=== PATIENT | female | born 1965 | race Caucasian/White ===

== ENCOUNTER → 2017-06-20 | Day surgery (SDC) | payer BC ==
[~2017-06-20] MED LIST: ASPIR 8181 MG PO; BACTRIM DS TAB1 EACH PO; CIPROFLOXACIN500 M1 PO; CLINDAMYCIN HC150 MG PO; FENTANYL CITRATE/PF 100MCG/2 ML INJ ONE; INSULIN REGULAR, HUMAN 100 UNIT/1 ML 3ML VIAL ONE; JANUVIA100 MG PO; LANTUS100 UNITS/ SC; LIDOCAINE HCL 2% LOCAL INJ 5 ML SDV VIAL INJ ONE; METOPROLOL SUCC25 MG PO; METOPROLOL TART25 MG PO; MIDAZOLAM HCL 2 MG/2 ML VIAL ONE; NOVOLOG MI100 UNITS/ SC; PROPOFOL IV EMULSION 10 MG/ML 50 ML VIAL ONE; PROTONIX40 M2 PO; REGLAN10 MG PO; TUMERIC PO; VITAMIN B COMP1 EACH PO; Z.0.LEVEMIR100 UNIT/ SQ; Z.0.LEXAPRO10 MG PO; Z.0.LISINOPRIL20 MG PO; Z.0.SYNTHROID100 MCG PO
--- OUTSIDE RECORDS SUMMARY | 2017-06-20 06:06 | XMS REPORT ---
Author Author [facility] Address Unknown Phone Unavailable Care Team Providers Care Simonizer Name Role Phone CARLOS ENRIQUE ZAMAN Unavailable Unavailable Problems This patient has no known problems. Allergies, Adverse Reactions, Alerts This patient has no known allergies or adverse reactions. Medications This patient has no known medications. Results Test Description Test Time Test Comments Text Results Atomic Results Result Comments CHEST 2 VIEWS [place] [address] Patient Name: JENNIFER YEUNG MR #: [id number] : 1965 Age/Sex: 51/F Req #: [id number] Adm Physician: Ordered by: CARLOS ENRIQUE ZAMAN DPM Report #: [id number] Location: OR Room/Bed: Procedure: 1030- 0030 DX/CHEST 2 VIEWS Exam Date: 03/10/17 Exam Time : 1150 REPORT STATUS: Signed PROCEDURE: X-RAY CHEST, TWO VIEWS COMPARISON: [facility], DX, CHEST 2 VIEWS, 05/16/2010, 13:10. INDICATIONS: PRE OPERATIVE CHEST X-RAY FOR FOOT SURGERY FINDINGS: LUNGS: No consolidations or edema. PLEURA: No effusions or pneumothorax. HEART T MEDIASTINUM: The heart is within normal size- limits. BONES T SOFT TISSUES: No acute findings. Mild degenerative changes of the spine. CONCLUSION: No acute thoracic abnormality. Amisha Almanza D.O. Dictated by: Amisha Almanza D.O. on 03/10/2017 at 12:42 Electronically approved by: Amisha Almanza D.O. on 03/10/2017 at 12:42 Dictated By: AMISHA ALMANZA DO 124 Transcribed By: GEORGES on 03/10/17 1242 COPY TO: CARLOS ENRIQUE ZAMAN DPM
--- NOTE | 2017-06-20 09:03 | Operative Report ---
DATE OF PROCEDURE: June 20, 2017 REFERRING PHYSICIAN: Dr. Marv Gauthier. PROCEDURE PERFORMED: Esophagogastroduodenoscopy with esophageal dilatation and biopsies. INDICATIONS FOR PROCEDURE: Dysphagia to solids. Nausea and vomiting. MEDICATION: Patient was done under MAC. Please see anesthesiologist's note. PROCEDURE: With patient in left lateral decubitus position, flexible fiberoptic Olympus gastroscope was introduced into the esophagus under direct visualization without any difficulty. There was some patchy erythema noted in distal esophagus. A mild stricture was noted at the GE junction that was dilated to size 52-English Dewitt. The scope was then advanced with ease into the stomach. Mucosa overlying the antrum and the body revealed some diffuse erythema and mild to moderate edema, and biopsies were obtained and sent to stain for H. pylori. Several hyperplastic-appearing polyps were noted in the body of the stomach. Some were partially excised with cold biopsy forceps. The pylorus was of normal contour and shape. It was intubated with ease and the scope was advanced all the way to the 2nd portion of the duodenum. The scope was then withdrawn slowly. Mucosa overlying the proximal 2nd portion of the duodenal bulb appeared to be within normal limits. The scope was then withdrawn back into the stomach and retroflexed. Mucosa overlying the fundus and cardia appeared to be within normal limits. The scope was then straightened out. The stomach was decompressed. The scope was subsequently withdrawn. Patient tolerated the procedure well. IMPRESSION: 1. Distal esophagitis. 2. Esophageal stricture at gastroesophageal junction, dilated to a size 52-English Dewitt. 3. Gastritis biopsied. Biopsies sent to stain for Helicobacter pylori. 4. Gastric polyps body, some partially excised with the cold biopsy forceps. PLAN: Follow up histology. Initiate Protonix 40 mg 1 p.o. q.a.m. a.c. Job#: [id number] MT cc:MARV GAUTHIER MD
== END | disposition home or self-care (01) ==
LOC: OR 06:03
PROVIDERS: ATTEND Internal Medicine Gastroenterology
DX: K22.2 Esophageal obstruction (principal); K31.7 Polyp of stomach and duodenum; K29.70 Gastritis, unspecified, without bleeding; K20.9 Esophagitis, unspecified; E11.9 Type 2 diabetes mellitus without complications; I10 Essential (primary) hypertension; E03.9 Hypothyroidism, unspecified; Z01.810 Encounter for preprocedural cardiovascular examination; Z79.4 Long term (current) use of insulin; Z68.41 Body mass index [BMI] 40.0-44.9, adult; Z80.0 Family history of malignant neoplasm of digestive organs
CPT/HCPCS: 36415; 43239; 43450; 82948; 93005; J2001; J2250

== ENCOUNTER → 2017-07-09 | Outpatient (CLI) | payer BC ==
[~2017-07-09] MED LIST changes: +DICYCLOMINE HCL20 MG PO; -FENTANYL CITRATE/PF 100MCG/2 ML INJ ONE; -INSULIN REGULAR, HUMAN 100 UNIT/1 ML 3ML VIAL ONE; -LIDOCAINE HCL 2% LOCAL INJ 5 ML SDV VIAL INJ ONE; -MIDAZOLAM HCL 2 MG/2 ML VIAL ONE; -PROPOFOL IV EMULSION 10 MG/ML 50 ML VIAL ONE; +SUCRALFATE1 GM PO; +ZOFRAN ODT4 MG SL
--- NOTE | 2017-07-09 08:52 | Diagnostic Imaging Report ---
PROCEDURE:ABDOMINAL ULTRASOUND COMPARISON:CT abdomen and pelvis dated 08/28/2015 INDICATIONS:Epigastric Pain FINDINGS: Liver: Slightly enlarged measuring 17.6 cm with increased hepatic parenchymal echogenicity. No focal mass. Main portal vein: Measures 13 mm with normal hepatopedal flow. Gallbladder: Absent Common Bile Duct: Measures 0.5 cm with no echogenic filling defect. Sonographic Farmer's sign: Negative Right kidney: Measures 12.1 x 4.3 x 6.1 cm. No solid or cystic mass, echogenic calculi or hydronephrosis. Normal parenchymal echogenicity. Left kidney: Measures 11.7 x 6.4 x 5.8 cm. No solid or cystic mass, echogenic calculi or hydronephrosis. Normal parenchymal echogenicity. Spleen: Enlarged measuring 14.9 cm. Pancreas: The visualized portions of the pancreas are normal. The pancreatic tail is obscured. Inferior vena cava: Normal. Aorta: Poorly visualized. Ascites: None. CONCLUSION: 1. Slightly enlarged liver with increased hepatic echogenicity. 2. The spleen is enlarged. Prakash Almanza D.O. Dictated by: Prakash Almanza D.O. on 07/09/2017 at 8:52 Electronically approved by: Prakash Almanza D.O. on 07/09/2017 at 8:52
== END ==
LOC: US 07:58
PROVIDERS: ATTEND Internal Medicine Gastroenterology
DX: R10.13 Epigastric pain (principal)
CPT/HCPCS: 76700

== ENCOUNTER 2017-07-15 16:32 | Inpatient (IN) | payer BC ==
[~2017-07-15] VITALS: Ht 167.6 cm; Wt 114.3 kg
[~2017-07-15 16:32] MED LIST changes: -DICYCLOMINE HCL20 MG PO; -SUCRALFATE1 GM PO; -ZOFRAN ODT4 MG SL
[2017-07-15] MEDS ORDERED: MAGNESIUM/ALUMINUM/SIMETHICONE 30 ML UDC PO ONE ×2 (16:45→17:00)
[2017-07-15] MEDS ORDERED: LIDOCAINE VISC 2% SOLN 15 ML UDC PO ONE (16:45)
[2017-07-15 16:58] LABS: BASOPHILS # (AUTO) 0.1 (0.0-0.1); BASOPHILS % 0.7 % (0.0-1.0); EOSINOPHILS # (AUTO) 0.1 (0.0-0.4); EOSINOPHILS % 1.7 % (0.0-6.0); HEMATOCRIT 36.9 % (34.2-44.1); HEMOGLOBIN 11.3 g/dL (12.0-16.0); LYMPHOCYTES # (AUTO) 1.8 (1.0-3.2); MEAN CORPUSCULAR HGB CONC 30.6 g/dL (31-35); MONOCYTES # (AUTO) 0.3 (0.2-0.8); MONOCYTES % 4.4 % (4.4-11.3); NEUTROPHILS # (AUTO) 4.9 (2.1-6.9); NEUTROPHILS % 67.8 % (38.7-80.0); PLATELET COUNT 157 x10e3/uL (140-360); RED BLOOD COUNT 4.92 x10e6/uL (3.6-5.1); RED CELL DISTRIBUTION WIDTH 17.1 % (11.7-14.4)
[2017-07-15 17:05] LABS: INR 1.22; PROTHROMBIN TIME 14.5 seconds (11.9-14.5)
[2017-07-15 17:06] LABS: PARTIAL THROMBOPLASTIN TIME 28.9 seconds (23.8-35.5)
[2017-07-15 17:14] LABS: ALANINE AMINOTRANSFERASE 23 IU/L (0-55); ALBUMIN 3.7 g/dL (3.5-5.0); ALBUMIN/GLOBULIN RATIO 0.8 (0.8-2.0); ALKALINE PHOSPHATASE 135 IU/L (40-150); ANION GAP 15.1 mmol/L (8-16); BLOOD UREA NITROGEN 8 mg/dL (7-26); BUN/CREATININE RATIO 8 (6-25); CARBON DIOXIDE 25 mmol/L (22-29); CHLORIDE 98 mmol/L (98-107); CREATINE KINASE 31 IU/L (29-168); EST GLOMERULAR FILTRATION RATE 58 ML/MIN (60-); POTASSIUM 4.1 mmol/L (3.5-5.1); SODIUM 134 mmol/L (136-145)
[2017-07-15 17:15] LABS: GLUCOSE 571 mg/dL (74-118)
[2017-07-15] MEDS ORDERED: ONDANSETRON HCL INJ 2 MG/ML VIAL IV STA (17:21)
[2017-07-15] MEDS ORDERED: JANUVIA100 MG PO (17:26)
[2017-07-15] MEDS ORDERED: DICYCLOMINE HCL20 MG PO (17:26)
[2017-07-15] MEDS ORDERED: SUCRALFATE1 GM PO (17:26)
[2017-07-15] MEDS ORDERED: ZOFRAN ODT4 MG SL (17:26)
[2017-07-15] MEDS ORDERED: SODIUM CHLORIDE 0.9% 1000ML 1,000 ML IV SCH (17:30)
[2017-07-15] MEDS ORDERED: INSULIN REGULAR, HUMAN 100 UNIT/1 ML 3ML VIAL IV ONE (17:30)
--- NOTE | 2017-07-15 18:01 | Diagnostic Imaging Report ---
PROCEDURE: Frontal and lateral views of the chest. COMPARISON: Patients [facility], , CHEST 2 VIEWS, 03/10/2017, 10:45. INDICATIONS: CHEST PRESS, EPIGASTRIC PAIN FINDINGS: Lines/tubes: None. Lungs: The lungs are well inflated and grossly clear. There is no evidence of pneumonia or pulmonary edema. Pleura: There is no pleural effusion or pneumothorax. Heart and mediastinum: The heart and the mediastinum are normal. Bones: No acute bony abnormality. IMPRESSION: 1. No acute cardiopulmonary abnormalities. Serjio Ghotra M.D. Dictated by: Serjio Ghotra M.D. on 07/15/2017 at 18:00 Electronically approved by: Serjio Ghotra M.D. on 07/15/2017 at 18:00
[2017-07-15] MEDS ORDERED: PANTOPRAZOLE SOD 40 MG TABEC PO ONE (18:45)
--- NOTE | 2017-07-15 20:07 | Diagnostic Imaging Report ---
EXAM: CT of the abdomen and pelvis WITH contrast HISTORY: Upper abdominal pain COMPARISON: Images from a CT of the abdomen and pelvis performed on August 28, 2015. TECHNIQUE: The abdomen and pelvis were scanned utilizing a multidetector helical scanner. Coronal and sagittal reformats are provided. PROTOCOL: Routine IV CONTRAST: 100 cc of Isovue-370. ORAL CONTRAST: Water RADIATION DOSE: Total DLP: 854.36 mGy*cm Estimated effective dose: (DLP x 0.015 x size factor) COMPLICATIONS: None FINDINGS: LOWER THORAX: Unremarkable. HEPATOBILIARY: The liver is enlarged. Diffusely decreased attenuation of the liver relative to the spleen. No focal hepatic lesions. No biliary ductal dilatation. Metallic clips in the right upper quadrant of the abdomen are compatible with prior cholecystectomy. SPLEEN: Splenomegaly. Interval development of a low-density 2.3 cm lesion at the posterior aspect of the spleen (series 2 image 23). PANCREAS: No focal masses or ductal dilatation. ADRENALS: No discrete adrenal nodule. KIDNEYS/URETERS: No hydronephrosis, stones, or solid mass lesions. PELVIC ORGANS/BLADDER: Numerous pelvic phleboliths. The uterus is anteflexed. The urinary bladder is partially decompressed. PERITONEUM / RETROPERITONEUM: No free air or fluid. LYMPH NODES: No pathologically enlarged lymph node. Multiple retroperitoneal lymph nodes measuring up to 7 mm. VESSELS: A few scattered atherosclerotic vascular calcifications. GI TRACT: No distention or wall thickening identified. The stomach is partially decompressed, limiting evaluation. The appendix is normal. BONES: No aggressive osseous lesion or acute fracture. SOFT TISSUES: Unremarkable. IMPRESSION: 1. Hepatosplenomegaly. 2. Hepatic steatosis. 3. A low-density lesion within the posterior aspect of the spleen, and the absence of a known malignancy, this is statistically most likely a benign finding. Signed by: Dr. Armando Bhakta D.O., M.M.M. on 07/15/2017 8:03 PM
[2017-07-15] MEDS ORDERED: DEXTROSE 50% SYRINGE 50 ML IV PRN (20:30)
[2017-07-15] MEDS: INSULIN REGULAR, HUMAN 100 UNIT/1 ML 3ML VIAL SQ SCH (21:04)
[2017-07-15] MEDS: SODIUM CHLORIDE 0.9% 1000ML 1,000 ML IV SCH (21:21)
[2017-07-15] MEDS ORDERED: SODIUM CHLORIDE 0.9% 50ML 50 ML ONE (22:26)
[2017-07-15] MEDS ORDERED: IOPAMIDOL 370 MG/ML 200 ML INFUS..BTL INJ ONE (22:27)
[2017-07-15 22:37] VITALS: BP 50/80
[2017-07-16] VITALS (11 sets, daily range): BP systolic 89–159; BP diastolic 42–80
[2017-07-16] MEDS: SODIUM CHLORIDE 0.9% 1000ML 1,000 ML IV SCH ×3 (05:55→21:56)
[2017-07-16 07:07] LABS: BASOPHILS # (AUTO) 0.1 (0.0-0.1); BASOPHILS % 0.8 % (0.0-1.0); EOSINOPHILS # (AUTO) 0.2 (0.0-0.4); EOSINOPHILS % 2.2 % (0.0-6.0); HEMATOCRIT 32.9 % (34.2-44.1); HEMOGLOBIN 9.9 g/dL (12.0-16.0); LYMPHOCYTES # (AUTO) 2.8 (1.0-3.2); LYMPHOCYTES % 35.5 % (18.0-39.1); MEAN CORPUSCULAR HEMOGLOBIN 22.9 pg (28-32); MEAN CORPUSCULAR HGB CONC 30.1 g/dL (31-35); MEAN CORPUSCULAR VOLUME 76.2 fL (81-99); MONOCYTES # (AUTO) 0.5 (0.2-0.8); MONOCYTES % 6.6 % (4.4-11.3); NEUTROPHILS # (AUTO) 4.2 (2.1-6.9); NEUTROPHILS % 54.5 % (38.7-80.0); PLATELET COUNT 130 x10e3/uL (140-360); RED BLOOD COUNT 4.32 x10e6/uL (3.6-5.1); RED CELL DISTRIBUTION WIDTH 17.2 % (11.7-14.4)
--- NOTE | 2017-07-16 07:09 | History and Physical ---
CHIEF COMPLAINT: Abdominal pain. HISTORY OF PRESENT ILLNESS: This is Ms. Irene who was in her usual state of health until 2 weeks prior to admission when the patient started having epigastric pain. The patient was seen by Dr. Ed Ventura. Initially, EGD was done as outpatient. The patient started retching and had evaluation by Dr. Ventura's office. An ultrasound was done, which was normal. Also, the patient was started on Carafate. Symptoms still continued. With this amount of pain and epigastric pain, the patient was asked to come to the emergency room for admission and possibly for another scope. PAST MEDICAL HISTORY: History of hypertension, history of diabetes mellitus, history of hypothyroidism, history of insulin-dependence, history of reflux esophagitis. Other history includes right elbow joint replacement and mild depression. SURGERIES: Elbow replacement, bilateral cataract surgery, gallbladder removal, , hammertoes. FAMILY HISTORY: Positive for hypothyroidism, congestive heart failure, coronary artery disease, and arthritis, and myocardial infarction too. REVIEW OF SYSTEMS: Negative for chest pain or shortness of breath. Positive for nausea, vomiting and retching. No diarrhea. No constipation. No rectal bleeding, hematochezia. No hematemesis either. No diplopia. No blurry vision. PHYSICAL EXAMINATION GENERAL: The patient is alert and oriented times 3. VITAL SIGNS: Temperature is 97.9, blood pressure 50/80 when she came in, pulse ox of 98%. HEENT: Normocephalic and atraumatic. Pupils reactive to light and accommodation. There is no icterus present. CV: S1 and S2 normal. Regular rate and rhythm. ABDOMEN: Tender in the epigastric area. No rebound tenderness. No guarding. No rebound. LABS: Initial laboratory findings, white count was 7.2, hemoglobin 11.3, hematocrit 36. Chemistry: Sodium of 134, glucose 571, potassium 4.1. AST and ALT were normal. Alkaline phosphatase also was normal. Coags were all normal. IMAGING STUDIES: CT scan was done at the request of Dr. Venutra, and showed hepatosplenomegaly, hepatic steatosis, and low density lesion of the posterior aspect of the spleen, and absence of malignancy, which is basically benign. Also, the patient was found to have multiple retroperitoneal lymph nodes, subphrenic. ASSESSMENT 1. Abdominal pain. 2. Epigastric pain. 3. History of gastritis. 4. History of diabetes mellitus. 5. History of recent esophageal dilatation. PLAN: Go ahead and have an endoscopy. Will continue monitoring her blood pressure and give her IV hydralazine if needed. Insulin sliding scale has been reinstituted. The patient is n.p.o. Further recommendations were clinical course and also EGD findings. Job#: [id number] SULLY
[2017-07-16 07:28] LABS: ALANINE AMINOTRANSFERASE 27 IU/L (0-55); ALBUMIN/GLOBULIN RATIO 0.8 (0.8-2.0); ALKALINE PHOSPHATASE 128 IU/L (40-150); ANION GAP 13.7 mmol/L (8-16); BLOOD UREA NITROGEN 6 mg/dL (7-26); BUN/CREATININE RATIO 9 (6-25); CALCIUM 8.8 mg/dL (8.4-10.2); CARBON DIOXIDE 25 mmol/L (22-29); CHLORIDE 104 mmol/L (98-107); CREATININE, SERUM 0.69 mg/dL (0.57-1.11); EST GLOMERULAR FILTRATION RATE > 60 ML/MIN (60-); GLUCOSE 207 mg/dL (74-118); POTASSIUM 3.7 mmol/L (3.5-5.1); SODIUM 139 mmol/L (136-145)
[2017-07-16] MEDS: INSULIN REGULAR, HUMAN 100 UNIT/1 ML 3ML VIAL SQ SCH ×4 (07:30→20:41)
[2017-07-16] MEDS: MORPHINE SULFATE 2 MG/ML SYR IV PRN ×2 (08:38→20:37)
[2017-07-16] MEDS: ONDANSETRON HCL INJ 2 MG/ML VIAL IV PRN ×2 (08:38→20:37)
[2017-07-16] MEDS ORDERED: PANTOPRAZOLE 40 MG 10ML VIAL IV SCH (09:00)
[2017-07-16] MEDS ORDERED: INSULIN REGULAR, HUMAN 100 UNIT/1 ML 3ML VIAL ONE (15:53)
--- NOTE | 2017-07-16 16:38 | Operative Report ---
DATE OF PROCEDURE: July 16, 2017 REFERRING PHYSICIAN: Dr. Ramesh Schaeffer and Dr. Marv Gauthier PROCEDURE PERFORMED: Esophagogastroduodenoscopy with biopsies. INDICATIONS FOR PROCEDURE: Upper abdominal pain, nausea, heartburn and indigestion. MEDICATION: Patient was done under MAC. Please see anesthesiologist's note. PROCEDURE: With the patient in the left lateral decubitus position, the flexible fiberoptic Olympus gastroscope was introduced into the esophagus under direct visualization without any difficulty. There was some patchy erythema noted in the distal esophagus. The scope was then advanced with ease into the stomach. The mucosa overlying the antrum and the body revealed some patchy, intense erythema and mild to moderate edema, and biopsies were obtained and sent to stain for H. pylori. Several hyperplastic-appearing gastric polyps were noted in the body of the stomach, and some were partially excised with cold biopsy forceps. The pylorus was of normal contour and shape. It was intubated with ease, and the scope was advanced all the way to the 2nd portion of the duodenum. The scope was then withdrawn slowly. Mucosa overlying the proximal 2nd portion and the duodenal bulb grossly appeared to be within normal limits. The scope was then withdrawn back into the stomach and retroflexed. Mucosa overlying the fundus and cardia appeared to be within normal limits. The scope was then straightened out. The stomach was decompressed. The scope was subsequently withdrawn. Patient tolerated the procedure well. IMPRESSION 1. Distal esophagitis. 2. Gastritis, biopsied. Biopsies sent to stain for H. pylori. 3. Gastric polyps, some partially excised with cold biopsy forceps. PLAN: Follow up histology. Initiate Protonix 40 mg 1 p.o. a.c. b.i.d. Start full liquid diet. Job#: [id number] cc:MD MARV SALDIVAR MD
[2017-07-16] MEDS: PANTOPRAZOLE INJ 40 MG in SODIUM CHLORIDE 0.9% 50ML 50 ML IV SCH ×2 (17:52→18:43)
[2017-07-16] MEDS ORDERED: MIDAZOLAM HCL 2 MG/2 ML VIAL ONE (18:32)
[2017-07-16] MEDS ORDERED: PROPOFOL IV EMULSION 10 MG/ML 50 ML VIAL ONE (18:32)
[2017-07-16] MEDS ORDERED: LIDOCAINE HCL 2% LOCAL INJ 5 ML SDV VIAL INJ ONE (18:32)
[2017-07-16] MEDS ORDERED: FENTANYL CITRATE/PF 100MCG/2 ML INJ ONE (18:32)
[2017-07-17] VITALS (8 sets, daily range): BP systolic 132–166; BP diastolic 61–79
[2017-07-17] MEDS: MORPHINE SULFATE 2 MG/ML SYR IV PRN ×5 (00:47→21:20)
[2017-07-17] MEDS: ONDANSETRON HCL INJ 2 MG/ML VIAL IV PRN ×4 (00:47→21:20)
[2017-07-17] MEDS ORDERED: SUCRALFATE 1 GM/10 ML SUSP NG ONE (01:00)
[2017-07-17] MEDS: PANTOPRAZOLE INJ 40 MG in SODIUM CHLORIDE 0.9% 50ML 50 ML IV SCH ×5 (02:55→22:35)
[2017-07-17] MEDS: SODIUM CHLORIDE 0.9% 1000ML 1,000 ML IV SCH ×3 (03:56→20:50)
[2017-07-17] MEDS: SUCRALFATE 1 GM TAB PO SCH ×4 (08:18→20:38)
[2017-07-17] MEDS: INSULIN REGULAR, HUMAN 100 UNIT/1 ML 3ML VIAL SQ SCH ×4 (08:25→21:20)
[2017-07-17] MEDS ORDERED: METOCLOPRAMIDE HCL 10 MG/2ML VIAL IV ONE (15:15)
[2017-07-17] MEDS ORDERED: BISACODYL 5 MG TAB EC PO ONE ×2 (23:15→23:45)
[2017-07-18] VITALS (7 sets, daily range): BP systolic 134–165; BP diastolic 63–79
[2017-07-18] MEDS ORDERED: BISACODYL 5 MG TAB EC PO ONE ×3 (00:15→01:15)
[2017-07-18] MEDS: METOCLOPRAMIDE HCL 10 MG/2ML VIAL IV SCH ×5 (00:30→23:16)
[2017-07-18] MEDS: ONDANSETRON HCL INJ 2 MG/ML VIAL IV PRN ×3 (01:46→20:40)
[2017-07-18] MEDS: PANTOPRAZOLE INJ 40 MG in SODIUM CHLORIDE 0.9% 50ML 50 ML IV SCH ×3 (04:00→13:45)
[2017-07-18] MEDS: SODIUM CHLORIDE 0.9% 1000ML 1,000 ML IV SCH (05:23)
[2017-07-18] MEDS: LIDOCAINE VISC 2% SOLN 15 ML UDC PO SCH ×4 (05:49→17:19)
[2017-07-18] MEDS: BELLADONNA ALK/PHENOBARBITAL 5 ML UDC PO SCH ×4 (05:49→17:18)
[2017-07-18] MEDS: MAGNESIUM/ALUMINUM/SIMETHICONE 30 ML UDC PO SCH ×4 (05:49→17:19)
[2017-07-18 07:20] LABS: BASOPHILS % 0.6 % (0.0-1.0); EOSINOPHILS # (AUTO) 0.1 (0.0-0.4); EOSINOPHILS % 2.4 % (0.0-6.0); HEMATOCRIT 32.3 % (34.2-44.1); HEMOGLOBIN 9.5 g/dL (12.0-16.0); LYMPHOCYTES # (AUTO) 1.7 (1.0-3.2); LYMPHOCYTES % 34.1 % (18.0-39.1); MEAN CORPUSCULAR HEMOGLOBIN 22.8 pg (28-32); MEAN CORPUSCULAR HGB CONC 29.4 g/dL (31-35); MEAN CORPUSCULAR VOLUME 77.6 fL (81-99); MONOCYTES # (AUTO) 0.4 (0.2-0.8); NEUTROPHILS # (AUTO) 2.8 (2.1-6.9); NEUTROPHILS % 55.5 % (38.7-80.0); PLATELET COUNT 105 x10e3/uL (140-360); RED BLOOD COUNT 4.16 x10e6/uL (3.6-5.1); RED CELL DISTRIBUTION WIDTH 17.3 % (11.7-14.4); RETICULOCYTE % 1.6 % (0.8-2.2)
[2017-07-18 08:00] LABS: ANION GAP 12.1 mmol/L (8-16); BLOOD UREA NITROGEN < 5 mg/dL (7-26); CALCIUM 8.6 mg/dL (8.4-10.2); CARBON DIOXIDE 26 mmol/L (22-29); CHLORIDE 106 mmol/L (98-107); CREATININE, SERUM 0.68 mg/dL (0.57-1.11); EST GLOMERULAR FILTRATION RATE > 60 ML/MIN (60-); GLUCOSE 264 mg/dL (74-118); POTASSIUM 4.1 mmol/L (3.5-5.1); SODIUM 140 mmol/L (136-145)
[2017-07-18 08:04] LABS: BUN/CREATININE RATIO 7 (6-25)
[2017-07-18] MEDS: INSULIN REGULAR, HUMAN 100 UNIT/1 ML 3ML VIAL SQ SCH ×4 (08:19→20:40)
[2017-07-18] MEDS: D5.45%NS/KCL 20MEQ 1,000 ML IV SCH ×2 (08:19→23:16)
[2017-07-18] MEDS: SUCRALFATE 1 GM TAB PO SCH ×4 (08:19→20:40)
[2017-07-18 11:08] LABS: FOLATE 29.1 ng/mL (7.0-15.4)
[2017-07-18 13:26] LABS: % IRON SATURATION 11 % (15-50); IRON 32 ug/dL (50-170); TOTAL IRON BINDING CAPACITY 281 ug/dL (261-478); TRANSFERRIN 201 mg/dL (180-382)
[2017-07-18 13:46] LABS: FERRITIN 20.54 ng/mL (4.63-204.00)
[2017-07-18] MEDS: BISACODYL 5 MG TAB EC PO SCH ×5 (20:40→23:00)
[2017-07-18] MEDS: PANTOPRAZOL 40MG/SOD CHL 0.9% 50 ML IV SCH ×2 (22:00→23:45)
[2017-07-18] MEDS ORDERED: ONDANSETRON HCL INJ 2 MG/ML VIAL IV PRN (23:30)
[2017-07-19] VITALS (8 sets, daily range): BP systolic 133–172; BP diastolic 60–85
[2017-07-19] MEDS: PANTOPRAZOL 40MG/SOD CHL 0.9% 50 ML IV SCH ×4 (01:15→21:39)
[2017-07-19] MEDS: BELLADONNA ALK/PHENOBARBITAL 5 ML UDC PO SCH ×2 (06:00)
[2017-07-19] MEDS: MAGNESIUM/ALUMINUM/SIMETHICONE 30 ML UDC PO SCH ×2 (06:00)
[2017-07-19] MEDS: LIDOCAINE VISC 2% SOLN 15 ML UDC PO SCH ×2 (06:00)
[2017-07-19] MEDS: METOCLOPRAMIDE HCL 10 MG/2ML VIAL IV SCH ×3 (06:30→21:39)
[2017-07-19] MEDS: SUCRALFATE 1 GM TAB PO SCH ×5 (07:30→21:39)
[2017-07-19] MEDS: INSULIN REGULAR, HUMAN 100 UNIT/1 ML 3ML VIAL SQ SCH ×4 (08:33→21:41)
[2017-07-19] MEDS: D5.45%NS/KCL 20MEQ 1,000 ML IV SCH (11:51)
[2017-07-19] MEDS ORDERED: HYOSCYAMINE SULFATE 0.5 MG/ML AMP ONE (11:58)
[2017-07-19] MEDS ORDERED: PROPOFOL IV EMULSION 10 MG/ML 50 ML VIAL ONE (11:58)
[2017-07-19] MEDS ORDERED: LIDOCAINE HCL 2% LOCAL INJ 5 ML SDV VIAL INJ ONE (11:58)
[2017-07-19] MEDS ORDERED: FENTANYL CITRATE/PF 100MCG/2 ML INJ ONE (14:52)
[2017-07-19] MEDS ORDERED: CLONIDINE HCL 0.1 MG TAB PO PRN (20:45)
[2017-07-20 00:51] VITALS: BP 148/75
--- NOTE | 2017-07-20 01:25 | Operative Report ---
DATE OF PROCEDURE: July 19, 2017 REFERRING PHYSICIAN: Dr. Rosendo Dsouza. PROCEDURES PERFORMED: Colonoscopy and polypectomy with biopsies. INDICATIONS FOR COLONOSCOPY: Right lower quadrant pain, iron-deficiency anemia. MEDICATION: Patient was done under MAC. Please see anesthesiologist's note. PROCEDURE: With patient in left lateral decubitus position, flexible fiberoptic Olympus colonoscope was inserted into the rectum with ease and advanced all the way to the cecum. It was then withdrawn slowly. Mucosa overlying the cecum and ascending colon grossly appeared to be within normal limits. There were some minimal retained stools in the ascending colon, but no obvious obstructing or constricting lesions. Mucosa overlying the transverse and proximal descending revealed some patchy intense erythema and low-grade to moderate edema and biopsies were obtained. A minute polyp was noted in the sigmoid that was hot biopsied. The rectum grossly appeared to be within normal limits. The scope was then retroflexed into the distal rectum and small internal hemorrhoids were noted, none of which was actively bleeding. The scope was then straightened out. It was subsequently withdrawn. Patient tolerated the procedure well. IMPRESSIONS 1. Segmental colitis, transverse and proximal descending, biopsies obtained. 2. Sigmoid colon polyp, hot biopsied. 3. Internal hemorrhoids, none actively bleeding. PLAN 1. Follow up histology. 2. Initiate GI soft diet. 3. Patient will need a small bowel series on an outpatient basis, and if negative, then a capsule endoscopy would be in order. A followup colonoscopy in 3 to 5 years. Job#: [id number] CF cc:ROSENDO DSOUZA MD
[2017-07-20] MEDS: PANTOPRAZOL 40MG/SOD CHL 0.9% 50 ML IV SCH ×2 (01:46→06:35)
[2017-07-20] MEDS: METOCLOPRAMIDE HCL 10 MG/2ML VIAL IV SCH ×2 (01:46→06:35)
[2017-07-20 05:39] VITALS: BP 135/68
[2017-07-20] MEDS ORDERED: REGLAN10 MG PO (07:55)
[2017-07-20] MEDS ORDERED: ZOFRAN ODT4 MG PO (07:56)
[2017-07-20 08:11] VITALS: BP 135/80
[2017-07-20] MEDS: SUCRALFATE 1 GM TAB PO SCH (08:22)
[2017-07-20] MEDS: INSULIN REGULAR, HUMAN 100 UNIT/1 ML 3ML VIAL SQ SCH (08:23)
[2017-07-20 08:27] VITALS: BP 135/80
--- NOTE | 2017-09-08 22:25 | Discharge Summary ---
The patient came in with gastritis, intractable nausea and vomiting, abdominal pain and anemia. The patient was started on Dilaudid for pain medication. IV Protonix drip was started. Reglan was also started for nausea and vomiting. The patient had microcytic anemia and needed a colonoscopy. Also, will continue the patient on her antihypertensive medication and diabetes medication. Fluids were started. The patient was on 70 mL an hour of D5 1/2 normal saline. Colonoscopy was scheduled, and was done by Dr. Ed Ventura. The patient had EGD. Also, the patient was found to have gastritis, and was treated with Protonix. The patient's colonoscopy also was done, and revealed segmental colitis and biopsies were taken of the proximal transverse colon. The patient also had some internal hemorrhoids with no active bleeding. On the EGD, the patient also had a polyp that was biopsied. The patient is feeling better. Nausea and vomiting was doing better on Reglan. The patient was discharged on Reglan. FINAL DIAGNOSES 1. Intractable nausea and vomiting. 2. Gastritis. 3. Gastric polyp. 4. Internal hemorrhoids. For further information, look in the chart. The patient also was treated for her diabetes and hypertension. Will continue her home medication and discharged on Protonix. ROSENDO DSOUZA MD Job#: [id number]
== END 2017-07-20 08:34 | disposition home or self-care (01) | DRG 392 ==
LOC: ER 16:32 → ERHOLD 20:40 → IMCU 21:39 → OBSVTOIN 07-17 13:03 → MED/SURG 07-17 15:21
PROVIDERS: ADMIT Family Medicine; ATTEND Family Medicine
PROC: 0DB78ZX Excision of Stomach, Pylorus, Via Natural or Artificial Opening Endoscopic, Diagnostic (ICD-10-PCS; 2017-07-16)
PROC: 0DB68ZX Excision of Stomach, Via Natural or Artificial Opening Endoscopic, Diagnostic (ICD-10-PCS; 2017-07-16)
PROC: 0DBN8ZX Excision of Sigmoid Colon, Via Natural or Artificial Opening Endoscopic, Diagnostic (ICD-10-PCS; principal; 2017-07-19 17:10)
PROC: 0DBG8ZX Excision of Left Large Intestine, Via Natural or Artificial Opening Endoscopic, Diagnostic (ICD-10-PCS; 2017-07-19 17:10)
DX: K29.70 Gastritis, unspecified, without bleeding (principal); I10 Essential (primary) hypertension; K50.10 Crohn's disease of large intestine without complications; E11.9 Type 2 diabetes mellitus without complications; D50.9 Iron deficiency anemia, unspecified; K20.9 Esophagitis, unspecified; K63.5 Polyp of colon; K64.8 Other hemorrhoids; D64.9 Anemia, unspecified; Z79.4 Long term (current) use of insulin; G47.33 Obstructive sleep apnea (adult) (pediatric)
CPT/HCPCS: 36415; 43239; 45380; 45384; 71046; 74177; 80048; 80053; 82550; 82553; 82607; 82728; 82746; 82948; 83540; 84466; 84484; 84702; 85025; 85045; 85610; 85730; 88305; 88312; 93005; 96365; 96366; 99284; G0378; J1980; J2001; J2250; J2270; J2405; J2765; J7030; Q9967

== ENCOUNTER → 2017-10-07 | Outpatient (CLI) | payer BC ==
[~2017-10-07] MED LIST changes: +DICYCLOMINE HCL20 MG PO; +SUCRALFATE1 GM PO; +ZOFRAN ODT4 MG PO; +ZOFRAN ODT4 MG SL
--- NOTE | 2017-10-07 19:42 | Diagnostic Imaging Report ---
PROCEDURE:SMALL BOWEL SERIES COMPARISON:[facility], CT, CT ABDOMEN/PELVIS W, 07/15/2017, 19:32. INDICATIONS:ANEMIA, EPIGASTRIC PAIN TEQUNIQUE: A career agent radiograph was performed. The patient was given barium to drink and sequential images of the abdomen were obtained through 180 minutes until the contrast had reached the colon. Spot images of the small bowel and terminal ileum were obtained. Fluoro time: 1.7 minutes FINDINGS: Document Restorer: Nonobstructive bowel gas pattern with large amount of retained stool in the colon. No abnormal calcifications project over the renal shadows or expected course of the ureters. Pelvic phleboliths. Small bowel: Normal motility and caliber. Slight delay in contrast reaching the colon from the distal ileum likely due to prominent stool in the ascending colon. No small bowel tethering. No evidence of mass or mucosal abnormality Unremarkable terminal ileum CONCLUSION: Essentially unremarkable small bowel follow-through. Slight delay in contrast reaching the colon from the distal/terminal ileum likely due to large amount of stool in the ascending colon. No obstructing lesion is identified. Serjio Ghotra M.D. Dictated by: Serjio Ghotra M.D. on 10/07/2017 at 19:44 Electronically approved by: Serjio Ghotra M.D. on 10/07/2017 at 19:44
== END ==
LOC: DX 07:30
PROVIDERS: ATTEND Internal Medicine Gastroenterology
DX: D64.9 Anemia, unspecified (principal)
CPT/HCPCS: 74250

== ENCOUNTER 2018-01-06 20:13 | Emergency (ER) | payer BC ==
[~2018-01-06] VITALS: Ht 167.6 cm; Wt 114.3 kg
[2018-01-06] MEDS ORDERED: ACETAMINOPHEN/CODEINE ELIX 120-12 MG/5 ML UDC PO ONE (20:30)
[2018-01-06] MEDS ORDERED: SODIUM CHLORIDE 0.9% 1000ML 1,000 ML IV STA (20:30)
[2018-01-06] MEDS ORDERED: KETOROLAC TROMETHAMINE 30 MG/ML VIAL IV STA (20:30)
[2018-01-06 20:58] LABS: BASOPHILS # (AUTO) 0.2 (0.0-0.1); BASOPHILS % 1.4 % (0.0-1.0); EOSINOPHILS # (AUTO) 0.1 (0.0-0.4); EOSINOPHILS % 0.9 % (0.0-6.0); HEMATOCRIT 44.7 % (34.2-44.1); HEMOGLOBIN 14.6 g/dL (12.0-16.0); LYMPHOCYTES # (AUTO) 7.7 (1.0-3.2); LYMPHOCYTES % 65.9 % (18.0-39.1); MEAN CORPUSCULAR HEMOGLOBIN 28.7 pg (28-32); MEAN CORPUSCULAR HGB CONC 32.7 g/dL (31-35); MONOCYTES # (AUTO) 0.6 (0.2-0.8); MONOCYTES % 5.2 % (4.4-11.3); NEUTROPHILS % 26.1 % (38.7-80.0); PLATELET COUNT 111 x10e3/uL (140-360); RED BLOOD COUNT 5.08 x10e6/uL (3.6-5.1); RED CELL DISTRIBUTION WIDTH 14.6 % (11.7-14.4)
[2018-01-06 21:19] LABS: CLARITY,URINE SL CLOUDY (CLEAR); COLOR,URINE YELLOW (YELLOW); LEUKOCYTE ESTERASE ,URINE TRACE (NEGATIVE); NITRITE,URINE NEGATIVE (NEGATIVE); PROTEIN,URINE DIPSTICK NEGATIVE (NEGATIVE)
[2018-01-06 21:19] LABS: ALANINE AMINOTRANSFERASE 31 IU/L (0-55); ALBUMIN 3.4 g/dL (3.5-5.0); ALBUMIN/GLOBULIN RATIO 0.7 (0.8-2.0); ALKALINE PHOSPHATASE 138 IU/L (40-150); ANION GAP 17.3 mmol/L (8-16); BLOOD UREA NITROGEN 13 mg/dL (7-26); BUN/CREATININE RATIO 14 (6-25); CALCIUM 9.5 mg/dL (8.4-10.2); CARBON DIOXIDE 25 mmol/L (22-29); CHLORIDE 95 mmol/L (98-107); CREATININE, SERUM 0.94 mg/dL (0.57-1.11); EST GLOMERULAR FILTRATION RATE > 60 ML/MIN (60-); GLUCOSE 349 mg/dL (74-118); POTASSIUM 4.3 mmol/L (3.5-5.1); SODIUM 133 mmol/L (136-145)
[2018-01-06 21:20] LABS: BACTERIA,URINE MANY /HPF; BILIRUBIN,URINE NEGATIVE (NEGATIVE); EPITHELIAL CELLS,URINE FEW /LPF; KETONES,URINE NEGATIVE (NEGATIVE); URINE UROBILINOGEN 0.2 mg/dL (0.2 - 1)
[2018-01-06] MEDS ORDERED: ONDANSETRON HCL INJ 2 MG/ML VIAL IV STA (21:33)
[2018-01-06 23:21] VITALS: BP 123/71
--- NOTE | 2018-01-07 01:46 | Diagnostic Imaging Report ---
EXAM: Chest x-ray, PA and lateral Date: January 06, 2018 at 2217 hours INDICATION: Fever, pain, sore throat COMPARISON: None available FINDINGS: LINES/TUBES: None LUNGS: No consolidations or edema. PLEURA: No effusions or pneumothorax. HEART AND MEDIASTINUM: Normal size and contour. BONES AND SOFT TISSUES: No acute findings. IMPRESSION: No evidence of pneumonia. Due to PACS disruption, a preliminary report was provided by Dr. Charles January 07, 2018 at 0138 hours. Signed by: Dr. Melanie Charles M.D. on 01/07/2018 1:42 AM
[2018-01-07 03:09] LABS: EOSINOPHILS % (MANUAL) 2 % (0-7); LYMPHOCYTES % (MANUAL) 57 % (19-48); MONOCYTES % (MANUAL) 6 % (3.4-9.0); NEUTROPHILS % (MANUAL) 32 % (40-74); PLATELET ESTIMATE ADEQUATE; PLATELET MORPHOLOGY COMMENT NORMAL; RBC MORPHOLOGY COMMENT NORMAL
== END 2018-01-06 23:26 | disposition home or self-care (01) ==
LOC: ER 20:13
DX: R50.9 Fever, unspecified (principal); J02.9 Acute pharyngitis, unspecified; J20.9 Acute bronchitis, unspecified; I10 Essential (primary) hypertension; E11.9 Type 2 diabetes mellitus without complications; E03.9 Hypothyroidism, unspecified; F41.9 Anxiety disorder, unspecified; K21.9 Gastro-esophageal reflux disease without esophagitis
CPT/HCPCS: 36415; 71046; 80053; 81001; 83518; 85025; 87070; 87086; 99284; J1885; J2405; J7030

== ENCOUNTER 2018-03-31 16:11 | Emergency (ER) | payer BC ==
[~2018-03-31] VITALS: Ht 167.6 cm; Wt 117.9 kg
--- OUTSIDE RECORDS SUMMARY | 2018-03-31 16:15 | XMS REPORT | Clinical Summary ---
Author Author Parmar Samaritan Organization Parmar Samaritan Address Unknown Phone Unavailable Care Team Providers Care Paediatric Physiotherapist Name Role Phone Hussein Gauthier MD PCP Allergies Comments Active Allergy Reactions Severity Noted Date Hydrocodone Itching, Rash High 08/26/2017 Shrimp Swelling High 08/26/2017 Medications End Date Status Medication Sig Dispensed Refills Start Date Active escitalopram (LEXAPRO) 10 Daily 0 MG tablet Active insulin asp prt-insulin Three Times A 0 ASPART (NovoLOG Mix 70-30 Day U-100 Insuln) 100 unit/mL (70-30) injection Active insulin GLARGINE (LANTUS Bedtime 0 U-100 INSULIN) 100 unit/mL injection (vial) Active levothyroxine (SYNTHROID) Daily 0 100 mcg tablet Active lisinopril Daily 0 (PRINIVIL,ZESTRIL) 20 mg tablet Active dicyclomine (BENTYL) 20 Four Times 0 mg tablet Daily Active pantoprazole (PROTONIX) Take 40 mg by 0 40 MG EC tablet mouth daily. Active ondansetron (ZOFRAN) 8 MG Take 8 mg by 0 tablet mouth every 8 (eight) hours as needed for nausea or vomiting. Active metoprolol tartrate Take 25 mg by 0 (LOPRESSOR) 25 mg tablet mouth daily. Active sucralfate (CARAFATE) 1 Twice A Day 0 gram tablet Active amoxicillin (AMOXIL) 500 TK 1 C PO TID 0 MG capsule FOR 8 DAYS 8 Active NOVOLOG FLEXPEN U-100 INJECT 20 3 INSULIN 100 unit/mL UNITS UNDER 8 insulin pen THE SKIN TID BEFORE A MEAL Active LANTUS SOLOSTAR U-100 INJ 40 UNI SC 3 INSULIN 100 unit/mL BID 8 injection (pen) Active lisinopril TK 1 T PO QD 0 (PRINIVIL,ZESTRIL) 2.5 mg 8 tablet Active Problems Problem Noted Date Iron deficiency anemia 08/18/2017 Splenomegaly 08/18/2017 Encounters Care Team Description Date Type Specialty James Story MD Iron deficiency anemia, unspecified iron deficiency anemia type (Primary Dx); Splenomegaly; Chronic fatigue; Pain of right hip joint; History of arteriovenous malformation (AVM) 11/20/2017 Office Visit Oncology Radha Rodriguez MD Pelvic pain (Primary Dx) 11/10/2017 Office Visit Obstetrics and Gynecology Radha Rodriguez MD Pelvic pain 11/10/2017 Ancillary Obstetrics and Gynecology Procedure Radha Rodriguez MD Screening breast examination (Primary Dx); Pap smear for cervical cancer screening; Pelvic pain 11/03/2017 Office Visit Obstetrics and Gynecology Del Macias MD Iron deficiency anemia, unspecified iron deficiency anemia type (Primary Dx) 09/23/2017 Infusion Oncology Ed Buchanan RN 09/22/2017 Orders Only Oncology Del Macias MD Jue, Mei, RN Iron deficiency anemia, unspecified iron deficiency anemia type (Primary Dx) 08/26/2017 Infusion Oncology Belle Huggins PA 08/19/2017 Orders Only Oncology Del Macias MD Other specified diseases of blood and blood-forming organs 08/18/2017 Lab Lab Del Macias MD Splenomegaly (Primary Dx); Iron deficiency anemia, unspecified iron deficiency anemia type 08/18/2017 Office Visit Hematology Holly Bedoya MA Other specified diseases of blood and blood-forming organs (Primary Dx) 08/15/2017 Orders Only Hematology after 03/30/2017 Family History Medical History Relation Name Comments Hypertension Father Colon cancer Maternal Aunt Heart attack Maternal Grandfather Hypertension Maternal Grandfather Diabetes Maternal Grandmother Heart attack Maternal Grandmother Hypertension Maternal Grandmother Diabetes Mother Heart disease Mother Hypertension Mother Breast cancer Paternal Aunt Heart disease Paternal Grandfather Hypertension Paternal Grandfather Relation Name Status Comments Father Maternal Aunt Maternal Grandfather Maternal Grandmother Mother Paternal Aunt Alive Paternal Grandfather Paternal Grandmother Social History Date Tobacco Use Types Packs/Day Years Used Never Smoker Smokeless Tobacco: Never Used Alcohol Use Drinks/Week oz/Week Comments Yes social Sex Assigned at Date Recorded Not on file Industry Job Start Date Occupation Not on file Not on file Not on file Travel End Travel History Travel Start No recent travel history available. Last Filed Vital Signs Time Taken Vital Sign Reading 11/20/2017 10:40 AM CDT Blood Pressure 185/86 11/20/2017 10:40 AM CDT Pulse 83 11/20/2017 9:58 AM CDT Temperature 37.1 C (98.7 F) 09/23/2017 8:39 AM CDT Respiratory Rate 16 09/23/2017 8:39 AM CDT Oxygen Saturation 98% - Inhaled Oxygen - Concentration 11/20/2017 9:58 AM CDT Weight 112 kg (248 lb) 11/20/2017 9:58 AM CDT Height 167.6 cm (5' 6") 11/20/2017 9:58 AM CDT Body Mass Index 40.03 Plan of Treatment Health Maintenance Due Date Last Done Comments DIABETIC RETINAL EYE EXAM 1964 MMR VACCINES (1 of 1 - 1965 Standard series) DIABETIC FOOT EXAM 1974 URINE MICROALBUMIN 1974 VARICELLA VACCINES (1 of 1977 2 - 2-dose adolescent series) HEPATITIS B VACCINES (1 1983 of 3 - Risk 3-dose series) CERVICAL CANCER SCREENING 1985 BREAST CANCER SCREENING 2014 COLON CANCER SCREENING 2014 SHINGRIX VACCINE (1 of 2) 2014 INFLUENZA VACCINE 12/10/2017 IPV VACCINES Aged Out No longer eligible based on patient's age to complete this topic MENINGOCOCCAL VACCINE Aged Out No longer eligible based on patient's age to complete this topic Procedures Comments Procedure Name Priority Date/Time Associated Diagnosis US PELVIS COMPLETE (AMB Routine 11/10/2017 Pelvic pain IN-CLINIC ONLY) 10:21 AM CDT THINPREP TIS PAP RFX HPV Routine 11/03/2017 Pap smear for cervical 2:47 PM CDT cancer screening FERRITIN LEVEL Routine 08/18/2017 3:10 PM CDT TOTAL IRON BINDING Routine 08/18/2017 CAPACITY 3:10 PM CDT ZZESTIMATED GFR Routine 08/18/2017 3:10 PM CDT RETICULOCYTE COUNT Routine 08/18/2017 3:10 PM CDT COMPREHENSIVE METABOLIC Routine 08/18/2017 PANEL 3:10 PM CDT HC COMPLETE BLD COUNT Routine 08/18/2017 Other specified diseases W/AUTO DIFF 3:10 PM CDT of blood and blood-forming organs after 03/30/2017 Results * US Pelvis Complete (AMB In-Clinic ONLY) (11/10/2017 10:21 AM CDT) Narrative Performed At [facility] Uterus: 6.5cm Endometrium: 0.7mm Right Ovary: 1.98cm Left Ovary: 1.55cm Bilateral adnexa normal. No abnormal findings visualized. Performing Organization Address City/[facility] Phone Number [facility] [address] [place] [address] * THINPREP TIS PAP RFX HPV (11/03/2017 2:47 PM CDT) Clinical information None given [employer] [place] Date of last menstrual NONE GIVEN [employer] period [place] Prev. pap: NONE GIVEN [facility] [place] Prev. bx: NONE GIVEN [employer] [place] Source None given [employer] [place] Statement of adequacy Comment: [facility] Satisfactory for evaluation. [place] Endocervical/transformation zone component present. Age and/or menstrual status not provided Interpretation/result: Comment: Negative for [employer] intraepithelial lesion or [place] malignancy. Comment Comment: [employer] This Pap test has been [place] evaluated with computer assisted technology. 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 It is not a diagnostic test and is subject to false negative and false positive results. It is most reliable when a satisfactory sample, regularly obtained, is submitted with relevant clinical findings and history, and when the Pap result is evaluated along with historic and current clinical information. Specimen Vaginal Resulting Agency Comment Performing Organization Information: Site ID: [id number] Name: [facility] Address: [address] [place] [id number] Director: Cheri Ghosh Performing Organization Address City/State/[facility] Phone [place] [address] * Total iron binding capacity (08/18/2017 3:10 PM CDT) Iron level 19 (L) 37 - 145 ug/dL [facility] DEPARTMENT OF PATHOLOGY AND GENOMIC MEDICINE Iron binding capacity 301 200 - 400 ug/dL [facility] DEPARTMENT OF PATHOLOGY AND GENOMIC MEDICINE % Saturation 6.3 (L) 15.0 - 38.0 % [facility] DEPARTMENT OF PATHOLOGY AND GENOMIC MEDICINE Specimen Plasma specimen Performing Organization Address City/[facility] [place] [address] PATHOLOGY AND GENOMIC [facility] * Estimated GFR (08/18/2017 3:10 PM CDT) GFR Non Af Amer 87 mL/min/1.73 m2 [facility] DEPARTMENT OF PATHOLOGY AND GENOMIC MEDICINE GFR Af Amer >90 mL/min/1.73 m2 [facility] DEPARTMENT OF Comment: PATHOLOGY AND Chronic kidney disease: <60 GENOMIC MEDICINE mL/min/1.73m2 Kidney failure: <15 mL/min/1.73m2 The estimated GFR is calculated from the IDMS-traceable Modification of Diet in Renal Disease Equation. The accuracy of the calculation is poor when the creatinine is normal. Calculated values >90 mL/min/1.73m2 are not reported. This equation has not been validated in children (<18 years), women, the elderly (>70 years), or ethnic groups other than Caucasians and Americans. Specimen Plasma specimen Performing Organization Address [facility] [place] [address] PATHOLOGY [facility] * Reticulocyte count (08/18/2017 3:10 PM CDT) Retic %, auto 1.3 0.5 - 2.1 % [facility] DEPARTMENT OF PATHOLOGY AND GENOMIC MEDICINE Retic absolute, auto 0.0606 0.0210 - 0.1155 m/uL [facility] DEPARTMENT OF PATHOLOGY AND GENOMIC MEDICINE Performing Organization Address City/[facility] [place] [address] PATHOLOGY [employer] [facility] * CBC with platelet and differential (08/18/2017 3:10 PM CDT) WBC 7.52 4.50 - 11.00 k/uL [facility] DEPARTMENT OF PATHOLOGY AND GENOMIC MEDICINE RBC 4.63 4.20 - 5.50 m/uL [facility] DEPARTMENT OF PATHOLOGY AND GENOMIC MEDICINE HGB 10.6 (L) 12.0 - 16.0 g/dL [facility] DEPARTMENT OF PATHOLOGY AND GENOMIC MEDICINE HCT 35.1 (L) 37.0 - 47.0 % [facility] DEPARTMENT OF PATHOLOGY AND GENOMIC MEDICINE MCV 75.8 (L) 82.0 - 100.0 fL [facility] DEPARTMENT OF PATHOLOGY AND GENOMIC MEDICINE MCH 22.9 (L) 27.0 - 34.0 pg [facility] DEPARTMENT OF PATHOLOGY AND GENOMIC MEDICINE MCHC 30.2 (L) 31.0 - 37.0 g/dL [facility] DEPARTMENT OF PATHOLOGY AND GENOMIC MEDICINE RDW - SD 45.7 37.0 - 55.0 fL [facility] DEPARTMENT OF PATHOLOGY AND GENOMIC MEDICINE MPV 10.0 8.8 - 13.2 fL [facility] DEPARTMENT OF PATHOLOGY AND GENOMIC MEDICINE Platelet count 176 150 - 400 k/uL [facility] DEPARTMENT OF PATHOLOGY AND GENOMIC MEDICINE Nucleated RBC 0.00 /100 WBC [facility] DEPARTMENT OF PATHOLOGY AND GENOMIC MEDICINE Neutrophils 65.6 39.0 - 69.0 % [facility] DEPARTMENT OF PATHOLOGY AND GENOMIC MEDICINE Lymphocytes 25.9 25.0 - 45.0 % [facility] DEPARTMENT OF PATHOLOGY AND GENOMIC MEDICINE Monocytes 5.7 0.0 - 10.0 % [facility] DEPARTMENT OF PATHOLOGY AND GENOMIC MEDICINE Eosinophils 2.0 0.0 - 5.0 % [facility] DEPARTMENT OF PATHOLOGY AND GENOMIC MEDICINE Basophils 0.8 0.0 - 1.0 % [facility] DEPARTMENT OF PATHOLOGY AND GENOMIC MEDICINE Specimen Blood Performing Organization Address City/[facility] [place] [address] PATHOLOGY AND GENOMIC MEDICINE * Ferritin level (08/18/2017 3:10 PM CDT) Ferritin level 17 13 - 150 ng/mL [facility] DEPARTMENT OF PATHOLOGY AND GENOMIC MEDICINE Specimen Plasma specimen Performing Organization Address City/[facility] [place] [address] PATHOLOGY AND GENOMIC MEDICINE * Comprehensive metabolic panel (08/18/2017 3:10 PM CDT) Sodium 136 135 - 148 mEq/L [facility] DEPARTMENT OF PATHOLOGY AND GENOMIC MEDICINE Potassium 4.4 3.5 - 5.0 mEq/L [facility] DEPARTMENT OF PATHOLOGY AND GENOMIC MEDICINE Chloride 95 (L) 98 - 112 mEq/L [facility] DEPARTMENT OF PATHOLOGY AND GENOMIC MEDICINE CO2 26 24 - 31 mEq/L [facility] DEPARTMENT OF PATHOLOGY AND GENOMIC MEDICINE Anion gap 15 7 - 15 mEq/L [facility] DEPARTMENT OF Comment: PATHOLOGY AND Starting from August GENOMIC MEDICINE , anion gap calculation no longer incorporates potassium. Please note the change. BUN 10 6 - 20 mg/dL [facility] DEPARTMENT OF PATHOLOGY AND GENOMIC MEDICINE Creatinine 0.7 0.5 - 0.9 mg/dL [facility] DEPARTMENT OF PATHOLOGY AND GENOMIC MEDICINE Glucose 421 (HH) 65 - 99 mg/dL [facility] DEPARTMENT OF PATHOLOGY AND GENOMIC MEDICINE Calcium 9.9 8.3 - 10.2 mg/dL [facility] DEPARTMENT OF PATHOLOGY AND GENOMIC MEDICINE Protein 8.1 6.3 - 8.3 g/dL [facility] DEPARTMENT OF Comment: PATHOLOGY AND [place] GENOMIC MEDICINE 4.6-7.0 g/dL 1 week 4.4-7.6 g/dL 7 months-1year 5.1-7.3 g/dL 1-2 years5.6-7 .5 g/dL >3 years6.0-8 .0 g/dL 18-150 6.3-8.3 g/dL Albumin 3.5 3.5 - 5.0 g/dL [facility] DEPARTMENT OF PATHOLOGY AND GENOMIC MEDICINE A/G ratio 0.8 0.7 - 3.8 [facility] DEPARTMENT OF PATHOLOGY AND GENOMIC MEDICINE Alkaline phosphatase 116 (H) 35 - 104 U/L [facility] DEPARTMENT OF PATHOLOGY AND GENOMIC MEDICINE AST 44 (H) 10 - 35 U/L [facility] DEPARTMENT OF PATHOLOGY AND GENOMIC MEDICINE ALT 22 5 - 50 U/L [facility] DEPARTMENT OF PATHOLOGY AND GENOMIC MEDICINE Total bilirubin 0.3 0.0 - 1.2 mg/dL [facility] DEPARTMENT OF PATHOLOGY AND GENOMIC MEDICINE Specimen Plasma specimen Performing Organization Address City/State/Zipcode Phone Number [facility] DEPARTMENT OF [address] [place] [address] PATHOLOGY AND GENOMIC MEDICINE after 03/30/2017 Insurance Payer Benefit Subscriber ID Type Phone Address Plan / Group BCBS BCBS xxxxxxxxxxxx PPO CHOICE PPO/ROMEO KAUR PPO Advance Directives Patient has advance care planning documents on file. For more information, chucho e contact: Ghulam Sanitago [address] [place] [address]
[2018-03-31] MEDS ORDERED: KETOROLAC TROMETHAMINE 30 MG/ML VIAL IV STA (16:34)
[2018-03-31] MEDS ORDERED: SODIUM CHLORIDE 0.9% 1000ML 1,000 ML IV STA (16:34)
[2018-03-31] MEDS ORDERED: LIDOCAINE VISC 2% SOLN 15 ML UDC PO ONE (16:45)
[2018-03-31] MEDS ORDERED: ASPIRIN 81 MG CHEW TAB PO ONE (16:45)
[2018-03-31] MEDS ORDERED: MAGNESIUM/ALUMINUM/SIMETHICONE 30 ML UDC PO ONE (16:45)
[2018-03-31] MEDS ORDERED: BELLADONNA ALK/PHENOBARBITAL 5 ML UDC PO SCH (16:45)
[2018-03-31 16:52] LABS: BASOPHILS % 0.4 % (0.0-1.0); HEMATOCRIT 40.7 % (34.2-44.1); HEMOGLOBIN 13.3 g/dL (12.0-16.0); LYMPHOCYTES # (AUTO) 2.7 (1.0-3.2); LYMPHOCYTES % 40.5 % (18.0-39.1); MEAN CORPUSCULAR HEMOGLOBIN 29.1 pg (28-32); MEAN CORPUSCULAR HGB CONC 32.7 g/dL (31-35); MEAN CORPUSCULAR VOLUME 89.1 fL (81-99); MONOCYTES # (AUTO) 0.5 (0.2-0.8); MONOCYTES % 7.5 % (4.4-11.3); NEUTROPHILS # (AUTO) 3.4 (2.1-6.9); NEUTROPHILS % 51.3 % (38.7-80.0); PLATELET COUNT 112 x10e3/uL (140-360); RED BLOOD COUNT 4.57 x10e6/uL (3.6-5.1); RED CELL DISTRIBUTION WIDTH 13.6 % (11.7-14.4)
[2018-03-31 16:54] LABS: BILIRUBIN,URINE NEGATIVE (NEGATIVE); CLARITY,URINE SL CLOUDY (CLEAR); COLOR,URINE YELLOW (YELLOW); KETONES,URINE NEGATIVE (NEGATIVE); LEUKOCYTE ESTERASE ,URINE 1+ (NEGATIVE); NITRITE,URINE NEGATIVE (NEGATIVE); PROTEIN,URINE DIPSTICK NEGATIVE (NEGATIVE); URINE UROBILINOGEN 0.2 mg/dL (0.2 - 1)
[2018-03-31 16:56] LABS: INR 0.97; PROTHROMBIN TIME 13.8 seconds (11.9-14.5)
[2018-03-31 16:57] LABS: PARTIAL THROMBOPLASTIN TIME 28.5 seconds (23.8-35.5)
[2018-03-31 17:07] LABS: BACTERIA,URINE MODERATE /HPF; EPITHELIAL CELLS,URINE FEW /LPF; RBC,URINE 0-5 /HPF (0-5)
[2018-03-31 17:09] LABS: ALANINE AMINOTRANSFERASE 17 IU/L (0-55); ALBUMIN 3.8 g/dL (3.5-5.0); ALBUMIN/GLOBULIN RATIO 0.9 (0.8-2.0); ALKALINE PHOSPHATASE 120 IU/L (40-150); ANION GAP 11.7 mmol/L (8-16); BLOOD UREA NITROGEN 19 mg/dL (7-26); BUN/CREATININE RATIO 20 (6-25); CALCIUM 10.1 mg/dL (8.4-10.2); CARBON DIOXIDE 31 mmol/L (22-29); CHLORIDE 96 mmol/L (98-107); CREATINE KINASE 38 IU/L (29-168); CREATININE, SERUM 0.96 mg/dL (0.57-1.11); EST GLOMERULAR FILTRATION RATE > 60 ML/MIN (60-); GLUCOSE 229 mg/dL (74-118); LIPASE 24 U/L (8-78); POTASSIUM 3.7 mmol/L (3.5-5.1); SODIUM 135 mmol/L (136-145)
--- NOTE | 2018-03-31 17:21 | Diagnostic Imaging Report ---
EXAM: RIBS UNILAT W/CXR DATE: 03/31/2018 4:34 PM INDICATION: ^right side anterior chest wall pain post fall pain COMPARISON: None FINDINGS: The heart is not enlarged. No pneumothorax, pleural effusion, or focal consolidation is identified. Minimal atelectasis present in the lung bases. Body habitus limits osseous evaluation. Some images nondiagnostic. Within limitations, no definite depressed rib fracture. IMPRESSION: No definite acute finding within limitations as above. Signed by: Dr. Don Martinez MD on 03/31/2018 5:18 PM
[2018-03-31 19:00] VITALS: BP 113/76
[2018-04-01] MEDS ORDERED: PANTOPRAZOLE SO40 MG PO (14:04)
[2018-04-01] MEDS ORDERED: ZYRTEC10 M3 PO (14:04)
== END 2018-03-31 19:02 | disposition home or self-care (01) ==
LOC: ER 16:11
DX: R10.13 Epigastric pain (principal); S20.211A Contusion of right front wall of thorax, initial encounter; W17.89XA Other fall from one level to another, initial encounter; V58.4XXA Person boarding or alighting a pick-up truck or van injured in noncollision transport accident, initial encounter; I10 Essential (primary) hypertension; E11.9 Type 2 diabetes mellitus without complications; E03.9 Hypothyroidism, unspecified; F41.9 Anxiety disorder, unspecified; K21.9 Gastro-esophageal reflux disease without esophagitis
CPT/HCPCS: 36415; 71101; 80053; 81001; 82550; 82553; 83690; 84484; 85025; 85610; 85730; 87086; 93005; 99284; J1885; J7030

== ENCOUNTER → 2018-04-01 | Day surgery (SDC) | payer BC ==
[~2018-04-01] MED LIST changes: +FENTANYL CITRATE/PF 100MCG/2 ML INJ ONE; +INSULIN REGULAR, HUMAN 100 UNIT/1 ML 3ML VIAL ONE; +KETAMINE HCL INJ 50 MG/ML 10 ML VIAL ONE; +LIDOCAINE HCL 2% LOCAL INJ 5 ML SDV VIAL INJ ONE; +MIDAZOLAM HCL 5MG/ML 2ML VIAL ONE; +PANTOPRAZOLE 40 MG 10ML VIAL ONE; +PANTOPRAZOLE SO40 MG PO; +PROPOFOL IV EMULSION 10 MG/ML 20 ML VIAL ONE; +ZYRTEC10 M3 PO
--- OUTSIDE RECORDS SUMMARY | 2018-04-01 13:28 | XMS REPORT | Clinical Summary ---
Author Author Parmar Islam Organization Parmar Islam Address Unknown Phone Unavailable Care Team Providers Care Private Branch Exchange Service Advisor Name Role Phone Hussein Gauthier MD PCP [...] Encounters Care Team Description Date Type Specialty aJmes Story MD Iron deficiency anemia, unspecified iron [...] (Primary Dx) 08/15/2017 Orders Only Hematology after 03/31/2017 Family History Medical History Relation Name Comments [...] CDT of blood and blood-forming organs after 03/31/2017 Results * US Pelvis Complete (AMB In-Clinic ONLY) (11/10/2017 10:21 AM CDT) Narrative Performed At [facility] Uterus: 6.5cm Endometrium: 0.7mm Right Ovary: 1.98cm Left Ovary: 1.55cm Bilateral adnexa normal. No abnormal findings visualized. Performing Organization Address City/[facility] Phone Number [address] [place] [address] * THINPREP TIS PAP RFX HPV (11/03/2017 2:47 PM CDT) Clinical information None given [employer] [place] Date of last menstrual NONE GIVEN [employer] period [place] Prev. pap: NONE GIVEN [facility] [place] Prev. bx: NONE GIVEN [employer] [place] Source None given [employer] [place] Statement of adequacy Comment: [facility] Satisfactory for evaluation. [place] Endocervical/transformation zone component present. Age and/or menstrual status not provided Interpretation/result: Comment: Negative for [employer] intraepithelial lesion or [place] malignancy. Comment Comment: [employer] This Pap test has been [place] evaluated with computer assisted technology. 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 DEPARTMENT OF PATHOLOGY AND GENOMIC MEDICINE Iron binding capacity 301 200 - 400 ug/dL [facility] DEPARTMENT OF PATHOLOGY AND GENOMIC MEDICINE % Saturation 6.3 (L) 15.0 - 38.0 % [facility] DEPARTMENT OF PATHOLOGY AND GENOMIC MEDICINE Specimen Plasma specimen Performing Organization Address City/[facility] Hospital[facility] [place] [address] PATHOLOGY AND GENOMIC [facility] * Estimated GFR (08/18/2017 3:10 PM CDT) GFR Non Af Amer 87 mL/min/1.[address] [facility] DEPARTMENT OF PATHOLOGY AND GENOMIC MEDICINE GFR Af Amer >90 mL/min/1.[address] [facility] DEPARTMENT OF Comment: PATHOLOGY AND Chronic [...] Americans. Specimen Plasma specimen Performing Organization Address [facility] [place] [address] PATHOLOGY [facility] * Reticulocyte count (08/18/2017 3:10 PM CDT) Retic %, auto 1.3 0.5 - 2.1 % [facility] DEPARTMENT OF PATHOLOGY AND GENOMIC MEDICINE Retic absolute, auto 0.0606 0.0210 - 0.1155 m/uL [facility] DEPARTMENT OF PATHOLOGY AND GENOMIC MEDICINE Performing Organization Address City/[facility] [place] [address] PATHOLOGY [facility] [employer] [facility] * CBC with platelet and differential (08/18/2017 3:10 PM CDT) WBC 7.52 4.50 - 11.00 k/uL [facility] DEPARTMENT OF PATHOLOGY AND GENOMIC MEDICINE RBC 4.63 4.20 - 5.50 m/uL [facility] DEPARTMENT OF PATHOLOGY AND GENOMIC MEDICINE HGB 10.6 (L) 12.0 - 16.0 g/dL [facility] DEPARTMENT OF PATHOLOGY AND GENOMIC MEDICINE HCT 35.1 (L) 37.0 - 47.0 % [facility] DEPARTMENT OF PATHOLOGY AND GENOMIC MEDICINE MCV 75.8 (L) 82.0 - 100.[address] [facility] DEPARTMENT OF PATHOLOGY AND GENOMIC MEDICINE MCH 22.9 (L) 27.0 - 34.[address] [facility] DEPARTMENT OF PATHOLOGY AND GENOMIC MEDICINE MCHC 30.2 (L) 31.0 - 37.0 g/dL [facility] DEPARTMENT OF PATHOLOGY AND GENOMIC MEDICINE RDW - SD 45.7 37.0 - 55.[address] [facility] DEPARTMENT OF PATHOLOGY AND GENOMIC MEDICINE MPV 10.0 8.8 - 13.[address] [facility] DEPARTMENT OF PATHOLOGY AND GENOMIC MEDICINE Platelet count 176 150 - 400 k/uL [facility] DEPARTMENT OF PATHOLOGY AND GENOMIC MEDICINE Nucleated RBC 0.00 /[address] [facility] DEPARTMENT OF PATHOLOGY AND GENOMIC MEDICINE Neutrophils 65.6 39.0 - 69.0 % [facility] DEPARTMENT OF PATHOLOGY AND GENOMIC MEDICINE Lymphocytes 25.9 25.0 - 45.0 % [facility] DEPARTMENT OF PATHOLOGY AND GENOMIC MEDICINE Monocytes 5.7 0.0 - 10.0 % [facility] DEPARTMENT OF PATHOLOGY AND GENOMIC MEDICINE Eosinophils 2.0 0.0 - 5.0 % [facility] DEPARTMENT OF PATHOLOGY AND GENOMIC MEDICINE Basophils 0.8 0.0 - 1.0 % [facility] DEPARTMENT OF PATHOLOGY AND GENOMIC MEDICINE Specimen Blood Performing Organization Address City/[facility] [place] [address] PATHOLOGY AND GENOMIC MEDICINE * Ferritin level (08/18/2017 3:10 PM CDT) Ferritin level 17 13 - 150 ng/mL [facility] DEPARTMENT OF PATHOLOGY AND GENOMIC MEDICINE Specimen Plasma specimen Performing Organization Address City/[facility] [place] [address] PATHOLOGY AND GENOMIC MEDICINE * Comprehensive metabolic panel (08/18/2017 3:10 PM CDT) Sodium 136 135 - 148 mEq/L [facility] DEPARTMENT OF PATHOLOGY AND GENOMIC MEDICINE Potassium 4.4 3.5 - 5.0 mEq/L [facility] DEPARTMENT OF PATHOLOGY AND GENOMIC MEDICINE Chloride 95 (L) 98 - 112 mEq/L [facility] DEPARTMENT OF PATHOLOGY AND GENOMIC MEDICINE CO2 26 24 - 31 mEq/L [facility] DEPARTMENT OF PATHOLOGY AND GENOMIC MEDICINE Anion gap 15 7 - 15 mEq/L [facility] DEPARTMENT OF Comment: PATHOLOGY AND Starting from August GENOMIC MEDICINE , anion gap calculation no longer incorporates potassium. Please note the change. BUN 10 6 - 20 mg/dL [facility] DEPARTMENT OF PATHOLOGY AND GENOMIC MEDICINE Creatinine 0.7 0.5 - 0.9 mg/dL [facility] DEPARTMENT OF PATHOLOGY AND GENOMIC MEDICINE Glucose 421 (HH) 65 - 99 mg/dL [facility] DEPARTMENT OF PATHOLOGY AND GENOMIC MEDICINE Calcium 9.9 8.3 - 10.2 mg/dL [facility] DEPARTMENT OF PATHOLOGY AND GENOMIC MEDICINE Protein 8.1 6.3 - 8.3 g/dL [facility] DEPARTMENT OF Comment: PATHOLOGY AND [place] GENOMIC MEDICINE 4.6-7.0 g/dL 1 week 4.4-7.6 g/dL 7 months-1year 5.1-7.3 g/dL 1-2 years5.6-7 .5 g/dL >3 years6.0-8 .0 g/dL 18-150 6.3-8.3 g/dL Albumin 3.5 3.5 - 5.0 g/dL [facility] DEPARTMENT OF PATHOLOGY AND GENOMIC MEDICINE A/G ratio 0.8 0.7 - 3.[address] [facility] DEPARTMENT OF PATHOLOGY AND GENOMIC MEDICINE Alkaline phosphatase 116 (H) 35 - 104 U/L [facility] DEPARTMENT OF PATHOLOGY AND GENOMIC MEDICINE AST 44 (H) 10 - 35 U/L [facility] DEPARTMENT OF PATHOLOGY AND GENOMIC MEDICINE ALT 22 5 - 50 U/L [facility] DEPARTMENT OF PATHOLOGY AND GENOMIC MEDICINE Total bilirubin 0.3 0.0 - 1.2 mg/dL [facility] DEPARTMENT OF PATHOLOGY AND GENOMIC MEDICINE Specimen Plasma specimen Performing Organization Address City/State/Zipcode Phone Number [facility] DEPARTMENT OF [address] [place] [address] PATHOLOGY AND GENOMIC MEDICINE after 03/31/2017 Insurance Payer Benefit Subscriber ID Type Phone Address Plan / Group BCBS BCBS xxxxxxxxxxxx PPO CHOICE PPO/[employer] PPO Advance Directives Patient has advance care planning documents on file. For more information, chucho e contact: Ghulam Santiago [address] [place] [address]
[2018-04-01 17:35] VITALS: BP 131/74
--- NOTE | 2018-04-02 00:05 | Operative Report ---
DATE OF PROCEDURE: April 01, 2018 REFERRING PHYSICIAN: Dr. Hussein Gauthier. PROCEDURE PERFORMED: Esophagogastroduodenoscopy with esophageal dilatation and biopsies. INDICATIONS FOR ESOPHAGOGASTRODUODENOSCOPY: Dysphagia. MEDICATION: Patient was done under MAC. Please see anesthesiologist's note. PROCEDURE: With the patient in left lateral decubitus position, a flexible fiberoptic Olympus gastroscope was introduced into the esophagus under direct visualization without any difficulty. There was some patchy erythema noted in distal esophagus. A minute tongue of velvety red mucosa was noted to extend proximally from the GE junction and that was biopsied to rule out Amin's. Esophagus was then dilated to size 52-[place] Dewitt. The scope was then advanced with ease into the stomach. Mucosa overlying the antrum and the body revealed some patchy intense erythema and low-grade to moderate edema and biopsies were obtained and sent to stain for H. pylori. There was some patchy nodularity noted in the mid-body lesser curvature that was biopsied. Pylorus was intubated with ease and the scope was advanced all the way to the 2nd portion of the duodenum. The scope was then withdrawn slowly. Mucosa overlying the proximal 2nd portion and the duodenal bulb appeared to be within normal limits. The scope was then withdrawn back into the stomach and retroflexed. The mucosa overlying the fundus and cardia appeared to be within normal limits. The scope was then straightened out and was subsequently withdrawn. Patient tolerated the procedure well. IMPRESSION 1. Distal esophagitis. 2. Rule out Amin's esophagus. 3. Esophagus dilated to a size 52-[place] Dewitt. 4. Gastritis, biopsied. Biopsies sent to stain for Helicobacter pylori. 5. Patchy nodularity mid-body lesser curvature, biopsied. PLAN 1. Follow up histology. 2. Increase Protonix to 40 mg 1 p.o. a.c. b.i.d.. Job#: [id number] NELA cc:Hussein Gauthier MD
== END | disposition home or self-care (01) ==
LOC: OR 13:25
PROVIDERS: ATTEND Internal Medicine Gastroenterology
DX: K21.0 Gastro-esophageal reflux disease with esophagitis (principal); K29.50 Unspecified chronic gastritis without bleeding; K22.9 Disease of esophagus, unspecified; G47.33 Obstructive sleep apnea (adult) (pediatric); I10 Essential (primary) hypertension; E11.9 Type 2 diabetes mellitus without complications; Z79.4 Long term (current) use of insulin; E03.9 Hypothyroidism, unspecified; F41.8 Other specified anxiety disorders; Z88.5 Allergy status to narcotic agent; Z91.013 Allergy to seafood
CPT/HCPCS: 36415; 43239; 43450; 82948; J2001; J2250; J2704

== ENCOUNTER 2018-08-05 11:33 | Inpatient (IN) | payer BC ==
[~2018-08-05] VITALS: Ht 167.6 cm; Wt 116.3 kg
[~2018-08-05 11:33] MED LIST changes: -FENTANYL CITRATE/PF 100MCG/2 ML INJ ONE; -INSULIN REGULAR, HUMAN 100 UNIT/1 ML 3ML VIAL ONE; -KETAMINE HCL INJ 50 MG/ML 10 ML VIAL ONE; -LIDOCAINE HCL 2% LOCAL INJ 5 ML SDV VIAL INJ ONE; -MIDAZOLAM HCL 5MG/ML 2ML VIAL ONE; -PANTOPRAZOLE 40 MG 10ML VIAL ONE; -PROPOFOL IV EMULSION 10 MG/ML 20 ML VIAL ONE
--- OUTSIDE RECORDS SUMMARY | 2018-08-05 11:36 | XMS REPORT | Clinical Summary ---
Author Author [facility] Organization [facility] Address Unknown Phone Unavailable Care Team Providers Care Account Group Supervisor Name Role Phone Hussein Gauthier MD PCP [...] (Primary Dx) 08/15/2017 Orders Only Hematology after 08/04/2017 Family History Medical History Relation Name Comments [...] Done Comments DIABETIC RETINAL EYE EXAM 1964 DIABETIC FOOT EXAM 1974 URINE MICROALBUMIN 1974 CERVICAL CANCER SCREENING 1985 BREAST CANCER SCREENING 2014 COLON CANCER SCREENING 2014 SHINGLES VACCINES (#1) 2014 INFLUENZA VACCINE 12/10/2017 Procedures Comments Procedure Name Priority Date/Time Associated [...] CDT of blood and blood-forming organs after 08/04/2017 Results * US Pelvis Complete (AMB In-Clinic ONLY) (11/10/2017 10:21 AM CDT) Narrative Performed At [facility] Uterus: 6.5cm Endometrium: 0.7mm Right Ovary: 1.98cm Left Ovary: 1.55cm Bilateral adnexa normal. No abnormal findings visualized. Performing Organization Address City/[facility]/Zipcode Phone Number [facility] [address] [place] [address] * THINPREP TIS PAP RFX HPV (11/03/2017 2:47 PM CDT) Clinical information None given [employer] [place] Date of last menstrual NONE GIVEN [facility] period [place] Prev. pap: NONE GIVEN [facility] [place] Prev. bx: NONE GIVEN [facility] [place] Source None given [facility] [place] Statement of adequacy Comment: [facility] Satisfactory for evaluation. [place] Endocervical/transformation zone component present. Age and/or menstrual status not provided Interpretation/result: Comment: Negative for [employer] intraepithelial lesion or [place] malignancy. Comment Comment: [employer] This Pap test has been [place] evaluated with computer assisted technology. 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 in vial Electrical/Instrument Technician Comment: [facility], [place](ASCP) [place] CT screening location: [address], [facility] [address] Comment Comment: [employer] EXPLANATORY NOTE: [place] The Pap is a screening test for [...] Performing Organization Information: Site ID: [id number] Name: [facility] Address: [address] [place] [phone] Director: Cheri Ghosh Performing Organization Address City/[facility]/Zipcode Phone Number [facility] [place] [phone] * Total iron binding capacity (08/18/2017 3:10 PM CDT) Iron level 19 (L) 37 - 145 ug/dL [facility] DEPARTMENT OF PATHOLOGY AND GENOMIC MEDICINE Iron binding capacity 301 200 - 400 ug/dL [facility] DEPARTMENT OF PATHOLOGY AND GENOMIC MEDICINE % Saturation 6.3 (L) 15.0 - 38.0 % [facility] DEPARTMENT OF PATHOLOGY AND GENOMIC MEDICINE Specimen Plasma specimen Performing Organization Address City/[facility] [place] [address] PATHOLOGY AND GENOMIC MEDICINE * Estimated GFR (08/18/2017 3:10 PM CDT) GFR Non Af Amer 87 mL/min/1.73 m2 [facility] DEPARTMENT OF PATHOLOGY AND GENOMIC MEDICINE GFR Af Amer >90 mL/min/1.73 m2 [facility] DEPARTMENT OF Comment: PATHOLOGY AND Chronic [...] Americans. Specimen Plasma specimen Performing Organization Address City/[facility] [place] [address] [facility] * Reticulocyte count (08/18/2017 3:10 PM CDT) Retic %, auto 1.3 0.5 - 2.1 % [facility] DEPARTMENT OF PATHOLOGY AND GENOMIC MEDICINE Retic absolute, auto 0.0606 0.0210 - 0.1155 m/uL [facility] DEPARTMENT OF PATHOLOGY AND GENOMIC MEDICINE Performing Organization Address City/[facility] [place] [address] PATHOLOGY AND GENOMIC MEDICINE * CBC with platelet and differential (08/18/2017 3:10 PM CDT) WBC 7.52 4.50 - 11.00 k/uL [facility] DEPARTMENT OF PATHOLOGY AND GENOMIC MEDICINE RBC 4.63 4.20 - 5.50 m/uL [facility] DEPARTMENT OF PATHOLOGY AND GENOMIC MEDICINE HGB 10.6 (L) 12.0 - 16.0 g/dL [facility] DEPARTMENT OF PATHOLOGY AND GENOMIC MEDICINE HCT 35.1 (L) 37.0 - 47.0 % [facility] DEPARTMENT OF PATHOLOGY AND GENOMIC MEDICINE MCV 75.8 (L) 82.0 - 100.0 fL [facility] DEPARTMENT OF PATHOLOGY AND GENOMIC MEDICINE MCH 22.9 (L) 27.0 - 34.0 pg [facility] DEPARTMENT OF PATHOLOGY AND GENOMIC MEDICINE MCHC 30.2 (L) 31.0 - 37.0 g/dL [facility] DEPARTMENT OF PATHOLOGY AND GENOMIC MEDICINE RDW - SD 45.7 37.0 - 55.0 fL [facility] DEPARTMENT OF PATHOLOGY AND GENOMIC MEDICINE MPV 10.0 8.8 - 13.2 fL [facility] DEPARTMENT OF PATHOLOGY AND GENOMIC MEDICINE Platelet count 176 150 - 400 k/uL [facility] DEPARTMENT OF PATHOLOGY AND GENOMIC MEDICINE Nucleated RBC 0.00 /100 WBC [facility] DEPARTMENT OF PATHOLOGY AND GENOMIC MEDICINE Neutrophils 65.6 39.0 - 69.0 % [facility] DEPARTMENT OF PATHOLOGY AND GENOMIC MEDICINE Lymphocytes 25.9 25.0 - 45.0 % [facility] DEPARTMENT OF PATHOLOGY AND GENOMIC MEDICINE Monocytes 5.7 0.0 - 10.0 % [facility] DEPARTMENT OF PATHOLOGY AND GENOMIC MEDICINE Eosinophils 2.0 0.0 - 5.0 % [facility] DEPARTMENT OF PATHOLOGY AND GENOMIC MEDICINE Basophils 0.8 0.0 - 1.0 % [facility] DEPARTMENT OF PATHOLOGY AND GENOMIC MEDICINE Specimen Blood Performing Organization Address City/[facility] [place] [address] PATHOLOGY AND GENOMIC MEDICINE * Ferritin level (08/18/2017 3:10 PM CDT) Ferritin level 17 13 - 150 ng/mL [facility] DEPARTMENT OF PATHOLOGY AND GENOMIC MEDICINE Specimen Plasma specimen Performing Organization Address City/[facility] [place] [address] PATHOLOGY AND [facility] * Comprehensive metabolic panel (08/18/2017 3:10 PM CDT) Sodium 136 135 - 148 mEq/L [facility] DEPARTMENT OF PATHOLOGY AND GENOMIC MEDICINE Potassium 4.4 3.5 - 5.0 mEq/L [facility] DEPARTMENT OF PATHOLOGY AND GENOMIC MEDICINE Chloride 95 (L) 98 - 112 mEq/L [facility] DEPARTMENT OF PATHOLOGY AND GENOMIC MEDICINE CO2 26 24 - 31 mEq/L [facility] DEPARTMENT OF PATHOLOGY AND GENOMIC MEDICINE Anion gap 15 7 - 15 mEq/L [facility] DEPARTMENT OF Comment: PATHOLOGY AND Starting from August [employer] [facility] , anion gap calculation no longer incorporates potassium. Please note the change. BUN 10 6 - 20 mg/dL [facility] DEPARTMENT OF PATHOLOGY AND GENOMIC MEDICINE Creatinine 0.7 0.5 - 0.9 mg/dL [facility] DEPARTMENT OF PATHOLOGY AND GENOMIC MEDICINE Glucose 421 (HH) 65 - 99 mg/dL [facility] DEPARTMENT OF PATHOLOGY AND GENOMIC MEDICINE Calcium 9.9 8.3 - 10.2 mg/dL [facility] DEPARTMENT OF PATHOLOGY AND GENOMIC MEDICINE Protein 8.1 6.3 - 8.3 g/dL [facility] DEPARTMENT OF Comment: PATHOLOGY AND [place] GENOMIC MEDICINE 4.6-7.0 g/dL 1 week 4.4-7.6 g/dL 7 months-1year 5.1-7.3 g/dL 1-2 years5.6-7 .5 g/dL >3 years6.0-8 .0 g/dL 18-150 6.3-8.3 g/dL Albumin 3.5 3.5 - 5.0 g/dL [facility] DEPARTMENT OF PATHOLOGY AND GENOMIC MEDICINE A/G ratio 0.8 0.7 - 3.8 [facility] DEPARTMENT OF PATHOLOGY AND GENOMIC MEDICINE Alkaline phosphatase 116 (H) 35 - 104 U/L [facility] DEPARTMENT OF PATHOLOGY AND GENOMIC MEDICINE AST 44 (H) 10 - 35 U/L [facility] DEPARTMENT OF PATHOLOGY AND GENOMIC MEDICINE ALT 22 5 - 50 U/L [facility] DEPARTMENT OF PATHOLOGY AND GENOMIC MEDICINE Total bilirubin 0.3 0.0 - 1.2 mg/dL [facility] DEPARTMENT OF PATHOLOGY AND GENOMIC MEDICINE Specimen Plasma specimen Performing Organization Address City/State/[facility] Phone Number [facility] DEPARTMENT OF [address] [place] [address] PATHOLOGY AND GENOMIC MEDICINE after 08/04/2017 Insurance Payer Benefit Subscriber ID Type Phone Address Plan / Group BCBS BCBS xxxxxxxxxxxx PPO CHOICE PPO/ROMEO KAUR PPO Advance Directives Patient has advance care planning documents on file. For more information, chucho pepe contact: Ghulam Santiago [address] [place] [address]
[2018-08-05] MEDS ORDERED: INSULIN REGULAR, HUMAN 100 UNIT/1 ML 3ML VIAL IV ONE (11:45)
[2018-08-05] MEDS ORDERED: SODIUM CHLORIDE 0.9% 1000ML 2,000 ML IV ONE (11:45)
[2018-08-05] MEDS ORDERED: FAMOTIDINE 20 MG/2 ML VIAL IV STA (11:45)
[2018-08-05] MEDS ORDERED: MORPHINE SULFATE 5 MG/ML VIAL IV ONE (11:45)
[2018-08-05] MEDS ORDERED: DICYCLOMINE HCL 20 MG/2 ML VIAL IM ONE (11:45)
[2018-08-05] MEDS ORDERED: MORPHINE SULFATE INJ 4 MG/ML INJ 1ML IV ONE (12:00)
[2018-08-05 12:20] LABS: BASOPHILS % 0.4 % (0.0-1.0); EOSINOPHILS % 0.4 % (0.0-6.0); HEMOGLOBIN 14.2 g/dL (12.0-16.0); LYMPHOCYTES # (AUTO) 1.3 (1.0-3.2); LYMPHOCYTES % 15.8 % (18.0-39.1); MEAN CORPUSCULAR HEMOGLOBIN 28.2 pg (28-32); MEAN CORPUSCULAR VOLUME 85.3 fL (81-99); MONOCYTES # (AUTO) 0.2 (0.2-0.8); MONOCYTES % 2.8 % (4.4-11.3); NEUTROPHILS # (AUTO) 6.3 (2.1-6.9); NEUTROPHILS % 80.2 % (38.7-80.0); PLATELET COUNT 117 x10e3/uL (140-360); RED BLOOD COUNT 5.04 x10e6/uL (3.6-5.1); RED CELL DISTRIBUTION WIDTH 14.2 % (11.7-14.4)
[2018-08-05 12:39] LABS: ALANINE AMINOTRANSFERASE 32 IU/L (0-55); ALBUMIN 3.8 g/dL (3.5-5.0); ALBUMIN/GLOBULIN RATIO 0.8 (0.8-2.0); ALKALINE PHOSPHATASE 129 IU/L (40-150); ANION GAP 18.6 mmol/L (8-16); BLOOD UREA NITROGEN 14 mg/dL (7-26); BUN/CREATININE RATIO 13 (6-25); CALCIUM 10.1 mg/dL (8.4-10.2); CARBON DIOXIDE 24 mmol/L (22-29); CHLORIDE 92 mmol/L (98-107); CHOL/HDL RATIO 3.1 (3.0-3.6); CHOLESTEROL 194 MD/DL (0-199); CREATININE, SERUM 1.04 mg/dL (0.57-1.11); EST GLOMERULAR FILTRATION RATE 55 ML/MIN (60-); HDL CHOLESTEROL 63 MG/DL (40-60); LDL CHOLESTEROL 107 MG/DL (60-130); LIPASE 60 U/L (8-78); POTASSIUM 4.6 mmol/L (3.5-5.1); SODIUM 130 mmol/L (136-145); TRIGLYCERIDES 120 MG/DL (0-149)
[2018-08-05 12:40] LABS: GLUCOSE 543 mg/dL (74-118)
--- NOTE | 2018-08-05 12:40 | NUR ---
LAB CALLED TO REPORT CRITICAL BLOOD GLUCOSE OF 543, PRIMARY NURSE MCKAY MADE AWARE.
[2018-08-05] MEDS ORDERED: INSULIN REGULAR, HUMAN 100 UNIT/1 ML 3ML VIAL SQ ONE ×2 (13:45)
[2018-08-05] MEDS ORDERED: ONDANSETRON HCL INJ 2MG/ML 2ML 2 MG/ML VIAL IV STA (13:48)
[2018-08-05] MEDS ORDERED: DEXTROSE 50% SYRINGE 50 ML IV PRN (14:30)
[2018-08-05] MEDS ORDERED: SODIUM CHLORIDE FLUSH 10 ML SYR INJ PRN (14:30)
--- OUTSIDE RECORDS SUMMARY | 2018-08-05 14:41 | XMS REPORT | Clinical Summary ---
Author Author [facility] Organization [facility] Address Unknown Phone Unavailable Care Team Providers Care Head Porter Name Role Phone Hussein Gauthier MD PCP [...] No abnormal findings visualized. Performing Organization Address City/[facility]/Zipcode Phone Number [facility] [address] [place] [address] * THINPREP TIS PAP RFX HPV (11/03/2017 2:47 PM CDT) Clinical information None given [employer] [place] Date of last menstrual NONE GIVEN [facility] period [place] Prev. pap: NONE GIVEN [facility] [place] Prev. bx: NONE GIVEN [facility] [place] Source None given [facility] [place] Statement of adequacy Comment: [facility] Satisfactory for evaluation. [place] Endocervical/transformation zone component present. Age and/or menstrual status not provided Interpretation/result: Comment: Negative for [employer] intraepithelial lesion or [place] malignancy. Comment Comment: [employer] This Pap test has been [place] evaluated with computer assisted technology. 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 in vial Merchandising Director Comment: [employer] [facility], CT(ASCP) [place] CT screening location: [address], [facility] [address] Comment Comment: [employer] EXPLANATORY NOTE: [place] The Pap is a screening test for [...] Performing Organization Information: Site ID: [id number] Name: [facility] Address: [address] [place] [phone] Director: Cheri Ghosh Performing Organization Address City/[facility]/Zipcode Phone Number [facility] [place] [phone] * Total iron binding capacity (08/18/2017 3:10 PM CDT) Iron level 19 (L) 37 - 145 ug/dL [facility] DEPARTMENT OF PATHOLOGY AND GENOMIC MEDICINE Iron binding capacity 301 200 - 400 ug/dL [facility] DEPARTMENT OF PATHOLOGY AND GENOMIC MEDICINE % Saturation 6.3 (L) 15.0 - 38.0 % [facility] DEPARTMENT OF PATHOLOGY AND GENOMIC MEDICINE Specimen Plasma specimen Performing Organization Address City/[facility] [place] [address] PATHOLOGY AND GENOMIC MEDICINE * Estimated GFR (08/18/2017 3:10 PM CDT) GFR Non Af Amer 87 mL/min/1.73 m2 [facility] DEPARTMENT OF PATHOLOGY AND GENOMIC MEDICINE GFR Af Amer >90 mL/min/1.73 m2 [facility] DEPARTMENT OF Comment: PATHOLOGY AND Chronic kidney [...] Americans. Specimen Plasma specimen Performing Organization Address City/[facility] [place] [address] PATHOLOGY AND [employer] [facility] * Reticulocyte count (08/18/2017 3:10 PM CDT) Retic %, auto 1.3 0.5 - 2.1 % [facility] DEPARTMENT OF PATHOLOGY AND GENOMIC MEDICINE Retic absolute, auto 0.0606 0.0210 - 0.1155 m/uL [facility] DEPARTMENT OF PATHOLOGY AND GENOMIC MEDICINE Performing Organization Address City/[facility] [place] [address] PATHOLOGY AND GENOMIC MEDICINE * CBC with platelet and differential (08/18/2017 3:10 PM CDT) WBC 7.52 4.50 - 11.00 k/uL [facility] DEPARTMENT OF PATHOLOGY AND GENOMIC MEDICINE RBC 4.63 4.20 - 5.50 m/uL [facility] DEPARTMENT OF PATHOLOGY AND GENOMIC MEDICINE HGB 10.6 (L) 12.0 - 16.0 g/dL [facility] DEPARTMENT OF PATHOLOGY AND GENOMIC MEDICINE HCT 35.1 (L) 37.0 - 47.0 % [facility] DEPARTMENT OF PATHOLOGY AND GENOMIC MEDICINE MCV 75.8 (L) 82.0 - 100.0 fL [facility] DEPARTMENT OF PATHOLOGY AND GENOMIC MEDICINE MCH 22.9 (L) 27.0 - 34.0 pg [facility] DEPARTMENT OF PATHOLOGY AND GENOMIC MEDICINE MCHC 30.2 (L) 31.0 - 37.0 g/dL [facility] DEPARTMENT OF PATHOLOGY AND GENOMIC MEDICINE RDW - SD 45.7 37.0 - 55.0 fL [facility] DEPARTMENT OF PATHOLOGY AND GENOMIC MEDICINE MPV 10.0 8.8 - 13.2 fL [facility] DEPARTMENT OF PATHOLOGY AND GENOMIC MEDICINE Platelet count 176 150 - 400 k/uL [facility] DEPARTMENT OF PATHOLOGY AND GENOMIC MEDICINE Nucleated RBC 0.00 /100 WBC [facility] DEPARTMENT OF PATHOLOGY AND GENOMIC MEDICINE Neutrophils 65.6 39.0 - 69.0 % [facility] DEPARTMENT OF PATHOLOGY AND GENOMIC MEDICINE Lymphocytes 25.9 25.0 - 45.0 % [facility] DEPARTMENT OF PATHOLOGY AND GENOMIC MEDICINE Monocytes 5.7 0.0 - 10.0 % [facility] DEPARTMENT OF PATHOLOGY AND GENOMIC MEDICINE Eosinophils 2.0 0.0 - 5.0 % [facility] DEPARTMENT OF PATHOLOGY AND GENOMIC MEDICINE Basophils 0.8 0.0 - 1.0 % [facility] DEPARTMENT OF PATHOLOGY AND GENOMIC MEDICINE Specimen Blood Performing Organization Address City/[facility] [place] [address] PATHOLOGY AND GENOMIC MEDICINE * Ferritin level (08/18/2017 3:10 PM CDT) Ferritin level 17 13 - 150 ng/mL [facility] DEPARTMENT OF PATHOLOGY AND GENOMIC MEDICINE Specimen Plasma specimen Performing Organization Address City/[facility] [place] [address] PATHOLOGY AND [employer] MEDICINE * Comprehensive metabolic panel (08/18/2017 3:10 PM CDT) Sodium 136 135 - 148 mEq/L [facility] DEPARTMENT OF PATHOLOGY AND GENOMIC MEDICINE Potassium 4.4 3.5 - 5.0 mEq/L [facility] DEPARTMENT OF PATHOLOGY AND GENOMIC MEDICINE Chloride 95 (L) 98 - 112 mEq/L [facility] DEPARTMENT OF PATHOLOGY AND GENOMIC MEDICINE CO2 26 24 - 31 mEq/L [facility] DEPARTMENT OF PATHOLOGY AND GENOMIC MEDICINE Anion gap 15 7 - 15 mEq/L [facility] DEPARTMENT OF Comment: PATHOLOGY AND Starting from August [employer] MEDICINE , anion gap calculation no longer incorporates potassium. Please note the change. BUN 10 6 - 20 mg/dL [facility] DEPARTMENT OF PATHOLOGY AND GENOMIC MEDICINE Creatinine 0.7 0.5 - 0.9 mg/dL [facility] DEPARTMENT OF PATHOLOGY AND GENOMIC MEDICINE Glucose 421 (HH) 65 - 99 mg/dL [facility] DEPARTMENT OF PATHOLOGY AND GENOMIC MEDICINE Calcium 9.9 8.3 - 10.2 mg/dL [facility] DEPARTMENT OF PATHOLOGY AND GENOMIC MEDICINE Protein 8.1 6.3 - 8.3 g/dL [facility] DEPARTMENT OF Comment: PATHOLOGY AND [place] GENOMIC MEDICINE 4.6-7.0 g/dL 1 week 4.4-7.6 g/dL 7 months-1year 5.1-7.3 g/dL 1-2 years5.6-7 .5 g/dL >3 years6.0-8 .0 g/dL 18-150 6.3-8.3 g/dL Albumin 3.5 3.5 - 5.0 g/dL [facility] DEPARTMENT OF PATHOLOGY AND GENOMIC MEDICINE A/G ratio 0.8 0.7 - 3.8 [facility] DEPARTMENT OF PATHOLOGY AND GENOMIC MEDICINE Alkaline phosphatase 116 (H) 35 - 104 U/L [facility] DEPARTMENT OF PATHOLOGY AND GENOMIC MEDICINE AST 44 (H) 10 - 35 U/L [facility] DEPARTMENT OF PATHOLOGY AND GENOMIC MEDICINE ALT 22 5 - 50 U/L [facility] DEPARTMENT OF PATHOLOGY AND GENOMIC MEDICINE Total bilirubin 0.3 0.0 - 1.2 mg/dL [facility] DEPARTMENT OF PATHOLOGY AND GENOMIC MEDICINE Specimen Plasma specimen Performing Organization Address City/State/[facility] Phone Number [facility] DEPARTMENT OF [address] [place] [address] PATHOLOGY AND GENOMIC MEDICINE after 08/04/2017 Insurance Payer Benefit Subscriber ID Type Phone Address Plan / Group BCBS BCBS xxxxxxxxxxxx PPO CHOICE PPO/[employer] KAUR PPO Advance Directives Patient has advance care planning documents on file. For more information, chucho pepe contact: Ghulam Santiago [address] [place] [address]
[2018-08-05 14:44] LABS: CLARITY,URINE SL CLOUDY (CLEAR); COLOR,URINE YELLOW (YELLOW); LEUKOCYTE ESTERASE ,URINE NEGATIVE (NEGATIVE); NITRITE,URINE NEGATIVE (NEGATIVE); PROTEIN,URINE DIPSTICK TRACE (NEGATIVE)
[2018-08-05 14:45] LABS: BILIRUBIN,URINE NEGATIVE (NEGATIVE); KETONES,URINE 1+ (NEGATIVE); URINE UROBILINOGEN 0.2 mg/dL (0.2 - 1)
[2018-08-05] MEDS: SODIUM CHLORIDE 0.9% 1000ML 1,000 ML IV SCH ×2 (14:49→23:33)
[2018-08-05] MEDS: MORPHINE SULFATE INJ 4 MG/ML INJ 1ML IV PRN ×2 (14:50→20:30)
[2018-08-05 14:59] LABS: AMORPHOUS SEDIMENT,URINE FEW (FEW); BACTERIA,URINE MODERATE /HPF; EPITHELIAL CELLS,URINE MODERATE /LPF; HYALINE CASTS 0-1 (0-1)
[2018-08-05] MEDS ORDERED: MULTIVITAMINS1 EAC7 PEG (14:59)
[2018-08-05] MEDS ORDERED: MORPHINE SULFATE 2 MG/ML SYR 1ML IV PRN (15:00)
--- NOTE | 2018-08-05 15:15 | NUR ---
placed patient on hosplital bed.
[2018-08-05] MEDS: INSULIN REGULAR, HUMAN 100 UNIT/1 ML 3ML VIAL SQ SCH (17:14)
--- NOTE | 2018-08-05 19:55 | NUR ---
AWAKE ALERT SKIN W/D RESP NONLAB, NAD NOTED.
[2018-08-05] MEDS: ONDANSETRON HCL INJ 2MG/ML 2ML 2 MG/ML VIAL IV PRN (20:30)
[2018-08-05] MEDS ORDERED: INSULIN REGULAR, HUMAN 100 UNIT/1 ML 3ML VIAL SQ SCH (21:00)
[2018-08-05] MEDS: INSULIN ASPART 70/30 100 UNITS/ML VIAL SC SCH (21:00)
--- NOTE | 2018-08-05 22:50 | NUR ---
RECEIVED PATIENT FROM ER VIA STRETCHER. AAOX4 AND AMB. NO S/S OF RESP DISTRESS. C/O PAIN TO UPPER EPIGASTRIC THAT STARTED 0230 TODAY WHILE SHE WAS ASLEEP. HAD MORPHINE AND ZOFRAN IN ER PRIOR TO ARRIVAL. HAD MULTIPLE EPISODES OF N/V AT HOME WITH YELLOW FLUIDS. PATIENT STATED SHE IS UNABLE TO HOLD FOOD AND ONLY ABLE TO TAKE SMALL SIPS OF WATER ONLY. NOTED RAC18# WITH N/S @ 125CC/HR. LAST BM TODAY AM NORMAL. DENIES DIARRHEA OR BLOOD. CALL LIGHT WITHIN REACH AND INSTRUCTED TO CALL FOR ASSISTANCE. PATIENT AGREES AND VERBALIZED UNDERSTANDING.
[2018-08-05 23:00] VITALS: BP 138/65
--- NOTE | 2018-08-05 23:30 | NUR ---
Dr. Odilon Ventura here for rounding. Ok to place patient on clear liquid diet.
[2018-08-05 23:47] VITALS: BP 138/65
[2018-08-06] VITALS (9 sets, daily range): BP systolic 110–138; BP diastolic 58–73
[2018-08-06] MEDS: MORPHINE SULFATE INJ 4 MG/ML INJ 1ML IV PRN ×4 (00:17→21:45)
[2018-08-06] MEDS: ONDANSETRON HCL INJ 2MG/ML 2ML 2 MG/ML VIAL IV PRN ×3 (00:17→21:45)
[2018-08-06] MEDS: PANTOPRAZOLE 40 MG 10ML VIAL IV SCH ×3 (01:02→23:31)
--- NOTE | 2018-08-06 02:33 | History and Physical ---
REASON FOR ADMISSION: The patient is a 53-year-old lady, comes in with epigastric pain, nausea, and history of hyperglycemia. HISTORY OF PRESENTING ILLNESS: Ms. Maida Irene was in her usual state of health until the day prior to admission. The patient went to sleep and woke up with this epigastric pain, which was 10/10 intensity radiating to the back. The patient's pain was unbearable, came into the emergency room, was admitted for gastritis and hyperglycemia. PAST MEDICAL HISTORY: History of allergies; history of diabetes mellitus, uncontrolled; history of hypothyroidism, history of hypertension, history of reflux esophagitis. MEDICINES: She takes at home are cetirizine 10 mg daily, dicyclomine 20 mg q.i.d. p.r.n. for IBS, Lexapro 20 mg daily for depression; Insulin NovoLog Mix 70/30, 25 units three times a day; insulin glargine 40 units b.i.d., levothyroxine 100 mcg daily, metoprolol 25 mg twice a day, multivitamins daily, pantoprazole 40 mg daily, Carafate 1 g b.i.d., and vitamin B complex. PAST SURGICAL HISTORY: History of right elbow surgery, bilateral cataract surgery, gallbladder removal, , hammertoe resection and stomach stents done earlier too. FAMILY HISTORY: Significant for myocardial infarction, congestive heart failure, diabetes mellitus and hypertension. The patient also has significant depression secondary to father who has been diagnosed with lung cancer and he has been going through hospice at this time. REVIEW OF SYSTEMS: Negative for chest pain. No shortness of breath. Positive for nausea and vomiting. Positive for abdominal pain. No constipation. No rectal bleeding. No hematochezia. No hematemesis. No diplopia. No blurry vision. PHYSICAL EXAMINATION: VITAL SIGNS: Temperature is 97.8, pulse of 95, respirations 17, blood pressure is 125/70, pulse oximetry of 98%. HEENT: Normocephalic, atraumatic. Pupils are reactive to light and accommodation. CVS: S1, S2 distant. ABDOMEN: Tender in the epigastrium. EXTREMITIES: No clubbing, no cyanosis, no edema. ABDOMEN: Shows no rebound and no guarding. LABORATORY DATA: The patient's initial laboratory values, white count is 7.89, hemoglobin of 14.2, hematocrit of 43.3. Chemistry show a sodium of 130, potassium of 4.6, BUN of 14, creatinine of 1.04, glucose is 543, calcium of 10.1, LDL 107. ALT and AST were normal. Lipase is 60. Urine was positive for glucose, moderate bacteria and moderate amount of epithelial cells, otherwise nitrite negative and also esterase negative. IMAGING: The patient's imaging studies, none done at this time. ASSESSMENT: Acute gastritis. The patient has been started on sodium chloride, Zofran 4 mg every 6 hours has been started. The patient is also on an insulin protocol, we will continue with that. The patient currently is also kept n.p.o. and we will continue monitoring her sugar levels at this time. Restart medicines as n.p.o. is lifted. Further recommendation per clinical course. We will also repeat another lipase and amylase in the morning. Dr. Ventura has been consulted. Further recommendation per clinical course. We will continue to monitor the patient. ADDITIONAL DIAGNOSES: Include diabetes, hyponatremia, hypertension, hyperlipidemia, morbid obesity, and history of reflux esophagitis. Ramesh Schaeffer MD AS[facility]/MODL /[id number]
[2018-08-06] MEDS: LEVOTHYROXINE SODIUM 100 MCG TAB PO SCH (05:30)
[2018-08-06] MEDS: SODIUM CHLORIDE 0.9% 1000ML 1,000 ML IV SCH ×3 (05:55→23:31)
[2018-08-06 06:08] LABS: BASOPHILS % 0.5 % (0.0-1.0); EOSINOPHILS # (AUTO) 0.2 (0.0-0.4); EOSINOPHILS % 2.9 % (0.0-6.0); HEMATOCRIT 37.6 % (34.2-44.1); HEMOGLOBIN 11.8 g/dL (12.0-16.0); LYMPHOCYTES # (AUTO) 2.5 (1.0-3.2); LYMPHOCYTES % 41.9 % (18.0-39.1); MEAN CORPUSCULAR HEMOGLOBIN 27.8 pg (28-32); MEAN CORPUSCULAR HGB CONC 31.4 g/dL (31-35); MEAN CORPUSCULAR VOLUME 88.5 fL (81-99); MONOCYTES # (AUTO) 0.3 (0.2-0.8); MONOCYTES % 5.8 % (4.4-11.3); NEUTROPHILS # (AUTO) 2.9 (2.1-6.9); NEUTROPHILS % 48.6 % (38.7-80.0); PLATELET COUNT 96 x10e3/uL (140-360); RED BLOOD COUNT 4.25 x10e6/uL (3.6-5.1); RED CELL DISTRIBUTION WIDTH 14.6 % (11.7-14.4)
[2018-08-06 06:45] LABS: ALANINE AMINOTRANSFERASE 29 IU/L (0-55); ALBUMIN 2.8 g/dL (3.5-5.0); ALBUMIN/GLOBULIN RATIO 0.8 (0.8-2.0); ALKALINE PHOSPHATASE 105 IU/L (40-150); ANION GAP 11.3 mmol/L (8-16); BLOOD UREA NITROGEN 16 mg/dL (7-26); BUN/CREATININE RATIO 20 (6-25); CALCIUM 8.4 mg/dL (8.4-10.2); CARBON DIOXIDE 28 mmol/L (22-29); CHLORIDE 104 mmol/L (98-107); CHOL/HDL RATIO 3.2 (3.0-3.6); CHOLESTEROL 155 MD/DL (0-199); CREATININE, SERUM 0.79 mg/dL (0.57-1.11); EST GLOMERULAR FILTRATION RATE > 60 ML/MIN (60-); GLUCOSE 217 mg/dL (74-118); HDL CHOLESTEROL 49 MG/DL (40-60); LDL CHOLESTEROL 84 MG/DL (60-130); PHOSPHORUS 3.2 MG/DL (2.3-4.7); POTASSIUM 4.3 mmol/L (3.5-5.1); SODIUM 139 mmol/L (136-145); TRIGLYCERIDES 108 MG/DL (0-149)
--- NOTE | 2018-08-06 07:10 | NUR ---
RCD PT AT BED PT IS ALERT AND ORIENTED PT RESTING ON BED IV PATENT AND RUNNING 125 ML PT NPO FOR PROCEDURE BED LOW AND LOCKED CALL LIGHT IN REACH
[2018-08-06 07:17] LABS: FREE THYROXINE INDEX 2.3208 (1.4-3.8); THYROID STIMULATING HORMONE 0.165 uIU/mL (0.350-4.940)
[2018-08-06] MEDS: INSULIN REGULAR, HUMAN 100 UNIT/1 ML 3ML VIAL SQ SCH ×4 (07:30→21:30)
[2018-08-06] MEDS: METOPROLOL TARTRATE 25 MG TAB PO SCH ×2 (08:59→16:13)
[2018-08-06] MEDS ORDERED: SUCRALFATE 1 GM TAB PO SCH (09:00)
[2018-08-06] MEDS: INSULIN ASPART 70/30 100 UNITS/ML VIAL SC SCH ×3 (09:00→21:44)
[2018-08-06] MEDS: INSULIN GLARGINE 100 UNITS/ML VIAL SC SCH ×2 (09:00→17:00)
--- NOTE | 2018-08-06 09:44 | Progress Note ---
DATE: SUBJECTIVE: This patient is admitted for intractable abdominal pain. Currently, the patient is asymptomatic. The patient also was admitted for hyperglycemia. The patient is on pantoprazole 40 mg q.12 hours. She is on sodium chloride for hyperglycemia with hyperosmolarity. The patient is on levothyroxine, sucralfate, metoprolol, and insulin glargine. The patient's abdominal pain is much better. OBJECTIVE: VITAL SIGNS: Temperature is 97.2, pulse is 71, respirations of 19, blood pressure is 117/58, and pulse oximetry 98% on room air. HEENT: Normocephalic, atraumatic. Pupils are reactive to light and accommodation. CVS: S1 and S2 normal. Regular rate and rhythm. ABDOMEN: Tender in the epigastrium. EXTREMITIES: No clubbing, no cyanosis, and no edema. LABORATORY VALUES: From today, white count 5.89, hemoglobin of 11.82, hematocrit 37.6, RDW elevated at 14.6. No left shift noted. Chemistry; sodium 139, BUN and creatinine 16 and 0.79. A1c was 14.8. The patient's T3 and T4 are pending. Triglycerides 108 and the last lipase was 13. ASSESSMENT: 1. Hyperglycemic episode with hyperosmolarity. Continue with fluids. 2. Epigastric pain, possibly gastritis. IV Protonix twice a day has been started. 3. Uncontrolled diabetes mellitus. A1c of 14.8. Continue with previous home medications. Up titrate the insulin today. 4. Nutrition. Nutrition advice has been given. Low-carb diet and low-sodium diet will be given. Further recommendation per clinical course. The patient is feeling better. DISPOSITION: Can be discharged in 1-2 days depending on her progress with abdominal pain. MD ANGIE NajeraJ/MODL /[id number]
--- NOTE | 2018-08-06 13:23 | NUR ---
PT WENT TO PROCEDURE IN SAFE CONDITION
[2018-08-06] MEDS ORDERED: DEXTROSE 5% 250ML 250 ML IV ONE (14:18)
--- NOTE | 2018-08-06 15:10 | NUR ---
PT BACK AFTER PROCEDURE PT IS ALERT AND ORIENTED VITALS CHECKED PT RESTING ON BED BED LOW AND LOCKED CALL LIGHT IN REACH
--- NOTE | 2018-08-06 15:16 | Operative Report ---
DATE OF PROCEDURE: 08/06/2018 SURGEON: Ed Ventura MD PROCEDURE: Esophagogastroduodenoscopy with biopsies. ADDITIONAL REFERRING PHYSICIAN: Dr. Hussein Gauthier. INDICATIONS FOR EGD: Upper abdominal pain, nausea, and vomiting. MEDICATIONS: The patient was done under MAC, please see anesthesiologist's note. PROCEDURE IN DETAIL: With the patient in left lateral decubitus position, a flexible fiberoptic Olympus gastroscope was introduced into the esophagus under direct visualization without any difficulty. There was some patchy erythema noted in distal esophagus. The scope was then advanced with ease into the stomach. Mucosa overlying the antrum and the body revealed some patchy intense erythema and moderate edema. Biopsies were obtained, sent to stain for H pylori. Several hyperplastic-appearing polyps were noted in the body of the stomach and somewhat partially excised with cold biopsy forceps. The pylorus was of normal contour and shape, it was intubated with ease and the scope was advanced all the way to the second portion of the duodenum. The scope was then withdrawn slowly. Mucosa overlying the proximal second portion and duodenal bulb appeared to be within normal limits. The scope was then withdrawn back into the stomach and retroflexed and mucosa overlying the fundus and cardia appeared to be within normal limits. The scope was then straightened out, it was subsequently withdrawn. The patient tolerated the procedure well. IMPRESSION: 1. Distal esophagitis, mild. 2. Gastritis, biopsied. Biopsies sent to stain for Helicobacter pylori. 3. Gastric polyps, body, some partially excised with the cold biopsy forceps. PLAN: Follow up histology. Continue PPI therapy. Continue Carafate. Initiate full liquid diet. Ed Ventura MD [facility]/ULYSSES /[id number] cc: MD Ramesh Burton MD
[2018-08-06] MEDS: SUCRALFATE 1 GM TAB PO SCH ×2 (16:13→21:46)
[2018-08-06] MEDS ORDERED: PROPOFOL IV EMULSION 10 MG/ML 50 ML VIAL ONE (17:34)
--- NOTE | 2018-08-06 18:04 | NUR ---
Pt was gone for procedure. Will re-visit in the AM.
[2018-08-06] MEDS ORDERED: FENTANYL CITRATE/PF 100MCG/2 ML INJ ONE (18:12)
[2018-08-06] MEDS ORDERED: MIDAZOLAM HCL 2 MG/2 ML VIAL ONE (18:12)
--- NOTE | 2018-08-06 18:40 | NUR ---
PT RESTING ON BED BED SIDE REPORT GIVEN TO ONCOMING NURSE
[2018-08-07] VITALS (9 sets, daily range): BP systolic 132–204; BP diastolic 60–97
[2018-08-07] MEDS: ONDANSETRON HCL INJ 2MG/ML 2ML 2 MG/ML VIAL IV PRN ×4 (04:12→17:04)
--- NOTE | 2018-08-07 04:30 | NUR ---
Patient c/o of ELLSWORTH to back of head rating 7. Denies changes in vision. Has nausea when standing up. V/S taken 145/87 bp and o2 sat 88% room air. Given zofran at this time, repositioned patient sitting up, and applied o2 n/c. Spot check @ 92% with 2L via n/c. ELLSWORTH subsiding at this time and will cont to monitor.
[2018-08-07] MEDS: LEVOTHYROXINE SODIUM 100 MCG TAB PO SCH (06:02)
--- NOTE | 2018-08-07 06:30 | NUR ---
Dr. Schaeffer here for rounding. Orders received.
[2018-08-07] MEDS: SODIUM CHLORIDE 0.9% 1000ML 1,000 ML IV SCH ×2 (06:39→14:30)
[2018-08-07] MEDS: DONNATAL/LIDOCAINE/MAALOX 30 ML SUSP PO SCH ×4 (07:00→21:00)
[2018-08-07] MEDS ORDERED: ACETAMINOPHEN 325 MG TAB PO PRN (07:30)
[2018-08-07] MEDS: INSULIN REGULAR, HUMAN 100 UNIT/1 ML 3ML VIAL SQ SCH ×4 (07:30→21:30)
[2018-08-07] MEDS: MORPHINE SULFATE INJ 4 MG/ML INJ 1ML IV PRN ×4 (08:26→23:07)
[2018-08-07] MEDS: INSULIN GLARGINE 100 UNITS/ML VIAL SC SCH ×2 (09:00→17:00)
[2018-08-07] MEDS: INSULIN ASPART 70/30 100 UNITS/ML VIAL SC SCH ×3 (09:00→21:30)
[2018-08-07] MEDS: METOPROLOL TARTRATE 25 MG TAB PO SCH ×3 (09:47→21:48)
[2018-08-07] MEDS: SUCRALFATE 1 GM TAB PO SCH ×4 (09:47→21:47)
--- NOTE | 2018-08-07 10:59 | Progress Note ---
DATE: SUBJECTIVE: This patient comes in with acute intractable abdominal pain, status post EGD, showed gastritis yesterday. The patient continues to have pain and headache, which is intractable. OBJECTIVE: VITAL SIGNS: Temperature is 98.8, blood pressure is 142/65, and pulse ox of 92%. HEENT: Normocephalic, atraumatic. O2 by nasal cannula. CVS: S1 and S2 normal. Regular rate and rhythm. ABDOMEN: Tender extremely in the epigastric area. Otherwise, bowel sounds are positive. EXTREMITIES: Trace edema. MEDICATIONS: The patient is on pantoprazole 40 mg, Carafate 1 g, morphine sulfate for the pain, insulin glargine 40 units, metoprolol 25 mg twice a day. We will start the patient on some anticoagulation for DVT prophylaxis. We will continue with IV Protonix and also start some GI cocktails or we will start the fluids back up again and insulin for diabetes. ASSESSMENT: 1. Gastritis. 2. Hyperglycemia. 3. Hypertension. 4. Uncontrolled diabetes mellitus with possible neuropathy. Further recommendation per clinical course. Once the patient's pain is controlled, the patient can be discharged, which is possibly today or tomorrow. MD DOMINIC Najera/MODL /[id number]
[2018-08-07] MEDS: PANTOPRAZOLE 40 MG 10ML VIAL IV SCH (11:46)
[2018-08-07] MEDS ORDERED: CLONIDINE HCL 0.1 MG TAB PO PRN (12:00)
--- NOTE | 2018-08-07 14:36 | NUR ---
Spoke to Dr. Odilon Ventura at this time to let him know that pt is still having a lot of pain to right upper abdomen. Let him know that Dr. Schaeffer ordered GI cocktail and pt is refusing to take because she says it makes her nausea. Dr. Ventura states I should let pt know that he says that pt should take GI cocktail per his orders. Explained all this to pt and pt still refused to take GI cocktail.
[2018-08-07] MEDS: ENOXAPARIN SOD INJ 40 MG/0.4 ML SYR SC SCH (17:04)
--- NOTE | 2018-08-07 17:20 | NUR ---
Nutrition Screen Note RD Recommendation for Physician: -Rec advancing to ADA diet as medically appropriate Plan of Care: RD following, monitoring for tolerance and adequacy Nutrition reason for involvement: Nutrition Risk Trigger MST Primary Diagnose(s): Gastritis PMH: DM, hypothyroidism, HTN, reflux esophagitis Ht: 66in Wt: 256lb BMI: 41.4kg/m2 IBW: 130lb RD Assessment: (08/07) Chart reviewed. Labs and meds reviewed. 53yo F, who was admitted for intractable abdominal pain, status post EGD, showed gastritis yesterday. Visited pt in the room. Pt was not tolerating full liquid diet. Pt continued to have abdominal pain, nausea and vomiting. Meds were given. 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 Reported UBW at 250 260lbs; no weight loss noted. Will re-evaluate when GI symptoms subside. Current Diet: full liquid diet Malnutrition Evaluation (08/07) The patient does not meet criteria for a specified degree of malnutrition at this time. Will re-evaluate at follow-up as appropriate. Diet Education Needs Assessment: Diet education indicated, pt was not feeling well. Will return for education. Nutrition Care Level: low Signed: Debbie Jackson, MS, RD, LD
--- NOTE | 2018-08-07 19:52 | Diagnostic Imaging Report ---
MRI SPINE LUMBAR WO HISTORY: Bilateral lower extremity pain COMPARISON: CT of the abdomen and pelvis 07/15/2017 TECHNIQUE: Sagittal T1, sagittal T2, sagittal STIR, axial T2, coronal T2, and axial proton density weighted images of the lumbar spine were obtained without contrast. DISCUSSION: Number of non-rib bearing lumbar vertebral bodies: 5. Alignment: Normal lordosis. No scoliosis. Vertebrae: Small nodular T1 hyperintense lesions in the T11 and S2 vertebral bodies are likely benign hemangiomas. Otherwise, no definite evidence for fractures, infection or neoplasm. Conus medullaris: Normal, ends at approximately L1-L2. Cauda equina: No masses or arachnoiditis. Posterior paraspinal muscles: Well preserved. No signal abnormalities. Soft tissues: Partially visualized 3.6 cm T2 hyperintense lesion in the spleen may be a cyst. Mild multilevel disc degeneration is present. T12-L1: Patent canal and foramina. L1-L2: Patent canal and foramina. L2-L3: Patent canal and foramina. L3-L4: Patent canal and foramina. L4-L5: Mild bilateral foraminal stenoses due to disc bulge and facet arthrosis. No significant canal stenosis. L5-S1: Mild bilateral foraminal stenoses due to disc bulge and facet arthrosis. No significant canal stenosis. IMPRESSION: 1. Mild multilevel disc degeneration without significant canal stenosis. 2. Mild bilateral degenerative foraminal stenoses at L4-L5 and L5-S1. 3. Partially visualized 3.6 cm T2 hyperintense lesion in the spleen may be a cyst. Signed by: Dr. Mark Morris M.D. on 08/07/2018 7:49 PM
--- NOTE | 2018-08-07 22:28 | NUR ---
Received orders from Dr. Odilon Ventura
[2018-08-07] MEDS: METOCLOPRAMIDE HCL 10 MG/2ML VIAL IV SCH (23:07)
[2018-08-07] MEDS ORDERED: PANTOPRAZOLE 40 MG 10ML VIAL IV STA (23:50)
[2018-08-08] VITALS (7 sets, daily range): BP systolic 117–156; BP diastolic 56–79
[2018-08-08] MEDS: PANTOPRAZOLE INJ 40 MG in SODIUM CHLORIDE 0.9% 50ML 50 ML IV SCH ×3 (01:27→09:53)
[2018-08-08] MEDS: SODIUM CHLORIDE 0.9% 1000ML 1,000 ML IV SCH ×4 (01:27→22:30)
[2018-08-08] MEDS ORDERED: SODIUM CHLORIDE 0.9% 50ML 50 ML ONE (05:22)
[2018-08-08] MEDS: METOCLOPRAMIDE HCL 10 MG/2ML VIAL IV SCH ×3 (05:35→16:54)
[2018-08-08 05:42] LABS: BASOPHILS % 0.8 % (0.0-1.0); EOSINOPHILS # (AUTO) 0.1 (0.0-0.4); EOSINOPHILS % 1.8 % (0.0-6.0); HEMATOCRIT 37.5 % (34.2-44.1); HEMOGLOBIN 11.7 g/dL (12.0-16.0); LYMPHOCYTES # (AUTO) 2.5 (1.0-3.2); LYMPHOCYTES % 49.6 % (18.0-39.1); MEAN CORPUSCULAR HGB CONC 31.2 g/dL (31-35); MEAN CORPUSCULAR VOLUME 89.7 fL (81-99); MONOCYTES # (AUTO) 0.3 (0.2-0.8); NEUTROPHILS # (AUTO) 2.1 (2.1-6.9); NEUTROPHILS % 41.6 % (38.7-80.0); PLATELET COUNT 92 x10e3/uL (140-360); RED BLOOD COUNT 4.18 x10e6/uL (3.6-5.1); RED CELL DISTRIBUTION WIDTH 14.6 % (11.7-14.4)
[2018-08-08 05:56] LABS: ANION GAP 9.8 mmol/L (8-16); BLOOD UREA NITROGEN 5 mg/dL (7-26); BUN/CREATININE RATIO 7 (6-25); CALCIUM 8.4 mg/dL (8.4-10.2); CARBON DIOXIDE 28 mmol/L (22-29); CHLORIDE 110 mmol/L (98-107); CREATININE, SERUM 0.71 mg/dL (0.57-1.11); EST GLOMERULAR FILTRATION RATE > 60 ML/MIN (60-); GLUCOSE 97 mg/dL (74-118); POTASSIUM 3.8 mmol/L (3.5-5.1); SODIUM 144 mmol/L (136-145)
[2018-08-08] MEDS: INSULIN REGULAR, HUMAN 100 UNIT/1 ML 3ML VIAL SQ SCH ×4 (07:30→21:00)
--- NOTE | 2018-08-08 08:05 | Progress Note ---
DATE: SUBJECTIVE: The patient is here for intractable nausea, vomiting, intractable abdominal pain, and uncontrolled diabetes mellitus. Currently, the patient is getting better with abdominal pain. She refused her GI cocktail because of extreme nausea. Abdominal pain continues, was started on an IV Protonix drip last night, is feeling better with the same. OBJECTIVE: VITAL SIGNS: Temperature is 97.7, pulse of 60, respiration of 19, blood pressure is 131/67. HEENT: Normocephalic, atraumatic. Pupils are reactive to light and accommodation. CVS: S1, S2 normal. Regular rate and rhythm. ABDOMEN: Tender in the epigastrium. EXTREMITIES: No clubbing, no cyanosis, no edema. MEDICATIONS: Include pantoprazole IV drip, morphine sulfate as needed, metoprolol 25 mg 3 times a day, Carafate 1 g before meals and at bedtime, the patient is on 25 units of NovoLog 70/30, and insulin glargine 40 mg twice a day. The patient is on levothyroxine and also on clonidine as needed. LABORATORY VALUES: White count is 4.96, hemoglobin and hematocrit are stable at 11.7 and 37.5. Chemistries, chloride of 110 and sodium of 144, potassium is 3.8. Glucoses have been running very well. A1c was done earlier and it shows 14.8. ASSESSMENT: 1. Gastritis. 2. Hyperglycemia. 3. Hypertension. 4. Uncontrolled diabetes mellitus with neuropathy. PLAN: 1. Plan is to continue with IV Protonix drip. 2. Continue with diabetic diet and also with insulin glargine and 70/30. The patient's insulin and glucoses are better. Once the patient's GI symptoms are better, the patient can be discharged home. Further recommendation per clinical course. MD ANGIE NajeraJ/MODL /[id number]
[2018-08-08] MEDS: LEVOTHYROXINE SODIUM 100 MCG TAB PO SCH (08:44)
[2018-08-08] MEDS: SUCRALFATE 1 GM TAB PO SCH ×4 (08:44→22:08)
[2018-08-08] MEDS: DONNATAL/LIDOCAINE/MAALOX 30 ML SUSP PO SCH ×3 (08:44→21:00)
[2018-08-08] MEDS: LOSARTAN POTASSIUM 100 MG TAB PO SCH (08:44)
[2018-08-08] MEDS: METOPROLOL TARTRATE 25 MG TAB PO SCH ×3 (08:44→22:08)
[2018-08-08] MEDS: INSULIN ASPART 70/30 100 UNITS/ML VIAL SC SCH ×3 (09:00→22:09)
[2018-08-08] MEDS: INSULIN GLARGINE 100 UNITS/ML VIAL SC SCH ×2 (09:00→16:57)
[2018-08-08] MEDS ORDERED: PANTOPRAZOLE 40 MG 10ML VIAL ONE (09:41)
[2018-08-08] MEDS: ONDANSETRON HCL INJ 2MG/ML 2ML 2 MG/ML VIAL IV PRN ×2 (09:56→22:19)
[2018-08-08] MEDS: MORPHINE SULFATE INJ 4 MG/ML INJ 1ML IV PRN ×2 (09:56→22:19)
[2018-08-08] MEDS: PANTOPRAZOL 40MG/SOD CHL 0.9% 50 ML IV SCH ×3 (14:37→22:59)
[2018-08-08] MEDS: ENOXAPARIN SOD INJ 40 MG/0.4 ML SYR SC SCH (16:54)
--- NOTE | 2018-08-08 19:15 | NUR ---
Received patient awake, not in distress, with ongoing IVF and Protonix drip, call light within reach, advised to call for assistance when needed, will continue to monitor
[2018-08-09] VITALS (7 sets, daily range): BP systolic 136–177; BP diastolic 65–99
[2018-08-09] MEDS: SODIUM CHLORIDE 0.9% 1000ML 1,000 ML IV SCH ×3 (04:04→22:20)
[2018-08-09] MEDS: PANTOPRAZOL 40MG/SOD CHL 0.9% 50 ML IV SCH ×4 (04:04→20:33)
[2018-08-09] MEDS: LEVOTHYROXINE SODIUM 100 MCG TAB PO SCH (05:58)
[2018-08-09] MEDS: METOCLOPRAMIDE HCL 10 MG/2ML VIAL IV SCH ×4 (05:58→16:36)
[2018-08-09] MEDS: INSULIN REGULAR, HUMAN 100 UNIT/1 ML 3ML VIAL SQ SCH ×4 (07:30→20:58)
[2018-08-09] MEDS: SUCRALFATE 1 GM TAB PO SCH ×4 (08:30→20:33)
[2018-08-09] MEDS: LOSARTAN POTASSIUM 100 MG TAB PO SCH (08:30)
[2018-08-09] MEDS: METOPROLOL TARTRATE 25 MG TAB PO SCH ×3 (08:30→20:33)
[2018-08-09] MEDS: INSULIN GLARGINE 100 UNITS/ML VIAL SC SCH ×2 (09:00→16:43)
[2018-08-09] MEDS: INSULIN ASPART 70/30 100 UNITS/ML VIAL SC SCH ×3 (09:00→20:50)
[2018-08-09] MEDS: DONNATAL/LIDOCAINE/MAALOX 30 ML SUSP PO SCH ×3 (09:00→20:20)
--- NOTE | 2018-08-09 10:41 | Progress Note ---
DATE: SUBJECTIVE: The patient is here for acute intractable nausea and vomiting and also abdominal pain. The patient is better, but still complains of tenderness and pain on the epigastric area. The patient is currently on a Protonix drip. Other than that, the patient is on insulin and blood sugars seeming to be better. OBJECTIVE: VITAL SIGNS: Temperature is 97.6, blood pressure is 136/65, pulse oximetry of 97%. HEENT: Normocephalic, atraumatic. Pupils are reactive to light and accommodation. CVS: S1, S2 normal. Regular rate and rhythm. ABDOMEN: Tender in the epigastrium. EXTREMITIES: No clubbing, no cyanosis, no edema. LABORATORY DATA: Pending today. Chemistries from yesterday were normal. Glucoses have normalized. MEDICATIONS: The patient is on Reglan 10 mg q.6 hours, levothyroxine 200 mcg daily, pantoprazole, Protonix drips, morphine sulfate as needed, metoprolol 25 three times a day, Carafate 1 g a.c. h.s., enoxaparin 40 mg, losartan 50 mg and insulin glargine 40 units twice a day with insulin protocol. ASSESSMENT: 1. Gastritis. 2. Acute hyperglycemia. 3. Hypertension. 4. Uncontrolled diabetes. PLAN: Continue with IV Protonix drip. Continue with Reglan. Continue with glargine in /30. The patient can be discharged home tomorrow if symptoms are abated and are better. Further recommendation and clinical course. We will continue to monitor the patient. MD DOMINIC Najera/MODL /[id number]
[2018-08-09] MEDS: MORPHINE SULFATE INJ 4 MG/ML INJ 1ML IV PRN ×3 (11:38→22:20)
[2018-08-09] MEDS: ENOXAPARIN SOD INJ 40 MG/0.4 ML SYR SC SCH (16:32)
[2018-08-09] MEDS: ONDANSETRON HCL INJ 2MG/ML 2ML 2 MG/ML VIAL IV PRN (22:20)
[2018-08-10] VITALS: BP 159/88
[2018-08-10] MEDS: PANTOPRAZOL 40MG/SOD CHL 0.9% 50 ML IV SCH ×2 (00:13→04:49)
[2018-08-10] MEDS: METOCLOPRAMIDE HCL 10 MG/2ML VIAL IV SCH ×2 (00:13→06:00)
[2018-08-10 04:00] VITALS: BP 138/70
[2018-08-10] MEDS: LEVOTHYROXINE SODIUM 100 MCG TAB PO SCH (06:00)
[2018-08-10] MEDS: SODIUM CHLORIDE 0.9% 1000ML 1,000 ML IV SCH (06:00)
--- NOTE | 2018-08-10 07:00 | NUR ---
RCD PT AT BED PT IS ALERT AND ORIENTED PT RESTING ON BED IV PATENT BED LOW AND LOCKED CALL LIGHT IN REACH
[2018-08-10] MEDS: SUCRALFATE 1 GM TAB PO SCH (07:30)
[2018-08-10] MEDS: INSULIN REGULAR, HUMAN 100 UNIT/1 ML 3ML VIAL SQ SCH (07:30)
[2018-08-10] MEDS ORDERED: NOVOLOG MI100 UNIT/1 SC (07:39)
[2018-08-10] MEDS ORDERED: REGLAN10 MG PO (07:40)
[2018-08-10] MEDS ORDERED: CARAFATE1 GM/10 ML PO (07:41)
[2018-08-10 07:45] VITALS: BP 138/70
[2018-08-10] MEDS: INSULIN GLARGINE 100 UNITS/ML VIAL SC SCH (08:12)
[2018-08-10] MEDS: INSULIN ASPART 70/30 100 UNITS/ML VIAL SC SCH (08:12)
[2018-08-10] MEDS: LOSARTAN POTASSIUM 100 MG TAB PO SCH (08:14)
[2018-08-10] MEDS: DONNATAL/LIDOCAINE/MAALOX 30 ML SUSP PO SCH (08:14)
[2018-08-10] MEDS: METOPROLOL TARTRATE 25 MG TAB PO SCH (08:14)
[2018-08-10 08:16] VITALS: BP 136/63
--- NOTE | 2018-08-10 09:00 | NUR ---
PT WENT HOME IN SAFE CONDITION WITH HER
--- NOTE | 2018-08-10 09:10 | Progress Note ---
DATE: This is also a discharge summary. SUBJECTIVE: The patient is here for acute intractable abdominal pain and nausea and vomiting. Currently, the patient's symptoms are better being on Protonix drip. She is tolerating a full liquid diet and advance her diet. She will have breakfast today. The patient's diabetes was also uncontrolled. The patient's current numbers are better in the 150s to 100s. MEDICATIONS: She is taking GI cocktail as needed, Lovenox for DVT prophylaxis, insulin 70/30, insulin regular, levothyroxine, metoclopramide, metoprolol, morphine sulfate, and Carafate. OBJECTIVE: VITAL SIGNS: Temperature is 97.7, pulse of 65, respirations of 18, blood pressure is 138/70, pulse oximetry of 97 %. HEENT: Normocephalic, atraumatic. Pupils reactive to light and accommodation. CVS: S1, S2 normal. Regular rate and rhythm. ABDOMEN: Slightly tender in the epigastric area. EXTREMITIES: No clubbing, no cyanosis, and no edema. LABORATORY VALUES: None from today. ASSESSMENT: 1. Intractable nausea and vomiting, better. 2. Reflux esophagitis. 3. Uncontrolled diabetes mellitus. 4. Hypertension. 5. Hyperlipidemia. PLAN: Plan is to discharge the patient home today. The patient will be discharged on Protonix 40 mg twice a day. The patient to advance diet as tolerated. The patient also will be discharged on Reglan 10 mg 3 times a day for 10 days. For diabetes, we will discharge the patient on 70/30 insulin. 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 The patient's other medications include metoprolol for hypertension and a medicine for hyperlipidemia. Further recommendation per clinical course. The patient will be followed with her primary care physician in about a week's time. MD DOMINIC Najera/MODL /[id number]
== END 2018-08-10 09:00 | disposition home or self-care (01) | DRG 391 ==
LOC: ER 11:33 → ERHOLD 14:37 → MED/SURG2 22:36
PROVIDERS: ADMIT Family Medicine; ATTEND Family Medicine
PROC: 0DB78ZX Excision of Stomach, Pylorus, Via Natural or Artificial Opening Endoscopic, Diagnostic (ICD-10-PCS; 2018-08-06)
PROC: 0DB68ZX Excision of Stomach, Via Natural or Artificial Opening Endoscopic, Diagnostic (ICD-10-PCS; principal; 2018-08-06 14:20)
DX: K29.00 Acute gastritis without bleeding (principal); E11.00 Type 2 diabetes mellitus with hyperosmolarity without nonketotic hyperglycemic-hyperosmolar coma (NKHHC); Z68.41 Body mass index [BMI] 40.0-44.9, adult; K20.9 Esophagitis, unspecified; E11.65 Type 2 diabetes mellitus with hyperglycemia; E03.9 Hypothyroidism, unspecified; E11.40 Type 2 diabetes mellitus with diabetic neuropathy, unspecified; Z79.4 Long term (current) use of insulin; K31.7 Polyp of stomach and duodenum
CPT/HCPCS: 36415; 43239; 72148; 80048; 80053; 80061; 81001; 82948; 83036; 83690; 83735; 84100; 84436; 84443; 84479; 84484; 85025; 88305; 88312; 93005; 99284; J0500; J1650; J1815; J2250; J2270; J2405; J2765; J7030; J7070

== ENCOUNTER 2018-10-02 22:11 | Inpatient (IN) | payer BC ==
[~2018-10-02] VITALS: Ht 167.6 cm; Wt 119.7 kg
[~2018-10-02 22:11] MED LIST changes: +CARAFATE1 GM/10 ML PO; +MULTIVITAMINS1 EAC7 PEG; +NOVOLOG MI100 UNIT/1 SC
--- NOTE | 2018-10-02 22:16 | NUR ---
Patient arrived as a direct admit from [facility] (at [place], [place]) and admitted in room 289. Patient arrived with wound on right big toe. Pt c/o nausea at this time and will be medicated accordingly. Alert and oriented x3 and ambulatory in room prn. Call vazquez within reach. Will monitor pt closely.
[2018-10-02] MEDS ORDERED: PROMETHAZINE 25MG/ NS 50ML (IV) IV PRN (23:00)
[2018-10-02] MEDS ORDERED: ACETAMINOPHEN 1000 MG/100 ML IV PRN (23:00)
[2018-10-02] MEDS ORDERED: DEXTROSE 50% SYRINGE 50 ML IV PRN (23:00)
[2018-10-02] MEDS ORDERED: CEFEPIME 1GM/NS 0.9% 50 ML 50 ML IV SCH (23:00)
[2018-10-02] MEDS ORDERED: HYDRALAZINE HCL 20 MG/ML VIAL IV PRN (23:15)
[2018-10-02 23:37] VITALS: BP 129/62
[2018-10-02] MEDS ORDERED: SODIUM CHLORIDE 0.9% 500ML 500 ML ONE (23:55)
[2018-10-03] VITALS (9 sets, daily range): BP systolic 116–161; BP diastolic 62–81
[2018-10-03] MEDS: INSULIN LISPRO 100 UNIT/1 ML 3ML VIAL SQ SCH ×5 (00:08→21:57)
[2018-10-03] MEDS ORDERED: METOPROLOL SUCC25 MG PO (00:56)
[2018-10-03] MEDS ORDERED: BENICAR20 MG PO (01:00)
[2018-10-03] MEDS ORDERED: LANTUS 3ML100 UNITS/ SC (01:00)
--- NOTE | 2018-10-03 06:00 | NUR ---
Patient asleep and appear comfortable at this time. Call vazquez within reach.
[2018-10-03 06:22] LABS: BASOPHILS % 0.5 % (0.0-1.0); EOSINOPHILS # (AUTO) 0.2 (0.0-0.4); EOSINOPHILS % 2.5 % (0.0-6.0); HEMATOCRIT 38.8 % (34.2-44.1); LYMPHOCYTES # (AUTO) 2.7 (1.0-3.2); MEAN CORPUSCULAR HEMOGLOBIN 28.1 pg (28-32); MEAN CORPUSCULAR HGB CONC 33.5 g/dL (31-35); MEAN CORPUSCULAR VOLUME 83.8 fL (81-99); MONOCYTES # (AUTO) 0.6 (0.2-0.8); MONOCYTES % 7.5 % (4.4-11.3); NEUTROPHILS # (AUTO) 4.5 (2.1-6.9); NEUTROPHILS % 56.3 % (38.7-80.0); PLATELET COUNT 96 x10e3/uL (140-360); RED BLOOD COUNT 4.63 x10e6/uL (3.6-5.1); RED CELL DISTRIBUTION WIDTH 13.9 % (11.7-14.4)
[2018-10-03 06:44] LABS: ALANINE AMINOTRANSFERASE 26 IU/L (0-55); ALBUMIN 3.1 g/dL (3.5-5.0); ALBUMIN/GLOBULIN RATIO 0.9 (0.8-2.0); ALKALINE PHOSPHATASE 132 IU/L (40-150); ANION GAP 12.7 mmol/L (8-16); BLOOD UREA NITROGEN 7 mg/dL (7-26); BUN/CREATININE RATIO 9 (6-25); CALCIUM 9.1 mg/dL (8.4-10.2); CARBON DIOXIDE 26 mmol/L (22-29); CHLORIDE 101 mmol/L (98-107); CREATININE, SERUM 0.77 mg/dL (0.57-1.11); EST GLOMERULAR FILTRATION RATE > 60 ML/MIN (60-); GLUCOSE 266 mg/dL (74-118); POTASSIUM 3.7 mmol/L (3.5-5.1); SODIUM 136 mmol/L (136-145)
[2018-10-03] MEDS ORDERED: VANCOMYCIN 1GM/NS 250 ML 250 ML IV SCH (07:00)
[2018-10-03] MEDS: LEVOTHYROXINE SODIUM 100 MCG TAB PO SCH (07:30)
[2018-10-03] MEDS: CEFEPIME 1GM/NS 0.9% 50 ML 50 ML IV SCH ×3 (08:27→23:55)
[2018-10-03] MEDS: ESCITALOPRAM OXALATE 10 MG TAB PO SCH (08:39)
[2018-10-03] MEDS: SUCRALFATE 1 GM TAB PO SCH ×4 (08:39→21:56)
[2018-10-03] MEDS: PANTOPRAZOLE SOD 40 MG TABEC PO SCH (08:39)
[2018-10-03] MEDS: METOPROLOL SUCCINATE 25 MG TAB XL PO SCH ×2 (08:39→16:50)
[2018-10-03] MEDS ORDERED: OLMESARTAN MEDOXOMIL 5 MG TABLET PO SCH (09:00)
[2018-10-03] MEDS: OLMESARTAN 20 MG TAB PO SCH (09:20)
[2018-10-03] MEDS: VANCOMYCIN 1GM/NS 250 ML 250 ML IV SCH ×2 (09:21→21:56)
[2018-10-03] MEDS: ACETAMINOPHEN 325 MG TAB PO PRN (19:05)
--- NOTE | 2018-10-03 19:22 | NUR ---
Received bedside shift report from dayshift RN. Patient is laying on the bed with call light within reach, bed set low and side rails up x2. The patient is not in distress and reports headache.
[2018-10-04] VITALS (7 sets, daily range): BP systolic 101–147; BP diastolic 55–68
--- NOTE | 2018-10-04 07:29 | NUR ---
Received patient this morning and no resp distress, spoke with Dr. Ham and orders to resume home long acting insulin 40 units BID and Novolog 20 units TID AC. Orders in place.
[2018-10-04] MEDS: LEVOTHYROXINE SODIUM 100 MCG TAB PO SCH (07:30)
[2018-10-04] MEDS: INSULIN LISPRO 100 UNIT/1 ML 3ML VIAL SQ SCH ×4 (07:30→20:56)
[2018-10-04] MEDS: CEFEPIME 1GM/NS 0.9% 50 ML 50 ML IV SCH ×3 (08:00→23:44)
[2018-10-04] MEDS ORDERED: INSULIN GLARGINE 100 UNITS/ML VIAL SC SCH (09:00)
[2018-10-04] MEDS ORDERED: INSULIN ASPART 70/30 100 UNITS/ML VIAL SC SCH ×2 (09:00→11:30)
[2018-10-04] MEDS: PANTOPRAZOLE SOD 40 MG TABEC PO SCH (09:18)
[2018-10-04] MEDS: METOPROLOL SUCCINATE 25 MG TAB XL PO SCH ×3 (09:18→16:58)
[2018-10-04] MEDS: OLMESARTAN 20 MG TAB PO SCH (09:18)
[2018-10-04] MEDS: ESCITALOPRAM OXALATE 10 MG TAB PO SCH (09:18)
[2018-10-04] MEDS: SUCRALFATE 1 GM TAB PO SCH ×3 (09:18→20:53)
[2018-10-04] MEDS: VANCOMYCIN 1GM/NS 250 ML 250 ML IV SCH ×2 (09:46→20:53)
[2018-10-04] MEDS: INSULIN ASPART 70/30 100 UNITS/ML VIAL SC SCH ×2 (11:30→16:55)
--- NOTE | 2018-10-04 14:20 | NUR ---
Patient c/o pain to right toe and wound draining. Notified Dr. Ham and orders to consult Dr. Hewitt.
[2018-10-04] MEDS: ACETAMINOPHEN 325 MG TAB PO PRN ×2 (15:00→21:13)
--- NOTE | 2018-10-04 15:38 | NUR ---
Dressing change to right to, drainage note, toe red and inflamed, consult called to Dr. Hewitt, notified attending for options for pain management but refused due to patient allergies. Will monitor.
--- NOTE | 2018-10-04 16:14 | NUR ---
Call to Dr. Odilon Ventura and orders to advance diet to GI soft diet and will be coming to see patient today
--- NOTE | 2018-10-04 18:12 | NUR ---
Nutrition Screen Note RD Recommendation for Physician: Initiate PO diet when medically feasible Plan of Care: RD following, monitoring for tolerance and adequacy Nutrition reason for involvement: Nutrition Risk Trigger - MST Primary Diagnose(s): Hypoglycemia PMH: gastritis, reflux esophagitis, hypothyroid, T2DM, HTN Ht:66 in Wt:249.19lb BMI:40.2 kg/m2 IBW:130lb RD Assessment: (10/04/2018) Chart reviewed. Labs and meds reviewed. Initial encounter with patient. Pt with C/O nausea and dry mouth. 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 Denies and chewing difficulty. No significant wt changes Current Diet: NPO Malnutrition Evaluation (10/04/2018) The patient does not meet criteria for a specified degree of malnutrition at this time. Will re-evaluate at follow-up as appropriate. Diet Education Needs Assessment: Diet education not indicated. Nutrition Care Level: Low Signed: Nathaniel Wei RD, LD, [facility]
--- NOTE | 2018-10-04 18:56 | NUR ---
Received bedside shift report from dayshift RN. Patient is laying on the bed with call light within reach, bed set low and side rails up x2. The patient is not in distress and reported right foot pain.
--- NOTE | 2018-10-04 19:09 | NUR ---
Rounds completed, patient stable and report given to on coming nurse. Bed in low locked position, call light within reach
[2018-10-04] MEDS: INSULIN GLARGINE 100 UNITS/ML VIAL SC SCH (20:56)
--- NOTE | 2018-10-04 23:25 | NUR ---
Patient c/o of increased pain to the right foot. RN removed the old dressing to examine the wounds noting one wound on the bottom of the 1st toe and lateral aspect of the right toe. Mild drainage noted, no pus noted. Redness is noted on the superior aspect of the foot near the wounds and has been marked to monitor. Patient is aware Dr. Ocampo see see the patient tomorrow or day after due to [facility] . RN washed out the wounds with NS and covered with Xeroform, 4x4 gauze and Kerlix. The patient tolerated the procedure well. Continue to monitor.
[2018-10-04] MEDS ORDERED: KETOROLAC TROMETHAMINE 10 MG TAB PO PRN (23:30)
[2018-10-04] MEDS: KETOROLAC TROMETHAMINE 30 MG/ML VIAL IM PRN (23:44)
--- NOTE | 2018-10-04 23:50 | NUR ---
RN received order from Dr. Juleith Ham to give patient Toradol IV 30 mg/1mL every 8 hours as needed for right foot pain.
[2018-10-05] VITALS (8 sets, daily range): BP systolic 98–147; BP diastolic 51–72
--- NOTE | 2018-10-05 07:10 | NUR ---
PATIENT IS AWAKE AND IN STABLE CONDITION WITH NO S/S OF RESPIRATORY DISTRESS. NO PAIN VOICED. DRESSING TO RIGHT GREAT TOE IS DRY AND INTACT. CALL LIGHT IS WITHIN REACH, PATIENT INSTRUCTED TO CALL FOR ASSISTANCE NEEDED.
[2018-10-05] MEDS: INSULIN ASPART 70/30 100 UNITS/ML VIAL SC SCH ×3 (07:30→16:30)
[2018-10-05] MEDS: INSULIN LISPRO 100 UNIT/1 ML 3ML VIAL SQ SCH ×4 (07:30→20:01)
[2018-10-05] MEDS: OLMESARTAN 20 MG TAB PO SCH (09:11)
[2018-10-05] MEDS: ESCITALOPRAM OXALATE 10 MG TAB PO SCH (09:11)
[2018-10-05] MEDS: CEFEPIME 1GM/NS 0.9% 50 ML 50 ML IV SCH ×3 (09:11→23:43)
[2018-10-05] MEDS: LEVOTHYROXINE SODIUM 100 MCG TAB PO SCH (09:11)
[2018-10-05] MEDS: PANTOPRAZOLE SOD 40 MG TABEC PO SCH (09:11)
[2018-10-05] MEDS: SUCRALFATE 1 GM TAB PO SCH ×4 (09:11→20:01)
[2018-10-05] MEDS: METOPROLOL SUCCINATE 25 MG TAB XL PO SCH ×2 (09:12→16:32)
[2018-10-05] MEDS: INSULIN GLARGINE 100 UNITS/ML VIAL SC SCH ×2 (09:43→20:01)
[2018-10-05] MEDS: VANCOMYCIN 1GM/NS 250 ML 250 ML IV SCH ×2 (09:56→21:19)
[2018-10-05] MEDS: KETOROLAC TROMETHAMINE 30 MG/ML VIAL IM PRN ×2 (12:07→20:22)
--- NOTE | 2018-10-05 19:35 | NUR ---
PATIENT IS IN STABLE CONDITION WITH NO S/S OF RESPIRATORY DISTRESS. PATIENT C/O DISCOMFORT TO RIGHT GREAT TOE BUT DOES NOT WANT PAIN MEDICATION AT THIS TIME. DRESSING TO RIGHT GREAT TOE DRY AND INTACT. CALL LIGHT IS WITHIN REACH, PATIENT INSTRUCTED TO CALL FOR ASSISTANCE NEEDED. BEDSIDE SHIFT REPORT GIVEN TO ONCOMING NURSE.
--- NOTE | 2018-10-05 21:17 | NUR ---
Vancomycin trough reported at 10.[address] Ham acknowledged the lab result. stated to go ahead and administer the medication for 2100.
--- NOTE | 2018-10-05 21:47 | NUR ---
Received bedside shift report from dayshift RN. Patient is laying on the bed with call light within reach, bed set low and side rails up x2. The patient is not in distress and reported right foot pain at 5/10.
[2018-10-06] VITALS (8 sets, daily range): BP systolic 133–186; BP diastolic 64–88
--- NOTE | 2018-10-06 07:20 | NUR ---
PATIENT IS AWAKE, ALERT, AMBULATING, AND IN STABLE CONDITION WITH NO S/S OF RESPIRATORY DISTRESS. PATIENT C/O 6/10 RIGHT GREAT TOE PAIN. DRESSING TO RIGHT GREAT TOE/FOOT IS DRY AND INTACT. CALL LIGHT IS WITHIN REACH, PATIENT INSTRUCTED TO CALL FOR ASSISTANCE NEEDED.
[2018-10-06] MEDS: INSULIN LISPRO 100 UNIT/1 ML 3ML VIAL SQ SCH ×4 (07:30→21:50)
[2018-10-06] MEDS: INSULIN ASPART 70/30 100 UNITS/ML VIAL SC SCH ×3 (08:00→16:13)
[2018-10-06] MEDS: KETOROLAC TROMETHAMINE 30 MG/ML VIAL IM PRN ×2 (08:42→21:55)
[2018-10-06] MEDS: INSULIN GLARGINE 100 UNITS/ML VIAL SC SCH ×2 (08:42→21:55)
[2018-10-06] MEDS: PANTOPRAZOLE SOD 40 MG TABEC PO SCH (08:46)
[2018-10-06] MEDS: OLMESARTAN 20 MG TAB PO SCH (08:46)
[2018-10-06] MEDS: LEVOTHYROXINE SODIUM 100 MCG TAB PO SCH (08:46)
[2018-10-06] MEDS: METOPROLOL SUCCINATE 25 MG TAB XL PO SCH ×2 (08:46→16:14)
[2018-10-06] MEDS: ESCITALOPRAM OXALATE 10 MG TAB PO SCH (08:46)
[2018-10-06] MEDS: VANCOMYCIN 1GM/NS 250 ML 250 ML IV SCH ×2 (08:46→21:55)
[2018-10-06] MEDS: SUCRALFATE 1 GM TAB PO SCH ×4 (08:46→21:55)
[2018-10-06] MEDS: CEFEPIME 1GM/NS 0.9% 50 ML 50 ML IV SCH ×2 (10:29→16:08)
--- NOTE | 2018-10-06 14:45 | NUR ---
PATIENT C/O NOT FEELING GOOD, SHE FEELS LIKE HER BG IS GETTING LOW. ASSESSED BG AND IS 75, PATIENT STATED THAT WAS LOW FOR HER. GAVE PATIENT ORANGE JUICE AT THIS TIME.
--- NOTE | 2018-10-06 15:56 | NUR ---
WC CONSULTATION - Deferred DX- Hypoglycemia IV ABX- Vancomycin and Cefepime. WC Consulted for foot Ulcer Evaluation and Treatment recommendation. Patient seen by Dr. Hernández and Dr. Marcelina HUTCHINS and guiding care of foot ulcer. At Dr. Hewitt's request assessment deferred. S/P I&D on 10/05/18 performed at bedside by Dr. Edgar HUTCHINS. Patient to discharge. Podiatry to continue to follow until discharge. Bryson Score 21 Conservative PUP Active. Visco Mattress in Place. No pressure ulcers identified. Thank you for consulting with Wound Care. Addendum: 10/06/18 at 1601 by James Arias RN Amended: Links added.
--- NOTE | 2018-10-06 19:27 | NUR ---
PATIENT IS AWAKE AND IN STABLE CONDITION WITH NO S/S OF RESPIRATORY DISTRESS. PATIENT C/O RIGHT GREAT TOE PAIN BUT WANTS TO TAKE A SHOWER FIRST THIS EVENING AND THEN RECEIVE PAIN MEDICATION. DRESSING INTACT AND DRY TO RIGHT FOOT. CALL LIGHT IS WITHIN REACH, PATIENT INSTRUCTED TO CALL FOR ASSISTANCE NEEDED. BEDSIDE REPORT GIVEN TO ONCOMING NURSE.
--- NOTE | 2018-10-06 22:05 | NUR ---
PATIENT WAS MEDICATED WITH KETORALAC UPON COMPLETION FROM TAKING A SHOWER. XENIA WRAP DRESSING TO THE RIGHT CHANGED DUE TO IT BEEN SLIGHT WET. CALL LIGHT WITHIN EASY REACH, SHE'S INSTRUCTED TO CALL FOR ASSISTANCE NEEDED. DIABETIC SNACKS PROVIDED.
[2018-10-07 00:26] VITALS: BP 158/68
[2018-10-07] MEDS: CEFEPIME 1GM/NS 0.9% 50 ML 50 ML IV SCH ×2 (01:30→08:20)
--- NOTE | 2018-10-07 02:05 | NUR ---
SOUNDLY ASLEEP, EASY TO AROUSE. PATIENT REQUESTING PAIN MEDICATION BUT SHE DOES NOT WANT TYLENOL. SHE WAS TOLD THAT THE PATIENT MEDICATION IS NOT DUE YET.
[2018-10-07 04:00] VITALS: BP 145/70
[2018-10-07] MEDS: LEVOTHYROXINE SODIUM 100 MCG TAB PO SCH (06:33)
[2018-10-07] MEDS: KETOROLAC TROMETHAMINE 30 MG/ML VIAL IM PRN (06:34)
--- NOTE | 2018-10-07 06:34 | NUR ---
PATIENT C/O PAIN TO THE RIGHT FOOT WITH PAIN SCORE #6, MEDICATED WITH KETORALAC ORDERED. NO RESPIRATORY DISTRESS OBSERVED, CALL LIGHT WITHIN EASY REACH.
[2018-10-07] MEDS: INSULIN LISPRO 100 UNIT/1 ML 3ML VIAL SQ SCH ×2 (07:44→11:56)
[2018-10-07] MEDS: INSULIN ASPART 70/30 100 UNITS/ML VIAL SC SCH ×2 (07:46→11:55)
[2018-10-07 07:54] VITALS: BP 143/67
--- NOTE | 2018-10-07 07:57 | NUR ---
patient resting in bed, alert with no distress, Dr Hernández had rounds
[2018-10-07] MEDS: SUCRALFATE 1 GM TAB PO SCH ×2 (08:22→13:00)
[2018-10-07] MEDS: ESCITALOPRAM OXALATE 10 MG TAB PO SCH (08:22)
[2018-10-07] MEDS: METOPROLOL SUCCINATE 25 MG TAB XL PO SCH (08:22)
[2018-10-07] MEDS: OLMESARTAN 20 MG TAB PO SCH (08:22)
[2018-10-07] MEDS: PANTOPRAZOLE SOD 40 MG TABEC PO SCH (08:22)
[2018-10-07] MEDS: INSULIN GLARGINE 100 UNITS/ML VIAL SC SCH (08:26)
[2018-10-07] MEDS: VANCOMYCIN 1GM/NS 250 ML 250 ML IV SCH (10:45)
[2018-10-07] MEDS ORDERED: TRAMADOL HCL 50 MG TAB PO PRN (11:15)
[2018-10-07 11:30] VITALS: BP 174/81
[2018-10-07 11:44] VITALS: BP 174/81
[2018-10-07 15:49] VITALS: BP 164/76
--- NOTE | 2018-10-07 15:54 | NUR ---
patient's pharmacy information given to Dr Ham to send the prescription, cleared from Dr Hernández that patient can be discharged
--- NOTE | 2018-10-07 16:05 | NUR ---
patient discharged home, D/C order given thru telephone by Dr Ham, patient aware about f/up appointments, dressing on rt foot toe is intact, IV canula removed with tip intact, no ss of infiltration,
--- NOTE | 2018-10-08 11:14 | Discharge Summary ---
DISCHARGE DIAGNOSES: 1. Cellulitis of the right lower extremity. 2. Diabetes. HISTORY OF PRESENT ILLNESS AND HOSPITAL COURSE: The patient is a lady who presented with acute onset of fevers and chills admitted for cellulitis of right lower extremity. She was brought in, placed on IV antibiotics, which helped tremendously with her foot and her symptoms of nausea, vomiting, and elevated sugars and within 24 hours, she was able to eat well without any complaints. She was maintained on IV antibiotics and eventually seen by Podiatry, who then stated the patient could go home and discharged her home with her medications for treatment of her cellulitis. The patient was given a script for some tramadol for pain. She will follow up with primary care physician, Dr. 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 Please see hospital chart for full details. MD MARKO Matthews/ULYSSES /[id number]
== END 2018-10-07 16:30 | disposition home or self-care (01) | DRG 872 ==
LOC: MED/SURG3 22:11
PROVIDERS: ADMIT Internal Medicine; ATTEND Internal Medicine
DX: A41.89 Other specified sepsis (principal); N39.0 Urinary tract infection, site not specified; L03.115 Cellulitis of right lower limb; J10.1 Influenza due to other identified influenza virus with other respiratory manifestations; J44.9 Chronic obstructive pulmonary disease, unspecified; E11.9 Type 2 diabetes mellitus without complications
CPT/HCPCS: 36415; 80053; 80202; 82948; 85025; 96367; 96372; 96376; J0360; J0692; J1815; J1885; J2550; J3370; J7040

== ENCOUNTER 2018-12-03 12:31 | Inpatient (IN) | payer BC ==
[2018-12-03] VITALS (7 sets, daily range): BP systolic 109–145; BP diastolic 59–81
[~2018-12-03] VITALS: Ht 167.6 cm; Wt 119.7 kg
[~2018-12-03 12:31] MED LIST changes: +BENICAR20 MG PO; +LANTUS 3ML100 UNITS/ SC
--- OUTSIDE RECORDS SUMMARY | 2018-12-03 12:37 | XMS REPORT | Clinical Summary ---
Author Author [facility] Organization [facility] Address Unknown Phone Unavailable Care Team Providers Care Bellperson Name Role Phone Hussein Gauthier MD PCP [...] Date Iron deficiency anemia 08/18/2017 Splenomegaly 08/18/2017 Family History Medical History Relation Name Comments [...] travel history available. Last Filed Vital Signs Not on file Plan of Treatment Health Maintenance Due Date Last Done Comments BREAST CANCER SCREENING 2014 COLONOSCOPY SCREENING 2014 SHINGLES VACCINES (#1) 2014 INFLUENZA VACCINE 12/10/2018 Results Not on fileafter 12/02/2017 Insurance Type Payer Benefit Subscriber ID Effective Phone Address Plan / Dates Group PPO BCBS BCBS xxxxxxxxxxxx 2017-P CHOICE resent PPO/ROMEO KAUR PPO Advance Directives Patient has advance care planning documents on file. For more information, chucho pepe contact: Ghulam Santiago [address] [place] [address]
--- NOTE | 2018-12-03 13:00 | NUR ---
This 53 y/o female pt. arrived to the unit via w/c from michelle love's office with an infected right grerat toe that has been lancer Addendum: 12/03/18 at 1644 by Marielos Aleman RN cont'd lanced and dressed by the . the toe is red and swollen and very painful. The admission process is completed and attempts to start unsuccessful and the charge nurse started after 3 attempts. The pt. was given pain med and antibiotics initiated. The pt.is scheduled for I&D of the toe on 12/04/18 and is to be consented.
[2018-12-03] MEDS ORDERED: MORPHINE SULFATE 2 MG/ML SYR 1ML IV STA (13:49)
[2018-12-03] MEDS: VANCOMYCIN 1GM/NS 250 ML 250 ML IV SCH (15:00)
[2018-12-03] MEDS ORDERED: SODIUM CHLORIDE 0.9% 250ML 250 ML ONE (15:40)
[2018-12-03 15:49] LABS: BASOPHILS % 0.3 % (0.0-1.0); EOSINOPHILS # (AUTO) 0.3 (0.0-0.4); EOSINOPHILS % 2.5 % (0.0-6.0); HEMATOCRIT 39.1 % (34.2-44.1); HEMOGLOBIN 12.4 g/dL (12.0-16.0); LYMPHOCYTES # (AUTO) 2.8 (1.0-3.2); LYMPHOCYTES % 22.3 % (18.0-39.1); MEAN CORPUSCULAR HEMOGLOBIN 27.7 pg (28-32); MEAN CORPUSCULAR HGB CONC 31.7 g/dL (31-35); MEAN CORPUSCULAR VOLUME 87.5 fL (81-99); MONOCYTES # (AUTO) 0.9 (0.2-0.8); NEUTROPHILS # (AUTO) 8.4 (2.1-6.9); NEUTROPHILS % 67.4 % (38.7-80.0); PLATELET COUNT 176 x10e3/uL (140-360); RED BLOOD COUNT 4.47 x10e6/uL (3.6-5.1)
[2018-12-03 16:05] LABS: ANION GAP 13.1 mmol/L (8-16); CALCIUM 9.7 mg/dL (8.4-10.2); CREATININE, SERUM 0.99 mg/dL (0.57-1.11); POTASSIUM 4.1 mmol/L (3.5-5.1)
[2018-12-03] MEDS: PIPER-TAZ 3.375 GM 50 ML IV SCH (17:59)
--- NOTE | 2018-12-03 19:25 | NUR ---
Patient received lying in bed. AAO x 3. Patient had no complaints of pain. No signs of respiratory distress. Fall precautions maintained. Patient instructed about "NPO status" after midnight. Patient verbalized understanding, Call light within reach.
[2018-12-03] MEDS: MORPHINE SULFATE 2 MG/ML SYR 1ML IV PRN (20:58)
--- NOTE | 2018-12-03 21:44 | NUR ---
Patient's temperature elevated (100.7). Dr. Hewitt notified. New order received for Tylenol 650 mg PO Q6H.
[2018-12-04] VITALS (8 sets, daily range): BP systolic 104–136; BP diastolic 55–79
[2018-12-04] MEDS: ACETAMINOPHEN 325 MG TAB PO PRN (00:11)
[2018-12-04] MEDS: PIPER-TAZ 3.375 GM 50 ML IV SCH ×5 (00:11→23:53)
[2018-12-04] MEDS: VANCOMYCIN 1GM/NS 250 ML 250 ML IV SCH ×2 (03:14→15:25)
[2018-12-04] MEDS: MORPHINE SULFATE 2 MG/ML SYR 1ML IV PRN ×3 (03:14→17:53)
--- NOTE | 2018-12-04 06:25 | NUR ---
Patient off floor for I & D procedure.
--- NOTE | 2018-12-04 06:50 | NUR ---
Shift report given to oncoming nurse .
[2018-12-04] MEDS ORDERED: BACITRACIN 50,000 UNIT VIAL ONE (07:13)
--- NOTE | 2018-12-04 09:08 | Operative Report ---
DATE OF PROCEDURE: 12/04/2018 SURGEON: Ana Hewitt DPM PREOPERATIVE DIAGNOSIS: Right foot infection. POSTOPERATIVE DIAGNOSIS: Right foot infection. PLANNED PROCEDURE: Incision and drainage, right foot. ANESTHESIA: General with a postoperative block consisting of 20 mL 0.5% Marcaine plain. HEMOSTASIS: Pneumatic ankle tourniquet set at 250 mmHg for a total time of approximately 10 minutes. MATERIALS: Quarter-inch iodoform packing. PATHOLOGY: Anaerobic and aerobic cultures. PROCEDURE NOTE: The patient was seen in the preoperative waiting room. The correct procedure and site were identified. The patient was brought to the operating room, placed on the operating table in a supine position. General anesthesia was initiated. At this time, a well-padded pneumatic tourniquet was placed about the patient's right ankle. The right foot, ankle, and leg was then scrubbed, prepped, and draped in the usual aseptic manner. The right foot, ankle, and leg was exsanguinated with gravity and the pneumatic ankle tourniquet was inflated to 250 mmHg for a total time of approximately 10 minutes. Attention was directed to the medial plantar aspect of the patient's right hallux, where a previous incision site was made. Utilizing a hemostat, the previous incision site was opened and copiously irrigated with sterile saline. Next, attention was directed to the dorsal aspect of the right 1st interspace, where a 2 cm linear incision was made and was carried to the subcutaneous tissue from deeper underlying structures with a hemostat. There was noted to be a moderate amount of purulent drainage. This was cultured with anaerobic and aerobic cultures. The both wounds were then copiously irrigated with sterile saline. Packed open with quarter-inch iodoform gauze. The wound was then dressed with Adaptic, 4x4s, Kerlix, and Erik wrap. The patient tolerated the procedure and anesthesia well. The patient was transferred to the postoperative recovery room with vital signs stable and vascular status intact. The patient was monitored there for a short period of time before being readmitted for postop reminding pain control and IV antibiotics. The Podiatry Service will continue to monitor as an inpatient. Ana Hewitt DPM MAF/MODL /[id number]
[2018-12-04] MEDS ORDERED: DEXTROSE 50% SYRINGE 50 ML IV PRN (14:00)
[2018-12-04] MEDS ORDERED: OLMESARTAN (15:06)
[2018-12-04] MEDS ORDERED: BENICAR20 MG PO (15:56)
[2018-12-04] MEDS ORDERED: HYDROCHLOROTHIA25 MG PO (15:56)
[2018-12-04] MEDS: METOPROLOL SUCCINATE 25 MG TAB XL PO SCH (16:26)
[2018-12-04] MEDS: HYDROCHLOROTHIAZIDE 25 MG TAB PO SCH (16:26)
[2018-12-04] MEDS: SUCRALFATE 1 GM TAB PO SCH ×2 (16:27→20:51)
[2018-12-04] MEDS: OLMESARTAN 20 MG TAB PO SCH (16:27)
[2018-12-04] MEDS: INSULIN LISPRO 100 UNIT/1 ML 3ML VIAL SQ SCH ×2 (16:40→20:55)
--- NOTE | 2018-12-04 18:36 | Progress Note ---
DATE: SUBJECTIVE: Patient is here for status post incision and drainage and debridement of wound of the foot. The patient underwent surgery today by Dr. Hewitt. The patient had incision and drainage of the right foot under general anesthesia. The patient is currently afebrile. No chest pains or shortness of breath. Pain is controlled. MEDICATIONS: Include morphine sulfate 10 mg every 6 hours, losartan 20 mg daily, Carafate 1 g before meals and at bedtime, metoprolol 25 mg twice a day, vancomycin q.12 hours, and she is also on Zosyn 3.75 q.6 hours. The patient is also getting a levothyroxine and citalopram. PHYSICAL EXAMINATION: VITAL SIGNS: Temperature is 99.2 on 12/04 at 1600, blood pressure 136/62, and pulse oximetry of 98% on room air. HEENT: Normocephalic and atraumatic. Pupils are reactive to light and accommodation. CVS: S1 and S2 normal. Regular rate and rhythm. ABDOMEN: Nontender and nondistended. EXTREMITIES: Right foot bandaged. LABORATORY DATA: Initial white count yesterday was 12,000, hemoglobin of 12.4, hematocrit of 39.1, neutrophil count 67.4. Chemistries, glucoses have been running in the 200s to 300 range. MICROBIOLOGY: Wound cultures have been done and they are pending. IMAGING STUDIES: None done here. ASSESSMENT: 1. Right foot abscess, status post incision and drainage by Dr. Hewitt. Awaiting cultures. The patient is on Zosyn and vancomycin. We will continue the same. 2. History of diabetes mellitus. Continue with antidiabetic agents. 3. Hypothyroidism. Continue with levothyroxine. 4. Depression. Continue with citalopram 20 mg. Blood pressure, continue with metoprolol 25 mg twice a day and hydrochlorothiazide twice a day. Further recommendation per clinical course. We will continue to monitor the patient and possibly start on long-term insulin. MD DOMINIC Najera/MODL /[id number]
[2018-12-04] MEDS: ONDANSETRON HCL INJ 2MG/ML 2ML 2 MG/ML VIAL IV PRN (19:35)
[2018-12-04] MEDS ORDERED: DEXAMETHASONE SOD PHOS INJ 4 MG/ML VIAL ONE (19:49)
[2018-12-04] MEDS ORDERED: SEVOFLURANE INHAL SOLN 250 ML PEN BTL ONE (19:49)
[2018-12-04] MEDS ORDERED: MIDAZOLAM HCL 2 MG/2 ML VIAL ONE (19:49)
[2018-12-04] MEDS ORDERED: FENTANYL CITRATE/PF 100MCG/2 ML INJ ONE (19:49)
[2018-12-04] MEDS ORDERED: PROPOFOL IV EMULSION 10 MG/ML 20 ML VIAL ONE (19:49)
[2018-12-04] MEDS ORDERED: LIDOCAINE HCL 2% LOCAL INJ 5 ML SDV VIAL INJ ONE (19:49)
[2018-12-04] MEDS ORDERED: FAMOTIDINE 20 MG/2 ML VIAL IV ONE (19:49)
[2018-12-04] MEDS ORDERED: ONDANSETRON HCL INJ 2MG/ML 2ML 2 MG/ML VIAL ONE (19:49)
[2018-12-04] MEDS ORDERED: INSULIN ASPART 70/30 100 UNITS/ML VIAL SC SCH (21:00)
[2018-12-04] MEDS ORDERED: INSULIN GLARGINE 100 UNITS/ML VIAL SQ SCH (21:00)
[2018-12-05] VITALS (8 sets, daily range): BP systolic 102–139; BP diastolic 56–80
[2018-12-05 02:29] LABS: BASOPHILS % 0.5 % (0.0-1.0); EOSINOPHILS # (AUTO) 0.2 (0.0-0.4); EOSINOPHILS % 3.7 % (0.0-6.0); HEMATOCRIT 36.9 % (34.2-44.1); HEMOGLOBIN 12.1 g/dL (12.0-16.0); LYMPHOCYTES % 32.8 % (18.0-39.1); MEAN CORPUSCULAR HGB CONC 32.8 g/dL (31-35); MEAN CORPUSCULAR VOLUME 85.4 fL (81-99); MONOCYTES # (AUTO) 0.6 (0.2-0.8); MONOCYTES % 9.4 % (4.4-11.3); NEUTROPHILS # (AUTO) 3.2 (2.1-6.9); NEUTROPHILS % 53.1 % (38.7-80.0); PLATELET COUNT 130 x10e3/uL (140-360); RED BLOOD COUNT 4.32 x10e6/uL (3.6-5.1); RED CELL DISTRIBUTION WIDTH 13.6 % (11.7-14.4)
[2018-12-05 02:53] LABS: ANION GAP 14.1 mmol/L (8-16); BLOOD UREA NITROGEN 17 mg/dL (7-26); BUN/CREATININE RATIO 22 (6-25); CALCIUM 9.9 mg/dL (8.4-10.2); CARBON DIOXIDE 26 mmol/L (22-29); CHLORIDE 102 mmol/L (98-107); CREATININE, SERUM 0.77 mg/dL (0.57-1.11); EST GLOMERULAR FILTRATION RATE > 60 ML/MIN (60-); GLUCOSE 97 mg/dL (74-118); POTASSIUM 4.1 mmol/L (3.5-5.1); SODIUM 138 mmol/L (136-145)
[2018-12-05] MEDS: MORPHINE SULFATE 2 MG/ML SYR 1ML IV PRN ×3 (03:59→21:25)
[2018-12-05] MEDS: VANCOMYCIN 1GM/NS 250 ML 250 ML IV SCH ×2 (03:59→15:32)
[2018-12-05] MEDS: PIPER-TAZ 3.375 GM 50 ML IV SCH ×3 (05:50→17:27)
[2018-12-05] MEDS: LEVOTHYROXINE SODIUM 100 MCG TAB PO SCH (05:50)
[2018-12-05] MEDS: PANTOPRAZOLE SOD 40 MG TABEC PO SCH (07:25)
[2018-12-05] MEDS: SUCRALFATE 1 GM TAB PO SCH ×4 (07:25→21:16)
[2018-12-05] MEDS: ONDANSETRON HCL INJ 2MG/ML 2ML 2 MG/ML VIAL IV PRN ×2 (07:26→21:25)
[2018-12-05] MEDS: INSULIN LISPRO 100 UNIT/1 ML 3ML VIAL SQ SCH ×4 (07:30→21:26)
[2018-12-05] MEDS: METOPROLOL SUCCINATE 25 MG TAB XL PO SCH ×2 (08:25→16:42)
[2018-12-05] MEDS: HYDROCHLOROTHIAZIDE 25 MG TAB PO SCH (08:25)
[2018-12-05] MEDS: OLMESARTAN 20 MG TAB PO SCH (08:25)
[2018-12-05] MEDS: ESCITALOPRAM OXALATE 10 MG TAB PO SCH (08:25)
[2018-12-05] MEDS: INSULIN ASPART 70/30 100 UNITS/ML VIAL SC SCH ×3 (08:52→21:27)
[2018-12-05] MEDS ORDERED: OLMESARTAN 20 MG TAB PO SCH (09:00)
--- NOTE | 2018-12-05 09:24 | Progress Note ---
DATE: SUBJECTIVE: The patient is a 53-year-old female with cellulitis of the right upper and lower extremity. The patient had incision and drainage by Dr. Hewitt yesterday. The patient is currently on antibiotics. The patient is on Zosyn and vancomycin. Currently asymptomatic. Pain is controlled. No chest pain. No shortness of breath. No nausea, vomiting, or diarrhea. Blood sugars are better controlled with current insulin regimen. MEDICATIONS: Acetaminophen, escitalopram, Esidrix, NovoLog 70/30, insulin glargine, insulin lispro, levothyroxine, pantoprazole, Zosyn, vancomycin, and Carafate. MICROBIOLOGY: The patient's wound cultures are pending. PHYSICAL EXAMINATION: VITAL SIGNS: Temperature is 96.9, pulse of 77, respirations of 16, blood pressure is 128/61, pulse oximetry 95%. HEENT: Normocephalic, atraumatic. Pupils are reactive to light and accommodation. CVS: S1, S2. Normal rate and rhythm. ABDOMEN: Nontender, nondistended. EXTREMITIES: Right leg and bandage, good capillary refill. Left side good cap refill. No signs of infection. IMAGING STUDIES: None. LABORATORY VALUES: White count is 5.94 down from 12 yesterday, hemoglobin of 12.1, hematocrit of 36.9. Chemistries are normal. Sodium and potassium normal. BUN of 17, creatinine 0.77. Toxicology, vancomycin trough is 9.7. ASSESSMENT: 1. Right foot abscess, status post incision and drainage. Plan: Awaiting for cultures. Continue on Zosyn and vancomycin. 2. History of diabetes mellitus. Continue anti-diabetic agents. 3. Hypothyroidism. Continue with levothyroxine. 4. Depression. Continue with escitalopram 20 mg. she is on Lexapro. 5. Hypertension. Continue with the anti-hypertensive agents and CV medications. 6. Further recommendation per clinical course and also depending on the microbiological cultures. DISPOSITION: Can be discharged upon receiving microbiological data. MD DOMINIC Najera/MODL /[id number]
--- NOTE | 2018-12-05 14:26 | NUR ---
spoke to podiatry and states he will arrive in facility in early am to change dressing to right foot.
--- NOTE | 2018-12-05 19:04 | NUR ---
walking rounds done with oncoming nurse, pt in bed call light within reach.
[2018-12-06] VITALS (7 sets, daily range): BP systolic 100–128; BP diastolic 62–71
[2018-12-06] MEDS: PIPER-TAZ 3.375 GM 50 ML IV SCH ×5 (00:47→23:46)
[2018-12-06] MEDS: ACETAMINOPHEN 325 MG TAB PO PRN (00:47)
[2018-12-06] MEDS: MORPHINE SULFATE 2 MG/ML SYR 1ML IV PRN ×2 (03:40→21:15)
[2018-12-06] MEDS: VANCOMYCIN 1GM/NS 250 ML 250 ML IV SCH ×2 (03:40→15:35)
[2018-12-06] MEDS: ONDANSETRON HCL INJ 2MG/ML 2ML 2 MG/ML VIAL IV PRN ×2 (03:40→12:03)
[2018-12-06] MEDS: LEVOTHYROXINE SODIUM 100 MCG TAB PO SCH (06:10)
--- NOTE | 2018-12-06 07:00 | NUR ---
BEDSIDE SHIFT REPORT RECEIVED FROM THE SCALEHOUSE ATTENDANT RN. PT DENIES NEEDS AT THIS TIME.
[2018-12-06] MEDS: INSULIN LISPRO 100 UNIT/1 ML 3ML VIAL SQ SCH ×4 (07:30→21:00)
[2018-12-06] MEDS: PANTOPRAZOLE SOD 40 MG TABEC PO SCH (08:22)
[2018-12-06] MEDS: SUCRALFATE 1 GM TAB PO SCH ×4 (08:22→21:00)
[2018-12-06] MEDS: ESCITALOPRAM OXALATE 10 MG TAB PO SCH (08:24)
[2018-12-06] MEDS: HYDROCHLOROTHIAZIDE 25 MG TAB PO SCH (08:24)
[2018-12-06] MEDS: INSULIN ASPART 70/30 100 UNITS/ML VIAL SC SCH ×3 (09:00→21:00)
--- NOTE | 2018-12-06 09:28 | Progress Note ---
DATE: SUBJECTIVE: The patient is status post surgery. The patient is pain free. Foot elevated. No chest pain. No shortness of breath. The patient has been ambulating a little. OBJECTIVE: VITAL SIGNS: On examination, temperature is 98.4, T-max is 99.5 at 7:27, blood pressure is 113/62, pulse oximetry of 92%. HEENT: Normocephalic, atraumatic. Pupils are reactive to light and accommodation. CVS: S1, S2 normal. Regular rate and rhythm. ABDOMEN: Nontender, nondistended. EXTREMITIES: Right lower extremity in bandage. LABORATORY DATA: Yesterday's white count is 5.94. Chemistries within normal limits. Blood sugars have been running in the 170s to 200s. ASSESSMENT: 1. Right foot abscess, status post incision and drainage. Continue Zosyn and vancomycin. 2. History of diabetes mellitus. Continue with insulin sliding scale and also her insulin. 3. Hypothyroidism. Continue with levothyroxine. 4. Depression. Continue with citalopram. 5. Hypertension. Continue with CV medication. The patient's microbiology data, no growth yet. Further recommendation per clinical course. We will continue to monitor the patient along with Podiatry. MD DOMINIC Najera/ULYSSES /[id number]
--- NOTE | 2018-12-06 10:40 | NUR ---
DR. LEPE AT BEDSIDE TO SEE THE PT. RIGHT FOOT DRESSING CHANGE COMPLETED BY DR. LEPE.
[2018-12-06] MEDS: METOPROLOL SUCCINATE 25 MG TAB XL PO SCH ×2 (11:00→16:47)
[2018-12-06] MEDS: OLMESARTAN 20 MG TAB PO SCH (11:00)
[2018-12-06] MEDS ORDERED: SODIUM CHLORIDE 0.9% 250ML 250 ML ONE (17:47)
--- NOTE | 2018-12-06 19:00 | NUR ---
BEDSIDE SHIFT REPORT GIVEN TO THE BLAST FURNACE BLOWER RN. PT DENIED FURTHER NEEDS.
--- NOTE | 2018-12-06 20:00 | NUR ---
INITIAL ASSESSMENT COMPLETE, DRESSING TO RIGHT GREAT TOE INTACT, PEDAL PULSES INTACT, NO EDEMA NOTED, PT STATES PAIN IS 3/10 AT THIS TIME, THROBBING, BURNING PAIN, BM TODAY, PT UP TO BATHROOM WITH ASSIST, CALL LIGHT IN REACH, VS STABLE, TOLD TO CALL FOR NEEDS
--- NOTE | 2018-12-07 | NUR ---
pt awaken easily, vs stable, call light in reach, no distress noted, told to call for needs, will continue to monitor condition
[2018-12-07 00:29] VITALS: BP 117/61
[2018-12-07] MEDS: VANCOMYCIN 1GM/NS 250 ML 250 ML IV SCH ×2 (03:00→15:29)
[2018-12-07 03:47] VITALS: BP 136/76
--- NOTE | 2018-12-07 04:00 | NUR ---
pt in bed, easily awaken for vs and meds, call light in reach, no distress noted, vs stable
[2018-12-07 05:16] LABS: BASOPHILS # (AUTO) 0.1 (0.0-0.1); BASOPHILS % 0.7 % (0.0-1.0); EOSINOPHILS # (AUTO) 0.3 (0.0-0.4); EOSINOPHILS % 3.2 % (0.0-6.0); HEMATOCRIT 38.2 % (34.2-44.1); HEMOGLOBIN 12.3 g/dL (12.0-16.0); LYMPHOCYTES # (AUTO) 3.3 (1.0-3.2); LYMPHOCYTES % 40.3 % (18.0-39.1); MEAN CORPUSCULAR HGB CONC 32.2 g/dL (31-35); MEAN CORPUSCULAR VOLUME 86.8 fL (81-99); MONOCYTES # (AUTO) 0.6 (0.2-0.8); MONOCYTES % 6.7 % (4.4-11.3); NEUTROPHILS % 48.4 % (38.7-80.0); PLATELET COUNT 165 x10e3/uL (140-360); RED CELL DISTRIBUTION WIDTH 13.9 % (11.7-14.4)
[2018-12-07 05:35] LABS: ANION GAP 13.5 mmol/L (8-16); BLOOD UREA NITROGEN 10 mg/dL (7-26); BUN/CREATININE RATIO 13 (6-25); CALCIUM 9.4 mg/dL (8.4-10.2); CARBON DIOXIDE 26 mmol/L (22-29); CHLORIDE 101 mmol/L (98-107); CREATININE, SERUM 0.78 mg/dL (0.57-1.11); EST GLOMERULAR FILTRATION RATE > 60 ML/MIN (60-); GLUCOSE 187 mg/dL (74-118); POTASSIUM 3.5 mmol/L (3.5-5.1); SODIUM 137 mmol/L (136-145)
[2018-12-07] MEDS: PIPER-TAZ 3.375 GM 50 ML IV SCH ×2 (06:00→11:43)
[2018-12-07] MEDS: LEVOTHYROXINE SODIUM 100 MCG TAB PO SCH (06:00)
--- NOTE | 2018-12-07 06:09 | NUR ---
pt awake for meds, no distress noted, call light in reach
--- NOTE | 2018-12-07 07:00 | NUR ---
BEDSIDE SHIFT REPORT RECEIVED FROM THE EDUCATIONAL AIDE RN. PT DENIES NEEDS AT THIS TIME
[2018-12-07 07:22] VITALS: BP 104/72
[2018-12-07] MEDS: INSULIN LISPRO 100 UNIT/1 ML 3ML VIAL SQ SCH ×3 (07:30→16:30)
[2018-12-07] MEDS: SUCRALFATE 1 GM TAB PO SCH ×3 (07:57→16:56)
[2018-12-07] MEDS: PANTOPRAZOLE SOD 40 MG TABEC PO SCH (07:57)
[2018-12-07] MEDS: ESCITALOPRAM OXALATE 10 MG TAB PO SCH (07:58)
[2018-12-07] MEDS: HYDROCHLOROTHIAZIDE 25 MG TAB PO SCH (07:59)
[2018-12-07] MEDS: OLMESARTAN 20 MG TAB PO SCH (07:59)
[2018-12-07] MEDS: METOPROLOL SUCCINATE 25 MG TAB XL PO SCH ×2 (08:00→16:56)
[2018-12-07 09:00] VITALS: BP 104/72
[2018-12-07] MEDS: INSULIN ASPART 70/30 100 UNITS/ML VIAL SC SCH ×2 (09:30→15:00)
[2018-12-07 11:27] VITALS: BP 108/74
--- NOTE | 2018-12-07 14:25 | NUR ---
PAGED DR. ZAMAN REGARDING PT DISCHARGE. PER THE DR HE WILL CALL BACK WITH UPDATE.
--- NOTE | 2018-12-07 14:55 | NUR ---
DISCUSSED IN BARRIER ROUNDS, PATIENT CONTINUE IV ABX TREATMENTS AT THIS TIME. PER DR. LEPE NOTE, PATIENT TO TRANSITION TO ORAL ABX AT DISCHARGE. CULTURE WITH NO GROWTH. PENDING SCRIPTS FOR PO ABX FOR DISCHARGE. PATIENT WITH NO FURTHER NEEDS AT THIS TIME. ONCE PATIENT CLEARED BY CONSULTS. PATIENT CAN DISCHARGE.
[2018-12-07 15:21] VITALS: BP 141/88
--- NOTE | 2018-12-07 16:00 | NUR ---
MAIA TO DISCHARGE PT PER DR. ZAMAN AND DR. JACOB.
--- NOTE | 2018-12-07 16:30 | NUR ---
PER DR. JACOB HE WILL ARRANGE PRESCRIPTION FOR ABX FROM [place] [id number] PER PT REQUEST.
--- NOTE | 2018-12-07 17:45 | NUR ---
PT DISCHARGED HOME SAFELY WITH FAMILY. IV REMOVED. TIP INTACT. NO BLEEDING NOTED. DRESSING APPLIED. RIGHT FOOT DRESSING CHANGE INSTRUCTION GIVEN. PT VERBALIZED UNDERSTANDING. PT DENIED FURTHER NEEDS.
--- NOTE | 2018-12-13 18:39 | History and Physical ---
REASON FOR ADMISSION: Right foot abscess. HISTORY OF PRESENT ILLNESS: The patient is a lady with history of hypertension and diabetes, who presented with a right foot abscess and wanted to be admitted from her alignment specialist, so she has been admitted for IV antibiotics and I and D. PAST MEDICAL HISTORY: Significant for diabetes and hypertension. MEDICATIONS: See JUL. ALLERGIES: SEE JUL. SOCIAL HISTORY: Nonsmoker, nondrinker. FAMILY HISTORY: Noncontributory. PHYSICAL EXAMINATION: VITAL SIGNS: Temperature 98.6, blood pressure 136/74, pulse 74, sats 98% on room air. GENERAL: No apparent distress. NECK: Supple. CARDIOVASCULAR: Regular rate and rhythm. LUNGS: Clear to auscultation bilaterally. ABDOMEN: Good bowel sounds. Soft, nontender. EXTREMITIES: No clubbing or cyanosis. Right foot show some evidence of an abscess. NEUROLOGIC: Nonfocal. ASSESSMENT AND PLAN: 1. Right foot abscess. We will consult Podiatry, placed on IV antibiotics and she is to have an I and D soon. 2. Hypertension. Continue with current care monitoring. 3. Diabetes. Continue with current care monitoring. Please see hospital chart for full details. MD MARKO Matthews/ULYSSES /[id number]
--- NOTE | 2018-12-14 10:14 | Discharge Summary ---
DISCHARGE DIAGNOSIS: Right foot abscess. HISTORY OF PRESENT ILLNESS AND HOSPITAL COURSE: See hospital chart for full details. The patient is a diabetic who has been dealing with right foot cellulitis that unfortunately formed due to an abscess, so she was brought in by the vice president regulatory for an I and D that was performed. She was on IV antibiotics. She improved significantly while in the hospital, that she was able to be discharged once she was cleared by the surgeon, and she was discharged home with p.o. Levaquin and follow up in 10 days with a surgeon. Please see hospital chart for full details. MD MARKO Matthews/ULYSSES /[id number]
== END 2018-12-07 18:07 | disposition home or self-care (01) | DRG 603 ==
LOC: MED/SURG2 12:31
PROVIDERS: ADMIT Internal Medicine; ATTEND Internal Medicine
PROC: 0Y9M0ZZ Drainage of Right Foot, Open Approach (ICD-10-PCS; principal; 2018-12-04 07:14)
DX: L02.611 Cutaneous abscess of right foot (principal); E11.8 Type 2 diabetes mellitus with unspecified complications; E03.9 Hypothyroidism, unspecified; F32.9 Major depressive disorder, single episode, unspecified
CPT/HCPCS: 36415; 80048; 80202; 82948; 85025; 87071; 87075; 87205; J1100; J1815; J2001; J2250; J2270; J2405; J2543; J3010; J3370; J7050

== ENCOUNTER → 2019-02-09 | Outpatient (CLI) | payer BC ==
[~2019-02-09] MED LIST changes: +HYDROCHLOROTHIA25 MG PO; +OLMESARTAN
--- NOTE | 2019-02-09 14:17 | Diagnostic Imaging Report ---
MRI of the right forefoot without contrast. History: Foot pain. Infection. Infection of the big toe. Pain worse with walking.. Technique: Multiplanar multisequence MRI of the foot without contrast Comparison: None Findings: Skin thickening with skin ulceration at the plantar aspect of the first toe with abnormal adjacent soft tissue edema. This is best seen on series 2 image 20 through 22, series 5 image 14 through 16 and sagittal image 5 through 9. No well-formed drainable fluid collection/abscess is seen. No underlying bone marrow edema or cortical destruction is seen to suggest osteomyelitis. No ligamentous or tendon tear. There is what appears to be a defect in the medial capsule at the plantar aspect of the first toe interphalangeal joint best seen on series 2 image 20 and 21. This may be postsurgical. Tendinosis of the flexor tendons to the great toe. Diffuse muscle atrophy. The visualized neurovascular bundles are intact. Impression: Findings consistent with skin ulceration and cellulitis at the plantar aspect of the first toe. No well-formed drainable fluid collection/abscess is seen. No underlying bone marrow edema or cortical destruction is seen to suggest osteomyelitis. Signed by: Dr. Adam Verdin M.D. on 02/09/2019 2:14 PM
== END ==
LOC: MRI 11:24
PROVIDERS: ATTEND Podiatrist Foot & Ankle Surgery
DX: M86.071 Acute hematogenous osteomyelitis, right ankle and foot (principal)

== ENCOUNTER 2019-05-07 08:49 | Emergency (ER) | payer BC ==
[~2019-05-07] VITALS: Ht 167.6 cm; Wt 119.7 kg
[~2019-05-07 08:49] MED LIST changes: +BENTYL10 MG/1 ML PO; +CYMBALTA30 MG PO; +METFORMIN HCL500 MG PO; +OLMESARTAN-HCT1 EACH PO
[2019-05-07] MEDS ORDERED: SODIUM CHLORIDE 0.9% 1000ML 1,000 ML IV ONE (09:00)
[2019-05-07] MEDS ORDERED: ONDANSETRON HCL INJ 2MG/ML 2ML 2 MG/ML VIAL IV NR (09:00)
[2019-05-07] MEDS ORDERED: FAMOTIDINE 20 MG/2 ML VIAL IV NR (09:00)
[2019-05-07] MEDS ORDERED: KETOROLAC TROMETHAMINE 30 MG/ML VIAL IV NR (09:00)
[2019-05-07 09:24] LABS: BASOPHILS # (AUTO) 0.1 (0.0-0.1); BASOPHILS % 0.9 % (0.0-1.0); EOSINOPHILS # (AUTO) 0.2 (0.0-0.4); EOSINOPHILS % 1.6 % (0.0-6.0); HEMATOCRIT 45.2 % (34.2-44.1); HEMOGLOBIN 14.8 g/dL (12.0-16.0); LYMPHOCYTES # (AUTO) 3.5 (1.0-3.2); LYMPHOCYTES % 33.1 % (18.0-39.1); MEAN CORPUSCULAR HEMOGLOBIN 27.2 pg (28-32); MEAN CORPUSCULAR HGB CONC 32.7 g/dL (31-35); MEAN CORPUSCULAR VOLUME 83.1 fL (81-99); MONOCYTES # (AUTO) 0.5 (0.2-0.8); MONOCYTES % 4.9 % (4.4-11.3); NEUTROPHILS # (AUTO) 6.2 (2.1-6.9); NEUTROPHILS % 58.8 % (38.7-80.0); PLATELET COUNT 222 x10e3/uL (140-360); RED BLOOD COUNT 5.44 x10e6/uL (3.6-5.1); RED CELL DISTRIBUTION WIDTH 15.3 % (11.7-14.4)
--- NOTE | 2019-05-07 09:46 | Diagnostic Imaging Report ---
Abdominal series, 4 views Clinical indication: Epigastric pain Comparison: CT of the abdomen and pelvis performed 07/15/2017 Findings: Frontal view of the chest and 3 views of the abdomen were obtained. The heart is within normal limits of size. The lungs are clear. There is no focal consolidation, pleural effusion, or pneumothorax. The bowel gas pattern is nonobstructive. No free intraperitoneal air is identified. No air-fluid levels are identified. Cholecystectomy clips are seen in the right upper quadrant. There are no acute osseous abnormalities. Calcified densities within the pelvis are likely phleboliths. Impression: Nonobstructive bowel gas pattern without evidence of free intraperitoneal air or air-fluid levels. Signed by: Byron Cook MD on 05/07/2019 9:43 AM
[2019-05-07 09:54] LABS: ALANINE AMINOTRANSFERASE 20 IU/L (0-55); ALBUMIN/GLOBULIN RATIO 0.9 (0.8-2.0); ALKALINE PHOSPHATASE 133 IU/L (40-150); ANION GAP 20.6 mmol/L (8-16); BLOOD UREA NITROGEN 20 mg/dL (7-26); BUN/CREATININE RATIO 10 (6-25); CALCIUM 10.8 mg/dL (8.4-10.2); CARBON DIOXIDE 25 mmol/L (22-29); CHLORIDE 97 mmol/L (98-107); CREATINE KINASE 29 IU/L (29-168); CREATININE, SERUM 1.92 mg/dL (0.57-1.11); EST GLOMERULAR FILTRATION RATE 27 ML/MIN (60-); GLUCOSE 314 mg/dL (74-118); POTASSIUM 4.6 mmol/L (3.5-5.1); SODIUM 138 mmol/L (136-145)
[2019-05-07 10:02] LABS: BILIRUBIN,URINE MODERATE (NEGATIVE); CLARITY,URINE SL CLOUDY (CLEAR); COLOR,URINE YELLOW (YELLOW); KETONES,URINE 1+ (NEGATIVE); LEUKOCYTE ESTERASE ,URINE TRACE (NEGATIVE); NITRITE,URINE NEGATIVE (NEGATIVE); PROTEIN,URINE DIPSTICK 1+ (NEGATIVE); URINE UROBILINOGEN 0.2 mg/dL (0.2 - 1)
[2019-05-07 10:15] LABS: AMORPHOUS SEDIMENT,URINE FEW (FEW); BACTERIA,URINE MANY /HPF; EPITHELIAL CELLS,URINE MANY /LPF
[2019-05-07 10:25] LABS: LIPASE 72 U/L (8-78)
[2019-05-07] MEDS ORDERED: IOPAMIDOL 370 MG/ML 200 ML INFUS..BTL INJ ONE (11:31)
[2019-05-07] MEDS ORDERED: SODIUM CHLORIDE 0.9% 50ML 50 ML ONE (11:31)
--- NOTE | 2019-05-07 12:22 | Diagnostic Imaging Report ---
CT of the abdomen and pelvis History: Abdominal pain Comparison: CT of the abdomen and pelvis dated 07/15/2017, abdominal series radiographs dated today. Technique: Multidetector CT scanning of the abdomen and pelvis was performed from the level of the lung bases to the inferior pubic ramus, with with IV contrast. DOSE REDUCTION: The examination was performed according to departmental dose-optimization program which includes automated exposure control, adjustment of the mA and/or kV according to patient size and/or use of iterative reconstruction technique. Discussion: The lung bases are clear. The liver is enlarged measuring 23 cm in craniocaudal dimension. The liver is diffusely hypoattenuating compatible with hepatic steatosis. No focal hepatic lesions are identified. The gallbladder is surgically absent. There is no intrahepatic or extrahepatic biliary dilatation. Spleen is enlarged measuring 14.4 cm in length.. There is a 3.6 x 3.6 cm low attenuating lesion in the posterior aspect of the spleen which is most likely a cyst. The bilateral adrenal glands are within normal limits. The pancreas is homogeneous in attenuation. There is no pancreatic ductal dilatation. No peripancreatic inflammatory stranding is identified. The kidneys are normal in size. 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 No renal stones identified. The stomach, small, and large bowel are nondistended. There is no evidence of obstruction. The appendix is normal in caliber. There are scattered colonic diverticula without evidence of acute diverticulitis. There is no free intraperitoneal air or ascites. The abdominal aorta is of normal course and caliber. Celiac, SMA, and PRITI are patent. The uterus and bilateral adnexa are within normal limits. The urinary bladder is unremarkable. No enlarged abdominal or retroperitoneal lymph nodes no acute osseous abnormalities. Mild multilevel degenerative changes of the thoracolumbar spine. IMPRESSION: 1. No CT evidence of acute abdominal or pelvic pathology. 2. Hepatosplenomegaly with hepatic steatosis. 3. 3.6 cm low-attenuation lesion in posterior aspect of the spleen. This most likely represents a cyst. 4. Diverticulosis without evidence of acute diverticulitis. 5. Status post cholecystectomy. Signed by: Byron Cook MD on 05/07/2019 12:19 PM
[2019-05-07 13:07] VITALS: BP 142/88
[2019-05-07] MEDS ORDERED: CEFTRIAXONE SOD 1 GM/NS 50 ML 50 ML IV ONE (13:15)
[2019-05-07] MEDS ORDERED: INSULIN REGULAR, HUMAN 100 UNIT/1 ML 3ML VIAL SQ NR (13:15)
[2019-05-07] MEDS ORDERED: PYRIDIUM100 MG PO (14:00)
[2019-05-07] MEDS ORDERED: BACTRIM DS TAB1 EACH PO (14:00)
== END 2019-05-07 14:10 | disposition home or self-care (01) ==
LOC: ER 08:49
DX: N30.91 Cystitis, unspecified with hematuria (principal); I10 Essential (primary) hypertension; E11.9 Type 2 diabetes mellitus without complications; E03.9 Hypothyroidism, unspecified; K21.9 Gastro-esophageal reflux disease without esophagitis; F41.9 Anxiety disorder, unspecified; F32.9 Major depressive disorder, single episode, unspecified; Z79.84 Long term (current) use of oral hypoglycemic drugs; Z79.4 Long term (current) use of insulin
CPT/HCPCS: 36415; 74022; 74177; 80053; 81001; 82550; 82553; 82948; 83690; 84484; 84702; 85025; 99284; J0696; J1817; J1885; J2405; J7030; Q9967

== ENCOUNTER 2019-08-12 12:22 | Inpatient (IN) | payer BC, OTHER ==
[~2019-08-12] VITALS: Ht 167.6 cm; Wt 126.2 kg
[~2019-08-12 12:22] MED LIST changes: +PYRIDIUM100 MG PO
[2019-08-12] MEDS ORDERED: PANTOPRAZOLE 40 MG 10ML VIAL IV STA (12:28)
[2019-08-12] MEDS ORDERED: ONDANSETRON HCL INJ 2MG/ML 2ML 2 MG/ML VIAL IV STA ×2 (12:28→15:41)
[2019-08-12] MEDS ORDERED: DICYCLOMINE HCL 20 MG/2 ML VIAL IM ONE (12:30)
[2019-08-12] MEDS ORDERED: ASPIRIN 81 MG CHEW TAB PO ONE (12:30)
[2019-08-12] MEDS ORDERED: SODIUM CHLORIDE 0.9% 1000ML 1,000 ML IV ONE (12:30)
[2019-08-12] MEDS ORDERED: MORPHINE SULFATE INJ 4 MG/ML INJ 1ML IV STA (12:50)
[2019-08-12 13:09] LABS: BASOPHILS # (AUTO) 0.1 (0.0-0.1); BASOPHILS % 0.9 % (0.0-1.0); EOSINOPHILS # (AUTO) 0.1 (0.0-0.4); EOSINOPHILS % 1.5 % (0.0-6.0); HEMOGLOBIN 13.6 g/dL (12.0-16.0); LYMPHOCYTES # (AUTO) 2.9 (1.0-3.2); LYMPHOCYTES % 37.2 % (18.0-39.1); MEAN CORPUSCULAR HGB CONC 32.4 g/dL (31-35); MEAN CORPUSCULAR VOLUME 83.5 fL (81-99); MONOCYTES # (AUTO) 0.4 (0.2-0.8); MONOCYTES % 4.9 % (4.4-11.3); NEUTROPHILS # (AUTO) 4.3 (2.1-6.9); NEUTROPHILS % 55.1 % (38.7-80.0); PLATELET COUNT 195 x10e3/uL (140-360); RED BLOOD COUNT 5.03 x10e6/uL (3.6-5.1); RED CELL DISTRIBUTION WIDTH 14.8 % (11.7-14.4)
--- NOTE | 2019-08-12 13:21 | NUR ---
pt straight cath'd per orders via aseptic technique; approx urine output 50 cc; ua collected and sent to lab
[2019-08-12 13:33] LABS: ALBUMIN 4.1 g/dL (3.5-5.0); ALBUMIN/GLOBULIN RATIO 1.1 (0.8-2.0); ANION GAP 18.8 mmol/L (8-16); CALCIUM 9.8 mg/dL (8.4-10.2); CREATININE, SERUM 2.61 mg/dL (0.57-1.11); POTASSIUM 3.8 mmol/L (3.5-5.1)
[2019-08-12 13:39] LABS: CREATINE KINASE MB 1.4 ng/mL (0-5.0)
[2019-08-12 13:56] LABS: CLARITY,URINE CLEAR (CLEAR); COLOR,URINE YELLOW (YELLOW); LEUKOCYTE ESTERASE ,URINE NEGATIVE (NEGATIVE); NITRITE,URINE NEGATIVE (NEGATIVE)
[2019-08-12 13:57] LABS: BILIRUBIN,URINE SMALL (NEGATIVE); KETONES,URINE TRACE (NEGATIVE); PROTEIN,URINE DIPSTICK 1+ (NEGATIVE); URINE UROBILINOGEN 0.2 mg/dL (0.2 - 1)
[2019-08-12 14:06] LABS: AMORPHOUS SEDIMENT,URINE MODERATE (FEW); BACTERIA,URINE FEW /HPF; EPITHELIAL CELLS,URINE FEW /LPF; RBC,URINE 0-5 /HPF (0-5); WBC,URINE (MAN) 0-5 /HPF (0-5)
--- NOTE | 2019-08-12 14:56 | Diagnostic Imaging Report ---
CT of the abdomen and pelvis, without contrast. History: CT abdomen/pelvis from 05/07/2019. Comparison: None available. Technique: Multidetector CT scanning of the abdomen and pelvis was performed from the level of the lung bases to the inferior pubic rami without the use of contrast material. Coronal and sagittal multiplanar reformations were obtained. RADIATION DOSE: Total DLP: 893.62 mGy*cm Dose modulation, iterative reconstruction, and/or weight based adjustment of the mA/kV was utilized to reduce the radiation dose to as low as reasonably achievable. FINDINGS: The visualized lungs are grossly unremarkable. The imaged portion of the heart demonstrates no significant abnormalities. The liver is enlarged measuring 23.1 cm in length and appears diffusely decreased in attenuation suggestive of fatty infiltration. No focal hepatic abdomen is identified on this noncontrast enhanced examination. The gallbladder is surgically absent. There is no biliary ductal dilatation. The spleen is enlarged measuring 15 cm in length. There is a stable 3.6 cm hypodensity identified within the posterior aspect of the spleen which may represent a cyst. The stomach, pancreas, and bilateral adrenal glands demonstrate an unremarkable noncontrast appearance. The kidneys are normal in size and location. There is no evidence for nephrolithiasis or hydronephrosis. No ureteral dilatation or stone is appreciated. Multiple phleboliths are identified within the pelvis. The urinary bladder is only partially distended but appears grossly unremarkable. The uterus and adnexa are grossly unremarkable. The abdominal aorta is normal course and caliber with mild atherosclerotic calcifications. The IVC is normal in caliber. Please note evaluation the bowel is limited without the use of enteric contrast material. The visualized loops of small and large bowel demonstrate no evidence of obstruction or inflammation. There is no ascites or intraperitoneal free air. No abnormally enlarged lymph nodes are identified within the abdomen or pelvis. The osseous structures demonstrate stable degenerative changes without evidence for acute fracture or destructive process. The extraperitoneal soft tissues are unremarkable. IMPRESSION: No acute abdominopelvic process identified. Hepatosplenomegaly and CT findings suggestive of hepatic steatosis. Stable hypodensity identified within the spleen likely reflecting a cyst. Status post cholecystectomy. Signed by: Dr. Domenico Lua MD on 08/12/2019 2:52 PM
[2019-08-12] MEDS: SODIUM CHLORIDE 0.9% 1000ML 1,000 ML IV SCH ×2 (15:41→23:42)
[2019-08-12] MEDS ORDERED: PROMETHAZINE HCL (IM) 25 MG/ML VIAL IV PRN (15:45)
[2019-08-12] MEDS ORDERED: DEXTROSE 50% SYRINGE 50 ML IV PRN (15:45)
[2019-08-12] MEDS ORDERED: MORPHINE SULFATE 2 MG/ML SYR 1ML IV PRN (15:45)
[2019-08-12] MEDS ORDERED: PROMETHAZINE 12.5MG/ NACL 0.9% 50 ML IV PRN (16:00)
[2019-08-12] MEDS ORDERED: INSULIN LISPRO 100 UNIT/1 ML 3ML VIAL SQ SCH (16:30)
[2019-08-12] MEDS ORDERED: NON-FORMULARY MEDICATION (Dicyclomine Hcl (Bentyl) 10 MG) PO SCH (16:45)
--- NOTE | 2019-08-12 16:50 | NUR ---
PT ARRIVED VIA WHEELCHAIR, AMBULATORY TO BED, ADMISSION ASSESSMENT PERFORMED, MEDS FROM HOME UPDATED, TELE MONITOR IN PLACE
[2019-08-12] MEDS ORDERED: INSULIN GLARGINE 100 UNITS/ML VIAL SQ SCH (17:00)
[2019-08-12] MEDS ORDERED: NON-FORMULARY MEDICATION (Insulin Glargine (Lantus 3ML Pen) 40 UNITS) SC SCH (17:00)
[2019-08-12 17:11] VITALS: BP 120/79
[2019-08-12] MEDS ORDERED: METOPROLOL TART50 MG PO (17:23)
[2019-08-12] MEDS ORDERED: LYRICA75 MG PO (17:26)
[2019-08-12] MEDS ORDERED: OZEMPIC1 MG/0.75 SQ (17:26)
[2019-08-12] MEDS ORDERED: ZOFRAN8 MG PO (17:27)
[2019-08-12 17:36] VITALS: BP 120/79
--- NOTE | 2019-08-12 17:58 | History and Physical ---
This is a 54-year-old female, who came in with dehydration. HISTORY OF PRESENT ILLNESS: This is Ms. Maida Irene with history of uncontrolled diabetes mellitus, was in usual state of health until about 1 week prior to admission. The patient intractable diarrhea. The patient continued to have some diarrhea, some nausea and some abdominal pain. The patient was seen by primary care physician. The patient was also taking metformin at that time. The patient continued with nausea and vomiting, could not keep anything down except some she presented to the emergency room with dehydration and acute on chronic renal failure. PAST MEDICAL HISTORY: History of hyperlipidemia, history of hypertension, history of uncontrolled diabetes, history of hypothyroidism, history of hypertension and history of reflux esophagitis. PAST SURGICAL HISTORY: History of bilateral cataract, history of gallbladder resection, history of , history of hammertoe stomach, not sure what that is, but apparent The patient also had a history of DVTs in the past. The patient also has had multiple dilatation of the esophagus by Dr. Ed Ventura. FAMILY HISTORY: Positive for myocardial infarction in mother and arthritis, hypertension, and diabetes in mother and father. ALLERGIES: ALLERGIC TO HYDROCODONE AND SHRIMP. SOCIAL HISTORY: No EtOH, IV IV drug abuse. No history of smoking either. REVIEW OF SYSTEMS: Negative for chest pain, positive for some shortness of breath, positive for nausea, positive for vomiting, positive for diarrhea. No constipation. No rectal bleeding. No hematochezia. No hematemesis. No coffee-ground emesis either, and positive headache. PHYSICAL EXAMINATION: VITAL SIGNS: Temperature is 97.9, pulse of 92, respirations of 20, blood pressure is 142/77. HEENT: Normocephalic, atraumatic. The patient is morbidly obese. CVS: S1 and S2 normal. Regular rate and rhythm. ABDOMEN: Tender in the epigastrium. EXTREMITIES: No clubbing, no cyanosis, no edema. LABORATORY VALUES: White count 7.75, hemoglobin of 13.6, hematocrit 42.0. Chemistry show sodium 136, potassium 3.8, BUN of 30, creatinine of 2.61, which has drastically increased, glucose of 292, CO2 was 21, ALT and AST 18 and 21 respectively. Troponin was 0.009. MICROBIOLOGY: None done. IMAGING STUDY: Abdominal CT done without contrast shows abdominal pelvic processes, hepatosplenomegaly on CT suggestive of hepatic steatosis, stable hypodensities within the spleen, status post cholecystectomy. ASSESSMENT: Ms. Maria Victoria Bey is a 54-year-old with: 1. Gastroenteritis. 2. Reflux esophagitis. 3. Hypertension. 4. Hyperlipidemia. 5. Uncontrolled diabetes mellitus. 6. History of esophageal strictures. 7. Dehydration. 8. Acute on chronic renal failure, prerenal . PLAN: Hydration. A consult with Dr. Ventura will be done. The patient also should have endoscopy in lieu of for history of strictures. Continue hydrating the patient. We will follow for metformin, insulin sliding scale will be started and also insulin reinstituted into her diet. Restart her cholesterol medications. Further recommendation per clinical course and also consult Dr. Ventura for possible EGD. Stool studies will be done. MD DOMINIC Najera/MODL /[id number]
--- NOTE | 2019-08-12 18:24 | History and Physical ---
CHIEF COMPLAINT: A 54-year-old lady, who comes in with intractable nausea, vomiting, and dehydration. HISTORY OF PRESENTING ILLNESS: Ms. Maida Irene comes into the emergency room with 1-week history of episodic nausea, vomiting, and diarrhea intractable in nature sometimes, and the patient came in and was found to have dehydration, admitted to the hospital. PAST MEDICAL HISTORY: History of hypertension, history of hyperlipidemia, history of uncontrolled diabetes, history of gouty arthritis, history of DVTs in the past, history of esophageal strictures, history of reflux esophagitis, and history of chronic UTIs. MEDICATIONS: The patient's medicines: 1. Dicyclomine as needed. 2. Duloxetine 30 mg twice a day. 3. Insulin 70/30, 20 units three times a day. 4. Insulin glargine 40 units twice a day. 5. Levothyroxine 100 mcg. 6. Metformin 500 mcg. 7. Losartan/hydrochlorothiazide 20/12.5. 8. Sucralfate 1 g. 9. Bactrim one tablet twice a day. FAMILY HISTORY: CHF, CAD, diabetes mellitus and hypertension. ALLERGIES: HYDROCODONE AND SHRIMP. REVIEW OF SYSTEMS: Negative for chest pain. No shortness of breath. Positive for nausea, vomiting, and diarrhea. Negative for constipation. No hematochezia. No black tarry stools and also no coffee-grounds emesis. PHYSICAL EXAMINATION: VITAL SIGNS: 97.9 temperature, pulse of 92, respirations of 20, blood pressure is 142/77, and pulse oximetry of 99%. HEENT: Normocephalic, atraumatic. CVS: S1 and S2 normal. Regular rate and rhythm. ABDOMEN: Tender in the epigastrium. EXTREMITIES: No clubbing, no cyanosis, no edema. LABORATORY VALUES: The patient's CBC was essentially normal. Sodium of 136, potassium 3.8, BUN of 30, creatinine of 2.6, which is trended up. Urine was essentially normal. Bicarb was 21. A CT scan, no acute pelvic processes or abdominal processes. Hepatosplenomegaly, suggestive of hepatic steatosis. ASSESSMENT: Ms. Maida Irene with: 1. Dehydration. 2. Gbtcy-xc-eqqisax renal failure. 3. Acute tubular necrosis. 4. Uncontrolled diabetes mellitus. 5. Hypertension. 6. Hyperlipidemia. PLAN: 1. Hydrate the patient. Consult with Dr. Ed montez for possible EGD. 2. Continue medications except for metformin. Insulin sliding scale. 3. SCDs for deep venous thrombosis prophylaxis. 4. Continue to monitor the patient. Further recommendation per clinical course. MD DOMINIC Najera/MODL /[id number]
--- NOTE | 2019-08-12 19:06 | NUR ---
WALKING ROUNDS PERFORMED, RECEIVED PT LAYING SEMI FOWLERS IN BED, AAOX3 RR EVEN AND NON-LABORED, ON ROOM AIR. NO S/SX OF DISTRESS NOTED. LEFT PT LAYING SEMI FOWLERS IN BED, BED IN LOW LOCKED POSITION, SIDE RAILS UPX2, CALL LIGHT AND PHONE WITHIN REACH.
[2019-08-12 19:35] LABS: CREATINE KINASE 33 IU/L (29-168)
[2019-08-12 20:11] VITALS: BP 143/79
[2019-08-12] MEDS: PANTOPRAZOL 40MG/SOD CHL 0.9% 50 ML IV SCH (20:32)
[2019-08-12] MEDS: SUCRALFATE 1 GM TAB PO SCH (20:32)
[2019-08-12] MEDS: INSULIN LISPRO 100 UNIT/1 ML 3ML VIAL SQ SCH (20:33)
[2019-08-12] MEDS: PREGABALIN 75 MG CAP PO SCH (20:33)
[2019-08-12] MEDS: MORPHINE SULFATE INJ 4 MG/ML INJ 1ML IV PRN (20:33)
[2019-08-12] MEDS: METOPROLOL TARTRATE 50 MG TAB PO SCH (20:33)
[2019-08-12] MEDS: INSULIN GLARGINE 100 UNITS/ML VIAL SQ SCH (20:34)
[2019-08-12] MEDS: ONDANSETRON HCL INJ 2MG/ML 2ML 2 MG/ML VIAL IV PRN (20:34)
[2019-08-13] VITALS (7 sets, daily range): BP systolic 118–133; BP diastolic 68–82
--- NOTE | 2019-08-13 00:10 | NUR ---
PT REPORTS UNABLE TO SLEEP BECAUSE OF IV TO (L) AC. STATES THE IV STARTED BEEPING SOON SHE FALLS ASLEEP. NEW IV STARTED TO (R) FA 20G. FLUSHES WITHOUT DIFFICULTY, BLOOD RETURN NOTED.
[2019-08-13 00:41] LABS: CREATINE KINASE MB 1.5 ng/mL (0-5.0)
[2019-08-13] MEDS: LEVOTHYROXINE SODIUM 100 MCG TAB PO SCH (01:07)
[2019-08-13] MEDS: PANTOPRAZOL 40MG/SOD CHL 0.9% 50 ML IV SCH ×4 (01:07→17:00)
[2019-08-13] MEDS: ONDANSETRON HCL INJ 2MG/ML 2ML 2 MG/ML VIAL IV PRN ×2 (04:55→17:13)
[2019-08-13 05:46] LABS: BASOPHILS # (AUTO) 0.1 (0.0-0.1); BASOPHILS % 1.1 % (0.0-1.0); EOSINOPHILS # (AUTO) 0.3 (0.0-0.4); EOSINOPHILS % 2.6 % (0.0-6.0); HEMATOCRIT 39.4 % (34.2-44.1); HEMOGLOBIN 12.6 g/dL (12.0-16.0); LYMPHOCYTES # (AUTO) 3.6 (1.0-3.2); LYMPHOCYTES % 37.5 % (18.0-39.1); MEAN CORPUSCULAR HEMOGLOBIN 26.9 pg (28-32); MONOCYTES # (AUTO) 0.6 (0.2-0.8); MONOCYTES % 5.9 % (4.4-11.3); NEUTROPHILS % 52.6 % (38.7-80.0); PLATELET COUNT 164 x10e3/uL (140-360); RED BLOOD COUNT 4.69 x10e6/uL (3.6-5.1); RED CELL DISTRIBUTION WIDTH 14.8 % (11.7-14.4)
[2019-08-13 06:10] LABS: ALBUMIN 3.7 g/dL (3.5-5.0); ALBUMIN/GLOBULIN RATIO 1.2 (0.8-2.0); ANION GAP 14.3 mmol/L (8-16); CALCIUM 8.8 mg/dL (8.4-10.2); CREATININE, SERUM 2.22 mg/dL (0.57-1.11); POTASSIUM 3.3 mmol/L (3.5-5.1)
--- NOTE | 2019-08-13 06:19 | NUR ---
CONSULTATION CALLED TO [facility], WAITING FOR CALLBACK.
[2019-08-13 06:36] LABS: CREATINE KINASE MB 1.6 ng/mL (0-5.0)
[2019-08-13 06:51] LABS: MAGNESIUM 1.3 MG/DL (1.3-2.1); PHOSPHORUS 3.3 MG/DL (2.3-4.7)
--- NOTE | 2019-08-13 07:05 | NUR ---
RCD PT AT BED PT IS ALERT AND ORIENTED RESTING ON BED NO SIGNS OF ANY DISTRESS NOTED IV PATENT BY SALINE FLUSH BED PT NPO FOR PROCEDURE LOW AND LOCKED CALL LIGHT IN REACH
[2019-08-13] MEDS: SUCRALFATE 1 GM TAB PO SCH ×5 (07:30→22:08)
[2019-08-13] MEDS: INSULIN LISPRO 100 UNIT/1 ML 3ML VIAL SQ SCH ×4 (07:30→21:00)
--- NOTE | 2019-08-13 07:36 | Progress Note ---
DATE: 08/13/2019 SUBJECTIVE: The patient is a 54-year-old lady comes in with acute renal failure, dehydration, uncontrolled diabetes mellitus, epigastric pain, and intractable nausea and vomiting. Continues to be having nausea, but better than yesterday. Fluid resuscitation is ongoing. The patient is back on her medications except the hydrochlorothiazide has been discontinued. No chest pain. No shortness of breath. Feeling more comfortable than yesterday. OBJECTIVE: VITAL SIGNS: Temperature is 96.8, respirations of 19, blood pressure is 143/79. The patient is on room air. HEENT: Normocephalic and atraumatic. The patient is obese. CVS: S1 and S2 distant. LUNGS: Clear. ABDOMEN: Tender in the epigastrium. EXTREMITIES: No clubbing, no cyanosis, trace edema present. LABORATORY VALUES: White count is normal at 9.52, hemoglobin of 12.6, hematocrit of 39.4. Chemistry shows; sodium 137, potassium is 3.3, BUN of 29, and creatinine of 2.22, which has improved. The patient's glucose is 161. Magnesium and phosphorus are pending. Microbiology: Parasites are pending. ASSESSMENT: Ms. Maida Irene with: 1. Dehydration. 2. Acute on chronic renal failure. 3. Acute tubular necrosis. 4. Uncontrolled diabetes mellitus. 5. Hypertension. 6. Hyperlipidemia. 7. History of esophageal strictures. PLAN: Continue same medication. We will stop the hydrochlorothiazide, insulin sliding scale has been instituted. Metformin has been stopped. SCDs. The patient is undergoing an EGD today. Further recommendation on clinical course. We will continue monitoring the patient. Additional diagnosis includes hepatic steatosis. MD ANGIE NajeraJ/MODL /[id number]
[2019-08-13 08:29] LABS: WBC,FECAL (FECAL LACTOFERRIN) POSITIVE (NEGATIVE)
[2019-08-13] MEDS ORDERED: HYDROCHLOROTHIAZIDE 25 MG TAB PO SCH (09:00)
[2019-08-13] MEDS: INSULIN GLARGINE 100 UNITS/ML VIAL SQ SCH ×2 (09:00→21:00)
[2019-08-13] MEDS ORDERED: OLMESARTAN 20 MG TAB PO SCH (09:00)
--- NOTE | 2019-08-13 11:00 | NUR ---
PAGED DR DSOUZA AND NOTIFIED THE POTASSIUM LEVEL GOT NEW ORDERS
[2019-08-13] MEDS ORDERED: POTASSIUM CHLORIDE 20MEQ/100ML 100 ML IV ONE (11:15)
--- NOTE | 2019-08-13 14:00 | NUR ---
PT BACK AFTER PROCEDURE PT IS ALERT AND ORIENTED VITALS CHECKED BED LOW AND LOCKED CALL LIGHT IN REACH
[2019-08-13] MEDS: PREGABALIN 75 MG CAP PO SCH ×2 (14:15→22:09)
[2019-08-13] MEDS: DULOXETINE HCL 30 MG DELAYED RELEASE PO SCH (14:15)
[2019-08-13] MEDS: METOPROLOL TARTRATE 50 MG TAB PO SCH ×2 (14:15→22:09)
[2019-08-13] MEDS ORDERED: MAGNESIUM SULFATE 2GM/50ML 50 ML IV ONE (14:45)
--- NOTE | 2019-08-13 15:12 | Diagnostic Imaging Report ---
EXAM: Renal Ultrasound INDICATION: ^génesis ^[id number] ^[id number] COMPARISON: None TECHNIQUE: Transverse and longitudinal images of the kidneys and bladder were obtained. FINDINGS: Right Kidney: Length: 12.2 cm Appearance: Normal echogenicity. Collecting system: No hydronephrosis Stones: None Cyst/Mass: None Left Kidney: Length: 11.0 cm Appearance: Normal echogenicity. Collecting system: No hydronephrosis Stones: None Cyst/Mass: None Bladder: No mass or calculi. Bilateral ureteral jets visualized. Prevoid volume estimate of 114cc. IMPRESSION: No hydronephrosis or renal calculi. Signed by: Hollie Marcos MD on 08/13/2019 3:09 PM
[2019-08-13 15:21] LABS: C DIFFICILE TOXIN A&B AMP PROB **POSITIVE** (NEGATIVE)
--- NOTE | 2019-08-13 15:29 | NUR ---
PAGED AND NOTIFIED DR DSOUZA THE PT IS C DIFF POSITIVE GOT NEW ORDERS
[2019-08-13] MEDS ORDERED: MIDAZOLAM HCL 2 MG/2 ML VIAL ONE (15:55)
[2019-08-13] MEDS ORDERED: KETAMINE HCL INJ 50 MG/ML 10 ML VIAL ONE (15:55)
[2019-08-13] MEDS ORDERED: FENTANYL CITRATE/PF 100MCG/2 ML INJ ONE (15:55)
--- NOTE | 2019-08-13 16:52 | NUR ---
Nutrition Intervention Note RD Recommendation(s) for Physician: -Advance to diabetic diet when medically appropriate -Glucerna BID for added nutrition The patient meets criteria for unspecified SEVERE acute protein-calorie malnutrition at this time Plan of Care: RD following, monitoring for tolerance and adequacy Nutrition reason for involvement: Nutrition Risk Trigger MST 3 RD Assessment (08/13/19) Pt is a 54 year old female admitted with acute renal insufficiency, dehydration, vomiting, and diarrhea. Pt was NPO at time of visit due to procedure (EGD with esophageal dilation) but is now on a full liquid diet. Pt stated she had a poor appetite for 2 weeks and was eating <50% of meals. Pt also declared she had lost weight within the past 2 weeks and used to weigh 272 lbs. Pt currently has a weight of 254 lbs in chart. This would be 7% weight loss within 2 weeks which is considered to be significant weight loss. Pt also experienced nausea and diarrhea for the past 2 weeks as well. Recommend Glucerna BID for added nutrition. Will continue to monitor. Principal Problems/Diagnoses: acute renal insufficiency, dehydration, vomiting, and diarrhea. PMH: hypertension, hyperlipidemia, uncontrolled diabetes, gouty arthritis, DVTs in the past, esophageal strictures, reflux esophagitis, chronic UTIs. GI: soft, nontender, round abdomen Skin: intact Labs: (08/12) K 3/3, BUN 22, Creat 2.22, Glu 161, Hgb A1c 10.7% Meds: pantoprazole, zofran, metoprolol, insulin IV: KCl @ 50 mL/hr, NaCl @ 125 mL/hr Ht: 66 inches Wt: 254 lbs BMI: 41.0 kg/m2 IBW: 130 lbs Malnutrition Evaluation (08/13/19) The patient meets criteria for unspecified SEVERE protein-calorie malnutrition. Energy intake: <50% of estimated energy requirements for >5 days per pt report Weight loss: 7% in 2 weeks (Acute) per pt report Fat loss: no loss identified per observation Muscle loss: no loss identified per observation Supporting Evidence: Fluid accumulation: trace edema per MD note Functional Status: unable to evaluate Nutrition Prescription (Diet Order): Full Liquids Estimated Nutritional Needs: 9844-6998 calories/day (22-25 kcal/kg IBW) 89-118 g protein/day (1.5-2 g pro/kg IBW) Diet Adequacy: Not meeting calorie needs, Not meeting protein needs Tolerance: Tolerance pending Diet Education Needs Assessment: RD is available for diet education as needed Nutrition Care Level: high Nutrition Diagnosis: Severe protein kcal malnutrition related to acute illness as evidenced by pt meeting <50% of estimated energy needs for > 5 days and 7% weight loss in 2 weeks per pt report. Goal: Patient will meet 75-100% of estimated needs by follow up Progress: N/A Interventions: -carbohydrate-modified diet, Commercial beverage Monitoring/Evaluation: -Total energy intake, Total protein intake, Modified diet, Liquid supplement, Weight change Signed: Lizeth Mensah RD, LD
[2019-08-13] MEDS: VANCOMYCIN 250MG/5ML ORAL SOLN PO SCH (17:12)
[2019-08-13] MEDS: MORPHINE SULFATE INJ 4 MG/ML INJ 1ML IV PRN (17:12)
[2019-08-13] MEDS ORDERED: METOCLOPRAMIDE HCL 10 MG/2ML VIAL ONE (17:24)
[2019-08-13] MEDS ORDERED: LIDOCAINE HCL 2% LOCAL INJ 5 ML SDV VIAL INJ ONE (17:24)
[2019-08-13] MEDS ORDERED: PROPOFOL IV EMULSION 10 MG/ML 50 ML VIAL ONE (17:24)
--- NOTE | 2019-08-13 17:31 | NUR ---
REPORT GIVEN TO NIKUNJ KING
--- NOTE | 2019-08-13 17:55 | NUR ---
Received patient via wheelchair from [facility]. AAOx4 to time, person, place, situation. Respirations even and unlabored. Oriented to room. Instructed to use call light for assistance. Voiced understanding. Will continue to monitor.
--- NOTE | 2019-08-13 18:02 | NUR ---
PT TRANSFERED TO [facility] ROOM 212 IN SAFE CONDITION
[2019-08-13 18:19] LABS: BILIRUBIN,URINE NEGATIVE (NEGATIVE); CLARITY,URINE SL CLOUDY (CLEAR); COLOR,URINE YELLOW (YELLOW); KETONES,URINE NEGATIVE (NEGATIVE); LEUKOCYTE ESTERASE ,URINE SMALL (NEGATIVE); NITRITE,URINE NEGATIVE (NEGATIVE); PROTEIN,URINE DIPSTICK NEGATIVE (NEGATIVE); URINE UROBILINOGEN 0.2 mg/dL (0.2 - 1)
[2019-08-13 18:33] LABS: BACTERIA,URINE MODERATE /HPF; RBC,URINE 0-5 /HPF (0-5)
[2019-08-13 18:34] LABS: EPITHELIAL CELLS,URINE MANY /LPF; RENAL EPITHELIAL CELLS,URINE FEW; TRANSITIONAL EPI CELLS,URINE MODERATE
[2019-08-13 18:46] LABS: CREATININE,URINE RANDOM 51.02 mg/dL (47-110)
--- NOTE | 2019-08-13 18:53 | Operative Report ---
DATE OF PROCEDURE: 08/13/2019 SURGEON: Ed Ventura MD PROCEDURE: An EGD with biopsies and esophageal dilatation. INDICATIONS FOR EGD: Upper abdominal pain, dysphagia, nausea, and vomiting. MEDICATIONS: The patient was done under MAC. Please see anesthesiologist's note. PROCEDURE IN DETAIL: With the patient in left lateral decubitus position, the flexible fiberoptic Olympus gastroscope was introduced into the esophagus under direct visualization without any difficulty. There was some patchy erythema noted in distal esophagus. A mild stricture was noted at the GE junction was dilated to size 52-Anguillan Dewitt. The scope was then advanced with ease into the stomach. Mucosa overlying the antrum and the body revealed some patchy erythema and [id number] edema. Biopsies were obtained, sent to stain for H. pylori. Pylorus was of normal contour and shape was intubated with ease and the scope was advanced all the way to the second portion of the duodenum. There were some somewhat scalloped folds were noted in the proximal second portion. Biopsies were obtained to rule out sprue. The scope was then withdrawn back into the stomach and retroflexed. A minute nodule was noted just below the cardia and that was biopsied. The scope was then straightened out, it was subsequently withdrawn. The patient tolerated the procedure well. IMPRESSION: 1. Distal esophagitis, mild. 2. Esophageal stricture GE junction, dilated to size 52-Anguillan Dewitt. 3. Gastritis, biopsied. Biopsies sent to stain for H. pylori. 4. Rule out sprue. PLAN: Follow up histology. Continue Protonix drip. Continue Carafate 1 g p.o. before meal t.i.d. and at bedtime. Initiate full liquid diet. Ed Ventura MD [facility] [place] /[id number] cc: UNKNOWN DOCTOR Ramesh Schaeffer MD
--- NOTE | 2019-08-13 19:05 | NUR ---
Report given to oncoming nurse of patient's status. No s/s of acute distress noted.
--- NOTE | 2019-08-13 19:53 | Consultation ---
DATE OF CONSULTATION: 08/13/2019 HISTORY OF PRESENT ILLNESS: This is a 54-year-old female, who denies any prior history of any renal insufficiency, has been coming in with dysphagia and diarrhea for two weeks. She has had prior esophageal stricture dilatations done. She successfully underwent stricture dilatation and back in the room. Currently, awake, alert, oriented, no apparent distress. Denies any prior history of any renal insufficiency. She did have a history of kidney stones about 10 years ago on the right side, which was removed by surgically. She denies any recurrence. She has a history of hypertension, type 2 diabetes for the last 15 years, has been on Humalog and metformin at home. She has had hypothyroidism. She has recently diagnosed to have osteoarthritis and takes about 6 Advils on the average a day for the last several years. Urinalysis earlier shows specific gravity of 1.030 with 0 to 5 RBC, 0 to 5 WBC. Sodium is 137, potassium 3.3, bicarbonate 21, creatinine 2.2. Phosphorus 3.3, magnesium 1.3 with a calcium level of 8.8. CK of 27. ALLERGIES: TO SHRIMP AND HYDROCODONE. CURRENT MEDICATIONS: The patient is on: 1. Carafate. 2. Lyrica 150 mg p.o. q.12. 3. Benicar 20 mg daily. 4. Ondansetron p.r.n. 5. Insulin. 6. Levothyroxine. 7. Metoprolol 50 q.12. 8. She is on hydrochlorothiazide, which has been stopped. 9. She did receive potassium replacement early this morning. 10. She is on Bentyl p.r.n. 11. Cymbalta 60 mg daily. 12. Normal saline 125 mL an hour. SOCIAL HISTORY: Does not smoke or drink. FAMILY HISTORY: Significant for hypertension and diabetes. LABORATORY TEST: Shows sodium 137, potassium 3.3, bicarbonate 21, anion gap 14, creatinine 2.2. PHYSICAL EXAMINATION: GENERAL: Awake, alert, oriented x3, lying supine, in no apparent distress. VITAL SIGNS: Blood pressure 123/59, pulse rate 90, and afebrile. HEAD AND NECK: Cornea clear. Oral mucosa moist. Neck veins flat. LUNGS: Relatively clear. HEART: S1, S2 audible. ABDOMEN: Otherwise soft, nontender. No apparent visceromegaly. EXTREMITIES: Lower extremity examination shows no edema. IMPRESSION AND PLAN: 1. Acute kidney injury in a lady, who has longstanding history of diabetes, has been on chronic NSAID use, 6 tablets of Advil a day for multiple years as well as history of hypertension, hypothyroidism, history of osteoarthritis, etiology of urethral stricture unclear. I will discuss with Dr. Ed Ventura. 2. Underlying hypertension. Urine shows fairly concentrated urine suggestive of dehydration. She has been having diarrhea for 2 weeks. We could be dealing with just dehydration. 3. Acute kidney injury, prerenal state, must rule out underlying diabetic nephropathy and must rule out chronic tubular interstitial nephritis. I will send some workup. Also, send an intact PTH, urine studies, kidney ultrasound. Continue with normal saline. Replace magnesium. Replace potassium. Further recommendations to follow. MD THEA Cochran/ULYSSES /[id number]
[2019-08-14] VITALS (8 sets, daily range): BP systolic 106–143; BP diastolic 61–86
[2019-08-14] MEDS: DICYCLOMINE HCL 10 MG CAP PO PRN
[2019-08-14 06:09] LABS: BASOPHILS # (AUTO) 0.1 (0.0-0.1); BASOPHILS % 0.8 % (0.0-1.0); EOSINOPHILS # (AUTO) 0.2 (0.0-0.4); EOSINOPHILS % 2.8 % (0.0-6.0); HEMATOCRIT 36.2 % (34.2-44.1); HEMOGLOBIN 11.7 g/dL (12.0-16.0); LYMPHOCYTES # (AUTO) 2.8 (1.0-3.2); MEAN CORPUSCULAR HEMOGLOBIN 27.2 pg (28-32); MEAN CORPUSCULAR HGB CONC 32.3 g/dL (31-35); MEAN CORPUSCULAR VOLUME 84.2 fL (81-99); MONOCYTES # (AUTO) 0.4 (0.2-0.8); MONOCYTES % 6.7 % (4.4-11.3); NEUTROPHILS # (AUTO) 2.9 (2.1-6.9); NEUTROPHILS % 45.4 % (38.7-80.0); PLATELET COUNT 140 x10e3/uL (140-360); RED CELL DISTRIBUTION WIDTH 14.9 % (11.7-14.4)
[2019-08-14] MEDS: PANTOPRAZOL 40MG/SOD CHL 0.9% 50 ML IV SCH ×6 (06:13→23:04)
[2019-08-14] MEDS: VANCOMYCIN 250MG/5ML ORAL SOLN PO SCH ×5 (06:20→23:15)
[2019-08-14] MEDS: LEVOTHYROXINE SODIUM 100 MCG TAB PO SCH (06:20)
[2019-08-14 06:37] LABS: ALBUMIN 3.4 g/dL (3.5-5.0); ALBUMIN/GLOBULIN RATIO 1.2 (0.8-2.0); ANION GAP 11.8 mmol/L (8-16); CALCIUM 8.6 mg/dL (8.4-10.2); CREATININE, SERUM 1.47 mg/dL (0.57-1.11); MAGNESIUM 1.7 MG/DL (1.3-2.1); POTASSIUM 3.8 mmol/L (3.5-5.1)
--- NOTE | 2019-08-14 07:00 | NUR ---
BEDSIDE SHIFT REPORT RECEIVED FROM THE TRANSFORMER COIL WINDER RN. CALL LIGHT WITH IN EASY REACH. BED IS LOW AND LOCKED. SIDE RAILS X2. INSTRUCTED PT TO USE CALL LIGHT FOR ALL THE NEEDS. EDUCATED PT ABOUT FALL PRECAUTIONS. PT VERBALIZED UNDERSTANDING. PT DENIES NEEDS AT THIS TIME.
[2019-08-14] MEDS: INSULIN LISPRO 100 UNIT/1 ML 3ML VIAL SQ SCH ×4 (07:30→22:01)
[2019-08-14] MEDS: SUCRALFATE 1 GM TAB PO SCH ×4 (08:30→20:35)
[2019-08-14] MEDS: INSULIN GLARGINE 100 UNITS/ML VIAL SQ SCH ×2 (09:00→22:02)
[2019-08-14] MEDS: DULOXETINE HCL 30 MG DELAYED RELEASE PO SCH (09:08)
[2019-08-14] MEDS: METOPROLOL TARTRATE 50 MG TAB PO SCH ×2 (09:09→22:05)
[2019-08-14] MEDS: PREGABALIN 75 MG CAP PO SCH ×2 (09:09→22:05)
[2019-08-14] MEDS: MORPHINE SULFATE INJ 4 MG/ML INJ 1ML IV PRN (09:26)
[2019-08-14] MEDS: SODIUM BICARBONATE 8.4% SYRING 100 ML in DEXTROSE 5% 1,000 ML IV SCH (14:00)
--- NOTE | 2019-08-14 19:04 | NUR ---
BEDSIDE SHIFT REPORT RECEIVED FROM DAY RN. PT IS ALERT AND ORIENTED X3.RESPIRATIONS ARE EVEN AND UNLABORED. TELE ON. ISOLATION FOR CDIF CONTINUES. PROTONIX DRIP INFUSING VIA RT FOREARM 20G AT 10ML/HR. LEFT PIV D5 NA BICARB INFUSING AT 70 ML/HR. PT DENIES DIARRHEA. PT VOIDING WITHOUT DIFFICULTY. CALL LIGHT WITHIN REACH. BED LOCKED AND IN LOW POSITION. PT DENIES PAIN.
--- NOTE | 2019-08-14 19:19 | NUR ---
BEDSIDE SHIFT REPORT GIVEN TO THE MARKETING OUTREACH COORDINATOR RN. PT DENIED FURTHER NEEDS.
[2019-08-15] VITALS (8 sets, daily range): BP systolic 127–177; BP diastolic 64–87
[2019-08-15] MEDS: PANTOPRAZOL 40MG/SOD CHL 0.9% 50 ML IV SCH ×4 (04:04→19:40)
[2019-08-15] MEDS: SODIUM BICARBONATE 8.4% SYRING 100 ML in DEXTROSE 5% 1,000 ML IV SCH ×2 (05:13→20:26)
[2019-08-15] MEDS: LEVOTHYROXINE SODIUM 100 MCG TAB PO SCH (05:14)
[2019-08-15] MEDS: VANCOMYCIN 250MG/5ML ORAL SOLN PO SCH ×3 (06:00→17:10)
--- NOTE | 2019-08-15 07:43 | Progress Note ---
DATE: 08/15/2019 SUBJECTIVE: The patient did well overnight. She states she did not have any diarrhea yesterday. OBJECTIVE: VITAL SIGNS: Temperature is 98.1, pulse 74, blood pressure 110/74, and O2 saturation 97% on room air. GENERAL: No apparent distress. LUNGS: Clear to auscultation. CARDIOVASCULAR: Regular rate and rhythm. ABDOMEN: Good bowel sounds. Soft and nontender. No peritoneal signs. EXTREMITIES: No clubbing or cyanosis. NEUROLOGIC: Nonfocal. ASSESSMENT AND PLAN: 1. Clostridium difficile colitis. Continue with current care since she is doing much better. 2. Acute renal failure. Continues to improve with IV fluids. 3. Hypokalemia, resolved. 4. Dehydration is improving with IV fluids. 5. Diabetes. Continue with current care monitoring. 6. Hypothyroidism. Continue with her medication. 7. Hypertension. Continue with her medications. Please see hospital chart for full details. MD MARKO Matthews/MODL /[id number]
[2019-08-15] MEDS: SUCRALFATE 1 GM TAB PO SCH ×4 (08:55→21:00)
[2019-08-15] MEDS: METOPROLOL TARTRATE 50 MG TAB PO SCH ×2 (08:56→21:00)
[2019-08-15] MEDS: PREGABALIN 75 MG CAP PO SCH ×2 (08:56→21:00)
[2019-08-15] MEDS: DULOXETINE HCL 30 MG DELAYED RELEASE PO SCH (08:56)
[2019-08-15] MEDS: MORPHINE SULFATE INJ 4 MG/ML INJ 1ML IV PRN ×3 (09:12→22:30)
[2019-08-15] MEDS: INSULIN GLARGINE 100 UNITS/ML VIAL SQ SCH ×2 (09:20→21:00)
[2019-08-15] MEDS: INSULIN LISPRO 100 UNIT/1 ML 3ML VIAL SQ SCH ×4 (09:20→21:00)
--- NOTE | 2019-08-15 18:40 | NUR ---
REDNESS NOTED TO 20 GAUGE TO RIGHT FA, IV REMOVED, BANDAGE APPLIED, 20G TO RIGHT AC STARTED, PT TOLERATED WELL, NO SIGN OF ACUTE DISTRESS NOTED
--- NOTE | 2019-08-15 20:04 | NUR ---
RECEIVED PT IN BED AOX3 .DENIES PAIN AT THIS PROTONIX AND SODIUM BICARB RUNNING .CALL LIGHT WITH IN REACH .CONTINUE TO [facility]
[2019-08-16] VITALS (8 sets, daily range): BP systolic 112–146; BP diastolic 69–87
[2019-08-16] MEDS: PANTOPRAZOL 40MG/SOD CHL 0.9% 50 ML IV SCH ×5 (00:24→20:48)
[2019-08-16] MEDS ORDERED: DONNATAL/LIDOCAINE/MAALOX 30 ML SUSP PO STA ×2 (00:55→01:40)
[2019-08-16] MEDS ORDERED: PANTOPRAZOLE 40 MG 10ML VIAL IV STA (00:57)
[2019-08-16] MEDS ORDERED: BELLADONNA ALK/PHENOBARBITAL 5 ML UDC PO ONE ×2 (01:42→02:10)
[2019-08-16] MEDS ORDERED: LIDOCAINE VISC 2% SOLN 100ML BLT PO ONE (01:43)
[2019-08-16] MEDS ORDERED: MAGNESIUM/ALUMINUM/SIMETHICONE 30 ML UDC PO ONE (01:43)
[2019-08-16 01:58] LABS: ALBUMIN 3.3 g/dL (3.5-5.0); BILIRUBIN,DIRECT 0.2 mg/dL (0.0-0.5)
[2019-08-16] MEDS ORDERED: LIDOCAINE VISC 2% SOLN 15 ML UDC ONE (02:52)
[2019-08-16] MEDS: LEVOTHYROXINE SODIUM 100 MCG TAB PO SCH (05:31)
[2019-08-16] MEDS: VANCOMYCIN 250MG/5ML ORAL SOLN PO SCH ×4 (05:45→17:06)
[2019-08-16] MEDS: MORPHINE SULFATE INJ 4 MG/ML INJ 1ML IV PRN ×2 (05:46→16:20)
--- NOTE | 2019-08-16 06:31 | NUR ---
PT C/O PAIN AND GIVEN MORPHINE X2 .D DR BURROUGHS HAS SEEN THE PT AND GIVEN NEW LAB ORDERES .PT RESTING .CONTINUE TO MONITOR
--- NOTE | 2019-08-16 07:00 | NUR ---
BEDSIDE SHIFT REPORT RECEIVED FROM THE BIOMEDICAL EQUIPMENT TECH RN. CALL LIGHT WITH IN EASY REACH. INSTRUCTED PT TO USE CALL LIGHT FOR ALL THE NEEDS. EDUCATED PT ABOUT FALL PRECAUTIONS. PT VERBALIZED UNDERSTANDING. BED IS LOW AND LOCKED. SIDE RAILS X2. PT DENIES NEEDS AT THIS TIME.
--- NOTE | 2019-08-16 07:21 | NUR ---
BEDSIDE REPORT GIVEN TO THE ONCOMING NURSE
--- NOTE | 2019-08-16 07:25 | Progress Note ---
DATE: 08/16/2019 SUBJECTIVE: A 54-year-old lady comes in with acute colitis, determined to be C diff. The patient also had epigastric esophageal pain, status post dilatation by Dr. Ed Ventura. She still continues with pain, just described as 10/10, radiating to the back. The patient continues to have a little bit of diarrhea, but much improved, weak, and continues to be afebrile. OBJECTIVE: VITAL SIGNS: Temperature is 97.6, pulse of 89, respirations of 18, blood pressure is 118/69, pulse oximetry of 96% on room air. HEENT: Normocephalic and atraumatic. Pupils are reactive. CVS: S1 and S2 are normal. Regular rate and Rhythm. ABDOMEN: Tender in the epigastric area. No rebound present. Left lower quadrant tenderness is still present. LABORATORY VALUES: White count is 6.43 from 08/13. Chemistries, glucoses have been doing better. MICROBIOLOGY: O and P pending. C diff is positive as mentioned above. ASSESSMENT: Maida Irene with. 1. Clostridium difficile colitis. Continue on vancomycin. 2. Acute renal failure, much better with IV fluids. 3. Hypokalemia, resolved. 4. Dehydration, resolved. 5. Diabetes, much better control. 6. Hypothyroidism. Continue with thyroid medication. 7. Hypertension. Continue same plan. DISPOSITION: The patient is feeling some better. Pain is still not controlled completely. We will continue to monitor the patient's pain. Possible discharge in 1 to 2 days. MD DOMINIC Najera/ERNIEL /[id number]
[2019-08-16] MEDS: INSULIN LISPRO 100 UNIT/1 ML 3ML VIAL SQ SCH ×4 (08:00→21:01)
[2019-08-16] MEDS: SUCRALFATE 1 GM TAB PO SCH ×4 (08:30→21:01)
[2019-08-16] MEDS: DULOXETINE HCL 30 MG DELAYED RELEASE PO SCH (08:59)
[2019-08-16] MEDS: METOPROLOL TARTRATE 50 MG TAB PO SCH ×2 (09:00→21:01)
[2019-08-16] MEDS: INSULIN GLARGINE 100 UNITS/ML VIAL SQ SCH ×2 (09:00→21:01)
[2019-08-16] MEDS: PREGABALIN 75 MG CAP PO SCH ×2 (09:00→21:01)
[2019-08-16] MEDS: SODIUM BICARBONATE 8.4% SYRING 100 ML in DEXTROSE 5% 1,000 ML IV SCH (15:44)
--- NOTE | 2019-08-16 19:01 | NUR ---
BEDSIDE SHIFT REPORT GIVEN TO THE TRIMMING CUTTER RN. PT DENIED FURTHER NEEDS.
--- NOTE | 2019-08-16 19:32 | NUR ---
Received bedside report from day nurse. Patient awake and resting in bed, no s/s of distress at this time. Bed locked and in low position, call light placed within reach. All safety measures in place. Will continue to monitor.
[2019-08-17] VITALS (9 sets, daily range): BP systolic 132–174; BP diastolic 65–92
[2019-08-17] MEDS: VANCOMYCIN 250MG/5ML ORAL SOLN PO SCH ×5 (01:05→23:10)
[2019-08-17] MEDS: PANTOPRAZOL 40MG/SOD CHL 0.9% 50 ML IV SCH ×4 (01:42→16:18)
[2019-08-17] MEDS: MORPHINE SULFATE INJ 4 MG/ML INJ 1ML IV PRN ×2 (05:55→16:18)
[2019-08-17] MEDS: SODIUM BICARBONATE 8.4% SYRING 100 ML in DEXTROSE 5% 1,000 ML IV SCH (05:55)
[2019-08-17] MEDS: LEVOTHYROXINE SODIUM 100 MCG TAB PO SCH (05:55)
[2019-08-17] MEDS: ONDANSETRON HCL INJ 2MG/ML 2ML 2 MG/ML VIAL IV PRN ×2 (05:55→17:52)
[2019-08-17 06:46] LABS: BASOPHILS % 0.6 % (0.0-1.0); EOSINOPHILS # (AUTO) 0.2 (0.0-0.4); EOSINOPHILS % 3.2 % (0.0-6.0); HEMATOCRIT 36.7 % (34.2-44.1); HEMOGLOBIN 11.8 g/dL (12.0-16.0); LYMPHOCYTES # (AUTO) 1.8 (1.0-3.2); LYMPHOCYTES % 36.9 % (18.0-39.1); MEAN CORPUSCULAR HEMOGLOBIN 27.5 pg (28-32); MEAN CORPUSCULAR HGB CONC 32.2 g/dL (31-35); MEAN CORPUSCULAR VOLUME 85.5 fL (81-99); MONOCYTES # (AUTO) 0.3 (0.2-0.8); MONOCYTES % 6.7 % (4.4-11.3); NEUTROPHILS # (AUTO) 2.6 (2.1-6.9); NEUTROPHILS % 52.2 % (38.7-80.0); PLATELET COUNT 101 x10e3/uL (140-360); RED BLOOD COUNT 4.29 x10e6/uL (3.6-5.1); RED CELL DISTRIBUTION WIDTH 14.9 % (11.7-14.4)
--- NOTE | 2019-08-17 07:00 | NUR ---
BEDSIDE SHIFT REPORT RECEIVED FROM THE HEAD PAPER TESTER RN. CALL LIGHT WITH IN EASY REACH. INSTRUCTED PT TO USE CALL LIGHT FOR ALL THE NEEDS. EDUCATED PT ABOUT FALL PRECAUTIONS. PT VERBALIZED UNDERSTANDING. BED IS LOW AND LOCKED. SIDE RAILS X2. PT DENIES NEEDS AT THIS TIME.
--- NOTE | 2019-08-17 07:03 | NUR ---
Bedside report given to day nurse. Patient awake and sitting up in bed, no s/s of distress at this time. All safety measures in place.
[2019-08-17 07:15] LABS: ALBUMIN 3.2 g/dL (3.5-5.0); ANION GAP 13.7 mmol/L (8-16); CALCIUM 8.7 mg/dL (8.4-10.2); CREATININE, SERUM 1.05 mg/dL (0.57-1.11); POTASSIUM 3.7 mmol/L (3.5-5.1)
[2019-08-17] MEDS: INSULIN LISPRO 100 UNIT/1 ML 3ML VIAL SQ SCH ×4 (07:30→21:38)
--- NOTE | 2019-08-17 07:41 | Progress Note ---
DATE: 08/17/2019 SUBJECTIVE: The patient is a 54-year-old lady with a history of C. diff colitis. The patient still continues to have abdominal pain, which is intractable 12/19, epigastric in nature, travel to the back. The patient did get morphine today and did feel better with morphine injection. Blood sugars are controlled. The patient still has diarrhea, had about eight bowel movements yesterday with a runny watery diarrhea. DISPOSITION: Sent her home today, but with diarrhea and ensuing acute renal failure, did not want the patient to rebound with this again. OBJECTIVE: VITAL SIGNS: Temperature is 98.5, pulse of 92, respirations of 18, blood pressure is 153/71, and pulse oximetry of 95%. HEENT: Normocephalic and atraumatic. Pupils are reactive. CVS: S1 and S2 normal. Regular rate and rhythm. ABDOMEN: Tender in the epigastrium. EXTREMITIES: No clubbing, no cyanosis, trace amount of edema. LABORATORY VALUES: Normal white count yesterday. Chemistries are still pending today. Serology positive for C. diff. ASSESSMENT: Ms. Maida Irene with, 1. Acute dehydration, acute renal failure, getting better. 2. Clostridium difficile colitis, continues to have diarrhea, which is intractable. 3. Abdominal pain, status post esophageal dilatation. Still continues to have abdominal pain. Amylase was normal, when we did this, it was 107. ALT and AST were normal. ASSESSMENT: We will continue monitor the patient with this ongoing diarrhea. Again, did not want the patient to rebound with acute renal failure in lieu of her creatinine being at the lows at 13. Further recommendation per clinical course. We will discuss with Dr. Ventura on ongoing treatment plan and possibly put Carafate into the picture. She is getting Bentyl at this time and GI cocktail as needed. Further recommendation per clinical course. MD DOMINIC Najera/ULYSSES /[id number]
[2019-08-17] MEDS: SUCRALFATE 1 GM TAB PO SCH ×4 (08:30→21:37)
[2019-08-17] MEDS: METOPROLOL TARTRATE 50 MG TAB PO SCH ×2 (08:43→21:37)
[2019-08-17] MEDS: DULOXETINE HCL 30 MG DELAYED RELEASE PO SCH (08:43)
[2019-08-17] MEDS: PREGABALIN 75 MG CAP PO SCH ×2 (08:44→21:37)
[2019-08-17] MEDS: INSULIN GLARGINE 100 UNITS/ML VIAL SQ SCH ×2 (09:00→21:39)
--- NOTE | 2019-08-17 14:00 | NUR ---
RFA 20 G IV REMOVED. TIP INTACT. DRESSING APPLIED. PT DENIED FURTHER NEEDS.
--- NOTE | 2019-08-17 15:05 | NUR ---
Nutrition Intervention Note RD Recommendation(s) for Physician: -Continue 1800 ADA diet The patient meets criteria for unspecified SEVERE acute protein-calorie malnutrition at this time Plan of Care: RD following, monitoring for tolerance and adequacy Nutrition reason for involvement: follow up RD Assessment 08/16: Follow up. Pt reports good appetite and intake, noted 75-100% of meals per chart. Pt reports abdominal pain and severity of diarrhea are improving, reports 3 BMs thus far today and 5 BMs yesterday. Pt denies any N/V. Pt with no nutrition questions or concerns at this time. Chart reviewed. Will continue to monitor. (08/13/19) Pt is a 54 year old female admitted with acute renal insufficiency, dehydration, vomiting, and diarrhea. Pt was NPO at time of visit due to procedure (EGD with esophageal dilation) but is now on a full liquid diet. Pt stated she had a poor appetite for 2 weeks and was eating <50% of meals. Pt also declared she had lost weight within the past 2 weeks and used to weigh 272 lbs. Pt currently has a weight of 254 lbs in chart. This would be 7% weight loss within 2 weeks which is considered to be significant weight loss. Pt also experienced nausea and diarrhea for the past 2 weeks as well. Recommend Glucerna BID for added nutrition. Will continue to monitor. Principal Problems/Diagnoses: acute renal insufficiency, dehydration, vomiting, and diarrhea. PMH: hypertension, hyperlipidemia, uncontrolled diabetes, gouty arthritis, DVTs in the past, esophageal strictures, reflux esophagitis, chronic UTIs. GI: LBM 08/16 x 3, BM x 5 yesterday Skin: intact Labs: 08/16: Na 141, K 3.7, BUN 10, Cr 1.05, Gluc 262, POC Gluc 260-311 (08/12) K 3/3, BUN 22, Creat 2.22, Glu 161, Hgb A1c 10.7% Meds: pantoprazole, zofran, carafate, bentyl, insulin Ht: 66 inches Wt: 254 lbs BMI: 41.0 kg/m2 IBW: 130 lbs Malnutrition Evaluation (08/13/19) The patient meets criteria for unspecified SEVERE protein-calorie malnutrition. Energy intake: <50% of estimated energy requirements for >5 days per pt report Weight loss: 7% in 2 weeks (Acute) per pt report Fat loss: no loss identified per observation Muscle loss: no loss identified per observation Supporting Evidence: Fluid accumulation: trace edema per MD note Functional Status: unable to evaluate Nutrition Prescription (Diet Order): 1800 ADA Estimated Nutritional Needs: 0299-6338 calories/day (22-25 kcal/kg IBW) 89-118 g protein/day (1.5-2 g pro/kg IBW) Diet Adequacy: meeting calorie needs, meeting protein needs Tolerance: Tolerating po Diet Education Needs Assessment: RD is available for diet education as needed Nutrition Care Level: moderate Nutrition Diagnosis: Severe protein kcal malnutrition related to acute illness as evidenced by pt meeting <50% of estimated energy needs for > 5 days and 7% weight loss in 2 weeks per pt report. Goal: Patient will meet 75-100% of estimated needs by follow up Progress: Goal met Interventions: -carbohydrate-modified diet Monitoring/Evaluation: -Total energy intake, Total protein intake, Modified diet, Weight change Signed: Luna Tinsley RD, LD, CNSC
--- NOTE | 2019-08-17 19:00 | NUR ---
BEDSIDE SHIFT REPORT GIVEN TO THE USABILITY STRATEGIST RN. PT DENIED FURTHER NEEDS.
--- NOTE | 2019-08-17 19:30 | NUR ---
Received report from FERNANDO Schaeffer; Pt. A & 0 x 4; No complaint of pain or nausea at this time. Will continue to monitor.
[2019-08-17] MEDS: DICYCLOMINE HCL 10 MG CAP PO PRN (20:12)
[2019-08-18] VITALS (8 sets, daily range): BP systolic 142–172; BP diastolic 67–91
--- NOTE | 2019-08-18 | NUR ---
Dr. Ventura here to see patient. Received following orders: Renew Protonix drip. Give Bentyl 20 mg Q6H scheduled. Give two Lomotil now. Give one Lomotil PRN after every loose bowel movement, not to exceed five in one day. Order lipase and MRCP in the morning.
[2019-08-18] MEDS: DICYCLOMINE HCL 10 MG CAP PO PRN (00:02)
[2019-08-18] MEDS ORDERED: DIPHENOXYLATE/ATROPINE TAB PO PRN (00:15)
[2019-08-18] MEDS ORDERED: DIPHENOXYLATE/ATROPINE TAB PO ONE (00:15)
[2019-08-18] MEDS: PANTOPRAZOLE INJ 40 MG in SODIUM CHLORIDE 0.9% 50ML 50 ML IV SCH ×2 (00:36→05:40)
--- NOTE | 2019-08-18 00:36 | NUR ---
Per Dr. Ventura, if patient presents with severe abdominal pain similar to episode from two nights ago, order stat lipase, hepatic panel, MRCP, and call him for additional orders. Patient in stable condition, no s/s of distress at this time. Will continue to monitor.
[2019-08-18] MEDS: LEVOTHYROXINE SODIUM 100 MCG TAB PO SCH (05:40)
[2019-08-18] MEDS: DICYCLOMINE HCL 20 MG TAB PO SCH ×4 (05:40→23:25)
[2019-08-18] MEDS: VANCOMYCIN 250MG/5ML ORAL SOLN PO SCH ×4 (05:43→23:25)
--- NOTE | 2019-08-18 07:04 | NUR ---
Pt. in stable condition; Report given to FERNANDO Pruitt
[2019-08-18] MEDS: INSULIN LISPRO 100 UNIT/1 ML 3ML VIAL SQ SCH ×5 (07:30→20:50)
--- NOTE | 2019-08-18 07:43 | Progress Note ---
DATE: 08/18/2019 SUBJECTIVE: A 54-year-old female, who came in with C diff colitis, intractable nausea, vomiting, diarrhea and with abdominal pain status post esophageal stricture with dilatation, currently still having abdominal pain, which is described 10/10 intensity from the epigastric area to the back. The patient has been given morphine, Bentyl, Zofran and has been on a clear liquid diet, which she could not tolerate except for water. The patient has intractable nausea with this. With this in mind an MRCP has been ordered today by Dr. Ed Ventura. We will await the results. OBJECTIVE: VITAL SIGNS: Temperature is 97.8, pulse of 89, respirations of 18, blood pressure is 142/67, pulse oximetry of 93%. HEENT: Normocephalic and atraumatic. Pupils are reactive. CVS: S1 and S2 normal. Regular rate and rhythm. LUNGS: Clear to auscultation. ABDOMEN: Tender in the epigastrium. No rebound present. EXTREMITIES: Right lower upper extremity with redness in the IV site suggestive of infiltration and also in the forearm area suggestive of infiltration. Extremities otherwise no edema. LABORATORY VALUES: White count is normal 4.96, and hemoglobin of 11.8 and 36.7 yesterday. Chemistries showed recovery of creatinine function. BUN is 10, creatinine of 1.04 with a GFR back up to 54. ASSESSMENT AND PLAN: Ms. Irene Juliette with: 1. Acute colitis. 2. Dehydration with acute renal failure, better. 3. Cluster in C difficile colitis. We will continue on vancomycin. 4. Abdominal pain, status post esophageal dilatation with signs and symptoms suggestive of pancreatitis. PLAN: An MRCP will be done today. We will continue monitoring her pain levels. Continue assessing pain and pain medication to be given. Also DVT prophylaxis will be instituted with Lovenox 30 mg. MD DOMINIC Najera/ULYSSES /[id number]
[2019-08-18] MEDS: PREGABALIN 75 MG CAP PO SCH ×2 (09:02→20:49)
[2019-08-18] MEDS: METOPROLOL TARTRATE 50 MG TAB PO SCH ×2 (09:02→20:49)
[2019-08-18] MEDS: INSULIN GLARGINE 100 UNITS/ML VIAL SQ SCH ×2 (09:02→20:50)
[2019-08-18] MEDS: DULOXETINE HCL 30 MG DELAYED RELEASE PO SCH (09:02)
[2019-08-18] MEDS: SUCRALFATE 1 GM TAB PO SCH ×4 (09:02→20:49)
[2019-08-18] MEDS: PANTOPRAZOL 40MG/SOD CHL 0.9% 50 ML IV SCH ×3 (11:27→22:30)
[2019-08-18] MEDS: MORPHINE SULFATE INJ 4 MG/ML INJ 1ML IV PRN ×2 (15:20→23:25)
[2019-08-18] MEDS: ENOXAPARIN SOD INJ 40 MG/0.4 ML SYR SC SCH (16:40)
--- NOTE | 2019-08-18 16:56 | Diagnostic Imaging Report ---
TECHNIQUE: MRI of the abdomen and MRCP WITHOUT intravenous contrast. 3-D volume reconstructions were obtained to evaluate the biliary ductal system. INDICATION: ^MRCP without contrast for abdominal pain. COMPARISON: CTs from 08/12/2019 and 05/07/2019 FINDINGS: ABSENCE OF INTRAVENOUS CONTRAST DECREASES SENSITIVITY FOR DETECTION OF FOCAL LESIONS AND VASCULAR PATHOLOGY. LOWER THORAX: Unremarkable. LIVER: The liver is enlarged with diffuse loss of signal in the liver on out of phase imaging. No focal hepatic lesions. BILIARY: Prior cholecystectomy. No biliary ductal dilatation or filling defect. The common bile duct measures 0.5 cm in diameter. SPLEEN: 16.5 cm splenomegaly. A splenic cyst measures 3.97 m. PANCREAS: No focal masses or ductal dilatation. ADRENALS: No adrenal nodules. KIDNEYS/URETERS: No hydronephrosis or solid mass lesions. PERITONEUM/RETROPERITONEUM: No free fluid. LYMPH NODES: No lymphadenopathy. There is a nonspecific, prominent periportal lymph node which measures 1.2 cm in short axis dimension VESSELS: Unremarkable. GI TRACT: No distention or wall thickening. BONES AND SOFT TISSUES: Unremarkable. IMPRESSION: 1. No common bile duct distention or choledocholithiasis. 2. A nonspecific, prominent periportal lymph node measures 1.2 cm in short axis dimension. This is nonspecific but could be reactive and is similar to 04/17/2019. 3. Hepatomegaly with diffuse fatty infiltration of the liver and moderate splenomegaly. Signed by: Noble Drake JR, MD on 08/18/2019 4:52 PM
[2019-08-18] MEDS ORDERED: MORPHINE SULFATE INJ 4 MG/ML INJ 1ML IV ONE (18:15)
--- NOTE | 2019-08-18 18:35 | NUR ---
c/o abdominal pain. Dr.John guevara. One time order for Morphine 4mg IV received
[2019-08-18] MEDS: ONDANSETRON HCL INJ 2MG/ML 2ML 2 MG/ML VIAL IV PRN ×2 (18:39→23:25)
--- NOTE | 2019-08-18 19:15 | NUR ---
Report given to oncoming nurse of patient's status. No s/s of acute distress noted. Protonix 10ml/hr via left FA infusing. Side rails upx2, call light within reach.
--- NOTE | 2019-08-18 19:30 | NUR ---
patient received awake, alert, lying quietly in bed. vss. no c/o pain/nausea noted at this time. pm assessment complete. patient instructed to call for assistance when needed.
[2019-08-19] VITALS (8 sets, daily range): BP systolic 112–183; BP diastolic 64–98
[2019-08-19] MEDS: PANTOPRAZOL 40MG/SOD CHL 0.9% 50 ML IV SCH ×4 (03:14→23:54)
[2019-08-19 05:43] LABS: BASOPHILS % 0.7 % (0.0-1.0); EOSINOPHILS # (AUTO) 0.3 (0.0-0.4); EOSINOPHILS % 4.2 % (0.0-6.0); HEMATOCRIT 32.6 % (34.2-44.1); HEMOGLOBIN 10.2 g/dL (12.0-16.0); LYMPHOCYTES # (AUTO) 2.5 (1.0-3.2); LYMPHOCYTES % 41.1 % (18.0-39.1); MEAN CORPUSCULAR HEMOGLOBIN 27.3 pg (28-32); MEAN CORPUSCULAR HGB CONC 31.3 g/dL (31-35); MEAN CORPUSCULAR VOLUME 87.2 fL (81-99); MONOCYTES # (AUTO) 0.4 (0.2-0.8); MONOCYTES % 6.7 % (4.4-11.3); NEUTROPHILS # (AUTO) 2.8 (2.1-6.9); NEUTROPHILS % 47.1 % (38.7-80.0); PLATELET COUNT 89 x10e3/uL (140-360); RED BLOOD COUNT 3.74 x10e6/uL (3.6-5.1); RED CELL DISTRIBUTION WIDTH 15.2 % (11.7-14.4)
[2019-08-19] MEDS: LEVOTHYROXINE SODIUM 100 MCG TAB PO SCH (06:00)
[2019-08-19] MEDS: DICYCLOMINE HCL 20 MG TAB PO SCH ×4 (06:00→23:54)
[2019-08-19] MEDS: VANCOMYCIN 250MG/5ML ORAL SOLN PO SCH ×4 (06:00→23:54)
[2019-08-19 06:10] LABS: ANION GAP 11.3 mmol/L (8-16); CALCIUM 8.5 mg/dL (8.4-10.2); CREATININE, SERUM 0.98 mg/dL (0.57-1.11); POTASSIUM 3.3 mmol/L (3.5-5.1)
--- NOTE | 2019-08-19 07:00 | Progress Note ---
DATE: 08/19/2019 SUBJECTIVE: The patient comes in with pancreatitis with C diff colitis, dehydration, and acute renal failure. Current medications are vancomycin, Carafate, levothyroxine, glargine insulin, and Lovenox for DVT prophylaxis. The patient is also getting Bentyl and morphine for pain control. No chest pain, but the patient continues to have abdominal pain, which is of intensity of 10/10 and is more epigastric. MRCP was done yesterday and is grossly normal except for signs suggestive of portal hypertension. Lipids have been done. The patient is behaving more like a pancreatitis pattern, although lipase was only slightly elevated. Dr. Ventura has seen the patient, put her back on clear liquid diet and if she is not tolerable, back to n.p.o. diet. At this point of time, TPN is not recommended. PHYSICAL EXAMINATION: VITAL SIGNS: Temperature is 98.1, pulse of 93, respirations of 20, blood pressure is 129/65, pulse oximetry of 94%. HEENT: Normocephalic. No icterus present. CVS: S1 and S2 distant. LUNGS: Clear. ABDOMEN: Grossly tender in the epigastric area. No rebound present. EXTREMITIES: No clubbing. No cyanosis. Erythema in and around the peripheral lines are seen. LABORATORY VALUES: Today's white count is 5.96, hemoglobin of 10.2, hematocrit of 32.6. Chemistries; sodium of 141, potassium of 3.3, BUN of 9, creatinine 0.98 with glucose of 174. Lipase is 119 and it trended down from 445 earlier. Triglycerides are pending, has been ordered by Dr. Ventura. ASSESSMENT AND PLAN: Ms. Maida Irene is a 54-year-old with: 1. Acute colitis, namely Clostridium difficile. Plan, continue with vancomycin. 2. Dehydration and acute renal failure, better. Creatinine function has improvised drastically. 3. Abdominal pain, suggestive of pancreatitis. Continue on a clear liquid diet or n.p.o. as the patient tolerates. 4. Esophageal stricture, status post dilatation. 5. Portal hypertension seen on CT, suggestive of fatty liver with splenomegaly. PLAN: Continue as above. N.p.o. versus clear liquid diet. Further recommendation per clinical course. The patient also has DVT prophylaxis with Lovenox in lieu of her multiple areas on the forearm with ecchymosis and signs of infiltration. MD DOMINIC Najera/ULYSSES /[id number]
[2019-08-19] MEDS: INSULIN LISPRO 100 UNIT/1 ML 3ML VIAL SQ SCH ×4 (07:30→21:00)
[2019-08-19] MEDS: SUCRALFATE 1 GM TAB PO SCH ×4 (08:56→21:00)
[2019-08-19] MEDS: METOPROLOL TARTRATE 50 MG TAB PO SCH ×2 (08:57→21:00)
[2019-08-19] MEDS: PREGABALIN 75 MG CAP PO SCH (08:57)
[2019-08-19] MEDS: DULOXETINE HCL 30 MG DELAYED RELEASE PO SCH (08:57)
[2019-08-19] MEDS: INSULIN GLARGINE 100 UNITS/ML VIAL SQ SCH ×2 (09:06→21:00)
--- NOTE | 2019-08-19 11:11 | NUR ---
Patient's IV was infiltrated at 9:15. Patient stated that Dr. Schaeffer had did rounds this AM and talked about a PICC line. This auto service writer called Dr. Schaeffer and got an order for PICC line placement. Patient signed consent and was transported via transporter. Will continue to monitor and follow up.
[2019-08-19] MEDS ORDERED: POTASSIUM CHLORIDE 20 MEQ TAB CR PO SCH (13:00)
--- NOTE | 2019-08-19 13:44 | Diagnostic Imaging Report ---
EXAM: CHEST XRAY LINE PLACEMENT DATE: 08/19/2019 1:01 PM INDICATION: PICC placement COMPARISON: None FINDINGS: Right sided PICC line identified with distal tip terminating in appropriate over the SVC. The trachea is midline. Lung volumes are low versus poor inspiratory effort. There is no evidence for large focal consolidation, pneumothorax, or significant pleural effusion. The cardiomediastinal silhouette is magnified by technique but otherwise unremarkable. No acute osseous abnormality identified. IMPRESSION: Right-sided PICC line identified in appropriate position. Signed by: Dr. Domenico Lua MD on 08/19/2019 1:41 PM
[2019-08-19] MEDS: MORPHINE SULFATE INJ 4 MG/ML INJ 1ML IV PRN (15:09)
[2019-08-19] MEDS: AMLODIPINE BESYLATE 10 MG TAB PO SCH (15:10)
[2019-08-19] MEDS: ENOXAPARIN SOD INJ 40 MG/0.4 ML SYR SC SCH (16:01)
--- NOTE | 2019-08-19 19:00 | NUR ---
Patient received awake, alert, sitting up in bed. patient c/o severe headache. Dr. Schaeffer called re: pain medication and new orders noted. iv protonix infusing without difficulty. pm assessment complete. patient instructed to call for assistance when needed.
[2019-08-19] MEDS ORDERED: MORPHINE SULFATE 2 MG/ML SYR 1ML IV PRN (19:30)
[2019-08-19] MEDS: ACETAMINOPHEN 1000 MG/100 ML IV PRN (19:44)
[2019-08-20] VITALS (8 sets, daily range): BP systolic 104–156; BP diastolic 65–80
[2019-08-20] MEDS: VANCOMYCIN 250MG/5ML ORAL SOLN PO SCH ×4 (05:14→23:35)
[2019-08-20] MEDS: LEVOTHYROXINE SODIUM 100 MCG TAB PO SCH (05:14)
[2019-08-20] MEDS: DICYCLOMINE HCL 20 MG TAB PO SCH ×4 (05:14→23:35)
[2019-08-20] MEDS: PANTOPRAZOL 40MG/SOD CHL 0.9% 50 ML IV SCH ×4 (05:14→23:32)
[2019-08-20] MEDS: ACETAMINOPHEN 1000 MG/100 ML IV PRN (06:11)
[2019-08-20 06:23] LABS: ANION GAP 11.4 mmol/L (8-16); BLOOD UREA NITROGEN 6 mg/dL (7-26); BUN/CREATININE RATIO 7 (6-25); CALCIUM 8.8 mg/dL (8.4-10.2); CARBON DIOXIDE 30 mmol/L (22-29); CHLORIDE 105 mmol/L (98-107); CREATININE, SERUM 0.86 mg/dL (0.57-1.11); EST GLOMERULAR FILTRATION RATE > 60 ML/MIN (60-); GLUCOSE 97 mg/dL (74-118); POTASSIUM 3.4 mmol/L (3.5-5.1); SODIUM 143 mmol/L (136-145)
[2019-08-20] MEDS: INSULIN LISPRO 100 UNIT/1 ML 3ML VIAL SQ SCH ×4 (07:30→20:50)
--- NOTE | 2019-08-20 07:49 | Progress Note ---
DATE: 08/20/2019 SUBJECTIVE: This is a 54-year-old lady, who comes in with colitis with dehydration, acute renal failure, and C diff colitis. The patient's abdominal pain still continues. MRCP was essentially negative. Pancreatitis was the diagnosis. The patient is on clear liquid diet, able to tolerate some fluids at this time, could not go on to a full liquid diet because of abdominal pain. Pain is described as 10/10 intensity and is on pain medications at this time. The patient did get a headache yesterday and was given Tylenol IV. MEDICATIONS: Currently on acetaminophen, amlodipine, dicyclomine, Lovenox for DVT prophylaxis, insulin glargine, levothyroxine, pantoprazole, Carafate, and vancomycin p.o. for C diff. OBJECTIVE: VITAL SIGNS: Temperature is 97.3, pulse of 73, respirations of 18, blood pressure is 104/70, pulse oximetry of 93% on room air. GENERAL: On examination morbidly obese. HEENT: Normocephalic and atraumatic. Pupils are reactive to light and accommodation. CVS: S1 and S2 normal. Regular rate and rhythm. ABDOMEN: Tender in the epigastrium. No rebound present. Left lower quadrant tenderness also present. EXTREMITIES: No clubbing, no cyanosis, or no edema. The erythema on the upper extremities have come down. LABORATORY VALUES: From yesterday, white count is 5.96, hemoglobin of 10.2, hematocrit of 32.6. Chemistries are within normal limits. BUN and creatinine 11.4 and 16. Lipase is 112. Lipid panels are not done. We will repeat that. ASSESSMENT: Ms. Maida Irene with; 1. Clostridium difficile colitis. 2. Pancreatitis. 3. Abdominal pain. 4. Acute renal failure. 5. Dehydration. 6. History of uncontrolled diabetes mellitus. PLAN: At this point continue monitoring the patient's lipase, which has trended down. Slowly increase her p.o. intake to full liquid diet if possible today. Continue with pain management. Continue with fluid resuscitation. Check lipids. Further recommendation per clinical course. Additional detail including there is one, ova and parasite were negative and; salmonella and shigella cultures also negative. For further information, look into the chart. The patient will be followed up and possible discharge home. DISPOSITION: Discharge in about 1 to 2 days depending on the p.o. intake and also decrease diarrhea. MD DOMINIC Najera/ULYSSES /[id number]
[2019-08-20] MEDS: DULOXETINE HCL 30 MG DELAYED RELEASE PO SCH (08:17)
[2019-08-20] MEDS: SUCRALFATE 1 GM TAB PO SCH ×4 (08:17→20:52)
[2019-08-20] MEDS: METOPROLOL TARTRATE 50 MG TAB PO SCH ×2 (08:17→20:52)
[2019-08-20] MEDS: AMLODIPINE BESYLATE 10 MG TAB PO SCH (08:18)
[2019-08-20] MEDS: INSULIN GLARGINE 100 UNITS/ML VIAL SQ SCH ×2 (09:51→20:50)
[2019-08-20] MEDS: ONDANSETRON HCL INJ 2MG/ML 2ML 2 MG/ML VIAL IV PRN ×3 (09:52→19:35)
[2019-08-20] MEDS: MORPHINE SULFATE INJ 4 MG/ML INJ 1ML IV PRN ×2 (09:52→19:35)
[2019-08-20] MEDS ORDERED: POTASSIUM CHLORIDE 20MEQ/100ML 200 ML IV ONE (13:30)
[2019-08-20] MEDS: ENOXAPARIN SOD INJ 40 MG/0.4 ML SYR SC SCH (16:20)
--- NOTE | 2019-08-20 16:48 | NUR ---
Nutrition Intervention Note RD Recommendation(s) for Physician: -Recommend advancing to a low fat, diabetic diet when medically appropriate The patient meets criteria for unspecified SEVERE acute protein-calorie malnutrition Plan of Care: RD following, monitoring for tolerance and adequacy Nutrition reason for involvement: follow up RD Assessment 08/19: Follow up. Chart reviewed. Pt was advanced from clear liquids to full liquids today. Pt reports she is experiencing nausea. Per MD note, pt also has been having abdominal pain. Pt had developed pancreatitis per MD note and pts lipase is elevated. Pt did not have any nutrition concerns or questions at time of visit. Will continue to monitor. 08/16: Follow up. Pt reports good appetite and intake, noted 75-100% of meals per chart. Pt reports abdominal pain and severity of diarrhea are improving, reports 3 BMs thus far today and 5 BMs yesterday. Pt denies any N/V. Pt with no nutrition questions or concerns at this time. Chart reviewed. Will continue to monitor. (08/13/19) Pt is a 54 year old female admitted with acute renal insufficiency, dehydration, vomiting, and diarrhea. Pt was NPO at time of visit due to procedure (EGD with esophageal dilation) but is now on a full liquid diet. Pt stated she had a poor appetite for 2 weeks and was eating <50% of meals. Pt also declared she had lost weight within the past 2 weeks and used to weigh 272 lbs. Pt currently has a weight of 254 lbs in chart. This would be 7% weight loss within 2 weeks which is considered to be significant weight loss. Pt also experienced nausea and diarrhea for the past 2 weeks as well. Recommend Glucerna BID for added nutrition. Will continue to monitor. Principal Problems/Diagnoses: acute renal insufficiency, dehydration, vomiting, and diarrhea. PMH: hypertension, hyperlipidemia, uncontrolled diabetes, gouty arthritis, DVTs in the past, esophageal strictures, reflux esophagitis, chronic UTIs. GI: LBM 08/19 x 4 Skin: intact Labs: 08/19: Na 143, K 3.4, Cre 0.86, Glu 97 08/16: Na 141, K 3.7, BUN 10, Cr 1.05, Gluc 262, POC Gluc 260-311 (08/12) K 3/3, BUN 22, Creat 2.22, Glu 161, Hgb A1c 10.7% Meds: pantoprazole, zofran, carafate, bentyl, insulin, lovenox Ht: 66 inches Wt: 292 lbs (08/19) 254 lbs (08/11) Suspect possible weight error BMI: 47.2 kg/m2 IBW: 130 lbs Malnutrition Evaluation (08/13/19) The patient meets criteria for unspecified SEVERE protein-calorie malnutrition. Energy intake: <50% of estimated energy requirements for >5 days per pt report Weight loss: 7% in 2 weeks (Acute) per pt report Fat loss: no loss identified per observation Muscle loss: no loss identified per observation Supporting Evidence: Fluid accumulation: trace edema per MD note Functional Status: unable to evaluate Nutrition Prescription (Diet Order): full liquids Estimated Nutritional Needs: 5666-6251 calories/day (22-25 kcal/kg IBW) 89-118 g protein/day (1.5-2 g pro/kg IBW) Diet Adequacy: Pt reports consuming most of her liquids Tolerance: Tolerating po Diet Education Needs Assessment: RD is available for diet education as needed Nutrition Care Level: moderate Nutrition Diagnosis: Severe protein kcal malnutrition related to acute illness as evidenced by pt meeting <50% of estimated energy needs for > 5 days and 7% weight loss in 2 weeks per pt report. Goal: Patient will meet 75-100% of estimated needs by follow up Progress: progressing Interventions: -carbohydrate-modified diet Monitoring/Evaluation: -Total energy intake, Total protein intake, Modified diet, Weight change Signed: Lizeth Mensah RD, LD
--- NOTE | 2019-08-20 19:15 | NUR ---
patient received awake, alert, lying quietly in bed. vss. protonix drip infusing without difficulty. call vazquez placed within reach. patient instructed to call for assistance when needed.
--- NOTE | 2019-08-20 19:35 | NUR ---
patient medicated with morphine 4mg and zofran 4mg ivp for c/o abd pain 11/18 at this time.
[2019-08-21] VITALS (8 sets, daily range): BP systolic 121–160; BP diastolic 56–77
[2019-08-21] MEDS: ONDANSETRON HCL INJ 2MG/ML 2ML 2 MG/ML VIAL IV PRN ×4 (01:58→20:05)
--- NOTE | 2019-08-21 01:58 | NUR ---
patient medicated with zofran 4mg ivp for c/o nausea at this time.
--- NOTE | 2019-08-21 05:00 | NUR ---
am labs drawn from right picc line without difficulty.
[2019-08-21] MEDS: DICYCLOMINE HCL 20 MG TAB PO SCH ×3 (05:19→16:49)
[2019-08-21] MEDS: VANCOMYCIN 250MG/5ML ORAL SOLN PO SCH ×3 (05:19→18:37)
[2019-08-21] MEDS: PANTOPRAZOL 40MG/SOD CHL 0.9% 50 ML IV SCH ×4 (05:19→18:56)
[2019-08-21] MEDS: LEVOTHYROXINE SODIUM 100 MCG TAB PO SCH (05:19)
[2019-08-21 06:15] LABS: BASOPHILS % 0.5 % (0.0-1.0); EOSINOPHILS # (AUTO) 0.3 (0.0-0.4); EOSINOPHILS % 4.4 % (0.0-6.0); HEMATOCRIT 32.6 % (34.2-44.1); HEMOGLOBIN 10.3 g/dL (12.0-16.0); LYMPHOCYTES # (AUTO) 2.3 (1.0-3.2); LYMPHOCYTES % 37.5 % (18.0-39.1); MEAN CORPUSCULAR HEMOGLOBIN 27.2 pg (28-32); MEAN CORPUSCULAR HGB CONC 31.6 g/dL (31-35); MEAN CORPUSCULAR VOLUME 86.2 fL (81-99); MONOCYTES # (AUTO) 0.5 (0.2-0.8); MONOCYTES % 7.7 % (4.4-11.3); NEUTROPHILS # (AUTO) 3.1 (2.1-6.9); NEUTROPHILS % 49.7 % (38.7-80.0); PLATELET COUNT 103 x10e3/uL (140-360); RED BLOOD COUNT 3.78 x10e6/uL (3.6-5.1); RED CELL DISTRIBUTION WIDTH 14.9 % (11.7-14.4)
[2019-08-21 06:44] LABS: ANION GAP 10.6 mmol/L (8-16); BLOOD UREA NITROGEN 7 mg/dL (7-26); BUN/CREATININE RATIO 7 (6-25); CALCIUM 8.9 mg/dL (8.4-10.2); CARBON DIOXIDE 31 mmol/L (22-29); CHLORIDE 103 mmol/L (98-107); CHOL/HDL RATIO 4.7 (3.0-3.6); CHOLESTEROL 164 MD/DL (0-199); CREATININE, SERUM 0.95 mg/dL (0.57-1.11); EST GLOMERULAR FILTRATION RATE > 60 ML/MIN (60-); GLUCOSE 122 mg/dL (74-118); HDL CHOLESTEROL 35 MG/DL (40-60); LDL CHOLESTEROL 102 MG/DL (60-130); POTASSIUM 3.6 mmol/L (3.5-5.1); SODIUM 141 mmol/L (136-145); TRIGLYCERIDES 133 MG/DL (0-149)
--- NOTE | 2019-08-21 07:17 | Progress Note ---
DATE: 08/21/2019 SUBJECTIVE: A 54-year-old lady, who comes in with acute colitis, found to be Clostridium difficile colitis, status post esophageal stricture dilatation, status post MRCP. Continues to have abdominal pain, 8/10 in intensity. The patient has been getting pain medication and received 2, has not been tolerating diet very well. Nausea is ensuing. The patient did get three doses of Zofran yesterday. No chest pain. Negative for diarrhea. The patient continues to be on vancomycin. The diagnosis of pancreatitis is still being entertained. LABORATORY VALUES: The patient's white count is 6.14 today, hemoglobin of 10.3, hematocrit of 32.6. Sodium is pending. Potassium is pending. Microbiology, stool O and P negative. Positive for C. diff colitis. ASSESSMENT: Ms. Maida Irene with: 1. Clostridium difficile colitis. 2. Pancreatitis. 3. Abdominal pain. 4. Acute renal failure. 5. Dehydration. 6. Uncontrolled diabetes mellitus. PLAN: Continue with monitoring the patient's labs. Lipase being checked. Fluid resuscitation. Continue with clear liquid diet. Advance to full liquid. Lipid panel is still pending and lipase level has trended down. Further recommendation per clinical course. We will keep the patient with a full liquid diet in lieu of her nausea. MD ANGIE NajeraJ/MODL /[id number]
[2019-08-21] MEDS: INSULIN LISPRO 100 UNIT/1 ML 3ML VIAL SQ SCH ×4 (07:30→20:37)
[2019-08-21] MEDS: MORPHINE SULFATE INJ 4 MG/ML INJ 1ML IV PRN (09:40)
[2019-08-21] MEDS: METOPROLOL TARTRATE 50 MG TAB PO SCH ×2 (09:43→20:51)
[2019-08-21] MEDS: DULOXETINE HCL 30 MG DELAYED RELEASE PO SCH (09:43)
[2019-08-21] MEDS: SUCRALFATE 1 GM TAB PO SCH ×4 (09:43→20:50)
[2019-08-21] MEDS: AMLODIPINE BESYLATE 10 MG TAB PO SCH (09:43)
[2019-08-21] MEDS: INSULIN GLARGINE 100 UNITS/ML VIAL SQ SCH ×2 (09:44→20:38)
[2019-08-21] MEDS: ENOXAPARIN SOD INJ 40 MG/0.4 ML SYR SC SCH (16:49)
--- NOTE | 2019-08-21 19:00 | NUR ---
RECEIVED PATIENT IN BEDSIDE SHIFT REPORT. PATIENT IN SHOWER AT THIS TIME. NO NEEDS EXPRESSED. NO S&S OF DISTRESS NOTED. WILL REASSESS WHEN PATIENT OUT OF SHOWER.
--- NOTE | 2019-08-21 20:00 | NUR ---
PATIENT OUT OF SHOWER. TELE MONITOR REPLACED. PATIENT A&OX4. NO PAIN REPORTED. MEDICATED FOR NAUSEA AT THIS TIME. NO S&S OF DISTRESS NOTED. BED LOCKED IN LOWEST POSITION, SIDE RAILS UPX2, CALL LIGHT IN REACH.
[2019-08-21] MEDS: ACETAMINOPHEN 325 MG TAB PO PRN (22:00)
[2019-08-21 22:15] LABS: BASOPHILS # (AUTO) 0.1 (0.0-0.1); EOSINOPHILS # (AUTO) 0.3 (0.0-0.4); EOSINOPHILS % 4.5 % (0.0-6.0); HEMATOCRIT 34.2 % (34.2-44.1); HEMOGLOBIN 10.8 g/dL (12.0-16.0); LYMPHOCYTES # (AUTO) 2.2 (1.0-3.2); LYMPHOCYTES % 35.2 % (18.0-39.1); MEAN CORPUSCULAR HEMOGLOBIN 27.1 pg (28-32); MEAN CORPUSCULAR HGB CONC 31.6 g/dL (31-35); MEAN CORPUSCULAR VOLUME 85.9 fL (81-99); MONOCYTES # (AUTO) 0.4 (0.2-0.8); MONOCYTES % 7.1 % (4.4-11.3); NEUTROPHILS # (AUTO) 3.2 (2.1-6.9); NEUTROPHILS % 51.9 % (38.7-80.0); PLATELET COUNT 97 x10e3/uL (140-360); RED BLOOD COUNT 3.98 x10e6/uL (3.6-5.1); RED CELL DISTRIBUTION WIDTH 14.6 % (11.7-14.4)
[2019-08-22] VITALS (7 sets, daily range): BP systolic 124–146; BP diastolic 59–78
[2019-08-22] MEDS: DICYCLOMINE HCL 20 MG TAB PO SCH ×4 (00:40→17:57)
[2019-08-22] MEDS: VANCOMYCIN 250MG/5ML ORAL SOLN PO SCH ×4 (00:40→18:24)
[2019-08-22] MEDS: MORPHINE SULFATE INJ 4 MG/ML INJ 1ML IV PRN ×4 (00:55→22:45)
[2019-08-22] MEDS: PANTOPRAZOL 40MG/SOD CHL 0.9% 50 ML IV SCH ×5 (00:57→21:02)
[2019-08-22] MEDS: LEVOTHYROXINE SODIUM 100 MCG TAB PO SCH (06:04)
[2019-08-22] MEDS: ONDANSETRON HCL INJ 2MG/ML 2ML 2 MG/ML VIAL IV PRN ×3 (06:19→21:12)
[2019-08-22] MEDS: SODIUM CHLORIDE 0.9% 1000ML 1,000 ML IV SCH ×2 (06:41→20:20)
--- NOTE | 2019-08-22 07:27 | Progress Note ---
DATE: 08/22/2019 SUBJECTIVE: The patient came in with acute abdominal pain, acute colitis, acute renal failure also found to have pancreatitis. MRCP did not reveal any abnormalities. However, the patient's nausea is intractable still. Continues to be nauseous. Continues being pain. Continues to have abdominal pain. Did try the clear liquid diet yesterday, but was not able to keep it down, was started nauseated and was given Zofran. The patient seen by Dr. Ventura and kept n.p.o. again today and repeat amylase has been done. OBJECTIVE: VITAL SIGNS: Temperature is 97, T-max of 99.5 on 08/22/19; pulse of 84, respirations of 18, blood pressure is 140/77, pulse oximetry of 94%. HEENT: Normocephalic and atraumatic. No icterus present. CVS: S1 and S2 normal. Regular rate and rhythm. ABDOMEN: Tender in the epigastrium. EXTREMITIES: No clubbing, no cyanosis, no edema. LABORATORY VALUES: White count yesterday was 6.22, hemoglobin of 10.8 and hematocrit of 34.2. Chemistries; lipase is pending right now. Total cholesterol was 164, triglycerides of 133. Positive stool lactoferrin. Microbiology, ova and parasites negative. ASSESSMENT AND PLAN: Ms. Irene with: 1. Clostridium difficile colitis. 2. Pancreatitis. 3. Abdominal pain. 4. Acute renal failure, resolved. 5. Dehydration, resolved. 6. Uncontrolled diabetes mellitus, better. PLAN: Has been n.p.o. since last night secondary to ongoing nausea with clears and full liquid. We will check her lipase, which is pending. Lipid panel has been normal. Continue to monitor the patient for pain and also symptomatic treatment with pain control. If this continues, might have to repeat no CT scan. Further recommendation per clinical course. We will continue to monitor the patient along with Dr. Ventura, GI vocational rehabilitation consultant. DVT prophylaxis on board and GI prophylaxis on board. She is on Protonix IV and also on vancomycin for C. diff. MD DOMINIC Najera/MODL /[id number]
[2019-08-22] MEDS: INSULIN LISPRO 100 UNIT/1 ML 3ML VIAL SQ SCH ×4 (07:30→20:48)
[2019-08-22] MEDS: INSULIN GLARGINE 100 UNITS/ML VIAL SQ SCH ×2 (09:00→20:48)
[2019-08-22] MEDS: AMLODIPINE BESYLATE 10 MG TAB PO SCH (09:06)
[2019-08-22] MEDS: METOPROLOL TARTRATE 50 MG TAB PO SCH ×2 (09:06→21:02)
[2019-08-22] MEDS: SUCRALFATE 1 GM TAB PO SCH ×4 (09:06→21:02)
[2019-08-22] MEDS: DULOXETINE HCL 30 MG DELAYED RELEASE PO SCH (09:06)
[2019-08-22] MEDS: ACETAMINOPHEN 325 MG TAB PO PRN (14:41)
[2019-08-22] MEDS: ENOXAPARIN SOD INJ 40 MG/0.4 ML SYR SC SCH (17:57)
--- NOTE | 2019-08-22 19:00 | NUR ---
RECEIVED PATIENT IN BEDSIDE SHIFT REPORT. PATIENT RESTING IN BED AT THIS TIME. NO PAIN REPORTED. NO S&S OF DISTRESS NOTED. BED LOCKED IN LOWEST POSITION, SIDE RAILS UPX2, CALL LIGHT IN REACH.
--- NOTE | 2019-08-22 23:05 | NUR ---
MD Erika LIDAD IN TO SEE PATIENT AT THIS TIME. NEW ORDERS RECEIVED TO TREAT ABDOMINAL PAIN AND NAUSEA.
[2019-08-22] MEDS ORDERED: BELLADONNA ALK/PHENOBARBITAL 5 ML UDC PO ONE (23:15)
[2019-08-22] MEDS ORDERED: MAGNESIUM/ALUMINUM/SIMETHICONE 30 ML UDC PO ONE (23:30)
[2019-08-22] MEDS ORDERED: LIDOCAINE VISC 2% SOLN 15 ML UDC TP ONE (23:30)
[2019-08-22] MEDS ORDERED: LIDOCAINE VISC 2% SOLN 15 ML UDC PO ONE (23:30)
[2019-08-23] VITALS (8 sets, daily range): BP systolic 126–163; BP diastolic 64–75
[2019-08-23] MEDS: METOCLOPRAMIDE HCL 10 MG/2ML VIAL IV SCH ×4 (00:30→17:13)
[2019-08-23] MEDS: DICYCLOMINE HCL 20 MG TAB PO SCH ×4 (00:30→17:13)
[2019-08-23] MEDS: VANCOMYCIN 250MG/5ML ORAL SOLN PO SCH ×3 (00:30→12:05)
[2019-08-23] MEDS: PANTOPRAZOL 40MG/SOD CHL 0.9% 50 ML IV SCH ×4 (02:00→18:33)
[2019-08-23] MEDS ORDERED: BELLADONNA ALK/PHENOBARBITAL 5 ML UDC PO ONE (04:00)
[2019-08-23] MEDS ORDERED: MAGNESIUM/ALUMINUM/SIMETHICONE 30 ML UDC PO ONE (04:00)
[2019-08-23] MEDS ORDERED: DONNATAL/LIDOCAINE/MAALOX 30 ML SUSP PO SCH ×2 (04:00→06:00)
[2019-08-23] MEDS ORDERED: LIDOCAINE VISC 2% SOLN 15 ML UDC TP ONE (04:00)
[2019-08-23] MEDS: LEVOTHYROXINE SODIUM 100 MCG TAB PO SCH (06:30)
--- NOTE | 2019-08-23 07:00 | NUR ---
BEDSIDE SHIFT REPORT RECEIVED FROM THE CEREAL CHEMIST RN. CALL LIGHT WITH IN EASY REACH. INSTRUCTED PT TO USE CALL LIGHT FOR ALL THE NEEDS. EDUCATED PT ABOUT FALL PRECAUTIONS. PT VERBALIZED UNDERSTANDING. BED IS LOW AND LOCKED. SIDE RAILS X2. PT DENIES NEEDS AT THIS TIME.
[2019-08-23] MEDS: INSULIN LISPRO 100 UNIT/1 ML 3ML VIAL SQ SCH ×4 (07:30→20:52)
[2019-08-23] MEDS: DONNATAL/LIDOCAINE/MAALOX 30 ML SUSP PO SCH ×5 (08:00→20:00)
[2019-08-23] MEDS: SUCRALFATE 1 GM TAB PO SCH ×4 (08:30→21:03)
[2019-08-23] MEDS: INSULIN GLARGINE 100 UNITS/ML VIAL SQ SCH ×2 (09:00→20:53)
[2019-08-23] MEDS: DULOXETINE HCL 30 MG DELAYED RELEASE PO SCH (09:10)
[2019-08-23] MEDS: METOPROLOL TARTRATE 50 MG TAB PO SCH ×2 (09:11→21:04)
[2019-08-23] MEDS: AMLODIPINE BESYLATE 10 MG TAB PO SCH (09:11)
[2019-08-23] MEDS: MORPHINE SULFATE INJ 4 MG/ML INJ 1ML IV PRN (09:34)
[2019-08-23] MEDS: ONDANSETRON HCL INJ 2MG/ML 2ML 2 MG/ML VIAL IV PRN (09:34)
[2019-08-23] MEDS: SODIUM CHLORIDE 0.9% 1000ML 1,000 ML IV SCH (12:04)
[2019-08-23] MEDS: DEXTROSE 5%/0.45% SOD CHL 1,000 ML IV SCH (14:49)
[2019-08-23] MEDS: ENOXAPARIN SOD INJ 40 MG/0.4 ML SYR SC SCH (17:13)
--- NOTE | 2019-08-23 18:30 | NUR ---
NO VANCOMYCIN SCHEDULED IN THE SYSTEM. PAGED DR. DSOUZA AND LEFT MESSAGE. WAITING FOR THE RESPONSE FROM THE
--- NOTE | 2019-08-23 19:00 | NUR ---
BEDSIDE SHIFT REPORT GIVEN TO THE PAPER AND PULP MILL WORKER RN. PT DENIED FURTHER NEEDS.
--- NOTE | 2019-08-23 19:22 | Progress Note ---
DATE: 08/23/2019 SUBJECTIVE: This is a patient, who came in with pancreatitis, dehydration, acute renal failure, and clostridium difficile colitis, currently on antibiotics. The patient is doing better today. IV Reglan was given, started by Dr. Ed Ventura today, feeling much better. Has not had any nausea and no vomiting, but still n.p.o. PHYSICAL EXAMINATION: VITAL SIGNS: Temperature is 97.8, pulse of 82, respirations 16, blood pressure is 141/71, pulse oximetry of 98%. HEENT: Normocephalic and atraumatic. Pupils are reactive. CVS: S1 and S2 normal. ABDOMEN: float tender in the epigastrium. LUNGS: Clear to auscultation. EXTREMITIES: No clubbing, no cyanosis, no edema. LABORATORY VALUES: Chemistries, blood sugars are running in the 100 to 160s, so doing good. ASSESSMENT: 1. Clostridium difficile colitis. 2. Pancreatitis. 3. Abdominal pain. 4. Reflux esophagitis. 5. Dehydration and acute renal failure versus resolved. 6. Uncontrolled diabetes mellitus. Control is better right now. PLAN: The patient is on IV Reglan. Continue with the same. Lipids have been normal. CT scan does not need to be done. The patient is improving. Possibly advance diet tomorrow and continue with Reglan IV if possible discharge disposition in 1 to 2 days. MD ANGIE NajeraJ/MODL /[id number]
[2019-08-23] MEDS ORDERED: DONNATAL/LIDOCAINE/MAALOX 30 ML SUSP PO PRN (23:45)
[2019-08-24] VITALS (7 sets, daily range): BP systolic 103–144; BP diastolic 60–68
[2019-08-24] MEDS: VANCOMYCIN 250MG/5ML ORAL SOLN PO SCH ×4 (00:01→17:05)
[2019-08-24] MEDS: PANTOPRAZOL 40MG/SOD CHL 0.9% 50 ML IV SCH ×5 (01:12→21:02)
[2019-08-24] MEDS: METOCLOPRAMIDE HCL 10 MG/2ML VIAL IV SCH ×4 (06:15→17:05)
[2019-08-24] MEDS: LEVOTHYROXINE SODIUM 100 MCG TAB PO SCH (06:15)
[2019-08-24] MEDS: DICYCLOMINE HCL 20 MG TAB PO SCH ×4 (06:15→17:05)
[2019-08-24] MEDS: DEXTROSE 5%/0.45% SOD CHL 1,000 ML IV SCH (06:15)
--- NOTE | 2019-08-24 07:00 | NUR ---
BEDSIDE SHIFT REPORT RECEIVED FROM THE FOOD BROKER RN. CALL LIGHT WITH IN EASY REACH. INSTRUCTED PT TO USE CALL LIGHT FOR ALL THE NEEDS. EDUCATED PT ABOUT FALL PRECAUTIONS. PT VERBALIZED UNDERSTANDING. BED IS LOW AND LOCKED. SIDE RAILS X2. PT DENIES NEEDS AT THIS TIME.
--- NOTE | 2019-08-24 07:39 | Progress Note ---
DATE: 08/24/2019 SUBJECTIVE: The patient is a 54-year-old female that came in with C difficile colitis, pancreatitis, history of uncontrolled diabetes mellitus, acute renal failure and hypertension. The patient is currently doing better, was able to tolerate some clear liquids yesterday. We will advance to full liquid today. OBJECTIVE: VITAL SIGNS: Temperature is 99.1, pulse of 82, respirations of 18, blood pressure is 103/63, pulse oximetry of 94%. HEENT: Normocephalic and atraumatic. Pupils are reactive to light and accommodation. CVS: S1 and S2 are normal. Regular rhythm. ABDOMEN: Tender in the epigastrium. EXTREMITIES: No clubbing, no cyanosis and no edema. Microbiology negative. LABORATORY VALUES: None done. ASSESSMENT AND PLAN: Ms. Maida Irene with: 1. Clostridium difficile colitis. Continue on vancomycin. 2. Pancreatitis, better. Advance diet. 3. Abdominal pain, better. Continue monitoring the patient's pain medication and nausea medicine. 4. Reflux esophagitis. Continue on Protonix and for dehydration continue with fluid resuscitation. Further recommendation per clinical course. Disposition, discharge in 1 to 2 days on Reglan. MD DOMINIC Najera/ERNIEL /[id number]
[2019-08-24] MEDS: INSULIN LISPRO 100 UNIT/1 ML 3ML VIAL SQ SCH ×4 (08:30→20:52)
[2019-08-24] MEDS: SUCRALFATE 1 GM TAB PO SCH ×4 (08:30→21:02)
[2019-08-24] MEDS: DULOXETINE HCL 30 MG DELAYED RELEASE PO SCH (08:58)
[2019-08-24] MEDS: METOPROLOL TARTRATE 50 MG TAB PO SCH ×2 (08:59→20:53)
[2019-08-24] MEDS: AMLODIPINE BESYLATE 10 MG TAB PO SCH (08:59)
[2019-08-24] MEDS: INSULIN GLARGINE 100 UNITS/ML VIAL SQ SCH ×2 (09:00→21:03)
[2019-08-24] MEDS ORDERED: SODIUM CHLORIDE 0.9% 250ML 250 ML ONE (14:02)
[2019-08-24] MEDS: ENOXAPARIN SOD INJ 40 MG/0.4 ML SYR SC SCH (17:05)
--- NOTE | 2019-08-24 18:53 | NUR ---
BEDSIDE SHIFT REPORT GIVEN TO THE JAVA DEVELOPER CONSULTANT RN. PT DENIED FURTHER NEEDS.
[2019-08-25] VITALS: BP 150/81
[2019-08-25] MEDS: DICYCLOMINE HCL 20 MG TAB PO SCH ×2 (00:30→05:59)
[2019-08-25] MEDS: METOCLOPRAMIDE HCL 10 MG/2ML VIAL IV SCH ×2 (00:30→05:59)
[2019-08-25] MEDS: VANCOMYCIN 250MG/5ML ORAL SOLN PO SCH ×2 (00:30→05:59)
[2019-08-25] MEDS: PANTOPRAZOL 40MG/SOD CHL 0.9% 50 ML IV SCH ×3 (02:05→09:46)
[2019-08-25 04:00] VITALS: BP 156/88
[2019-08-25] MEDS: LEVOTHYROXINE SODIUM 100 MCG TAB PO SCH (05:59)
--- NOTE | 2019-08-25 07:00 | NUR ---
BEDSIDE SHIFT REPORT RECEIVED FROM THE VEHICLE TECHNICIAN RN. EDUCATED PT ABOUT FALL PRECAUTIONS. PT VERBALIZED UNDERSTANDING. CALL LIGHT WITH IN EASY REACH. INSTRUCTED PT TO USE CALL LIGHT FOR ALL THE NEEDS. BED IS LOW AND LOCKED. SIDE RAILS X2.PT DENIES NEEDS AT THIS TIME.
--- NOTE | 2019-08-25 07:13 | Progress Note ---
DATE: 08/25/2019 SUBJECTIVE: A 54-year-old lady, who comes in with colitis, gastroenteritis, C. diff colitis, and also pancreatitis. The patient is currently feeling better, was able to keep her diet down on Reglan. No chest pain. No shortness of breath. No nausea, no vomiting. No diarrhea noted today. Blood sugars have been running very well. OBJECTIVE: VITAL SIGNS: Temperature is 98.4, pulse 78, respirations of 18, and blood pressure is 156/88. HEENT: Normocephalic and atraumatic. Pupils reactive to light and accommodation. CVS: S1 and S2 normal. Regular rate and rhythm. ABDOMEN: dynamo tender at the epigastrium. EXTREMITIES: No clubbing. No cyanosis. Trace edema. LABORATORY STUDIES: Chemistries all within normal limits. Blood sugars running in 130s to 200s. ASSESSMENT: Ms. Irene Juliette with: 1. Clostridium difficile colitis, still on vancomycin. Continue same. 2. Pancreatitis, better. PLAN: Discharge home with a full liquid diet and a soft mechanical diet. Abdominal pain better. We will discharge her on Reglan for 10 days. Reflux esophagitis. Continue with PPI and also discharge with Reglan. Further recommendation per clinical course. We will continue to monitor the patient. We will see the patient in clinic in one week. MD DOMINIC Najera/ERNIEL /[id number]
[2019-08-25] MEDS: INSULIN LISPRO 100 UNIT/1 ML 3ML VIAL SQ SCH (07:30)
--- NOTE | 2019-08-25 07:45 | NUR ---
PT REFUSED BLOOD SUGAR CHECK AND INSULIN.
[2019-08-25 07:57] VITALS: BP 119/56
[2019-08-25 07:59] VITALS: BP 119/56
[2019-08-25] MEDS: INSULIN GLARGINE 100 UNITS/ML VIAL SQ SCH (08:19)
[2019-08-25] MEDS: SUCRALFATE 1 GM TAB PO SCH (08:19)
[2019-08-25] MEDS: DULOXETINE HCL 30 MG DELAYED RELEASE PO SCH (08:20)
[2019-08-25] MEDS: AMLODIPINE BESYLATE 10 MG TAB PO SCH (08:21)
[2019-08-25] MEDS: METOPROLOL TARTRATE 50 MG TAB PO SCH (08:21)
--- NOTE | 2019-08-25 10:15 | NUR ---
MAIA TO D/C PT PER DR. SARKAR, DR. Erika BURROUGHS AND DR. DSOUZA
--- NOTE | 2019-08-25 10:17 | NUR ---
PICC LINE REMOVED PER THE DR. PT TOLERATED WELL. TIP INTACT. PRESSURE DRESSING APPLIED. PT DENIED FURTHER NEEDS.
[2019-08-25] MEDS ORDERED: METOCLOPRAMIDE10 MG PO (10:23)
--- NOTE | 2019-08-25 10:30 | NUR ---
PT DISCHARGED HOME SAFELY WITH FAMILY MEMBER. TELE AND PICC LINE REMOVED. PRESSURE DRESSING APPLIED. DISCHARGE INSTRUCTIONS GIVEN AND PT VERBALIZED UNDERSTANDING. PT ESCORTED TO THE PRIVATE AUTO AT THE FRONT ENTRANCE BY THE TECH. PT DENIED FURTHER NEEDS.
[2019-09-16] MEDS ORDERED: METFORMIN HCL500 MG PO (12:25)
--- NOTE | 2019-09-18 13:06 | Discharge Summary ---
HOSPITAL COURSE: This patient came in with abdominal pain, had to have EGD and dilatation and diarrhea for 2 weeks. The patient was found to have C diff colitis. A renal consult also was done secondary to her acute kidney injury, creatinine improved to 2.22 initially and trended down. Potassium was replaced as needed. C diff colitis was found. The patient was treated with vancomycin. The patient felt better. Question of pancreatitis was aroused. The patient underwent EGD with dilatation and also ERCP. No diagnosis of pancreatitis was done by CAT scan, but clinically the patient was suggestive of pancreatitis. We treated her with n.p.o. and also parenteral nutrition as needed. Once the patient was feeling better and nausea resolved and diarrhea resolved with Reglan, the patient was discharged home on Reglan. Vancomycin had been completed for about 10 days, therefore we did not send the patient on antibiotics or vancomycin. For further information, took a look into the chart. FINAL DIAGNOSES: 1. Acute kidney injury. 2. Dehydration. 3. Clostridium difficile colitis. 4. Esophageal stricture, status post dilatation. 5. Pancreatitis. 6. Intractable nausea. For further information, took a look into the chart. For medicines on discharge, look into medical reconciliation sheet. Additional diagnoses included: 1. Diabetes mellitus. 2. Hypertension. 3. Hyperlipidemia. She was started with insulin sliding scale and also with the regimen of her own insulin. MD DOMINIC Najera/ERNIEL /[id number]
== END 2019-08-25 10:38 | disposition home or self-care (01) | DRG 371 ==
LOC: ER 12:22 → ERHOLD 15:41 → MED/SURG 17:23 → MED/SURG2 08-13 17:26
PROVIDERS: ADMIT Family Medicine; ATTEND Family Medicine
PROC: 0DB78ZX Excision of Stomach, Pylorus, Via Natural or Artificial Opening Endoscopic, Diagnostic (ICD-10-PCS; principal; 2019-08-13 10:30)
PROC: 0D748ZZ Dilation of Esophagogastric Junction, Via Natural or Artificial Opening Endoscopic (ICD-10-PCS; 2019-08-13 10:30)
PROC: 02HV33Z Insertion of Infusion Device into Superior Vena Cava, Percutaneous Approach (ICD-10-PCS; 2019-08-19)
DX: A04.72 Enterocolitis due to Clostridium difficile, not specified as recurrent (principal); K85.90 Acute pancreatitis without necrosis or infection, unspecified; N17.0 Acute kidney failure with tubular necrosis; K76.6 Portal hypertension; E44.0 Moderate protein-calorie malnutrition; E86.0 Dehydration; K20.9 Esophagitis, unspecified; E78.5 Hyperlipidemia, unspecified; E03.9 Hypothyroidism, unspecified; E87.6 Hypokalemia; K22.2 Esophageal obstruction; G47.33 Obstructive sleep apnea (adult) (pediatric); E11.65 Type 2 diabetes mellitus with hyperglycemia; Z79.4 Long term (current) use of insulin; R11.0 Nausea
CPT/HCPCS: 36415; 36569; 43239; 43450; 74176; 74181; 76770; 80048; 80053; 80061; 80076; 81001; 82150; 82550; 82553; 82570; 82948; 83036; 83630; 83690; 83735; 83880; 83970; 84100; 84156; 84443; 84478; 84484; 85025; 87045; 87086; 87177; 87493; 88305; 88312; 93005; 96361; 96372; 99284; J0500; J1650; J1815; J2001; J2250; J2270; J2405; J2550; J2765; J3010; J3475; J3480; J7030; J7050; J7070

== ENCOUNTER 2019-09-01 16:01 | Observation (INO) | payer BC, OTHER ==
[~2019-09-01] VITALS: Ht 167.6 cm; Wt 113.0 kg
[~2019-09-01 16:01] MED LIST changes: +LYRICA75 MG PO; +METOCLOPRAMIDE10 MG PO; +METOPROLOL TART50 MG PO; +OZEMPIC1 MG/0.75 SQ; +ZOFRAN8 MG PO
[2019-09-01] MEDS ORDERED: HYDROMORPHONE 1MG/1ML INJ IV STA (16:17)
[2019-09-01] MEDS ORDERED: ONDANSETRON HCL INJ 2MG/ML 2ML 2 MG/ML VIAL IV STA (16:17)
[2019-09-01] MEDS ORDERED: SODIUM CHLORIDE 0.9% 1000ML 1,000 ML IV STA (16:17)
[2019-09-01] MEDS ORDERED: PANTOPRAZOLE 40 MG 10ML VIAL IV STA (16:17)
[2019-09-01 16:29] LABS: BASOPHILS # (AUTO) 0.1 (0.0-0.1); BASOPHILS % 0.6 % (0.0-1.0); EOSINOPHILS # (AUTO) 0.2 (0.0-0.4); EOSINOPHILS % 2.4 % (0.0-6.0); HEMATOCRIT 41.8 % (34.2-44.1); HEMOGLOBIN 13.6 g/dL (12.0-16.0); LYMPHOCYTES % 24.6 % (18.0-39.1); MEAN CORPUSCULAR HEMOGLOBIN 26.9 pg (28-32); MEAN CORPUSCULAR HGB CONC 32.5 g/dL (31-35); MEAN CORPUSCULAR VOLUME 82.6 fL (81-99); MONOCYTES # (AUTO) 0.5 (0.2-0.8); MONOCYTES % 6.3 % (4.4-11.3); NEUTROPHILS # (AUTO) 5.2 (2.1-6.9); NEUTROPHILS % 65.8 % (38.7-80.0); PLATELET COUNT 213 x10e3/uL (140-360); RED BLOOD COUNT 5.06 x10e6/uL (3.6-5.1); RED CELL DISTRIBUTION WIDTH 14.6 % (11.7-14.4)
[2019-09-01 16:40] LABS: INR 0.99; PROTHROMBIN TIME 13.7 seconds (11.9-14.5)
[2019-09-01 16:41] LABS: PARTIAL THROMBOPLASTIN TIME 28.2 seconds (23.8-35.5)
--- NOTE | 2019-09-01 16:53 | Diagnostic Imaging Report ---
EXAMINATION: CHEST SINGLE (PORTABLE) INDICATION: Abdominal pain COMPARISON: Chest radiograph 08/19/2019 FINDINGS: LINES/TUBES:None LUNGS:The lungs are well-inflated. No focal consolidation or pulmonary edema. PLEURA:No pleural effusion or pneumothorax. MEDIASTINUM:The cardiomediastinal silhouette appears normal in size and shape. BONES/SOFT TISSUES:No acute osseous injury. ABDOMEN:No free air under the diaphragm. IMPRESSION: No focal pneumonia or pulmonary edema. Signed by: Hollie Marcos MD on 09/01/2019 4:50 PM
[2019-09-01 16:54] LABS: ALBUMIN 4.1 g/dL (3.5-5.0); ANION GAP 15.9 mmol/L (8-16); CALCIUM 10.6 mg/dL (8.4-10.2); CREATININE, SERUM 1.32 mg/dL (0.57-1.11); MAGNESIUM 1.6 MG/DL (1.3-2.1); POTASSIUM 3.9 mmol/L (3.5-5.1)
[2019-09-01 17:02] LABS: CREATINE KINASE MB 1.5 ng/mL (0-5.0)
[2019-09-01] MEDS ORDERED: SODIUM CHLORIDE 0.9% 1000ML 1,000 ML ONE (17:12)
[2019-09-01] MEDS ORDERED: INSULIN LISPRO 100 UNIT/1 ML 3ML VIAL SQ ONE (17:15)
[2019-09-01] MEDS ORDERED: IOPAMIDOL 370 MG/ML 200 ML INFUS..BTL INJ ONE (18:43)
[2019-09-01] MEDS ORDERED: SODIUM CHLORIDE 0.9% 50ML 50 ML ONE (18:43)
--- NOTE | 2019-09-01 19:50 | Diagnostic Imaging Report ---
EXAM: CT Abdomen and Pelvis WITH contrast INDICATION: ^SÁNCHEZ ABD PAIN, RECENT PANCREATITIS ^[id number] ^[id number] COMPARISON: CT dated 08/12/2019 TECHNIQUE: Abdomen and pelvis were scanned utilizing a multidetector helical scanner from the lung base to the pubic symphysis after administration of IV contrast. Coronal and sagittal reformations were obtained. Dose modulation, iterative reconstruction, and/or weight based adjustment of the mA/kV was utilized to reduce the radiation dose to as low as reasonably achievable. Routine protocol was performed. Scan was performed when during portal venous phase. IV CONTRAST: 100 mL of Isovue-370 ORAL CONTRAST: None. COMPLICATIONS: None RADIATION DOSE: Total DLP: 910.33 mGy*cm Estimated effective dose: (DLP x 0.015 x size factor) mSv CTDIvol has been reviewed. It is below the limits set by the Radiation Protocol Committee (RPC). FINDINGS: LINES and TUBES: None. LOWER THORAX: Unremarkable. Partially seen mild atherosclerotic calcification of coronary arteries. HEPATOBILIARY: Hepatomegaly. Questionable mildly nodular contour. No focal hepatic lesions. No biliary ductal dilation. GALLBLADDER: Surgically absent. SPLEEN: Splenomegaly. 3.9 cm cystic lesion, previously 3.6 cm. PANCREAS: No focal masses or ductal dilatation. ADRENALS: No adrenal nodules KIDNEYS/URETERS: Kidneys enhance symmetrically. No hydronephrosis. No cystic or solid mass lesions. No stones. GI TRACT: No abnormal distention, wall thickening, or evidence of bowel obstruction. Appendix is normal. PELVIC ORGANS/BLADDER: Unremarkable. LYMPH NODES: No lymphadenopathy. VESSELS: Dilated portal vein up to 1.7 cm. Otherwise, unremarkable. PERITONEUM / RETROPERITONEUM: No free air or fluid. BONES: Unremarkable. SOFT TISSUES: Unremarkable. IMPRESSION: 1. No acute inflammatory process in the abdomen/pelvis. Specifically, no signs of pancreatitis. 2. Hepatomegaly with questionable mild nodular contour, suggestive of mild cirrhotic changes. 3. Splenomegaly and dilated portal vein, suggestive of mild hypertension. Signed by: Dr. Lincoln Mccurdy MD on 09/01/2019 7:47 PM
[2019-09-01] MEDS: SUCRALFATE 1 GM TAB PO SCH (19:55)
[2019-09-01] MEDS: SODIUM CHLORIDE 0.9% 1000ML 1,000 ML IV SCH ×2 (19:55→23:45)
[2019-09-01 20:04] LABS: BILIRUBIN,URINE NEGATIVE (NEGATIVE); CLARITY,URINE SL CLOUDY (CLEAR); COLOR,URINE YELLOW (YELLOW); KETONES,URINE NEGATIVE (NEGATIVE); LEUKOCYTE ESTERASE ,URINE SMALL (NEGATIVE); NITRITE,URINE NEGATIVE (NEGATIVE); PROTEIN,URINE DIPSTICK NEGATIVE (NEGATIVE); URINE UROBILINOGEN 0.2 mg/dL (0.2 - 1)
[2019-09-01 20:07] LABS: AMORPHOUS SEDIMENT,URINE FEW (FEW); BACTERIA,URINE MODERATE /HPF; EPITHELIAL CELLS,URINE MODERATE /LPF; RBC,URINE 0-5 /HPF (0-5); RENAL EPITHELIAL CELLS,URINE RARE
[2019-09-01 20:08] LABS: YEAST,URINE FEW
--- NOTE | 2019-09-01 20:52 | History and Physical ---
CHIEF COMPLAINT: The patient is a 54-year-old woman, who comes in with intractable nausea, vomiting, and diarrhea. HISTORY OF PRESENT ILLNESS: Ms. Maida Irene is a 54-year-old woman, who was recently discharged from the hospital secondary to intractable nausea and vomiting and also diarrhea, which was found to be C diff. The patient was discharged after getting 10 days of p.o. vancomycin, diarrhea had stopped. Currently, the patient has diarrhea which is seedy and also intractable nausea. She comes in and was found to be dehydrated, admitted to the hospital again for dehydration and acute renal failure and diarrhea. PAST MEDICAL HISTORY: 1. Hyperlipidemia. 2. Hypertension. 3. Uncontrolled diabetes. 4. Hypothyroidism. 5. Reflux esophagitis. 6. Obesity. PAST SURGICAL HISTORY: 1. Bilateral cataract surgery. 2. Gallbladder resection. 3. . 4. Hammertoe correction. 5. History of DVTs in the past. FAMILY HISTORY: Positive for myocardial infarction in mother. Father with pulmonary hypertension and also history of cancer in the family. Diabetes in mother too. ALLERGIES: TO HYDROCODONE AND SHRIMP. SOCIAL HISTORY: No EtOH. No IV drug abuse. No history of smoking. REVIEW OF SYSTEMS: Negative for chest pain. Positive for some shortness of breath. Positive for nausea. Positive for vomiting. Positive diarrhea. No constipation. No rectal bleeding. No hematochezia. No hematemesis. Abdominal pain, which is more epigastric in nature. No diplopia. No blurry vision. Positive for headache. PHYSICAL EXAMINATION: VITAL SIGNS: Temperature is 97.2, pulse of 141, respirations 16, blood pressure is 146/88, pulse oximetry of 99%. HEENT: Normocephalic, atraumatic. The patient looks sick. CVS: S1 and S2 normal. Regular rate and rhythm. ABDOMEN: Tender in the epigastrium. EXTREMITIES: No clubbing, no cyanosis, no edema. LABORATORY VALUES: White count is 7.94, hemoglobin of 13.6, hematocrit of 41.8. Chemistries; BUN of 17, creatinine 1.32, glucose is 420, lipase is 67. IMAGING STUDIES: Chest x-ray, no focal pneumonia or pulmonary edema. ASSESSMENT: Ms. Maida Irene with. 1. Gastritis. 2. Possible Clostridium difficile colitis recurrence. 3. Acute renal failure. 4. Dehydration. 5. Uncontrolled diabetes mellitus. PLAN: Stay overnight, hydration, fluid resuscitation, and pain control. The patient also will be on Protonix and restart her home medications. Further recommendation per clinical course. We will continue to monitor the patient. A consult with Dr. Ventura has been done and also a stool for C diff will be done again. MD DOMINIC Najera/MODL /[id number]
[2019-09-01 21:01] VITALS: BP 142/80
[2019-09-01 21:30] VITALS: BP 142/80
[2019-09-01] MEDS: INSULIN GLARGINE 100 UNITS/ML VIAL SQ SCH (23:20)
[2019-09-01] MEDS: ONDANSETRON HCL INJ 2MG/ML 2ML 2 MG/ML VIAL IV PRN (23:45)
[2019-09-01] MEDS: HYDROMORPHONE 1MG/1ML INJ IV PRN (23:45)
[2019-09-01] MEDS: VANCOMYCIN 250MG/5ML ORAL SOLN PO SCH (23:51)
[2019-09-02] VITALS (7 sets, daily range): BP systolic 124–141; BP diastolic 66–82
[2019-09-02] MEDS: PANTOPRAZOLE 40 MG 10ML VIAL IV SCH ×3 (01:37→21:20)
[2019-09-02 05:06] LABS: BASOPHILS % 0.5 % (0.0-1.0); EOSINOPHILS # (AUTO) 0.3 (0.0-0.4); EOSINOPHILS % 3.5 % (0.0-6.0); HEMATOCRIT 38.5 % (34.2-44.1); HEMOGLOBIN 12.2 g/dL (12.0-16.0); LYMPHOCYTES # (AUTO) 3.1 (1.0-3.2); LYMPHOCYTES % 39.2 % (18.0-39.1); MEAN CORPUSCULAR HGB CONC 31.7 g/dL (31-35); MEAN CORPUSCULAR VOLUME 85.2 fL (81-99); MONOCYTES # (AUTO) 0.4 (0.2-0.8); MONOCYTES % 4.8 % (4.4-11.3); NEUTROPHILS # (AUTO) 4.1 (2.1-6.9); NEUTROPHILS % 51.7 % (38.7-80.0); PLATELET COUNT 190 x10e3/uL (140-360); RED BLOOD COUNT 4.52 x10e6/uL (3.6-5.1); RED CELL DISTRIBUTION WIDTH 14.6 % (11.7-14.4)
[2019-09-02 05:26] LABS: ALBUMIN 3.6 g/dL (3.5-5.0); ANION GAP 11.3 mmol/L (8-16); CALCIUM 9.4 mg/dL (8.4-10.2); CREATININE, SERUM 0.96 mg/dL (0.57-1.11); POTASSIUM 3.3 mmol/L (3.5-5.1)
[2019-09-02] MEDS: METOCLOPRAMIDE HCL 10 MG/2ML VIAL IV SCH ×3 (05:41→17:04)
[2019-09-02] MEDS: LEVOTHYROXINE SODIUM 100 MCG TAB PO SCH (05:41)
[2019-09-02] MEDS: SODIUM CHLORIDE 0.9% 1000ML 1,000 ML IV SCH ×2 (05:42→10:25)
[2019-09-02] MEDS: LEVOTHYROXINE SODIUM 75 MCG TAB PO SCH (05:42)
[2019-09-02] MEDS: VANCOMYCIN 250MG/5ML ORAL SOLN PO SCH ×3 (05:42→17:04)
[2019-09-02 06:04] LABS: CREATINE KINASE MB 1.6 ng/mL (0-5.0)
[2019-09-02] MEDS ORDERED: PANTOPRAZOLE SOD 40 MG TABEC PO SCH (07:30)
--- NOTE | 2019-09-02 08:13 | Progress Note ---
DATE: SUBJECTIVE: A 54-year-old female, who comes in again with intractable nausea and vomiting with acute renal failure. The patient was sent home recently status post pancreatitis, status post acute renal failure and status post C diff colitis. The patient is back on oral vancomycin. Currently on a clear liquid diet. The patient has been put back on medication. No chest pain. No shortness of breath. Positive nausea and positive for some vomiting. Did see Dr. Ventura. The patient has been kept on a clear liquid diet. OBJECTIVE: VITAL SIGNS: Temperature is 97.4, pulse of 96, respirations of 16, blood pressure is 124/76, pulse oximetry of 96%. HEENT: Normocephalic. No icterus present. CVS: S1, S2 normal. Regular rate and rhythm. ABDOMEN: Tender in the epigastrium and also in the periumbilical area. EXTREMITIES: No clubbing, no cyanosis, no edema. LABORATORY VALUES: White count of 7.94, hemoglobin of 12.2, hematocrit 38.5. Chemistries, much improved, BUN 14, creatinine 0.96 from 1.32. CK and CK-MB have been normal. Urine has been normal except for moderate bacteria. Coags are normal. ASSESSMENT: Ms. Maida Irene with: 1. Gastritis. 2. C diff colitis. 3. Acute renal failure. 4. Dehydration. 5. Uncontrolled diabetes mellitus. PLAN: Continue to monitor the patient. Continue vancomycin. Maybe she will need to be on a TPN regimen. Keep her n.p.o. for the next 3-4 days to receive resolution of symptoms. We will continue to monitor the patient. Further recommendation per clinical course. We will have a discussion with Dr. Ed Ventura. MD DOMINIC Najera/MODL /[id number]
[2019-09-02] MEDS: DULOXETINE HCL 30 MG DELAYED RELEASE PO SCH (08:18)
[2019-09-02] MEDS: METOCLOPRAMIDE HCL 10 MG TAB PO SCH ×2 (08:18→16:41)
[2019-09-02] MEDS: SUCRALFATE 1 GM TAB PO SCH ×5 (08:18→21:20)
[2019-09-02] MEDS: INSULIN ASPART 70/30 100 UNITS/ML VIAL SC SCH ×3 (08:19→16:06)
[2019-09-02] MEDS: METOPROLOL TARTRATE 50 MG TAB PO SCH ×2 (08:19→16:42)
[2019-09-02] MEDS: PREGABALIN 75 MG CAP PO SCH ×2 (08:19→16:42)
[2019-09-02] MEDS: INSULIN GLARGINE 100 UNITS/ML VIAL SQ SCH ×2 (08:21→21:00)
[2019-09-02] MEDS ORDERED: NON-FORMULARY MEDICATION (Insulin Glargine (Lantus 3ML Pen) 40 UNITS) SC SCH (09:00)
[2019-09-02] MEDS ORDERED: LEVOTHYROXINE SODIUM 100 MCG TAB PO SCH (09:00)
[2019-09-02] MEDS ORDERED: POTASSIUM CHLORIDE 20 MEQ TAB CR PO ONE (10:35)
[2019-09-02 14:27] LABS: CREATINE KINASE MB 1.3 ng/mL (0-5.0)
[2019-09-02] MEDS: HYDROMORPHONE 1MG/1ML INJ IV PRN (22:09)
[2019-09-02] MEDS: ONDANSETRON HCL INJ 2MG/ML 2ML 2 MG/ML VIAL IV PRN (22:09)
[2019-09-03] VITALS: BP 171/96
[2019-09-03] MEDS ORDERED: CLONIDINE HCL 0.1 MG TAB PO PRN (00:30)
[2019-09-03 04:00] VITALS: BP 156/82
[2019-09-03] MEDS: VANCOMYCIN 250MG/5ML ORAL SOLN PO SCH ×2 (06:47)
[2019-09-03] MEDS: LEVOTHYROXINE SODIUM 75 MCG TAB PO SCH (06:47)
[2019-09-03] MEDS: METOCLOPRAMIDE HCL 10 MG/2ML VIAL IV SCH ×2 (06:47)
[2019-09-03] MEDS: LEVOTHYROXINE SODIUM 100 MCG TAB PO SCH (06:47)
--- NOTE | 2019-09-03 07:52 | Progress Note ---
DATE: SUBJECTIVE: The patient's is a 54-year-old lady with a history of C. difficile colitis, intractable nausea and vomiting, came in with acute renal failure and nausea. The patient is feeling better. Her vancomycin was restarted yesterday at 250 mg q.6 hours. The patient is feeling better. Tolerating diet. No chest pain. No shortness of breath. OBJECTIVE: VITAL SIGNS: Temperature is 97.9, pulse of 89, respirations of 18, blood pressure is 156/82, pulse oximetry of 95%. HEENT: Normocephalic and atraumatic. Pupils are reactive. CVS: S1 and S2 normal. Regular rate and rhythm. ABDOMEN: Nontender, nondistended. EXTREMITIES: No clubbing, no cyanosis, no edema. LABORATORY VALUES: None done today. The patient is feeling better. PLAN/DISPOSITION: Can be discharged home on a soft mechanical diet and Reglan 10 mg twice a day. Can be seen back in the clinic in about a week's time. The patient needs to continue her C. diff treatment, which is vancomycin q.6 hours for the next 21 days. Further recommendation per clinical course. MD DOMINIC Najera/ERNIEL /[id number]
[2019-09-03] MEDS: SUCRALFATE 1 GM TAB PO SCH (08:30)
[2019-09-03] MEDS: METOCLOPRAMIDE HCL 10 MG TAB PO SCH (08:30)
[2019-09-03] MEDS: INSULIN ASPART 70/30 100 UNITS/ML VIAL SC SCH (08:30)
[2019-09-03 08:44] VITALS: BP 146/86
[2019-09-03 08:47] VITALS: BP 146/86
[2019-09-03] MEDS: INSULIN GLARGINE 100 UNITS/ML VIAL SQ SCH (09:00)
[2019-09-03] MEDS: PREGABALIN 75 MG CAP PO SCH (09:25)
[2019-09-03] MEDS: METOPROLOL TARTRATE 50 MG TAB PO SCH (09:25)
[2019-09-03] MEDS: PANTOPRAZOLE 40 MG 10ML VIAL IV SCH (09:25)
[2019-09-03] MEDS: DULOXETINE HCL 30 MG DELAYED RELEASE PO SCH (09:25)
[2019-09-03] MEDS ORDERED: VANCOMYCIN HCL500 MG PO (09:42)
[2019-09-03] MEDS ORDERED: VANCOCIN HCL250 MG PO (09:46)
== END 2019-09-03 10:47 | disposition home or self-care (01) ==
LOC: ER 16:01 → ERHOLD 17:58 → MED/SURG2 20:49
PROVIDERS: ADMIT Family Medicine; ATTEND Family Medicine
DX: A04.72 Enterocolitis due to Clostridium difficile, not specified as recurrent (principal); E86.0 Dehydration; R10.13 Epigastric pain; Z88.5 Allergy status to narcotic agent; Z91.013 Allergy to seafood; I10 Essential (primary) hypertension; E11.9 Type 2 diabetes mellitus without complications; E03.9 Hypothyroidism, unspecified; D64.9 Anemia, unspecified; C34.90 Malignant neoplasm of unspecified part of unspecified bronchus or lung; Z82.49 Family history of ischemic heart disease and other diseases of the circulatory system; E78.5 Hyperlipidemia, unspecified; E66.9 Obesity, unspecified; Z86.718 Personal history of other venous thrombosis and embolism; Z83.3 Family history of diabetes mellitus; Z80.9 Family history of malignant neoplasm, unspecified; K29.70 Gastritis, unspecified, without bleeding; N17.9 Acute kidney failure, unspecified; Z68.41 Body mass index [BMI] 40.0-44.9, adult
CPT/HCPCS: 36415; 71045; 74177; 80053; 81001; 82150; 82550; 82553; 82948; 83690; 83735; 84484; 85025; 85610; 85730; 87086; 93005; 94660; 99284; G0378; J1170; J1815; J2405; J2765; J7030; Q9967

== ENCOUNTER → 2019-09-22 | Day surgery (SDC) | payer OTHER ==
[~2019-09-22] MED LIST changes: +HYOSCYAMINE 0.125 MG TAB ONE; +INSULIN REGULAR, HUMAN 100 UNIT/1 ML 3ML VIAL ONE; +LABETALOL HCL 0 ML ONE; +LIDOCAINE HCL 2% LOCAL INJ 5 ML SDV VIAL INJ ONE; +METOCLOPRAMIDE HCL 10 MG/2ML VIAL ONE; +MIDAZOLAM HCL 5 MG/ML VIAL ONE; +ONDANSETRON HCL INJ 2MG/ML 2ML 2 MG/ML VIAL ONE; +PROPOFOL IV EMULSION 10 MG/ML 20 ML VIAL ONE; +VANCOCIN HCL250 MG PO; +VANCOMYCIN HCL500 MG PO
--- OUTSIDE RECORDS SUMMARY | 2019-09-22 12:21 | XMS REPORT | Clinical Summary ---
Author Author [facility] Organization [facility] Address Unknown Phone Unavailable Care Team Providers Care Remote Medical Coder Name Role Phone Hussein Gauthier MD PCP [...] 500 TK 1 C PO TID 0 10/24 /201 MG capsule FOR 8 DAYS 8 Active NOVOLOG FLEXPEN U-100 INJECT 20 3 10/24/19 1 INSULIN 100 unit/mL UNITS UNDER 8 insulin pen THE SKIN TID BEFORE A MEAL Active LANTUS SOLOSTAR U-100 INJ 40 UNI SC 3 10/24/19 1 INSULIN 100 unit/mL BID 8 injection (pen) [...] Used Never Smoker Smokeless Tobacco: Never Used Drinks/Week oz/Week Comments Alcohol Use social Yes Sex Assigned at Date Recorded Not on file Industry Job Start Date Occupation Not on file Not on file Not on file Travel End Travel History Travel Start No recent travel history available. 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
--- OUTSIDE RECORDS SUMMARY | 2019-09-22 12:21 | XMS REPORT ---
Author Author [facility] t Organization [facility] Address [address] [place] [address] Phone Unavailable Care Team Providers Care Wrinkle Chaser Name Role Phone MARV ORTEGA MD PCP Nani DSOUZA Attphys Unavailable HILARIOR, AMBICA Attphys Unavailable Abdon LEPE Attphys Unavailable Kanu PAULA Attphys Unavailable Mitzi BARRIOS Attphys Unavailable MAXIMGELY, DR KHANNA Attphys Unavailable BURROUGHSRYAN Attphys Unavailable JUNIE, Mitzi MONACO Attphys Unavailable Nani DSOUZA Admphys Unavailable MAXIMOS, DR KHANNA Admphys Unavailable Payers Payer Name Policy Type Policy Number Effective Date Expiration Date Nani sue [facility] Exchange [id number] 2018 00:00:00 [facility] [id number] 2012 00:00:00 [facility] [id number] 2018 00:00:00 [facility] [id number] [facility] [id number] 2017 00:00:00 [facility] [id number] 2017 00:00:00 [facility] [id number] 2017 00:00:00 [facility] [id number] 2017 00:00:00 [facility] Problems Condition Name Condition Details Condition Category Status Onset Date Resolution Date Last Treatment Date Treating Clinician Comments Source Iron deficiency anemia Iron deficiency anemia Disease Active 2017-08-18 00:00:[address] Splenomegaly Splenomegaly Disease Active 2017-08-18 00:00:00 Ghulam Santiago Abdominal pain Abdominal pain Problem Active 2015-08-28 00:00:00 [facility] Urinary tract infection UTI (urinary tract infection) Problem Active 2015-08-28 00:00:00 [facility] Gastroduodenitis Gastritis and duodenitis Problem Active [facility] Acute renal insufficiency Acute renal insufficiency Problem Active [facility] Dehydration Dehydration Problem Active [facility] Uncontrolled diabetes mellitus Uncontrolled diabetes mellitus Problem Active [facility] Vomiting and diarrhea Vomiting and diarrhea Problem Active [facility] Allergies, Adverse Reactions, Alerts Allergy Name Allergy Type Status Severity Reaction(s) Onset Date Inacti ve Date Treating Clinician Comments Source Hydrocodone Allergy to Substance Active Unknown HIVES 2019-08-12 00:00:0 0 [facility] shrimp Allergy to Substance Active Unknown "HIVES, CLOSED AIRWAY" 2019-08-12 00:00:00 [facility] Hydrocodone Propensity to adverse reactions to drug Active Itching, Rash 2017-08-26 00:00:00 Ghulam Meth odist Shrimp Propensity to adverse reactions to drug Active Swelling 2017-08-26 00:00:00 Ghulam silva Family History Family Member Diagnosis Comments Start Date Stop Date Source Natural father Hypertension Ghulam Santiago Maternal aunt Colon cancer Parmar M ethodist Maternal grandfather Heart attack Ho martell Santiago Maternal grandfather Hypertension Ho martell Santiago Maternal grandmother Diabetes [facility] elvira Santiago Maternal grandmother Heart attack Ho martell Santiago Maternal grandmother Hypertension Ho martell Santiago Natural mother Diabetes Parmar Me thodist Natural mother Heart disease Ghulam Santiago Natural mother Hypertension Ghulam Santiago Paternal aunt Breast cancer Ghulam Santiago Paternal grandfather Heart disease [place] Paternal grandfather Hypertension Ho martell Santiago Social History Social Habit Start Date Stop Date Quantity Comments Source Sex Assigned At Kolby Santiago Alcohol intake 2017-11-03 00:00:00 2017-11-03 00:00:00 Current drinker of alcohol (finding) Ghulam Santiago Alcohol Comment 2017-11-03 00:00:00 2017-11-03 00:00:00 social Ghulam Santiago Smoking Status Start Date Stop Date Source Never smoker Ghulam silva Medications Ordered Medication Name Filled Medication Name Start Date Stop Da te Current Medication? Ordering Clinician Indication Dosage Frequency Signature (SIG) Comments Components Source Phenazopyridine Hcl (Pyridium) 100 Mg Tablet, 100 Mg O ral Phenazopyridine Hcl (Pyridium) 100 Mg Tablet, 100 Mg Oral 2019-05-07 00:00:00 2019-08-12 00:00:00 No Jasson Nieves Do 100 Three Times A Day [facility] Sulfamethoxazole/Trimethoprim (Bactrim Ds Tablet) 1 Ea ch Tablet, 1 Tab Oral Sulfamethoxazole/Trimethoprim (Bactrim Ds Tablet) 1 Each Tablet, 1 Tab Oral 2019-05-07 00:00:00 2019-08-12 00:00:00 No Jasson Nieves Do 1 Twice A Day [facility] escitalopram (LEXAPRO) 10 MG tablet 2017-11-20 15:04:09 Yes Daily Ghulam Santiago insulin asp prt-insulin ASPART (NovoLOG Mix 70-30 U-100 Insuln) 100 unit/mL (70- 30) injection 2017-11-20 15:04:09 Yes Thre e Times A Day Ghulam Santiago insulin GLARGINE (LANTUS U-100 INSULIN) 100 unit/mL injectio n (vial) 2017-11-20 15:04:09 Yes Bedtime Ghulam Santiago levothyroxine (SYNTHROID) 100 mcg tablet 2017-11-20 15:04:09 Yes Daily Ghulam Santiago dicyclomine (BENTYL) 20 mg tablet 2017-11-20 15:04:09 Yes Four Times Daily Ghulam Santiago pantoprazole (PROTONIX) 40 MG EC tablet 2017-11-20 15:04:09 Yes 40mg QD Take 40 mg by mouth daily. Ghulam guillen ondansetron (ZOFRAN) 8 MG tablet 2017-11-20 15:04:09 Yes 8mg Q8H Take 8 mg by mouth every 8 (eight) hours as needed for nausea or vomiting. Ghulam Santiago metoprolol tartrate (LOPRESSOR) 25 mg tablet 2017-11-20 15:04:09 Yes 25mg QD Take 25 mg by mouth daily. Sanchez Santiago sucralfate (CARAFATE) 1 gram tablet 2017-11-20 15:04:09 Yes Twice A Day Ghulam Santigao lisinopril (PRINIVIL,ZESTRIL) 20 mg tablet 2017-11-03 18:53:25 Yes Daily Ghulam Santiago lisinopril (PRINIVIL,ZESTRIL) 2.5 mg tablet 2017-10-30 00:00:00 Yes TK 1 T PO QD Ghulam Santiago amoxicillin (AMOXIL) 500 MG capsule 2017-10-24 00:00:00 Yes TK 1 C PO TID FOR 8 DAYS Ghulam Santiago NOVOLOG FLEXPEN U-100 INSULIN 100 unit/mL insulin pen 2017-10-23 00:00:00 Yes INJECT 20 UNITS UNDER THE SKIN TID BEFOR E A MEAL Ghulam Santiago EMERSONAlisonUS GONZALEZSUKHJINDERAR U-100 INSULIN 100 unit/mL injection (pen) 2017-10-23 00:00:00 Yes INJ 40 UNI SC BID Ghulam Santiago Metoclopramide Hcl (Reglan) 10 Mg Tablet, 10 Mg Oral Erika etoclopramide Hcl (Reglan) 10 Mg Tablet, 10 Mg Oral 2015-09-01 00:00:00 2017-06-19 00:00:00 Kaycee Zamora Md 10 Three Times A Day as needed for Naus ea And Vomiting [facility] Ciprofloxacin/Ciprofloxa Hcl (Ciprofloxa juan luis Er 500 Mg Tablet) 500 Mg Tbmp.24hr, 500 Mg Oral Ciprofloxacin/Ciprofloxa Hcl (Ciprofloxa juan luis Er 500 Mg Tablet) 500 Mg Tbmp.24hr, 500 Mg Oral 2015-09-01 00:00:00 2017-01-24 00:00:00 Kaycee Zamora Md 500 Twice A Day [facility] Dicyclomine Hcl (Bentyl) 10 Mg/1 Ml Ampul Dicyclomine Hcl (Bentyl) 10 Mg/1 Ml Ampul Yes 10 As Needed [facility] Duloxetine Hcl (Cymbalta) 30 Mg Capsule. Duloxetine Hcl (Cymbalta) 30 Mg Capsule. Yes 60 Daily [facility] Insulin Aspart (Novolog Mix 70-30 Vial) 100 Units/Ml [facility] Insulin Aspart (Novolog Mix 70-30 Vial) 100 Units/Ml Ml Yes 20 Three Times A Day [facility] Insulin Glargine (Lantus 3ML Pen) 100 Units/1 Ml Inj I nsulin Glargine (Lantus 3ML Pen) 100 Units/1 Ml Inj Yes 40 Twice A Da y [facility] Levothyroxine Sodium (Synthroid) 100 Mcg Tablet Levoth yroxine Sodium (Synthroid) 100 Mcg Tablet Yes .175 Daily [facility] Metformin Hcl 500 Mg Tablet Metformin Hcl 500 Mg Tablet Yes 1000 Twice A Day [facility] Metoclopramide Hcl 10 Mg Tablet Metoclopramide Hcl 10 Mg Tablet Yes 10 Twice A Day [facility] Metoprolol Tartrate 50 Mg Tablet Metoprolol Tartrate 50 Mg Tablet Yes 50 Twice A Day [facility] Olmesartan/Hydrochlorothiazide (Olmesartan-Hctz 20-12. 5 Mg Tab) 1 Each Tablet Olmesartan/Hydrochlorothiazide (Olmesartan-Hctz 20-12.5 Mg Tab) 1 Each Tablet Yes Daily [facility] Ondansetron Hcl (Zofran) 8 Mg Tablet Ondansetron Hcl (Zofran) 8 Mg Tablet Yes 8 Three Times A Day as needed for Nausea [facility] Pantoprazole Sodium (Protonix) 40 Mg Tablet. Pantopr azole Sodium (Protonix) 40 Mg Tablet. Yes 40 Twice A Day [facility] Pregabalin (Lyrica) 75 Mg Cap Pregabalin (Lyrica) 75 Mg Cap Yes 150 Twice A Day [facility] Sucralfate 1 Gm Tablet Sucralfate 1 Gm Tablet Yes 1 Four Times Daily [facility] Semaglutide (Ozempic) 1 Mg/0.75 Ml Pen.injctr, 1 Unit Sub-Q Semaglutide (Ozempic) 1 Mg/0.75 Ml Pen.injctr, 1 Unit Sub-Q 2019-08-25 00:00:00 No 1 Tuesdays [facility] Escitalopram Oxalate (Lexapro) 10 Mg Tablet, 20 Mg Ora l Escitalopram Oxalate (Lexapro) 10 Mg Tablet, 20 Mg Oral 2019-03-01 00:00:00 No 2 0 Daily [facility] Hydrochlorothiazide 25 Mg Tablet, 12.5 Mg Oral Hydroch lorothiazide 25 Mg Tablet, 12.5 Mg Oral 2019-03-01 00:00:00 No 12.5 Daily [facility] Metoprolol Succinate 25 Mg Tab.er.24h, 25 Mg Oral Meto prolol Succinate 25 Mg Tab.er.24h, 25 Mg Oral 2019-03-01 00:00:00 No 25 T wice A Day [facility] Olmesartan , Olmesartan , 2019-03-01 00:00:00 No [facility] Olmesartan Medoxomil (Benicar) 20 Mg Tablet, 12.5 Mg O ral Olmesartan Medoxomil (Benicar) 20 Mg Tablet, 12.5 Mg Oral 2019-03-01 00:00:00 No 12.5 Daily [facility] Olmesartan Medoxomil (Benicar) 20 Mg Tablet, 20 Mg Ora l Olmesartan Medoxomil (Benicar) 20 Mg Tablet, 20 Mg Oral 2019-03-01 00:00:00 No 2 0 Daily [facility] Cetirizine Hcl (Zyrtec) 10 Mg Capsule, 10 Mg Oral Ceti rizine Hcl (Zyrtec) 10 Mg Capsule, 10 Mg Oral 2018-10-03 00:00:00 No 10 Dudley y [facility] Dicyclomine Hcl 20 Mg Tablet, 20 Mg Oral Dicyclomine H cl 20 Mg Tablet, 20 Mg Oral 2018-10-03 00:00:00 No 20 Four Times Daily [facility] Insuln Asp Prt/Insulin Aspart (Novolog M ix 70-30 Flexpen Syrn) 100 Unit/1 Ml Insuln.pen, 35Subcutaneously Insuln Asp Prt/Insulin Aspart (Novolog M ix 70-30 Flexpen Syrn) 100 Unit/1 Ml Insuln.pen, 35Subcutaneously 201 01-14-25 00:00:00 No 35 Daily [facility] Metoclopramide Hcl (Reglan) 10 Mg Tablet, Mg Oral Met oclopramide Hcl (Reglan) 10 Mg Tablet, Mg Oral 2018-10-03 00:00:00 No T hree Times A Day [facility] Metoprolol Tartrate 25 Mg Tablet, 25 Mg Oral Metoprolo l Tartrate 25 Mg Tablet, 25 Mg Oral 2018-10-03 00:00:00 No 25 Twice A Day [facility] Multivitamin (Multivitamins) 1 Each Capsule, 1 Tab Peg Tube Multivitamin (Multivitamins) 1 Each Capsule, 1 Tab Peg Tube 2018-10-03 00:00:00 No 1 Daily [facility] Sucralfate (Carafate) 1 Gm/10 Ml Oral.susp, 1 Gm Oral Sucralfate (Carafate) 1 Gm/10 Ml Oral.susp, 1 Gm Oral 2018-10-03 00:00:00 No 1 Three Times A Day [facility] Tumeric , 2 Tab Oral Tumeric , 2 Tab Oral 2018-10-03 00:00:00 No 2 Daily [facility] Vitamin B Complex 1 Each Capsule, 1 Tab Oral Vitamin B Complex 1 Each Capsule, 1 Tab Oral 2018-10-03 00:00:00 No 1 Daily [facility] Insulin Glargine (Lantus) 100 Units/Ml Ml, 40 Units [place] bcutaneously Insulin Glargine (Lantus) 100 Units/Ml Ml, 40 Units Subcutaneously 2018-08-10 00:00:00 No 40 Twice A Day [facility] Lisinopril 20 Mg Tablet, 2.5 Mg Oral Lisinopril 20 Mg Tablet, 2. 5 Mg Oral 2018-08-05 00:00:00 No 2.5 Daily [facility] Metoclopramide Hcl (Reglan) 10 Mg Tablet, 10 Mg Oral M etoclopramide Hcl (Reglan) 10 Mg Tablet, 10 Mg Oral 2018-04-01 00:00:00 No 10 Daily [facility] Ondansetron (Zofran Odt) 4 Mg Tab.rapdis, 8 Mg Subling ual Ondansetron (Zofran Odt) 4 Mg Tab.rapdis, 8 Mg Sublingual 2018-04-01 00:00:00 No 8 Daily [facility] Ondansetron (Zofran Odt) 4 Mg Tab.rapdis, 4 Mg Oral On dansetron (Zofran Odt) 4 Mg Tab.rapdis, 4 Mg Oral 2018-04-01 00:00:00 No 4 Every 6 Hours as needed for Nausea [facility] Sitagliptin Phosphate (Januvia) 100 Mg Tablet, 100 Mg Oral Sitagliptin Phosphate (Januvia) 100 Mg Tablet, 100 Mg Oral 2018-04-01 00:00:00 No 100 Daily [facility] Metoprolol Succinate 25 Mg Tab.er.24h, Mg Oral Metopr olol Succinate 25 Mg Tab.er.24h, Mg Oral 2017-06-19 00:00:00 No Twi ce A Day [facility] Pantoprazole Sodium (Protonix) 40 Mg Suspdr.pkt, 1 Tab Oral Pantoprazole Sodium (Protonix) 40 Mg Suspdr.pkt, 1 Tab Oral 2017-06-19 00:00:00 No 1 Daily [facility] Sitagliptin Phosphate (Januvia) 100 Mg Tablet, 100 Mg Oral Sitagliptin Phosphate (Januvia) 100 Mg Tablet, 100 Mg Oral 2017-06-19 00:00:00 No 100 Daily [facility] Sulfamethoxazole/Trimethoprim (Bactrim Ds Tablet) 1 Ea ch Tablet, 1 Tab Oral Sulfamethoxazole/Trimethoprim (Bactrim Ds Tablet) 1 Each Tablet, 1 Tab Oral 2017-06-19 00:00:00 No 1 Every 8 Hours [facility] Aspirin (Aspir 81) 81 Mg Tablet., Mg Oral Aspirin ( Aspir 81) 81 Mg Tablet., Mg Oral 2017-03-10 00:00:00 No Daily [facility] Clindamycin Hcl 150 Mg Capsule, 600 Mg Oral Clindamyci n Hcl 150 Mg Capsule, 600 Mg Oral 2017-03-10 00:00:00 No 600 Every 8 Hours [facility] Insulin Detemir (Levemir) 100 Unit/1 Ml Insuln.pen, 11 Unit Sub-Q Insulin Detemir (Levemir) 100 Unit/1 Ml Insuln.pen, 11 Unit Sub-Q 20 25-08-17 00:00:00 No 11 Before Meals [facility] Procedures Procedure Date / Time Performed Performing Clinician Sour e Magnetic resonance cholangiopancreatography (MRCP) wit hout contrast 2019-08-18 00:00:00 RYAN BURROUGHS [facility] EGD with biopsy 2019-08-13 00:00:00 RYAN BURROUGHS [facility] Ultrasound, renal 2019-08-13 00:00:00 LORA SARKAR [facility] CT of abdomen and pelvis without contrast 2019-08-12 00:00:00 LOLA MONSIVAISRUTHY Silva Corbin [facility] Computed tomography of abdomen and pelvis with contrast 2018 00:00:00 JASSON NIEVES [facility] EGD BIOPSY SINGLE/MULTIPLE 2019-03-03 00:00:00 RYAN BURROUGHS [facility] DILATE ESOPHAGUS 1/MULT PASS 2019-03-03 00:00:00 RYAN BURROUGHS [facility] MRI lower extremity w/o dye 2019-02-09 00:00:00 Abdon LEPE [facility] DRAINAGE OF RIGHT FOOT, OPEN APPROACH 2018-12-04 00:00:00 CARLOS ENRIQUE FELIX [facility] Plan of Care Planned Activity Planned Date Details Comments Source Future Scheduled Test [code = ] Future Scheduled Test [code = ] Future Scheduled Test [code = ] Future Scheduled Test [code = ] Future Scheduled Test [code = ] Encounters Start Date/Time End Date/Time Encounter Type Admission Type [facility] Care Department Encounter ID Source 2019-08-12 15:41:00 2019-08-25 10:38:00 Discharged Inpatient 1 ROSENDO DSOUZA [facility] [id number] [facility] 2019-05-07 08:49:00 2019-05-07 14:10:00 Departed Emergency Room 1 JASSON NIEVES [facility] [id number] [facility] 2019-03-03 08:18:00 2019-03-03 08:18:00 Registered Surgical Day Care [facility] [id number] [facility] 2019-02-09 11:24:00 2019-02-09 11:24:00 Registered Clinic 3 Lindsay LEPEChristiana [facility] [id number] [facility] 2018-12-03 12:31:00 2018-12-07 18:07:00 Discharged Inpatient [facility] [id number] [facility] 2018-10-02 22:11:00 2018-10-07 16:30:00 Discharged Inpatient [facility] [id number] [facility] 2018-08-05 14:37:00 2018-08-10 09:00:00 Discharged Inpatient 1 ROSENDO DSOUZA [facility] [id number] [facility] 2018-04-01 13:25:00 2018-04-01 13:25:00 Registered Surgical Day Care [facility] [id number] [facility] 2018-03-31 16:11:00 2018-03-31 19:02:00 Departed Emergency Room 1 CHAIALEXIA MATTHEWS [facility] [id number] [facility] 2018-01-06 20:13:00 2018-01-06 23:26:00 Departed Emergency Room 1 ELIGIO BARRIOS [facility] [id number] [facility] 2017-12-30 12:04:00 2017-12-30 16:15:00 Outpatient C CLEMENCIA SHAFFER [facility] [id number] [facility] 2017-10-07 07:30:00 2017-10-07 07:30:00 Registered Clinic 3 RYAN BURROUGHS [facility] [id number] [facility] 2017-07-17 13:03:00 2017-07-20 08:34:00 [id number] [facility] 2017-07-09 07:58:00 2017-07-09 07:58:00 Registered Clinic EL RYAN BURROUGHS [facility] [id number] [facility] 2017-06-20 06:03:00 2017-06-20 06:03:00 Registered Surgical Day Care [facility] [id number] [facility] 2017-03-12 05:09:00 2017-03-12 05:09:00 Registered Surgical Day Car CARLOS ENRIQUE Tate [facility] [id number] [facility] 2017-01-22 21:20:00 2017-01-24 15:15:00 Discharged Inpatient [facility] [id number] [facility] Results Test Description Test Time Test Comments Results Result Comments Source CT ABDOMEN/PELVIS W 2019-09-01 19:29:00 [place] [address] Patient Name: MAIDA IRENE MR #: [id number] : 1965 Age/Sex: 54/F Req #: [id number] Adm Physician: ROSENDO DSOUZA MD Ordered by: ELIGIO BARRIOS MD Report #: [id number] [facility]: [facility] Room/Bed: [place] [address] Procedure: [id number] CT/CT ABDOMEN/PELVIS W Exam Date: 09/01/19 Exam Time: 1840 REPORT STATUS: Signed EXAM: CT Abdomen and Pelvis WITH contrast INDICATION: SÁNCHEZ ABD PAIN, RECENT PANCREATITIS [id number] COMPARISON: CT dated 08/12/2019 TECHNIQUE: Abdomen and pelvis were scanned utilizing a multidetector helical scanner from the lung base to the pubic symphysis after administration of IV contrast. Coronal and sagittal reformations were obtained. Dose modulation, iterative reconstruction, and/or weight based adjustment of the mA/kV was utilized to reduce the radiation dose to as low as reasonably achievable. Routine protocol was performed. Scan was performed when during portal venous phase. IV CONTRAST: 100 mL of Isovue-370 ORAL CONTRAST: None. COMPLICATIONS: None RADIATION DOSE: Total DLP: 910.33 mGy*cm Estimated effective dose: (DLP x 0.015 x size factor) mSv CTDIvol has been reviewed. It is below the limits set by the Radiation Protocol Committee (RPC). FINDINGS: LINES and TUBES: None. LOWER THORAX: Unremarkable. Partially seen mild atherosclerotic calcification of coronary arteries. HEPATOBILIARY: Hepatomegaly. Questionable mildly nodular contour. No focal hepatic lesions. No biliary ductal dilation. GALLBLADDER: Surgically absent. SPLEEN: Splenomegaly. 3.9 cm cystic lesion, previously 3.6 cm. PANCREAS: No focal masses or ductal dilatation. ADRENALS: No adrenal nodules KIDNEYS/URETERS: Kidneys enhance symmetrically. No hydronephrosis. No cystic or solid mass lesions. No stones. GI TRACT: No abnormal distention, wall thickening, or evidence of bowel obstruction. Appendix is normal. PELVIC ORGANS/BLADDER: Unremarkable. LYMPH NODES: No lymphadenopathy. VESSELS: Dilated portal vein up to 1.7 cm. Otherwise, unremarkable. PERITONEUM / RETROPERITONEUM: No free air or fluid. BONES: Unremarkable. SOFT TISSUES: Unremarkable. IMPRESSION: 1. No acute inflammatory process in the abdomen/pelvis. Specifically, no signs of pancreatitis. 2. Hepatomegaly with questionable mild nodular contour, suggestive of mild cirrhotic changes. 3. Splenomegaly and dilated portal vein, suggestive of mild hypertension. Signed by: Dr. Steve Mccurdy MD on 09/01/2019 7:47 PM Dictated By: STEVE MCCURDY MD 46 Transcribed By: BACILIO on 09/01/191946 COPY TO: ELIGIO BARRIOS MD CHEST SINGLE (PORTABLE) 2019-09-01 16:49:00 [place] [address] Patient Name: MAIDA IRENE MR #: [id number] : 1965 Age/Sex: 54/F Req #: [id number] Adm Physician: Ordered by: ELIGIO BARRIOS MD Report #: [id number] Location: ER Room/Bed: Procedure: [id number] DX/CHEST SINGLE (PORTABLE) Exam Date: 09/01/19 Exam Time: 1638 REPORT STATUS: Signed EXAMINATION: CHEST SINGLE (PORTABLE) INDICATION: Abdominal pain COMPARISON: Chest radiograph 08/19/2019 FINDINGS: LINES/TUBES:None LUNGS:The lungs are well-inflated. No focal consolidation or pulmonary edema. PLEURA:No pleural effusion or pneumothorax. MEDIASTINUM:The cardiomediastinal silhouette appears normal in size and shape. BONES/SOFT TISSUES:No acute osseous injury. ABDOMEN:No free air under the diaphragm. IMPRESSION: No focal pneumonia or pulmonary edema. Signed by: Cheo Pryor MD on 09/01/2019 4:50 PM Dictated By: CHEO PRYOR MD 49 Transcribed By: BACILIO on 09/01/191649 COPY TO: ELIGIO BARRIOS MD Bedside Glucose 2019-08-24 16:17:00 Test Item Bedside Glucose (test code = 73758-7) 166 70-120 M[facility] ID: [id number] 06:59:00* Test Item Value Reference Range Interpretation Comments Lipase (test code = 3040-3) 13 8-78 [facility] [id number] 22:16:00* Test Item Value Reference Range Interpretation Comments White Blood Count (test code = 6690-2) 6.22 4.8-10.8 [facility] [id number] 22:16:00* Test Item Value Reference Range Interpretation Comments Red Blood Count (test code = 789-8) 3.98 3.6-5.1 [facility]2020-04-11 22:16:00* Test Item Value Reference Range Interpretation Comments Hemoglobin (test code = 08012-2) 10.8 12.0-16.0 [facility]ematocrit2020-04-11 22:16:00* Test Item Value Reference Range Interpretation Comments Hematocrit (test code = 4544-3) 34.2 34.2-44.1 [facility] Corpuscular [id number] 22:16:00* Test Item Value Reference Range Interpretation Comments Mean Corpuscular Volume (test code = 787-2) 85.9 81-99 [facility] Corpuscular [id number] 22:16:00* Test Item Value Reference Range Interpretation Comments Mean Corpuscular Hemoglobin (test code = 785-6) 27.1 28-32 [facility] Corpuscular Hemoglobin Concent 2019-08-21 22:16:00* Test Item Value Reference Range Interpretation Comments Mean Corpuscular Hemoglobin Concent (test code = 786-4) 31.6 31-35 [facility] Distribution [id number] 22:16:00* Test Item Value Reference Range Interpretation Comments Red Cell Distribution Width (test code = 42745-9) 14.6 11.7 -14.4 [facility] Temple[facility]atelet [id number] 22:16:00* Test Item Value Reference Range Interpretation Comments Platelet Count (test code = 777-3) 97 140-360 [facility] Temple[facility] (%) (Auto)2019-08-21 22:16:00 * Test Item Value Reference Range Interpretation Comments Neutrophils (%) (Auto) (test code = 43471-7) 51.9 38.7-80.0 [facility]ymphocytes (%) (Auto)2019-08-21 22:16:00 * Test Item Value Reference Range Interpretation Comments Lymphocytes (%) (Auto) (test code = 736-9) 35.2 18.0-39.1 [facility] TempleMonocytes (%) (Auto)2019-08-21 22:16:00* Test Item Value Reference Range Interpretation Comments Monocytes (%) (Auto) (test code = 5905-5) 7.1 4.4-11.3 [facility] TempleEosinophils (%) (Auto)2019-08-21 22:16:00 * Test Item Value Reference Range Interpretation Comments Eosinophils (%) (Auto) (test code = 713-8) 4.5 0.0-6.0 [facility] TempleBasophils (%) (Auto)2019-08-21 22:16:00* Test Item Value Reference Range Interpretation Comments Basophils (%) (Auto) (test code = 706-2) 1.0 0.0-1.0 [facility] TempleIM GRANULOCYTES %2019-08-21 22:16:00* Test Item Value Reference Range Interpretation Comments IM GRANULOCYTES % (test code = IM GRANULOCYTES %) 0.3 0.0- 1.0 [facility] TempleNeutrophils # (Auto)2019-08-21 22:16:00* Test Item Value Reference Range Interpretation Comments Neutrophils # (Auto) (test code = 751-8) 3.2 2.1-6.9 [facility] TempleLymphocytes # (Auto)2019-08-21 22:16:00* Test Item Value Reference Range Interpretation Comments Lymphocytes # (Auto) (test code = 45702-0) 2.2 1.0-3.2 [facility] TempleMonocytes # (Auto)2019-08-21 22:16:00* Test Item Value Reference Range Interpretation Comments Monocytes # (Auto) (test code = 742-7) 0.4 0.2-0.8 [facility] TempleEosinophils # (Auto)2019-08-21 22:16:00* Test Item Value Reference Range Interpretation Comments Eosinophils # (Auto) (test code = 711-2) 0.3 0.0-0.4 [facility] TempleBasophils # (Auto)2019-08-21 22:16:00* Test Item Value Reference Range Interpretation Comments Basophils # (Auto) (test code = 704-7) 0.1 0.0-0.1 [facility] TempleAbsolute Immature Granulocyte (auto 2019-08-21 22:16:00* Test Item Value Reference Range Interpretation Comments Absolute Immature Granulocyte (auto (dinesh t code = Absolute Immature Granulocyte (auto) 0.02 0-0.1 [facility] Planoodium Yfjgs5519-78-25 06:48:00* Test Item Value Reference Range Interpretation Comments Sodium Level (test code = 2951-2) 141 136-145 [facility] TemplePotassium Lcfxi6785-02-35 06:48:00* Test Item Value Reference Range Interpretation Comments Potassium Level (test code = 2823-3) 3.6 3.5-5.1 [facility] TempleChloride Jrqff6435-74-98 06:48:00* Test Item Value Reference Range Interpretation Comments Chloride Level (test code = 2075-0) 103 98-107 [facility] TempleCarbon Dioxide Xitnl5018-05-60 06:48:00* Test Item Value Reference Range Interpretation Comments Carbon Dioxide Level (test code = 2028-9) 31 22-29 [facility] TempleAnion Hci7873-09-37 06:48:00* Test Item Value Reference Range Interpretation Comments Anion Gap (test code = 93673-6) 10.6 8-16 [facility] TempleBlood Urea Cfnphpfg2145-71-30 06:48:00* Test Item Value Reference Range Interpretation Comments Blood Urea Nitrogen (test code = 3094-0) 7 7-26 [facility] TempleCreatinine2020-04-11 06:48:00* Test Item Value Reference Range Interpretation Comments Creatinine (test code = 2160-0) 0.95 0.57-1.11 [facility] TempleBUN/Creatinine Yldwg4231-41-55 06:48:00* Test Item Value Reference Range Interpretation Comments BUN/Creatinine Ratio (test code = 3097-3) 7 6-25 [facility] TempleEstimat Glomerular Filtration Rate 2019-08-21 06:48:00* Test Item Value Reference Range Interpretation Comments Estimat Glomerular Filtration Rate (test code = 501882201) > 60 >60 Ranges were taken from the National Kidney Disease Education Program and the [facility] literature.Reference ranges:60 or greater: Zbsuwu43-02 ( for 3 consecutive months): Chronic kidney disease 15 or less: Kidney failureBaylor Scott & White Medical Center – TempleGlucose Csflr7821-56-91 06:48:00* Test Item Value Reference Range Interpretation Comments Glucose Level (test code = NNN0994) 122 74-118 [facility] TempleCalcium Hpkfk3906-87-16 06:48:00* Test Item Value Reference Range Interpretation Comments Calcium Level (test code = 84033-3) 8.9 8.4-10.2 [facility] TempleTriglycerides Sdhsx4347-45-58 06:48:00* Test Item Value Reference Range Interpretation Comments Triglycerides Level (test code = 2571-8) 133 0-149 [facility] TempleCholesterol Gczgn8259-91-73 06:48:00* Test Item Value Reference Range Interpretation Comments Cholesterol Level (test code = 2093-3) 164 0-199 Less than 200 mg/dL Low Nuot060 - 239 mg/dL Borderline Xsdp332 m g/dl and greater High Risk [facility] TempleLDL Ljjarcrdwzk0825-66-93 06:48:00* Test Item Value Reference Range Interpretation Comments LDL Cholesterol (test code = 2089-1) 102 60-130 [facility] TempleHDL Qbxakytnxur2874-22-38 06:48:00* Test Item Value Reference Range Interpretation Comments HDL Cholesterol (test code = 2085-9) 35 40-60 [facility] TempleCholesterol/HDL Yjohp2095-89-67 06:48:00 * Test Item Value Reference Range Interpretation Comments Cholesterol/HDL Ratio (test code = 9830-1) 4.7 3.0-3.6 [facility] TempleCHEST XRAY LINE TPKIJUBRF7830-81-67 13:39:00 [facility] [address] [place] [address] Patient Name: MAIDA IRENE MR #: [id number] : 1965 Age/Sex: 54/F Req #: [id number] Adm Physician: ROSENDO DSOUZA MD Ordered by: ROSENDO DSOUZA MD Report #: [id number] Location: [facility] Room/Bed: [facility] Procedure: 040 9-0035 DX/CHEST XRAY LINE PLACEMENT Exam Date: 08/19/19 Exam Time: 1315 REPORT STATUS: Signed EXAM: CHEST XRAY LINE PLACEMENT DATE: 08/19/2019 1:01 PM IN DICATION: PICC placement COMPARISON: None FINDINGS: Right sided PI CC line identified with distal tip terminating in appropriate over the SVC. The trachea is midline. Lung volumes are low versus poor inspiratory effort. There is no evidence for large focal consolidation, pneumothorax, or signifi cant pleural effusion. The cardiomediastinal silhouette is magnified by techni que but otherwise unremarkable. No acute osseous abnormality identified. IMPRESSION: Right-sided PICC line identified in appropriate position. Signed by: Dr. Domenico Lua MD on 08/19/2019 1:41 PM Dictated By: DOMENICO POE MD 1341 Transcribe d By: BACILIO on 08/19/19 1341 COPY TO: ROSENDO DSOUZA MD [facility] [id number] 16:36:00 [place] [id number] Patient Name: MAIDA IRENE MR #: [id number] : 1965 Age/Sex: 54/F Req #: [id number] Adm Physician: ROSENDO DSOUZA MD Ordered by: RYAN BURROGUHS MD Report #: [id number] Location: MED/SURG2 Room/Bed: [facility] Procedure: 040 8-0002 MRI/MRI MRCP WO Exam Date: Exam Time: REPORT STATUS: Signed TECHNIQUE: MRI of the abdomen and MRCP WITHOUT intravenous contrast. 3-D volume reconstructio ns were obtained to evaluate the biliary ductal system. INDICATION: MRC P without contrast for abdominal pain. COMPARISON: CTs from 08/12/2019 and FINDINGS: ABSENCE OF INTRAVENOUS CONTRAST DECREASES SENSIT IVITY FOR DETECTION OF FOCAL LESIONS AND VASCULAR PATHOLOGY. LOWER THORAX : Unremarkable. LIVER: The liver is enlarged with diffuse loss of signal in the liver on out of phase imaging. No focal hepatic lesions. BILIARY: Prior cholecystectomy. No biliary ductal dilatation or filling defect. The common bile duct measures 0.5 cm in diameter. SPLEEN: 16.5 cm splenomegaly. A splenic cyst measures 3.97 m. PANCREAS: No focal masses or ductal dilatation. AD RENALS: No adrenal nodules. KIDNEYS/URETERS: No hydronephrosis or solid mass l esions. PERITONEUM/RETROPERITONEUM: No free fluid. LYMPH NODES: No lympha denopathy. There is a nonspecific, prominent periportal lymph node which measu res 1.2 cm in short axis dimension VESSELS: Unremarkable. GI TRACT: No di stention or wall thickening. BONES AND SOFT TISSUES: Unremarkable. IMPRESSION: 1. No common bile duct distention or choledocholithiasis. 2. A nonspecific, prominent periportal lymph node measures 1.2 cm in short a xis dimension. This is nonspecific but could be reactive and is similar to 04/17/2019. 3. Hepatomegaly with diffuse fatty infiltration of the liver and m oderate splenomegaly. Signed by: Ralph Andre JR, MD on 08/18/2019 4:52 PM Dictated By: RALPH ANDRE MD 51 COPY TO: Erika BURROUGHS MD Total Pbdrjftct4145-91-62 07:20:00* Test Item Value Reference Range Interpretation Comments Total Bilirubin (test code = 1975-2) 0.3 0.2-1.2 [facility] TempleAspartate Amino Transf (AST/SGOT) 2019-08-17 07:20:00* Test Item Value Reference Range Interpretation Comments Aspartate Amino Transf (AST/SGOT) (test code = Aspartate Amino Transf (AST/SGOT)) 32 5-34 [facility] TempleAlanine Aminotransferase (ALT/SGPT) 2019-08-17 07:20:00* Test Item Value Reference Range Interpretation Comments Alanine Aminotransferase (ALT/SGPT) (test code = 1742-6) 30 0-55 [facility] TempleTotal Ksamoiy9286-49-05 07:20:00* Test Item Value Reference Range Interpretation Comments Total Protein (test code = 2885-2) 6.3 6.5-8.1 [facility] TempleAlbumin2020-04-07 07:20:00* Test Item Value Reference Range Interpretation Comments Albumin (test code = 1751-7) 3.2 3.5-5.0 [facility] TempleGlobulin2020-04-07 07:20:00* Test Item Value Reference Range Interpretation Comments Globulin (test code = 79825-5) 3.1 2.3-3.5 [facility] TempleAlbumin/Globulin Onasb7406-96-18 07:20:00 * Test Item Value Reference Range Interpretation Comments Albumin/Globulin Ratio (test code = 1759-0) 1.0 0.8-2.0 [facility] TempleAlkaline Dfgrcssuwld2640-08-80 07:20:00* Test Item Value Reference Range Interpretation Comments Alkaline Phosphatase (test code = 6768-6) 123 40-150 [facility] TempleDirect Ykzctksll9219-04-02 01:59:00* Test Item Value Reference Range Interpretation Comments Direct Bilirubin (test code = 96432-0) 0.2 0.0-0.5 [facility] TempleAmylase Fzdry0199-20-92 01:59:00* Test Item Value Reference Range Interpretation Comments Amylase Level (test code = 1798-8) 78 25-125 [facility] TempleParathyroid Fiobrzq3683-57-30 07:10:00* Test Item Value Reference Range Interpretation Comments Parathyroid Hormone (test code = 2731-8) 41 15-65 [facility] TempleCalcium (Send out)2019-08-14 07:10:00* Test Item Value Reference Range Interpretation Comments Calcium (Send out) (test code = 11460-7) 8.6 8.7-10.2 [facility] TempleParathyroid Hormone Interpretation 2019-08-14 07:10:00* Test Item Value Reference Range Interpretation Comments Parathyroid Hormone Interpretation (test code = Parathyroid Hormone Interpretation) Comment . Interpretation Intact PTH Calcium (pg/mL) (mg/dL)Normal 15 - 65 8.6 - 10.2Pr imary Hyperparathyroidism >65 >10.2Secondary Hyperparathyroidism >65 <10.2Non-Parathyroid Hypercalcemia <65 >10.2Hypoparathyroidism <15 < 8.6Non- Parathyroid Hypocalcemia 15 - 65 < 8.6Performed at: - [facility] [id number] Director: Sanya Murillo MD, Phone: [phone] at: [facility] [id number] Director: Timothy Stein MD, Phone: [phone] Scott & White Medical Center – TempleB-Type Natriuretic Kgatmeo6186-53-08 06:40:00 * Test Item Value Reference Range Interpretation Comments B-Type Natriuretic Peptide (test code = 73512-2) 12.8 0-100 [facility] TempleMagnesium Matje3300-95-90 06:38:00* Test Item Value Reference Range Interpretation Comments Magnesium Level (test code = 12515-4) 1.7 1.3-2.1 [facility] TempleUrine Random Total Mxnmenx3658-22-59 18:48:00* Test Item Value Reference Range Interpretation Comments Urine Random Total Protein (test code = 2888-6) 7.0 1-14 [facility] TempleUrine Xomdwqycgq1063-97-13 18:48:00* Test Item Value Reference Range Interpretation Comments Urine Creatinine (test code = 2161-8) 51.02 47-110 [facility] TempleUrine Protein/Creatinine Fqzyy6166-03-82 18:48:00* Test Item Value Reference Range Interpretation Comments Urine Protein/Creatinine Ratio (test code = 24272-6) 0.00 [facility] TempleUrine DFJ6921-25-20 18:34:00* Test Item Value Reference Range Interpretation Comments Urine WBC (test code = 5821-4) 6-10 0-5 [facility] TempleUrine NFW0118-54-93 18:34:00* Test Item Value Reference Range Interpretation Comments Urine RBC (test code = 76636-2) 0-5 0-5 [facility] TempleUrine Uiywbfow0335-06-92 18:34:00* Test Item Value Reference Range Interpretation Comments Urine Bacteria (test code = 25549-1) MODERATE NONE [facility] TempleUrine Epithelial Awmjt8418-76-32 18:34:00 * Test Item Value Reference Range Interpretation Comments Urine Epithelial Cells (test code = 50894-7) MANY NONE [facility] TempleUrine Transitional Epithelial Cells 2019-08-13 18:34:00* Test Item Value Reference Range Interpretation Comments Urine Transitional Epithelial Cells (test code = 8249-5) MODERATE NONE [facility] TempleUrine Renal Epithelial Yopxs9536-79-53 18:34:00* Test Item Value Reference Range Interpretation Comments Urine Renal Epithelial Cells (test code = 43050-4) FEW NON E [facility] TempleUrine Tkfgf4906-41-93 18:19:00* Test Item Value Reference Range Interpretation Comments Urine Color (test code = 5778-6) YELLOW YELLOW [facility] TempleUrine Hasahyv5786-69-58 18:19:00* Test Item Value Reference Range Interpretation Comments Urine Clarity (test code = 90530-9) SL CLOUDY CLEAR [facility] TempleUrine Specific Fpxwbar4590-14-19 18:19:00 * Test Item Value Reference Range Interpretation Comments Urine Specific [place] (test code = 5811-5) 1.015 1.010-1.02 5 [facility] TempleUrine sV8349-53-40 18:19:00* Test Item Value Reference Range Interpretation Comments Urine pH (test code = 50502-0) 5.5 5-7 [facility] TempleUrine Leukocyte Mjiqlanr4624-23-04 18:19:00* Test Item Value Reference Range Interpretation Comments Urine Leukocyte Esterase (test code = 5799-2) SMALL NEGATIVE [facility] Aoaxjgg5414-81-95 18:19:00* Test Item Value Reference Range Interpretation Comments Urine Nitrite (test code = 90672-8) NEGATIVE NEGATIVE [facility] Ixqzctl0749-58-82 18:19:00* Test Item Value Reference Range Interpretation Comments Urine Protein (test code = 5804-0) NEGATIVE NEGATIVE [facility] Glucose (UA)2019-08-13 18:19:00* Test Item Value Reference Range Interpretation Comments Urine Glucose (UA) (test code = 2349-9) NEGATIVE NEGATIVE [facility] TempleUrine Tsmegwe1093-95-56 18:19:00* Test Item Value Reference Range Interpretation Comments Urine Ketones (test code = 53132-6) NEGATIVE NEGATIVE [facility] Bzqqhojnvnzl4972-15-10 18:19:00* Test Item Value Reference Range Interpretation Comments Urine Urobilinogen (test code = 83629-8) 0.2 0.2-1 [facility] TempleUrine Qgtcgwkgd4959-57-52 18:19:00* Test Item Value Reference Range Interpretation Comments Urine Bilirubin (test code = 1978-6) NEGATIVE NEGATIVE [facility] TempleUrine Npphy7247-97-88 18:19:00* Test Item Value Reference Range Interpretation Comments Urine Blood (test code = 31087-4) TRACE NEGATIVE [facility] TempleClostridium Difficile Toxin A & B 2019-08-13 15:21:00* Test Item Value Reference Range Interpretation Comments Clostridium Difficile Toxin A & B (test code = 883753657) POSI TIVE NEGATIVE Results called to HECTOR ROSENDO at 1519 on 08/13/19 by Alejandrina Soto. RB OK.Resu lts PRINTed to BETH MELVIN in infection control at 1519 on 08/13/19 by Alejandrina araujo.Testing on stool aspirate specimens is outside household manager claims since s pecimen type not validated on this assay.[facility] RENAL RETROPERITONEAL BCNU2247-76-32 15:08:00 [facility] [address] [place] [address] Patient Name: MAIDA IRENE MR #: [id number] : 1965 Age/Sex: 54/F Req #: [id number] Adm Physician: ROSENDO DSOUZA MD Ordered by: ANTONINA BAKER, LORA BAKER Report #: [id number] Location: MED/SURG Room/Bed: [facility] Procedure: 040 3-0008 US/US RENAL RETROPERITONEAL COMP Exam Date: 08/13/19 Exam Time: 1425 REPORT STAT US: Signed EXAM: Renal Ultrasound INDICATION: génesis [id number] COMPARISON: None TECHNIQUE: Transverse and longitudinal images of t he kidneys and bladder were obtained. FINDINGS: Right Kidney: Length: 12.2 cm Appearance: Normal echogenicity. Collecting system: No hydronephrosis Stones: None Cyst/Mass: None Left Kidney: Length: 11 .0 cm Appearance: Normal echogenicity. Collecting system: No hydronephrosi s Stones: None Cyst/Mass: None Bladder: No mass or calculi. Bilatera l ureteral jets visualized. Prevoid volume estimate of 114cc. IMPRESSION: No hydronephrosis or renal calculi. Signed by: Cheo Pryor MD on 08/13/2019 3:09 PM Dictated By: CHEO PRYOR MD 1509 Transcribed By: BACILIO on 08/13/19 1509 COPY TO: GREGORIO SARKARMANDO Stool Lactoferrin (LAB)2019-08-13 08:29:00* Test Item Value Reference Range Interpretation Comments Stool Lactoferrin (LAB) (test code = 12327-3) POSITIVE NEGATIVE Testing on stool aspirate specimens is outside household manager claims since specime n type not validated on this assay.[facility] Phosphorus Kxmcp7729-98-30 07:07:00* Test Item Value Reference Range Interpretation Comments Phosphorus Level (test code = BHV7199) 3.3 2.3-4.7 [facility] TempleCreatine Kinase YC9705-82-17 06:37:00* Test Item Value Reference Range Interpretation Comments Creatine Kinase MB (test code = 11347-9) 1.60 0-5.0 [facility] TempleTroponin S3576-75-15 06:37:00* Test Item Value Reference Range Interpretation Comments Troponin I (test code = 88386-7) 0.007 0-0.300 [facility] TempleCreatine Jvvqkd6109-52-22 06:30:00* Test Item Value Reference Range Interpretation Comments Creatine Kinase (test code = 2157-6) 27 29-168 [facility] TempleThyroid Stimulating Hormone (TSH) 2019-08-12 17:23:00* Test Item Value Reference Range Interpretation Comments Thyroid Stimulating Hormone (TSH) (test code = 27302-8) 0.908 0.350-4.940 [facility] TempleHemoglobin A1c Bjzzjfu6196-57-62 17:03:00 * Test Item Value Reference Range Interpretation Comments Hemoglobin A1c Percent (test code = Hemoglobin A1c Percent) 10.7 4.0-7.0 [facility] TempleCT ABDOMEN/PELVIS DS6698-21-93 14:41:00 [place] [address] Patient Name: MAIDA IRENE MR #: [id number] : 1 05/29/1964 Age/Sex: 54/F Req #: [id number] Adm Physician: Ordered by: RUTHY ADAN NP Report #: [id number] Location: ER Room/Bed: Procedure: 0402 -0009 CT/CT ABDOMEN/PELVIS WO Exam Date: 08/12/19 Ex am Time: 1408 REPORT STATUS: Signed CT of the abdomen and pelvis, without contrast. History: CT abdomen /pelvis from 05/07/2019. Comparison: None available. Technique: Multid etector CT scanning of the abdomen and pelvis was performed from the level of the lung bases to the inferior pubic rami without the use of contrast material . Coronal and sagittal multiplanar reformations were obtained. RADIATION DOSE: Total DLP: 893.62 mGy*cm Dose modulation, iterative reconst ruction, and/or weight based adjustment of the mA/kV was utilized to reduce th e radiation dose to as low as reasonably achievable. FINDINGS: The vis ualized lungs are grossly unremarkable. The imaged portion of the heart demons trates no significant abnormalities. The liver is enlarged measuring 23.1 c m in length and appears diffusely decreased in attenuation suggestive of fatty infiltration. No focal hepatic abdomen is identified on this noncontrast enha nced examination. The gallbladder is surgically absent. There is no biliary du ctal dilatation. The spleen is enlarged measuring 15 cm in length. There is a stable 3.6 cm hypodensity identified within the posterior aspect of the spleen which may represent a cyst. The stomach, pancreas, and bilateral adrenal glan ds demonstrate an unremarkable noncontrast appearance. The kidneys are no rmal in size and location. There is no evidence for nephrolithiasis or hydrone phrosis. No ureteral dilatation or stone is appreciated. Multiple phleboliths are identified within the pelvis. The urinary bladder is only partially disten ded but appears grossly unremarkable. The uterus and adnexa are grossly unrema rkable. The abdominal aorta is normal course and caliber with mild atherosc lerotic calcifications. The IVC is normal in caliber. Please note evaluat ion the bowel is limited without the use of enteric contrast material. The vis ualized loops of small and large bowel demonstrate no evidence of obstruction or inflammation. There is no ascites or intraperitoneal free air. No abnormall y enlarged lymph nodes are identified within the abdomen or pelvis. The o sseous structures demonstrate stable degenerative changes without evidence for acute fracture or destructive process. The extraperitoneal soft tissues are u nremarkable. IMPRESSION: No acute abdominopelvic process identified . Hepatosplenomegaly and CT findings suggestive of hepatic steatosis. Stable hypodensity identified within the spleen likely reflecting a cyst. S tatus post cholecystectomy. Signed by: Dr. Domenico Lua MD on 08/12/2019 2:5 2 PM Dictated By: DOMENICO LUA MD 51 Transcribed By: BACILIO on 08/12/191451 COPY TO: RUTHY ADAN NP Urine Amorphous Tjvxfygt5447-04-22 14:06:00* Test Item Value Reference Range Interpretation Comments Urine Amorphous Sediment (test code = 8246-1) MODERATE FEW [facility] Z4878-81-23 12:08:00 [place] [address] Patient Name: MAIDA IRENE MR #: [id number] : 1 05/29/1964 Age/Sex: 54/F Req #: [id number] Adm Physician: Ordered by: JASSON NIEVES DO Report #: [id number] Location: ER Room/Bed: Procedure: 122 7-0008 CT/CT ABDOMEN/PELVIS W Exam Date: 05/07/19 Ex am Time: 1117 REPORT STATUS: Signed CT of the abdomen and pelvis History: Abdominal pain Comparison: CT of the abdomen and pelvis dated 07/15/2017, abdominal series radiographs dated today. Technique: Multidetector CT scanning of the abdomen and pelvis was performed from the level of the lung bases to the inferior pubic ramus, with with IV contrast. DOSE REDUCTION: The examination was performed according to [facility] [employer] dose-optimization program which includes automated exposure control, ad justment of the mA and/or kV according to patient size and/or use of iterative reconstruction technique. Discussion: The lung bases are clear. The liver is enlarged measuring 23 cm in craniocaudal dimension. The liver is diffusely h ypoattenuating compatible with hepatic steatosis. No focal hepatic lesions are identified. The gallbladder is surgically absent. There is no intrahepatic or extrahepatic biliary dilatation. Spleen is enlarged measuring 14.4 cm in l ength.. There is a 3.6 x 3.6 cm low attenuating lesion in the posterior aspect of the spleen which is most likely a cyst. The bilateral adrenal glands are within normal limits. The pancreas is homogeneous in attenuation. There is no pancreatic ductal dilatation. No peripancreatic inflammatory stranding is identified. The kidneys are normal in size. 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 No renal stones identified. The stomach, small, and large bowel are nondistended. There is no evidence of obstruction. The a ppendix is normal in caliber. There are scattered colonic diverticula without evidence of acute diverticulitis. There is no free intraperitoneal air or a scites. The abdominal aorta is of normal course and caliber. Celiac, SMA, a nd PRITI are patent. The uterus and bilateral adnexa are within normal limi ts. The urinary bladder is unremarkable. No enlarged abdominal or retr operitoneal lymph nodes no acute osseous abnormalities. Mild multilevel degene rative changes of the thoracolumbar spine. IMPRESSION: 1. No CT evidence of acute abdominal or pelvic pathology. 2. Hepatosplenomegaly with hepatic kevin atosis. 3. 3.6 cm low-attenuation lesion in posterior aspect of the spleen. T his most likely represents a cyst. 4. Diverticulosis without evidence of acu te diverticulitis. 5. Status post cholecystectomy. Signed by: Byron martin MD on 05/07/2019 12:19 PM Dictated By: BYRON COOK MD Electr onically Signed By: BYRON COOK MD on 05/07/191218 Transcribed By: ALBERT Bejarano on 05/07/191218 COPY TO: JASSON NIEVES DO Human Chorionic Gonadotropin, [id number] 10:57:00* Test Item Value Reference Range Interpretation Comments Human Chorionic Gonadotropin, Quant (test code = 55954-4) 9.05 0-10 [facility] [place] [facility] Qual 2019-05-07 10:09:00* Test Item Value Reference Range Interpretation Comments Human Chorionic Gonadotropin, Qual (test code = 2118-8) POSITIVE NEGATIVE [facility] [place] [facility]PA [id number] 09:40:00 [place] [address] Patient Name: MAIDA IRENE MR #: [id number] : 1965 Age/Sex: 54/F Req #: [id number] Adm Physician: Ordered by: JASSON NIEVES DO Report #: [id number] Location: ER Room/Bed: Procedure: 122 7-0018 DX/ABDOMEN ACUTE SERIES W/PA CXR Exam Date: 05/07/19 Exam Time: 925 REPORT STAT US: Signed Abdominal series, 4 views Clinical indication: Epigastric andra n Comparison: CT of the abdomen and pelvis performed 07/15/2017 Findings : Frontal view of the chest and 3 views of the abdomen were obtained. The heart is within normal limits of size. The lungs are clear. There is no focal consolidation, pleural effusion, or pneumothorax. The bowel gas pattern is nonobstructive. No free intraperitoneal air is identified. No air-fluid levels are identified. Cholecystectomy clips are seen in the right upper quadrant. There are no acute osseous abnormalities. Calcified densities within the pelvi s are likely phleboliths. Impression: Nonobstructive bowel gas pattern w ithout evidence of free intraperitoneal air or air-fluid levels. Signed b y: Byron Cook MD on 05/07/2019 9:43 AM Dictated By: BYRON RODRIGUEZ MD Transcrib ed By: BACILIO on 05/07/19942 COPY TO: JASSON NIEVES DO MRI FOOT RIGHT [id number] 14:07:00 [place] [address] Patient Name: MAIDA IRENE MR #: [id number] : 1965 Age/Sex: 53/F Req #: [id number] Adm Physician: Ordered by: Abdon LEPE DPErika Report #: [id number] Location: MRI Room/Bed: Procedure: 1001 -0010 MRI/MRI FOOT RIGHT WO Exam Date: Exam Time: REPORT STATUS: Signed MRI of the right forefoot without contrast. History: Foot pain. Infection. Infecti on of the big toe. Pain worse with walking.. Technique: Multiplanar multi sequence MRI of the foot without contrast Comparison: None Findings: Skin thickening with skin ulceration at the plantar aspect of the first toe with abnormal adjacent soft tissue edema. This is best seen on series 2 image 20 through 22, series 5 image 14 through 16 and sagittal image 5 through 9. No well-formed drainable fluid collection/abscess is seen. No underlying bone marrow edema or cortical destruction is seen to suggest osteomyelitis. No l igamentous or tendon tear. There is what appears to be a defect in the medial capsule at the plantar aspect of the first toe interphalangeal joint best seen on series 2 image 20 and 21. This may be postsurgical. Tendinosis of the flex or tendons to the great toe. Diffuse muscle atrophy. The visualized ne urovascular bundles are intact. Impression: Findings consistent with skin ulceration and cellulitis at the plantar aspect of the first toe. No well-for med drainable fluid collection/abscess is seen. No underlying bone marrow marija a or cortical destruction is seen to suggest osteomyelitis. Signed by: Dr. Kristen Verdin M.D. on 02/09/2019 2:14 PM Dictated By: KRISTEN VERDIN MD, MD 1414 Transcribed By: BACILIO on 02/09/19 141 COPY TO: Abdon LEPE DPM Vancomycin Level [id number] 14:35:00* Test Item Value Reference Range Interpretation Comments Vancomycin Level Trough (test code = 4092-3) 12.8 5.0-10.0 Results repeated and called to LIANNA ORELLANA at 1434 on 12/07/18 by RORY RODRIGUEZ. Read back and verified.[facility] [place] [facility]UMBAR [id number] 19:43:00 [facility] [address] [place] [address] Patient Name: MAIDA IRENE MR #: [id number] : 1965 Age/Sex: 53/F Req #: [id number] Adm Physician: ROSENDO DSOUZA MD Ordered by: ROSENDO DSOUZA MD Report #: [id number] Location: MED/SURG2 Room/Bed: [facility] Procedure: 032 9-0010 MRI/MRI SPINE LUMBAR WO Exam Date: Exam Time : REPORT STATUS: Signed MRI SPI NE LUMBAR WO HISTORY: Bilateral lower extremity pain COMPARISON: CT o f the abdomen and pelvis 07/15/2017 TECHNIQUE: Sagittal T1, sagittal T2, sa gittal STIR, axial T2, coronal T2, and axial proton density weighted images of the lumbar spine were obtained without contrast. DISCUSSION: Number of non-rib bearing lumbar vertebral bodies: 5. Alignment: Normal lordosis. No scoliosis. Vertebrae: Small nodular T1 hyperintense lesions in the T11 and S2 vertebral bodies are likely benign hemangiomas. Otherwise, no definite evide nce for fractures, infection or neoplasm. Conus medullaris: Normal, ends at approximately L1-L2. Cauda equina: No masses or arachnoiditis. Posterior pa raspinal muscles: Well preserved. No signal abnormalities. Soft tissues: Part ially visualized 3.6 cm T2 hyperintense lesion in the spleen may be a cyst. Mild multilevel disc degeneration is present. T12-L1: Patent canal and f oramina. L1-L2: Patent canal and foramina. L2-L3: Patent canal and for dio. L3-L4: Patent canal and foramina. L4-L5: Mild bilateral foramin al stenoses due to disc bulge and facet arthrosis. No significant canal stenos is. L5-S1: Mild bilateral foraminal stenoses due to disc bulge and facet ar throsis. No significant canal stenosis. IMPRESSION: 1. Mild multilevel disc degeneration without significant canal stenosis. 2. Mild bilateral dege nerative foraminal stenoses at L4-L5 and L5-S1. 3. Partially visualized 3.6 c m T2 hyperintense lesion in the spleen may be a cyst. Signed by: Dr. Jaqui Morris M.D. on 08/07/2018 7:49 PM Dictated By: CHRISTOPHE MORRIS MD E lectronically Signed By: CHRISTOPHE MORRIS MD on 08/07/181948 Transcribed By: Norberto KINNEY on 08/07/181948 COPY TO: ROSENDO DSOUZA MD RIBS UNILAT W/[id number] 17:17:00 [facility] [address] [place] [address] Patient Name: MAIDA IRENE MR #: [id number] : 1965 Age/Sex: 53/F Req #: [id number] Adm Physician: Ordered by: RUTHY ADAN DOFFER Report #: [id number] Location: ER Room/Bed: Procedure: 1120 -0068 DX/RIBS UNILAT W/CXR Exam Date: Exam Time: REPORT STATUS: Signed EXAM: RIBS UNILAT W/CXR DATE: 03/31/2018 4:34 PM INDICATION: right side an terior chest wall pain post fall pain COMPARISON: None FINDINGS: The heart is not enlarged. No pneumothorax, pleural effusion, or focal consolidat ion is identified. Minimal atelectasis present in the lung bases. Body habitus limits osseous evaluation. Some images nondiagnostic. Within limitations, no definite depressed rib fracture. IMPRESSION: No definite acute finding w ithin limitations as above. Signed by: Dr. Ar Martinez MD on 03/31/2018 5 :18 PM Dictated By: AR MARTINEZ MD 17 Transcribed By: BACILIO on 03/31/181717 COPY TO: RUTHY ADAN DOFFER CHEST 2 [id number] 01:41:00 [address], [place] [address] Patient Name: MAIDA IRENE MR #: [id number] : 1965 Age/Sex: 52/F Req #: [id number] [facility] Physician: Ordered by: RUTHY ADAN DOFFER Report #: [id number] Location: ER Room/Bed: Procedure: 8142-3929 DX/CHEST 2 VIEWS Exam Date : 01/06/18 Exam Time: 2215 REPORT STATUS: [place] d EXAM: Chest x-ray, PA and lateral Date: January 06, 2018 at 2217 hours I NDICATION: Fever, pain, sore throat COMPARISON: None available FINDINGS: LINES/TUBES: None LUNGS: No consolidations or edema. PLEURA: No ef fusions or pneumothorax. HEART AND MEDIASTINUM: Normal size and contour. BONES AND SOFT TISSUES: No acute findings. IMPRESSION: No evidence of pneumonia. Due to PACS disruption, a preliminary report was provided by Dr. Charles January 07, 2018 at 0138 hours. Signed by: Dr. Devendra toussaint M.D. on 01/07/2018 1:42 AM Dictated By: DEVENDRA CHARLES MD [facility] Signed By: DEVENDRA CHARLES MD on 01/07/18141 Transcribed By: BACILIO on 01/07/18141 COPY TO: RUTHY ADAN DOFFER GLUCOMETER GLUCOSE- LAB USE [id number] 15:37:00* Test Item Value Reference Range Interpretation Comments GLUCOMETER (test code = GMG) 97 mg/dL 70-100 CLEANED METERMeter ID: [id number]: [id number] ERASMO PIEDRA GLUCOMETER GLUCOSE- LAB USE [id number] 14:28:00* Test Item Value Reference Range Interpretation Comments GLUCOMETER (test code = GMG) 167 mg/dL 70-100 H CLEANED METERMeter ID: [id number]: [id number] JENNA JALLOH GLUCOMETER GLUCOSE- LAB USE [id number] 14:16:00* Test Item Value Reference Range Interpretation Comments GLUCOMETER (test code = GMG) 55 mg/dL 70-100 LL Meter ID: [id number]: [id number] JENNA JALLOH GLUCOMETER GLUCOSE- LAB USE [id number] 12:52:00* Test Item Value Reference Range Interpretation Comments GLUCOMETER (test code = GMG) 104 mg/dL 70-100 H Meter ID: [id number]: [id number] JENNA JALLOH SMALL BOWEL SERIES [place] [address] Patient Name: MAIDA IRENE MR #: [id number] : 1965 Age/Sex: 52/F Req #: [id number] Adm Physician: Ordered by: RYAN BURROUGHS MD Report #: [id number] Location: DX Room/Bed: Procedure: [id number] DX/SMALL BOWEL SERIES Exam Date: 10/07/17 Exam Time: 719 REPORT STATUS: S igned PROCEDURE: SMALL BOWEL SERIES COMPARISON: [facility] , CT, CT ABDOMEN/PELVIS W, 07/15/2017, 19:32. INDICATIONS: ANEMIA, EPIGAST SHERON PAIN TEQUNIQUE: A casting tester radiograph was performed. The patient was give n barium to drink and sequential images of the abdomen were obtained throu gh 180 minutes until the contrast had reached the colon. Spot images of the s mall bowel and terminal ileum were obtained. Fluoro time: 1.7 minutes FI NDINGS: Quality Assurance Supervisor Trim: Nonobstructive bowel gas pattern with large amount of retained stool in the colon. No abnormal calcifications project over the renal shad ows or expected course of the ureters. Pelvic phleboliths. Small bowel: Normal motility and caliber. Slight delay in contrast reaching the colon from the distal ileum likely due to prominent stool in the ascending colon. No small bowel tethering. No evidence of mass or mucosal abnormality Unremarka ble terminal ileum CONCLUSION: Essentially unremarkable small bowel f ollow-through. Slight delay in contrast reaching the colon from the distal/te rminal ileum likely due to large amount of stool in the ascending colon. No o bstructing lesion is identified. Serjio Wilson M.D. Dicta lara by: Serjio Wilson M.D. on 10/07/2017 at 19:44 Electronically silvio roved by: Serjio Wilson M.D. on 10/07/2017 at 19:44 Dictmitzi bermudez By: SERJIO WILSON MD 43 COPY TO: RYAN BURROUGHS MD CT ABDOMEN/PELVIS W [place] [address] Patient Name: MAIDA IRENE MR #: [id number] : 1965 Age/Sex: 52/F Req #: [id number] Adm Physician: Ordered by: EVENS CARDONA DOFFER Report #: [id number] Location: ER Room/Bed: Procedure: [id number] CT/CT ABDOMEN/PELVIS W Ex am Date: 07/15/17 Exam Time: 1931 REPORT STATUS : Signed EXAM: CT of the abdomen and pelvis WITH contrast HISTORY: Upp er abdominal pain COMPARISON: Images from a CT of the abdomen and pelvis perf ormed on August 28, 2015. TECHNIQUE: The abdomen and pelvis were scanne d utilizing a multidetector helical scanner. Coronal and sagittal reformats a re provided. PROTOCOL: Routine IV CONTRAST: 100 cc of Isovue-370. ORAL CONTRAST: Water RADIATION DOSE: Total DLP: 854.36 mGy*cm Estimated effective dose: (DLP x 0.015 x size factor) COMPLICATIONS: None FINDINGS: L OWER THORAX: Unremarkable. HEPATOBILIARY: The liver is enlarged. Diffu sely decreased attenuation of the liver relative to the spleen. No focal hepa tic lesions. No biliary ductal dilatation. Metallic clips in the right uppe r quadrant of the abdomen are compatible with prior cholecystectomy. SPLEEN: Splenomegaly. Interval development of a low-density 2.3 cm lesion at the post erior aspect of the spleen (series 2 image 23). PANCREAS: No focal masses or d uctal dilatation. ADRENALS: No discrete adrenal nodule. KIDNEYS/URETERS: No hydronephrosis, stones, or solid mass lesions. PELVIC ORGANS/BLADDER: N umerous pelvic phleboliths. The uterus is anteflexed. The urinary bladder is p artially decompressed. PERITONEUM / RETROPERITONEUM: No free air or fluid. LYMPH NODES: No pathologically enlarged lymph node. Multiple retroperitoneal lymph nodes measuring up to 7 mm. VESSELS: A few scattered atherosclerotic v ascular calcifications. GI TRACT: No distention or wall thickening identified. The stomach is partially decompressed, limiting evaluation. The appendix is normal. BONES: No aggressive osseous lesion or acute fracture. SOFT TISSUE S: Unremarkable. IMPRESSION: 1. Hepatosplenomegaly. 2. Hepatic st eatosis. 3. A low-density lesion within the posterior aspect of the spleen, a nd the absence of a known malignancy, this is statistically most likely a sarmad gn finding. Signed by: Dr. Armando Wilkinson, D.O., M.M.M. on 07/15/2017 8:03 PM Dictated By: ARMANDO WILKINSON DO 02 Transcribed By: BACILIO on 07/15/172002 COPY TO: EVENS CARDONA DOFFER CHEST 2 VIEWS [place] [address] Patient Name: MAIDA IRENE MR #: [id number] : 1965 Age/Sex: 52/F Req #: [id number] Adm Physician: Ordered by: EVENS CARDONA NP Report #: [id number] Location: ER Room/Bed: Procedure: [id number] DX/CHEST 2 VIEWS Exam Álvaro e: 07/15/17 Exam Time: 1745 REPORT STATUS: Sign ed PROCEDURE: Frontal and lateral views of the chest. COMPARISON: [facility], DX, CHEST 2 VIEWS, 03/10/2017, 10:45. INDICATIONS : CHEST PRESS, EPIGASTRIC PAIN FINDINGS: Lines/tubes: None. Lungs: The lungs are well inflated and grossly clear. There is no evidence of pneumonia or pulmonary edema. Pleura: There is no pleural effusion or pneumothorax. Heart and mediastinum: The heart and the mediastinum are no rmal. Bones: No acute bony abnormality. IMPRESSION: 1. No a cute cardiopulmonary abnormalities. Serjio Wilson M.D. Dictat ed by: Serjio Wilson M.D. on 07/15/2017 at 18:00 Electronically appr antonella by: Serjio Wilson M.D. on 07/15/2017 at 18:00 Dictat ed By: SERJIO WILSON MD 1800 COPY TO: EVENS CARDONA DOFFER US ABDOMEN COMPLETE [facility] [address] [place] [address] Patient Name: MAIDA IRENE MR #: [id number] : 1965 Age/Sex: 52/F Req #: [id number] Adm Physician: Ordered by: RYAN BURROUGHS MD Report #: [id number] Location: Room/Bed: Procedure: [id number] US/US ABDOMEN COMPLETE Exam Date: Exam Time: REPORT STATUS: Signed WA OCEDURE: ABDOMINAL ULTRASOUND COMPARISON: CT abdomen and pelvis dated 08/27 INDICATIONS: Epigastric Pain FINDINGS: Liver: Slightly enlarged measuring 17.6 cm with increased hepatic parenchymal echogenicity. N o focal mass. Main portal vein: Measures 13 mm with normal hepatopedal flow. Gallbladder: Absent Common Bile Duct: Measures 0.5 cm with no echogenic filling defect. Sonographic Farmer's sign: Negative Right kidney: Omar ures 12.1 x 4.3 x 6.1 cm. No solid or cystic mass, echogenic calculi or hydro nephrosis. Normal parenchymal echogenicity. Left kidney: Measures 11.7 x 6.4 x 5.8 cm. No solid or cystic mass, echogenic calculi or hydronephrosis. Normal parenchymal echogenicity. Spleen: Enlarged measuring 14.9 cm. Pancreas: The visualized portions of the pancreas are normal. The pancreatic tail is obscured. Inferior vena cava: Normal. Aorta: Poorly visualized. Ascite s: None. CONCLUSION: 1. Slightly enlarged liver with increased he patic echogenicity. 2. The spleen is enlarged. Amisha hay D.O. Dictated by: Amisha Edmonds D.O. on 07/09/2017 at 8:52 Emani ctronically approved by: Amisha Edmonds D.O. on 07/09/2017 at 8:52 Dictated By: AMISHA EDMONDS DO 1 Transcribed By: GEORGES on 07/09/1752 COPY TO: RYAN BURROUGHS MD CHEST 2 VIEWS [place] [address] Patient Name: MAIDA IRENE MR #: [id number] : 1965 Age/Sex: 51/F Req #: [id number] Adm Physician: Ordered by: CARLOS ENRIQUE ZAMAN DPM Report #: [id number] Location: OR Room/Bed: Procedure: [id number] DX/CHEST 2 VIEWS Exam D ate: 03/10/17 Exam Time: 1150 REPORT STATUS: Si gned PROCEDURE: X-RAY CHEST, TWO VIEWS COMPARISON: [facility], DX, CHEST 2 VIEWS, 05/16/2010, 13:10. INDICATIONS: PRE OPERATIVE CHEST X-RAY FOR FOOT SURGERY FINDINGS: LUNGS: No consolidations or edema. PLEURA: No effusions or pneumothorax. HEART T MEDIASTINUM: The heart is within normal size-limits. BONES T SOFT TISSUES: No acute f indings. Mild degenerative changes of the spine. CONCLUSION: N o acute thoracic abnormality. Amisha Edmonds D.O. Dictated by : Amisha Edmonds D.O. on 03/10/2017 at 12:42 Electronically approved by: Amisha Edmonds D.O. on 03/10/2017 at 12:42 Dictated By: AMISHA EDMONDS DO 1242 Trans cribed By: GEORGES on 03/10/17 1242 COPY TO: CARLOS ENRIQUE ZAMAN DPM
[2019-09-22 13:10] VITALS: BP 137/86
--- NOTE | 2019-09-22 13:24 | Operative Report ---
DATE OF PROCEDURE: 09/22/2019 SURGEON: Ed Ventura MD PROCEDURE: Colonoscopy with polypectomy and biopsies. INDICATIONS FOR COLONOSCOPY: Abdominal pain, chronic diarrhea. MEDICATIONS: The patient was done under MAC. Please see anesthesiologist's note. PROCEDURE IN DETAIL: With the patient in left lateral decubitus position, a flexible fiberoptic Olympus colonoscope was inserted into the rectum with ease and advanced all the way to the cecum. Prep overall was suboptimal to poor with moderate amount of retained fecal material in the colon. The scope was then withdrawn slowly. Whatever was visualized, the mucosa overlying the ascending transverse, descending sigmoid and rectum revealed some diffuse pjoz-sp-qahgrqad inflammatory changes and multiple random biopsies were obtained. Three polyps were hot biopsied from the sigmoid colon. The scope was then retroflexed into the distal rectum and small internal hemorrhoids were noted, none of which was actively bleeding. The scope was then straightened out. It was subsequently withdrawn after securing an adequate stool specimen that was sent for the appropriate stool studies. The patient tolerated the procedure well. IMPRESSION: 1. Suboptimal to poor prep. 2. Colitis, random biopsies obtained. 3. Sigmoid colon polyps x3, hot biopsied. 4. Proctitis. 5. Internal hemorrhoids, none actively bleeding. PLAN: Follow up histology. Initiate Bentyl 20 mg one p.o. t.i.d. Needs a repeat colonoscopy after a better prep. Ed Ventura MD [facility] /[id number] cc: Hussein Gauthier MD
[2019-09-22 15:27] LABS: C DIFFICILE TOXIN A&B AMP PROB NEGATIVE (NEGATIVE); WBC,FECAL (FECAL LACTOFERRIN) NEGATIVE (NEGATIVE)
== END | disposition home or self-care (01) ==
LOC: OR 12:17
PROVIDERS: ATTEND Internal Medicine Gastroenterology
DX: K52.9 Noninfective gastroenteritis and colitis, unspecified (principal); K63.5 Polyp of colon; K62.89 Other specified diseases of anus and rectum; A04.72 Enterocolitis due to Clostridium difficile, not specified as recurrent; K64.8 Other hemorrhoids; K29.70 Gastritis, unspecified, without bleeding; K20.9 Esophagitis, unspecified; I10 Essential (primary) hypertension; E11.9 Type 2 diabetes mellitus without complications; E03.9 Hypothyroidism, unspecified; Z88.6 Allergy status to analgesic agent; Z01.812 Encounter for preprocedural laboratory examination; Z11.59 Encounter for screening for other viral diseases; Z79.4 Long term (current) use of insulin; Z79.84 Long term (current) use of oral hypoglycemic drugs; Z68.41 Body mass index [BMI] 40.0-44.9, adult; Z80.0 Family history of malignant neoplasm of digestive organs
CPT/HCPCS: 36415; 45380; 45384; 82948; 83630; 83993; 87045; 87177; 87328; 87493; 87635; J2001; J2250; J2405; J2704; J2765; J1817

== ENCOUNTER 2020-02-10 16:35 | Emergency (ER) | payer BC ==
[~2020-02-10] VITALS: Ht 167.6 cm; Wt 114.3 kg
[~2020-02-10 16:35] MED LIST changes: -HYOSCYAMINE 0.125 MG TAB ONE; -INSULIN REGULAR, HUMAN 100 UNIT/1 ML 3ML VIAL ONE; -LABETALOL HCL 0 ML ONE; -LIDOCAINE HCL 2% LOCAL INJ 5 ML SDV VIAL INJ ONE; -METOCLOPRAMIDE HCL 10 MG/2ML VIAL ONE; -MIDAZOLAM HCL 5 MG/ML VIAL ONE; -ONDANSETRON HCL INJ 2MG/ML 2ML 2 MG/ML VIAL ONE; -PROPOFOL IV EMULSION 10 MG/ML 20 ML VIAL ONE
[2020-02-10] MEDS ORDERED: MORPHINE SULFATE 2 MG/ML SYR 1ML IV STA ×2 (17:12→17:32)
[2020-02-10] MEDS ORDERED: ONDANSETRON HCL INJ 2MG/ML 2ML 2 MG/ML VIAL IV STA (17:12)
[2020-02-10] MEDS ORDERED: SODIUM CHLORIDE 0.9% 1000 ML BAG IV ONE (17:15)
--- NOTE | 2020-02-10 17:19 | Emergency Department Note ---
History of Present Illnes History of Present Illness Chief Complaint: Abdominal Complaints epigastric with vomiting and loose stools History of Present Illness This is a 54 year old female . Historian: Patient Arrival Mode: Car Additional Treatment TECHNICAL INSTRUCTOR COURSE DEVELOPER: none Tooling Specialist Required: No Onset (how long ago): day(s) (2) Location: epigastric Quality: pain burning cramping Radiation: Reports back, Reports abdomen Severity: moderate Onset quality: gradual Duration (how long): day(s) (2) Timing of current episode: constant Progression: worsening Chronicity: recurrent Relieving factors: none Exacerbating factors: none Treatments prior to arrival: none Past Medical/Family History Physician Review I have reviewed the patient's past medical and family history. Any updates have been documented here. Past Medical History Recent Fever: No Clinical Suspicion of Infectio: No New/Unexplained Change in Ment: No Past Medical History: Hypertension, Diabetes, Hypothyroidism, Anemia, Anxiety, Depression Other Medical History: c. diff colitis also recent antibiotics approx 1 month ago LUNG CANCER Past Surgical History: Cholecysctectomy, Tubal Ligation, , Cataract Removal Other Surgery: ELBOW REPLACEMENT [facility] LEFT FOOT Social History Smoking Cessation: Never Smoker Counseling Performed: No Alcohol Use: Occasional Any Illegal Drug Use: No TB Exposure/Symptoms: No Physically hurt or threatened: No Other Last Tetanus: UTD Any Pre-Existing Lines (PICC,: No Is patient up to date on immun: No Review of Systems Review of Systems Constitutional: Reports no symptoms EENTM: Reports no symptoms Cardiovascular: Reports no symptoms Respiratory: Reports no symptoms Gastrointestinal: Reports abdominal pain, Reports nausea, Reports vomiting Genitourinary: Reports no symptoms Musculoskeletal: Reports no symptoms Integumentary: Reports no symptoms Neurological: Reports no symptoms Psychological: Reports no symptoms Endocrine: Reports no symptoms Hematological/Lymphatic: Reports no symptoms Review of other systems: All other systems negative Physical Exam Related Data Allergies: Coded Allergies: hydrocodone (Verified Allergy, Unknown, HIVES, 08/12/19) shrimp (Verified Allergy, Unknown, "HIVES, CLOSED AIRWAY", 08/12/19) Physical Exam CONSTITUTIONAL Constitutional: Present well-developed, Present well-nourished HENT HENT: Present normocephalic, Present mucosae dry (dry oral mucosa) EYES Eyes: Reports PERRL, Reports conjunctivae normal, Reports EOM normal, Reports lids normal NECK Neck: Present ROM normal, Present supple PULMONARY Pulmonary: Present effort normal, Present breath sounds normal CARDIOVASCULAR Cardiovascular: Present regular rhythm, Present heart sounds normal, Present intact distal pulses, Present capillary refill normal GASTROINTESTINAL Abdominal: Present soft, Present tender (epigastric area) GENITOURINARY Genitourinary: Present exam deferred SKIN Skin: Present warm, Present dry MUSCULOSKELETAL Musculoskeletal: Present ROM normal NEUROLOGICAL Neurological: Present alert, Present oriented x 3, Present DTRs normal, Present no gross motor or sensory deficits PSYCHOLOGICAL Psychological: Present mood/affect normal, Present behavior normal, Present thought content normal, Present judgement normal Results Laboratory Laboratory cbc wbc 11.5 with normal diff ow wnl. chem gluc 125 bun 24 creat 2.2 both elevated amylase and lft wnl. UA glucose greater then 1000 mg/dl small bili trace keytones small leuk esterase Imaging Imaging results reviewed: Yes Impressions ct abd mild splenomegaly hepatic steatosis, Sp Choly. no evidence of pancreatitis Assessment & Plan Medical Decision Making MDM abdominal pain of unknown etiology . HX of C. diff colitis and pancreatitis. No beds at [facility] in [place] will transfer for observation. Pt may have gastroparesis secondary to Diabetes or c. diff colitis Reassessment Reassessment time: 18:43 (stable abdominal pain continues nausea resolved. Will sign out to Dr Alison Meadows pending transfer) Assessment & Plan Final Impression: (1) UTI (urinary tract infection) (2) Abdominal pain (3) Dehydration Depart Disposition: TRANS TO OTHER [facility] Home Meds Reported Medications Metformin Hcl (METFORMIN HCL) 500 Mg Tablet, 500 MG PO BID, #60 TAB 09/16/19 Vancomycin Hcl (VANCOCIN HCL) 250 Mg Capsule, PO Q6H for 21 Days 09/03/19 Duloxetine Hcl (CYMBALTA) 30 Mg Capsule.dr, 60 MG PO DAILY, #30 CAP 03/01/19 Olmesartan/Hydrochlorothiazide (Olmesartan-Hctz 20-12.5 mg Tab) 1 Each Tablet, PO DAILY 03/01/19 Insulin Glargine (LANTUS 3ML PEN) 100 Units/1 Ml Inj, 40 SC BID 10/03/18 Pantoprazole Sodium* (PROTONIX) 40 Mg Tablet.dr, 40 MG PO BID, TAB 04/01/18 Sucralfate (SUCRALFATE) 1 Gm Tablet, 1 GM PO QID, TAB 07/15/17 Insulin Aspart (NOVOLOG MIX 70-30 VIAL) 100 Units/Ml Ml, 20 UNITS SC TID take before meals 08/28/15 Levothyroxine Sodium (Synthroid) 100 Mcg Tablet, 200 MCG PO DAILY 02/20/12 Medications in the ED Morphine Sulfate 2 mg NOW STAT IV ; Start 02/10/20 at 17:12; Stop 02/10/20 at 17:13; Status UNV Ondansetron HCl 4 mg NOW STAT IV ; Start 02/10/20 at 17:12; Stop 02/10/20 at 17:13; Status UNV PANCHITO RAMIREZ MD Feb 10, 2020 17:19
[2020-02-10] MEDS ORDERED: MORPHINE SULFATE INJ 4 MG/ML INJ 1ML ONE ×2 (17:31→19:29)
[2020-02-10] MEDS ORDERED: SODIUM CHLORIDE 0.9% 1000ML 1,000 ML ONE (17:31)
[2020-02-10] MEDS ORDERED: ONDANSETRON HCL INJ 2MG/ML 2ML 2 MG/ML VIAL ONE ×2 (17:31→19:29)
--- OUTSIDE RECORDS SUMMARY | 2020-02-10 17:35 | XMS REPORT | Clinical Summary ---
Author Author [facility] Organization [facility] Address Unknown Phone Unavailable Care Team Providers Care Director Foundation Name Role Phone Hussein Gauthier MD PCP [...] Date Iron deficiency anemia 08/18/2017 Splenomegaly 08/18/2017 Surgical History Surgery Date Site/Laterality Comments SECTION 05/12/1992 - 05/11/1993 VAGINAL AFTER SECTION ELBOW SURGERY 05/12/2003 - 05/11/2004 CHOLECYSTECTOMY 05/12/2004 - 05/11/2005 CATARACT EXTRACTION, 05/12/2014 - BILATERAL 05/11/2015 ULNAR NERVE REPAIR 05/12/2014 - right arm 05/11/2015 CORRECTION HAMMER TOE 05/12/2016 - 05/11/2017 Medical History Medical History Date Comments Diabetes mellitus (HCC) Disease of thyroid gland Hypertension Acid reflux Family History Medical History Relation Name Comments [...] Assigned at Date Recorded Not on file Obstetrics History Term Pre Abrt (TAB) (SAB) (Ect) Mult Lvng Comments Grav Para 2 2 Date GA Total Labor Labor/2nd/3rd Weight Sex Delivery Anes PTL Deloris A1 A5 Name Clin Outcome Para Para Last Filed Vital Signs Not on file Plan of Treatment Health Maintenance Due Date Last Done Comments CERVICAL CANCER SCREENING 1985 BREAST CANCER SCREENING 2014 COLONOSCOPY SCREENING 2014 SHINGLES VACCINES (#1) 2014 INFLUENZA VACCINE 12/11/2019 Results Not on fileafter 02/09/2019 Insurance Type Payer Benefit Subscriber ID Effective Phone Address Plan / Dates Group PPO BCBS BCBS [id number] CHOICE resent PPO/ROMEO [employer]UR PPO Advance Directives For more information, please contact: [phone] Patient Slab Grinder Explanation Type Date Recorded Advance Directives, Living Will and Medical Power of Driller Brake Lining
--- OUTSIDE RECORDS SUMMARY | 2020-02-10 17:36 | XMS REPORT | Continuity of Care Document ---
Author Author [facility] t Organization [facility] Address [address] [place] [address] Phone Unavailable Care Team Providers Care Tappet Adjuster Name Role Phone SHANNON BAKER, MARV PCP Steve BAKER, Quan Crawford Attphys Markus BAKER, Ashu Attphys Doctor Unassigned, Name No Attphys Unavailable Ailyn DSOUZA Attphys Unavailable SANDHIRJASSON Attphys Unavailable SHERLEY S.Hoang Attphys Unavailable CHAI, Kanu HALE Attphys Unavailable Mitzi BARRIOS Attphys Unavailable EDMUND, DR KHANNA Attphys Unavailable RYAN BURROUGHS Attphys Unavailable JUNIE, Mitzi MOHAMMED Attphys Unavailable Markus BAKER, Ashu Admphys Ailyn DSOUZA Admphys Unavailable MAXIMGELY, DR KHANNA Admphyailyn Unavailable Payers Payer Name Policy Type Policy Number Effective Date Expiration Date S linette [facility] Exchange [id number] 2018 00:00:00 [facility] [id number] 2012 00:00:00 [facility] [id number] 2017 00:00:00 [facility] Problems Condition Name Condition Details Condition Category Status Onset Date Resolution Date Last Treatment Date Treating Clinician Comments Source Iron deficiency anemia Iron deficiency anemia Disease Active 2017-08-18 00:00:[address] Splenomegaly Splenomegaly Disease Active 2017-08-18 00:00:00 Ghulam Santiago Abdominal pain Abdominal pain Problem Active 2015-08-28 00:00:00 [facility] Urinary tract infection UTI (urinary tract infection) Problem Active 2015-08-28 00:00:00 [facility] Gastroduodenitis Gastritis and duodenitis Problem Active [facility] Acute renal insufficiency Acute renal insufficiency Problem Active [facility] Dehydration Dehydration Problem Active [facility] Uncontrolled diabetes mellitus Uncontrolled diabetes mellitus Problem Active [facility] Vomiting and diarrhea Vomiting and diarrhea Problem Active [facility] Allergies, Adverse Reactions, Alerts Allergy Name Allergy Type Status Severity Reaction(s) Onset Date Inacti ve Date Treating Clinician Comments Source Hydrocodone Allergy to Substance Active HIVES 2019-08-12 00:00:00 [facility] shrimp Allergy to Substance Active "HIVES, CLOSED AIRW AY" 2019-08-12 00:00:00 [facility] Hydrocodone Propensity to adverse reactions to drug Active Itching, Rash 2017-08-26 00:00:00 Parmar Meth odist Shrimp Propensity to adverse reactions to drug Active Swelling 2017-08-26 00:00:00 Ghulam Gates t Family History Family Member Diagnosis Comments Start Date Stop Date Source Natural father Hypertension Ghulam Santiago Maternal aunt Colon cancer Parmar M ethodist Maternal grandfather Heart attack [place] [facility] Maternal grandfather Hypertension [place] [facility] Maternal grandmother Diabetes [facility] elvira [place] Maternal grandmother Heart attack [place] Maternal grandmother Hypertension [place] Natural mother Diabetes Parmar Me thodist Natural mother Heart disease Ghulam Mormon Natural mother Hypertension Ghulam Santiago Paternal aunt Breast cancer Ghulam Santiago Paternal grandfather Heart disease [place] Paternal grandfather Hypertension [place] Social History Social Habit Start Date Stop Date Quantity Comments Source Sex Assigned At Kolby Santiago Tobacco use and exposure 2017-11-03 00:00:00 2017-11-03 00:00:00 Diego wheeler used Ghulam Santiago Alcohol intake 2017-11-03 00:00:00 2017-11-03 00:00:00 Current drinker of alcohol (finding) Ghulam Santiago Alcohol Comment 2017-11-03 00:00:00 2017-11-03 00:00:00 social Ghulam Santiago Smoking Status Start Date Stop Date Source Never smoker Ghulam Gates t Medications Ordered Medication Name Filled Medication Name Start Date Stop Da te Current Medication? Ordering Clinician Indication Dosage Frequency Signature (SIG) Comments Components Source Phenazopyridine Hcl (Pyridium) 100 Mg Tablet, 100 Mg O ral Phenazopyridine Hcl (Pyridium) 100 Mg Tablet, 100 Mg Oral 2019-05-07 00:00:00 2019-08-12 00:00:00 No Ambica Sandhir Do 100 Three Times A Day [facility] Sulfamethoxazole/Trimethoprim (Bactrim Ds Tablet) 1 Ea ch Tablet, 1 Tab Oral Sulfamethoxazole/Trimethoprim (Bactrim Ds Tablet) 1 Each Tablet, 1 Tab Oral 2019-05-07 00:00:00 2019-08-12 00:00:00 No Ambica Sandhir Do 1 Twice A Day [facility] escitalopram (LEXAPRO) 10 MG tablet 2017-11-20 10:04:09 Yes Daily Ghulam Santiago insulin asp prt-insulin ASPART (NovoLOG Mix 70-30 U-100 Insuln) 100 unit/mL (70- 30) injection 2017-11-20 10:04:09 Yes Thre e Times A Day Ghulam Santiago insulin GLARGINE (LANTUS U-100 INSULIN) 100 unit/mL injectio n (vial) 2017-11-20 10:04:09 Yes Bedtime Ghulam Santiago levothyroxine (SYNTHROID) 100 mcg tablet 2017-11-20 10:04:09 Yes Daily Ghulam Santiago dicyclomine (BENTYL) 20 mg tablet 2017-11-20 10:04:09 Yes Four Times Daily Ghulam Santiago pantoprazole (PROTONIX) 40 MG EC tablet 2017-11-20 10:04:09 Yes 40mg QD Take 40 mg by mouth daily. Ghulam guillen ondansetron (ZOFRAN) 8 MG tablet 2017-11-20 10:04:09 Yes 8mg Q8H Take 8 mg by mouth every 8 (eight) hours as needed for nausea or vomiting. Ghulam Santiago metoprolol tartrate (LOPRESSOR) 25 mg tablet 2017-11-20 10:04:09 Yes 25mg QD Take 25 mg by mouth daily. H shane Santiago sucralfate (CARAFATE) 1 gram tablet 2017-11-20 10:04:09 Yes Twice A Day Ghulam Santiago lisinopril (PRINIVIL,ZESTRIL) 20 mg tablet 2017-11-03 13:53:25 Yes Daily Ghulam Santiago lisinopril (PRINIVIL,ZESTRIL) 2.5 mg tablet 2017-10-30 00:00:00 Yes TK 1 T PO QD Ghulam Santiago amoxicillin (AMOXIL) 500 MG capsule 2017-10-24 00:00:00 Yes TK 1 C PO TID FOR 8 DAYS Ghulam Santiago NOVOLOG FLEXPEN U-100 INSULIN 100 unit/mL insulin pen 2017-10-23 00:00:00 Yes INJECT 20 UNITS UNDER THE SKIN TID BEFOR E A MEAL Ghulam Santiago LANTUS SOLOSTAR U-100 INSULIN 100 unit/mL injection (pen) 2017-10-23 00:00:00 Yes INJ 40 UNI SC BID Ghulam Santiago Metoclopramide Hcl (Reglan) 10 Mg Tablet, 10 Mg Oral Erika etoclopramide Hcl (Reglan) 10 Mg Tablet, 10 Mg Oral 2015-09-01 00:00:00 2017-06-19 00:00:00 Kaycee Zamora Md 10 Three Times A Day as needed for Naus ea And Vomiting [facility] Ciprofloxacin/Ciprofloxa Hcl (Ciprofloxa juan luis Er 500 Mg Tablet) 500 Mg Tbmp.24hr, 500 Mg Oral Ciprofloxacin/Ciprofloxa Hcl (Ciprofloxa juan luis Er 500 Mg Tablet) 500 Mg Tbmp.24hr, 500 Mg Oral 2015-09-01 00:00:00 2017-01-24 00:00:00 Kaycee Zamora Md 500 Twice A Day [facility] Dicyclomine Hcl (Bentyl) 10 Mg/1 Ml Ampul Dicyclomine Hcl (Bentyl) 10 Mg/1 Ml Ampul Yes 10 As Needed [facility] Duloxetine Hcl (Cymbalta) 30 Mg Capsule. Duloxetine Hcl (Cymbalta) 30 Mg Capsule. Yes 60 Daily [facility] Insulin Aspart (Novolog Mix 70-30 Vial) 100 Units/Ml M l Insulin Aspart (Novolog Mix 70-30 Vial) 100 Units/Ml Ml Yes 20 Three Times A Day [facility] Insulin Glargine (Lantus 3ML Pen) 100 Units/1 Ml Inj I nsulin Glargine (Lantus 3ML Pen) 100 Units/1 Ml Inj Yes 40 Twice A Da y [facility] Levothyroxine Sodium (Synthroid) 100 Mcg Tablet Levoth yroxine Sodium (Synthroid) 100 Mcg Tablet Yes .175 Daily [facility] Metformin Hcl 500 Mg Tablet Metformin Hcl 500 Mg Tablet Yes 1000 Twice A Day [facility] Metoclopramide Hcl 10 Mg Tablet Metoclopramide Hcl 10 Mg Tablet Yes 10 Twice A Day [facility] Metoprolol Tartrate 50 Mg Tablet Metoprolol Tartrate 50 Mg Tablet Yes 50 Twice A Day [facility] Olmesartan/Hydrochlorothiazide (Olmesartan-Hctz 20-12. 5 Mg Tab) 1 Each Tablet Olmesartan/Hydrochlorothiazide (Olmesartan-Hctz 20-12.5 Mg Tab) 1 Each Tablet Yes Daily [facility] Ondansetron Hcl (Zofran) 8 Mg Tablet Ondansetron Hcl (Zofran) 8 Mg Tablet Yes 8 Three Times A Day as needed for Nausea [facility] Pantoprazole Sodium (Protonix) 40 Mg Tablet. Pantopr azole Sodium (Protonix) 40 Mg Tablet. Yes 40 Twice A Day [facility] Pregabalin (Lyrica) 75 Mg Cap Pregabalin (Lyrica) 75 Mg Cap Yes 150 Twice A Day [facility] Sucralfate 1 Gm Tablet Sucralfate 1 Gm Tablet Yes 1 Four Times Daily [facility] Semaglutide (Ozempic) 1 Mg/0.75 Ml Pen.injctr, 1 Unit Sub-Q Semaglutide (Ozempic) 1 Mg/0.75 Ml Pen.injctr, 1 Unit Sub-Q 2019-08-25 00:00:00 No 1 Tuesdays [facility] Escitalopram Oxalate (Lexapro) 10 Mg Tablet, 20 Mg Ora l Escitalopram Oxalate (Lexapro) 10 Mg Tablet, 20 Mg Oral 2019-03-01 00:00:00 No 2 0 Daily [facility] Hydrochlorothiazide 25 Mg Tablet, 12.5 Mg Oral Hydroch lorothiazide 25 Mg Tablet, 12.5 Mg Oral 2019-03-01 00:00:00 No 12.5 Daily [facility] Metoprolol Succinate 25 Mg Tab.er.24h, 25 Mg Oral Meto prolol Succinate 25 Mg Tab.er.24h, 25 Mg Oral 2019-03-01 00:00:00 No 25 T wice A Day [facility] Olmesartan , Olmesartan , 2019-03-01 00:00:00 No [facility] Olmesartan Medoxomil (Benicar) 20 Mg Tablet, 12.5 Mg O ral Olmesartan Medoxomil (Benicar) 20 Mg Tablet, 12.5 Mg Oral 2019-03-01 00:00:00 No 12.5 Daily [facility] Olmesartan Medoxomil (Benicar) 20 Mg Tablet, 20 Mg Ora l Olmesartan Medoxomil (Benicar) 20 Mg Tablet, 20 Mg Oral 2019-03-01 00:00:00 No 2 0 Daily [facility] Cetirizine Hcl (Zyrtec) 10 Mg Capsule, 10 Mg Oral Ceti rizine Hcl (Zyrtec) 10 Mg Capsule, 10 Mg Oral 2018-10-03 00:00:00 No 10 Dudley y [facility] Dicyclomine Hcl 20 Mg Tablet, 20 Mg Oral Dicyclomine H cl 20 Mg Tablet, 20 Mg Oral 2018-10-03 00:00:00 No 20 Four Times Daily [facility] Insuln Asp Prt/Insulin Aspart (Novolog M ix 70-30 Flexpen Syrn) 100 Unit/1 Ml Insuln.pen, 35Subcutaneously Insuln Asp Prt/Insulin Aspart (Novolog M ix 70-30 Flexpen Syrn) 100 Unit/1 Ml Insuln.pen, 35Subcutaneously 201 01-14-25 00:00:00 No 35 Daily [facility] Metoclopramide Hcl (Reglan) 10 Mg Tablet, Mg Oral Met oclopramide Hcl (Reglan) 10 Mg Tablet, Mg Oral 2018-10-03 00:00:00 No T hree Times A Day [facility] Metoprolol Tartrate 25 Mg Tablet, 25 Mg Oral Metoprolo l Tartrate 25 Mg Tablet, 25 Mg Oral 2018-10-03 00:00:00 No 25 Twice A Day [facility] Multivitamin (Multivitamins) 1 Each Capsule, 1 Tab Peg Tube Multivitamin (Multivitamins) 1 Each Capsule, 1 Tab Peg Tube 2018-10-03 00:00:00 No 1 Daily [facility] Sucralfate (Carafate) 1 Gm/10 Ml Oral.susp, 1 Gm Oral Sucralfate (Carafate) 1 Gm/10 Ml Oral.susp, 1 Gm Oral 2018-10-03 00:00:00 No 1 Three Times A Day [facility] Tumeric , 2 Tab Oral Tumeric , 2 Tab Oral 2018-10-03 00:00:00 No 2 Daily [facility] Vitamin B Complex 1 Each Capsule, 1 Tab Oral Vitamin B Complex 1 Each Capsule, 1 Tab Oral 2018-10-03 00:00:00 No 1 Daily [facility] Insulin Glargine (Lantus) 100 Units/Ml Ml, 40 Units Knowles bcutaneously Insulin Glargine (Lantus) 100 Units/Ml Ml, 40 Units Subcutaneously 2018-08-10 00:00:00 No 40 Twice A Day [facility] Lisinopril 20 Mg Tablet, 2.5 Mg Oral Lisinopril 20 Mg Tablet, 2. 5 Mg Oral 2018-08-05 00:00:00 No 2.5 Daily [facility] Metoclopramide Hcl (Reglan) 10 Mg Tablet, 10 Mg Oral M etoclopramide Hcl (Reglan) 10 Mg Tablet, 10 Mg Oral 2018-04-01 00:00:00 No 10 Daily [facility] Ondansetron (Zofran Odt) 4 Mg Tab.rapdis, 8 Mg Subling [facility] Ondansetron (Zofran Odt) 4 Mg Tab.rapdis, 8 Mg Sublingual 2018-04-01 00:00:00 No 8 Daily [facility] Ondansetron (Zofran Odt) 4 Mg Tab.rapdis, 4 Mg Oral On dansetron (Zofran Odt) 4 Mg Tab.rapdis, 4 Mg Oral 2018-04-01 00:00:00 No 4 Every 6 Hours as needed for Nausea [facility] Sitagliptin Phosphate (Januvia) 100 Mg Tablet, 100 Mg Oral Sitagliptin Phosphate (Januvia) 100 Mg Tablet, 100 Mg Oral 2018-04-01 00:00:00 No 100 Daily [facility] Metoprolol Succinate 25 Mg Tab.er.24h, Mg Oral Metopr olol Succinate 25 Mg Tab.er.24h, Mg Oral 2017-06-19 00:00:00 No Twi ce A Day [facility] Pantoprazole Sodium (Protonix) 40 Mg Suspdr.pkt, 1 Tab Oral Pantoprazole Sodium (Protonix) 40 Mg Suspdr.pkt, 1 Tab Oral 2017-06-19 00:00:00 No 1 Daily [facility] Sitagliptin Phosphate (Januvia) 100 Mg Tablet, 100 Mg Oral Sitagliptin Phosphate (Januvia) 100 Mg Tablet, 100 Mg Oral 2017-06-19 00:00:00 No 100 Daily [facility] Sulfamethoxazole/Trimethoprim (Bactrim Ds Tablet) 1 Ea ch Tablet, 1 Tab Oral Sulfamethoxazole/Trimethoprim (Bactrim Ds Tablet) 1 Each Tablet, 1 Tab Oral 2017-06-19 00:00:00 No 1 Every 8 Hours [facility] Aspirin (Aspir 81) 81 Mg Tablet.dr, Mg Oral Aspirin ( Aspir 81) 81 Mg Tablet.dr, Mg Oral 2017-03-10 00:00:00 No Daily [facility] Clindamycin Hcl 150 Mg Capsule, 600 Mg Oral Clindamyci n Hcl 150 Mg Capsule, 600 Mg Oral 2017-03-10 00:00:00 No 600 Every 8 Hours [facility] Insulin Detemir (Levemir) 100 Unit/1 Ml Insuln.pen, 11 Unit Sub-Q Insulin Detemir (Levemir) 100 Unit/1 Ml Insuln.pen, 11 Unit Sub-Q 20 25-08-17 00:00:00 No 11 Before Meals [facility] Procedures Procedure Date / Time Performed Performing Clinician Sour e Magnetic resonance cholangiopancreatography (MRCP) wit hout contrast 2019-08-18 00:00:00 RYAN BURROUGHS [facility] EGD with biopsy 2019-08-13 00:00:00 RYAN BURROUGHS [facility] Ultrasound, renal 2019-08-13 00:00:00 LORA SARKAR [facility] CT of abdomen and pelvis without contrast 2019-08-12 00:00:00 RUTHY VILLALTA [facility] Computed tomography of abdomen and pelvis with contrast 2018 00:00:00 JASSON NIEVES [facility] EGD BIOPSY SINGLE/MULTIPLE 2019-03-03 00:00:00 RYAN BURROUGHS [facility] DILATE ESOPHAGUS 1/MULT PASS 2019-03-03 00:00:00 RYAN BURROUGHS [facility] MRI lower extremity w/o dye 2019-02-09 00:00:00 Abdon LEPE [facility] DRAINAGE OF RIGHT FOOT, OPEN APPROACH 2018-12-04 00:00:00 CARLOS ENRIQUE FELIX [facility] Plan of Care Planned Activity Planned Date Details Comments Source Future Scheduled Test 2019-12-11 00:00:00 INFLUENZA VACCINE [code = INFLUENZA VACCINE] Ghulam Santiago Future Scheduled Test 2014 00:00:00 BREAST CANCER SCRE ENING [code = BREAST CANCER SCREENING] [facility] Future Scheduled Test 2014 00:00:00 COLONOSCOPY SCREEN ING [code = COLONOSCOPY SCREENING] [facility] Future Scheduled Test 2014 00:00:00 SHINGLES VACCINES (#1) [code = SHINGLES VACCINES (#1)] [facility] Future Scheduled Test 1985 00:00:00 Screening for irina gnant neoplasm of cervix (procedure) [code = 103973400] [facility] Encounters Start Date/Time End Date/Time Encounter Type Admission Type [facility] Care Department Encounter ID Source 2020-02-04 12:13:30 2020-02-04 23:59:00 Hospital Encounter Ty Wilson [facility] [id number] 2020-01-21 12:09:30 2020-01-21 23:59:00 Hospital Encounter [facility] [id number] 2020-01-14 12:28:41 2020-01-14 23:59:00 Hospital Encounter [facility] [id number] 2020-01-14 00:00:00 2020-01-14 00:00:00 Orders Only D octor Unassigned, [place] [facility] [id number] 2020-01-02 20:59:00 2020-01-04 08:46:00 Hospital Encounter [facility] [id number] 2019-08-12 15:41:00 2019-08-25 10:38:00 Discharged Inpatient 1 LIANNA ROSENDO [facility] [id number] [facility] 2019-05-07 08:49:00 2019-05-07 14:10:00 Departed Emergency Room 1 JASSON NIEVES [facility] [id number] [facility] 2019-03-03 08:18:00 2019-03-03 08:18:00 Registered Surgical Day Care [facility] [id number] [facility] 2019-02-09 11:24:00 2019-02-09 11:24:00 Registered Clinic 3 Abdon LEPE [facility] [id number] [facility] 2018-12-03 12:31:00 2018-12-07 18:07:00 Discharged Inpatient [facility] [id number] [facility] 2018-10-02 22:11:00 2018-10-07 16:30:00 Discharged Inpatient [facility] [id number] [facility] 2018-08-05 14:37:00 2018-08-10 09:00:00 Discharged Inpatient 1 ROSENDO DSOUZA [facility] [id number] [facility] 2018-04-01 13:25:00 2018-04-01 13:25:00 Registered Surgical Day Care [facility] [id number] [facility] 2018-03-31 16:11:00 2018-03-31 19:02:00 Departed Emergency Room 1 ALEXIA PAULA [facility] [id number] [facility] 2018-01-06 20:13:00 2018-01-06 23:26:00 Departed Emergency Room 1 ELIGIO BARRIOS [facility] [id number] [facility] 2017-12-30 12:04:00 2017-12-30 16:15:00 Outpatient [facility] [id number] [facility] 2017-10-07 07:30:00 2017-10-07 07:30:00 Registered Clinic RYAN MARCELINO [facility] [id number] [facility] 2017-07-17 13:03:00 2017-07-20 08:34:00 Discharged Inpatient ER ALEXIA PAULA [facility] [id number] [facility] 2017-07-09 07:58:00 2017-07-09 07:58:00 Registered Clinic RYAN BROWN [facility] [id number] [facility] 2017-06-20 06:03:00 2017-06-20 06:03:00 Registered Surgical Day Care [facility] [id number] [facility] 2017-03-12 05:09:00 2017-03-12 05:09:00 Registered Surgical Day Car CARLOS ENRIQUE Tate [facility] [id number] [facility] 2017-01-22 21:20:00 2017-01-24 15:15:00 Discharged Inpatient [facility] [id number] [facility] Results Test Description Test Time Test Comments Results Result Comments Source CT ABDOMEN/PELVIS W 2019-09-01 19:29:00 [facility] [address] [place] [address] Patient Name: MAIDA IRENE MR #: [id number] : 1965 Age/Sex: 54/F Req #: [id number] Adm Physician: ROSENDO DSOUZA MD Ordered by: ELIGIO BARRIOS MD Report #: [id number] Location: [facility] Room/Bed: [place] [address] Procedure: [id number] CT/CT ABDOMEN/PELVIS W Exam Date: 09/01/19 Exam [...] BARRIOS MD CHEST SINGLE (PORTABLE) 2019-09-01 16:49:00 [facility] [address] [address] Patient Name: MAIDA IRENE MR #: [id number] : 1965 Age/Sex: 54/F Req #: [id number] Adm Physician: Ordered by: ELIGIO BARRIOS MD Report #: [id number] Location: ER Room/Bed: Procedure: [id number] DX/CHEST SINGLE (PORTABLE) Exam Date: 09/01/19 Exam [...] Test Item Bedside Glucose (test code = 29019-1) 166 70-120 H Meter [facility]: [id number]* Test Item Value Reference Range Interpretation Comments Lipase (test code = 3040-3) 13 8-78 [facility] Stkth0876-48-97 22:16:00* Test Item Value Reference Range Interpretation Comments White Blood Count (test code = 6690-2) 6.22 4.8-10.8 [facility] Pehxj8267-49-87 22:16:00* Test Item Value Reference Range Interpretation Comments Red Blood Count (test code = 789-8) 3.98 3.6-5.1 [facility]oglobin2020-04-11 22:16:00* Test Item Value Reference Range Interpretation Comments Hemoglobin (test code = 77240-5) 10.8 12.0-16.0 L [facility] CenterHematocrit2020-04-11 22:16:00* Test Item Value Reference Range Interpretation Comments Hematocrit (test code = 4544-3) 34.2 34.2-44.1 [facility] CenterMean Corpuscular Agmgmi3587-31-68 22:16:00* Test Item Value Reference Range Interpretation Comments Mean Corpuscular Volume (test code = 787-2) 85.9 81-99 [facility] Corpuscular Qwdumqfquk2559-19-12 22:16:00* Test Item Value Reference Range Interpretation Comments Mean Corpuscular Hemoglobin (test code = 785-6) 27.1 28-32 L [facility] Corpuscular Hemoglobin Concent 2019-08-21 22:16:00* Test Item Value Reference Range Interpretation Comments Mean Corpuscular Hemoglobin Concent (test code = 786-4) 31.6 31-35 [facility] Cell Distribution [id number] 22:16:00* Test Item Value Reference Range Interpretation Comments Red Cell Distribution Width (test code = 82202-5) 14.6 11.7 -14.4 H [facility] CenterPlatelet Dtoyf9311-76-41 22:16:00* Test Item Value Reference Range Interpretation Comments Platelet Count (test code = 777-3) 97 140-360 L [facility] CenterNeutrophils (%) (Auto)2019-08-21 22:16:00 * Test Item Value Reference Range Interpretation Comments Neutrophils (%) (Auto) (test code = 11777-5) 51.9 38.7-80.0 [facility] CenterLymphocytes (%) (Auto)2019-08-21 22:16:00 * Test Item Value Reference Range Interpretation Comments Lymphocytes (%) (Auto) (test code = 736-9) 35.2 18.0-39.1 [facility] (%) (Auto)2019-08-21 22:16:00* Test Item Value Reference Range Interpretation Comments Monocytes (%) (Auto) (test code = 5905-5) 7.1 4.4-11.3 [facility]Eosinophils (%) (Auto)2019-08-21 22:16:00 * Test Item Value Reference Range Interpretation Comments Eosinophils (%) (Auto) (test code = 713-8) 4.5 0.0-6.0 [facility] (%) (Auto)2019-08-21 22:16:00* Test Item Value Reference Range Interpretation Comments Basophils (%) (Auto) (test code = 706-2) 1.0 0.0-1.0 [facility] CenterIM GRANULOCYTES %2019-08-21 22:16:00* Test Item Value Reference Range Interpretation Comments IM GRANULOCYTES % (test code = IM GRANULOCYTES %) 0.3 0.0- 1.0 [facility] CenterNeutrophils # (Auto)2019-08-21 22:16:00* Test Item Value Reference Range Interpretation Comments Neutrophils # (Auto) (test code = 751-8) 3.2 2.1-6.9 [facility] CenterLymphocytes # (Auto)2019-08-21 22:16:00* Test Item Value Reference Range Interpretation Comments Lymphocytes # (Auto) (test code = 84204-3) 2.2 1.0-3.2 [facility] # (Auto)2019-08-21 22:16:00* Test Item Value Reference Range Interpretation Comments Monocytes # (Auto) (test code = 742-7) 0.4 0.2-0.8 [facility]Eosinophils # (Auto)2019-08-21 22:16:00* Test Item Value Reference Range Interpretation Comments Eosinophils # (Auto) (test code = 711-2) 0.3 0.0-0.4 [facility]ophils # (Auto)2019-08-21 22:16:00* Test Item Value Reference Range Interpretation Comments Basophils # (Auto) (test code = 704-7) 0.1 0.0-0.1 [facility] CenterAbsolute Immature Granulocyte (auto 2019-08-21 22:16:00* Test Item Value Reference Range Interpretation Comments Absolute Immature Granulocyte (auto (dinesh t code = Absolute Immature Granulocyte (auto) 0.02 0-0.1 [facility] Qkyvi6018-23-00 06:48:00* Test Item Value Reference Range Interpretation Comments Sodium Level (test code = 2951-2) 141 136-145 [facility] CenterPotassium Wccme4742-05-08 06:48:00* Test Item Value Reference Range Interpretation Comments Potassium Level (test code = 2823-3) 3.6 3.5-5.1 [facility] CenterChloride Vmstm6199-24-76 06:48:00* Test Item Value Reference Range Interpretation Comments Chloride Level (test code = 2075-0) 103 98-107 [facility] CenterCarbon Dioxide Arqew7350-24-65 06:48:00* Test Item Value Reference Range Interpretation Comments Carbon Dioxide Level (test code = 2028-9) 31 22-29 H [facility] CenterAnion Gax8809-67-61 06:48:00* Test Item Value Reference Range Interpretation Comments Anion Gap (test code = 11195-0) 10.6 8-16 [facility] CenterBlood Urea Rlqvyubg1561-52-50 06:48:00* Test Item Value Reference Range Interpretation Comments Blood Urea Nitrogen (test code = 3094-0) 7 - [facility] CenterCreatinine2020-04-11 06:48:00* Test Item Value Reference Range Interpretation Comments Creatinine (test code = 2160-0) 0.95 0.57-1.11 [facility] CenterBUN/Creatinine Inpfe3999-54-88 06:48:00* Test Item Value Reference Range Interpretation Comments BUN/Creatinine Ratio (test code = 3097-3) 7 - [facility] CenterEstimat Glomerular Filtration Rate 2019-08-21 06:48:00* Test Item Value Reference Range Interpretation Comments Estimat Glomerular Filtration Rate (test code = 244199628) > 60 >60 Ranges were taken from the National Kidney Disease Education Program and the [facility] [employer] literature.Reference ranges:60 or greater: Okyswu33-09 ( for 3 consecutive months): Chronic kidney disease 15 or less: Kidney failureNorth [facility] Medical CenterGlucose Nasoy5709-81-50 06:48:00* Test Item Value Reference Range Interpretation Comments Glucose Level (test code = YQG5061) 122 74-118 H [facility] CenterCalcium Jwpxz4577-70-29 06:48:00* Test Item Value Reference Range Interpretation Comments Calcium Level (test code = 09946-5) 8.9 8.4-10.2 [facility] CenterTriglycerides Lyluf8204-23-93 06:48:00* Test Item Value Reference Range Interpretation Comments Triglycerides Level (test code = 2571-8) 133 0-149 [facility] CenterCholesterol Sbtsh1300-64-35 06:48:00* Test Item Value Reference Range Interpretation Comments Cholesterol Level (test code = 2093-3) 164 0-199 Less than 200 mg/dL Low Vkah547 - 239 mg/dL Borderline Ncaq013 m g/dl and greater High Risk [facility] CenterLDL Fmfgkkjzwvd3627-05-03 06:48:00* Test Item Value Reference Range Interpretation Comments LDL Cholesterol (test code = 2089-1) 102 60-130 [facility] CenterHDL Xbqgssdpbvk2395-64-12 06:48:00* Test Item Value Reference Range Interpretation Comments HDL Cholesterol (test code = 2085-9) 35 40-60 L [facility] CenterCholesterol/HDL Mfhxp0187-29-77 06:48:00 * Test Item Value Reference Range Interpretation Comments Cholesterol/HDL Ratio (test code = 9830-1) 4.7 3.0-3.6 H [facility] CenterCHEST XRAY LINE LHCZHEAUQ8533-24-89 13:39:00 [facility] [address] [address] Patient Name: MAIDA IRENE MR #: [id number] : 1965 Age/Sex: 54/F Req #: [id number] Adm Physician: ROSENDO DSOUZA MD Ordered by: ROSENDO DSOUZA MD Report #: [id number] Location: [facility] Room/Bed: [facility] Procedure: 040 9-0035 DX/CHEST XRAY LINE PLACEMENT [...] 08/19/19 1341 COPY TO: ROSENDO DSOUZA MD MRI MRCP [id number] 16:36:00 [address] [address] Patient Name: MAIDA IRENE MR #: [id number] : 1965 Age/Sex: 54/F Req #: [id number] Adm Physician: ROSENDO DSOUZA MD Ordered by: RYAN BURROUGHS MD Report #: [id number] Location: MED/SURG2 Room/Bed: [facility] Procedure: 040 8-0002 MRI/MRI MRCP WO Exam [...] PM Dictated By: RALPH ANDRE MD 51 Transcribed By: BACILIO on 08/18/191651 COPY TO: Erika BURROUGHS MD Total Zdsspkcgn0542-18-40 07:20:00* Test Item Value Reference Range Interpretation Comments Total Bilirubin (test code = 1975-2) 0.3 0.2-1.2 [facility] CenterAspartate Amino Transf (AST/SGOT) 2019-08-17 07:20:00* Test Item Value Reference Range Interpretation Comments Aspartate Amino Transf (AST/SGOT) (test code = Aspartate Amino Transf (AST/SGOT)) 32 5-34 [facility] CenterAlanine Aminotransferase (ALT/SGPT) 2019-08-17 07:20:00* Test Item Value Reference Range Interpretation Comments Alanine Aminotransferase (ALT/SGPT) (test code = 1742-6) 30 0-55 [facility] CenterTotal Dcsmelz3908-94-87 07:20:00* Test Item Value Reference Range Interpretation Comments Total Protein (test code = 2885-2) 6.3 6.5-8.1 L [facility] CenterAlbumin2020-04-07 07:20:00* Test Item Value Reference Range Interpretation Comments Albumin (test code = 1751-7) 3.2 3.5-5.0 L [facility] CenterGlobulin2020-04-07 07:20:00* Test Item Value Reference Range Interpretation Comments Globulin (test code = 21467-1) 3.1 2.3-3.5 [facility] CenterAlbumin/Globulin Ppfiv1678-11-64 07:20:00 * Test Item Value Reference Range Interpretation Comments Albumin/Globulin Ratio (test code = 1759-0) 1.0 0.8-2.0 [facility] CenterAlkaline Xlodvqbdwps1699-52-72 07:20:00* Test Item Value Reference Range Interpretation Comments Alkaline Phosphatase (test code = 6768-6) 123 40-150 [facility] CenterDirect Bqssjejnc2373-09-97 01:59:00* Test Item Value Reference Range Interpretation Comments Direct Bilirubin (test code = 50946-8) 0.2 0.0-0.5 [facility] CenterAmylase Wyuvu4556-35-30 01:59:00* Test Item Value Reference Range Interpretation Comments Amylase Level (test code = 1798-8) 78 25-125 [facility] CenterParathyroid Ymhhyjj9237-61-54 07:10:00* Test Item Value Reference Range Interpretation Comments Parathyroid Hormone (test code = 2731-8) 41 15-65 [facility] CenterCalcium (Send out)2019-08-14 07:10:00* Test Item Value Reference Range Interpretation Comments Calcium (Send out) (test code = 57606-6) 8.6 8.7-10.2 L [facility] CenterParathyroid Hormone Interpretation 2019-08-14 07:10:00* Test Item Value Reference Range Interpretation Comments Parathyroid Hormone Interpretation (test code = Parathyroid Hormone Interpretation) Comment . Interpretation Intact PTH Calcium (pg/mL) (mg/dL)Normal 15 - 65 8.6 - 10.2Pr imary Hyperparathyroidism >65 >10.2Secondary Hyperparathyroidism >65 <10.2Non-Parathyroid Hypercalcemia <65 >10.2Hypoparathyroidism <15 < 8.6Non- Parathyroid Hypocalcemia 15 - 65 < 8.6Performed at: - [facility] [id number] Director: Sanya Murillo MD, Phone: [phone] at: - [facility] [id number] Director: Timothy Stein MD, Phone: [phone] Texas Medical CenterB-Type Natriuretic Krcikcz3393-06-93 06:40:00 * Test Item Value Reference Range Interpretation Comments B-Type Natriuretic Peptide (test code = 25963-9) 12.8 0-100 [facility] CenterMagnesium Wxdjw4451-39-07 06:38:00* Test Item Value Reference Range Interpretation Comments Magnesium Level (test code = 21075-6) 1.7 1.3-2.1 [facility] CenterUrine Random Total Onaqbkv2522-45-40 18:48:00* Test Item Value Reference Range Interpretation Comments Urine Random Total Protein (test code = 2888-6) 7.0 1-14 [facility] CenterUrine Nsihzkahiy9087-94-72 18:48:00* Test Item Value Reference Range Interpretation Comments Urine Creatinine (test code = 2161-8) 51.02 47-110 [facility] CenterUrine Protein/Creatinine Cnbot5766-88-47 18:48:00* Test Item Value Reference Range Interpretation Comments Urine Protein/Creatinine Ratio (test code = 00681-2) 0.00 [facility] CenterUrine PRS2888-85-80 18:34:00* Test Item Value Reference Range Interpretation Comments Urine WBC (test code = 5821-4) 6-10 0-5 H [facility] CenterUrine BBK9008-77-93 18:34:00* Test Item Value Reference Range Interpretation Comments Urine RBC (test code = 00286-6) 0-5 0-5 [facility] CenterUrine Tghzjnrl1257-28-92 18:34:00* Test Item Value Reference Range Interpretation Comments Urine Bacteria (test code = 33128-9) MODERATE NONE H [facility] CenterUrine Epithelial Gpbks3325-53-42 18:34:00 * Test Item Value Reference Range Interpretation Comments Urine Epithelial Cells (test code = 14967-9) MANY NONE [facility] CenterUrine Transitional Epithelial Cells 2019-08-13 18:34:00* Test Item Value Reference Range Interpretation Comments Urine Transitional Epithelial Cells (test code = 8249-5) MODERATE NONE H [facility] CenterUrine Renal Epithelial Lefhw0061-60-53 18:34:00* Test Item Value Reference Range Interpretation Comments Urine Renal Epithelial Cells (test code = 96973-3) FEW NON E H [facility] CenterUrine Vuged3362-22-37 18:19:00* Test Item Value Reference Range Interpretation Comments Urine Color (test code = 5778-6) YELLOW YELLOW [facility] CenterUrine Hzauzto7798-06-60 18:19:00* Test Item Value Reference Range Interpretation Comments Urine Clarity (test code = 92326-8) SL CLOUDY CLEAR [facility] CenterUrine Specific Oztgqvi1364-19-77 18:19:00 * Test Item Value Reference Range Interpretation Comments Urine Specific [place] (test code = 5811-5) 1.015 1.010-1.02 5 [facility] CenterUrine eL3350-21-61 18:19:00* Test Item Value Reference Range Interpretation Comments Urine pH (test code = 89065-9) 5.5 5-7 [facility] CenterUrine Leukocyte Dpdozbjw2437-35-62 18:19:00* Test Item Value Reference Range Interpretation Comments Urine Leukocyte Esterase (test code = 5799-2) SMALL NEGATIVE [facility] CenterUrine Rtilljx9931-61-67 18:19:00* Test Item Value Reference Range Interpretation Comments Urine Nitrite (test code = 11910-6) NEGATIVE NEGATIVE [facility] CenterUrine Fzapxfk1531-10-93 18:19:00* Test Item Value Reference Range Interpretation Comments Urine Protein (test code = 5804-0) NEGATIVE NEGATIVE [facility] CenterUrine Glucose (UA)2019-08-13 18:19:00* Test Item Value Reference Range Interpretation Comments Urine Glucose (UA) (test code = 2349-9) NEGATIVE NEGATIVE [facility] CenterUrine Xhytslb8730-66-64 18:19:00* Test Item Value Reference Range Interpretation Comments Urine Ketones (test code = 79965-3) NEGATIVE NEGATIVE [facility] CenterUrine Bwpcjhjeargf1795-60-57 18:19:00* Test Item Value Reference Range Interpretation Comments Urine Urobilinogen (test code = 77883-6) 0.2 0.2-1 [facility] CenterUrine Ywpmkhayi4416-41-78 18:19:00* Test Item Value Reference Range Interpretation Comments Urine Bilirubin (test code = 1978-6) NEGATIVE NEGATIVE [facility] CenterUrine Esauw8348-08-27 18:19:00* Test Item Value Reference Range Interpretation Comments Urine Blood (test code = 68430-9) TRACE NEGATIVE H [facility] CenterClostridium Difficile Toxin A & B 2019-08-13 15:21:00* Test Item Value Reference Range Interpretation Comments Clostridium Difficile Toxin A & B (test code = 685921985) POSI TIVE NEGATIVE H Results called to HECTOR ROBBINS at 1519 on 08/13/19 by Alejandrina Soto. RB OK.Resu lts PRINTed to BETH CHARLES in infection control at 1519 on 08/13/19 by Alejandrina araujo.Testing on stool aspirate specimens is outside nurse tech claims since s pecimen type not validated on this assay.[facility] US RENAL RETROPERITONEAL VOGU0302-99-33 15:08:00 [address] [address] Patient Name: MAIDA IRENE MR #: [id number] : 1965 Age/Sex: 54/F Req #: [id number] Adm Physician: ROSENDO DSOUZA MD Ordered by: ANTONINA BAKER, LORA BAKER Report #: [id number] Location: MED/SURG Room/Bed: [facility] Procedure: US/US RENAL RETROPERITONEAL COMP Exam Date: 08/13/19 Exam Time: 1425 REPORT STAT US: Signed EXAM: Renal Ultrasound INDICATION: génesis [id number] COMPARISON: None TECHNIQUE: Transverse and longitudinal [...] By: BACILIO on 08/13/19 1509 COPY TO: LORA SARKAR Stool Lactoferrin (LAB)2019-08-13 08:29:00* Test Item Value Reference Range Interpretation Comments Stool Lactoferrin (LAB) (test code = 08763-4) POSITIVE NEGATIVE H Testing on stool aspirate specimens is outside nurse tech claims since specime n type not validated on this assay.[facility] Phosphorus Rldxo8495-55-80 07:07:00* Test Item Value Reference Range Interpretation Comments Phosphorus Level (test code = NYJ1190) 3.3 2.3-4.7 [facility] CenterCreatine Kinase CJ9471-98-00 06:37:00* Test Item Value Reference Range Interpretation Comments Creatine Kinase MB (test code = 75248-1) 1.60 0-5.0 [facility] CenterTroponin G5521-57-98 06:37:00* Test Item Value Reference Range Interpretation Comments Troponin I (test code = 08581-2) 0.007 0-0.300 [facility] CenterCreatine Crogbp9480-77-30 06:30:00* Test Item Value Reference Range Interpretation Comments Creatine Kinase (test code = 2157-6) 27 29-168 L [facility] CenterThyroid Stimulating Hormone (TSH) 2019-08-12 17:23:00* Test Item Value Reference Range Interpretation Comments Thyroid Stimulating Hormone (TSH) (test code = 59934-9) 0.908 0.350-4.940 [facility] CenterHemoglobin A1c Sfdblxh4039-65-51 17:03:00 * Test Item Value Reference Range Interpretation Comments Hemoglobin A1c Percent (test code = Hemoglobin A1c Percent) 10.7 4.0-7.0 H [facility] CenterCT ABDOMEN/PELVIS RM9297-48-34 14:41:00 [facility] [address] [address] Patient Name: MAIDA IRENE MR #: [id number] : 1 05/29/1964 Age/Sex: 54/F Req #: [id number] Adm Physician: Ordered by: RUTHY ADAN OFFICE 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 Report #: [id number] Location: ER Room/Bed: Procedure: 0402 -0009 CT/CT [...] 2 PM Dictated By: DOMENICO LUA MD 145 Transcribed By: BACILIO on 08/12/19 1452 COPY TO: RUTHY ADAN NP Urine Amorphous Zeemtlcw3539-44-72 14:06:00* Test Item Value Reference Range Interpretation Comments Urine Amorphous Sediment (test code = 8246-1) MODERATE FEW H [facility]Bed[facility] Jlghclr6027-06-65 13:25:00* Test Item Value Reference Range Interpretation Comments Bedside Glucose (test code = 01304-8) 300 70-120 H Meter ID: [id number] [facility] CenterCT ABDOMEN/PELVIS W 2019-05-07 12:08:00 [facility] [address] [address] Patient Name: MAIDA IRENE MR #: [id number] : 1965 Age/Sex: 54/F Req #: [id number] Adm Physician: Ordered by: JASSON NIEVES DO Report #: [id number] Location: ER Room/Bed: Procedure: 122 7-0008 CT/CT [...] REDUCTION: The examination was performed according to [facility] dose-optimization program which includes automated exposure control, [...] onically Signed By: BYRON COOK MD on 05/07/19 1219 Transcribed By: ALBERT Bejarano on 05/07/199 COPY TO: JASSON NIEVES DO Human Chorionic Gonadotropin, Tacgq8699-11-50 10:57:00* Test Item Value Reference Range Interpretation Comments Human Chorionic Gonadotropin, Quant (test code = 06161-1) 9.05 0-10 [facility] CenterHuman Chorionic Gonadotropin, Quant 2019-05-07 10:57:00* Test Item Value Reference Range Interpretation Comments Human Chorionic Gonadotropin, Quant (test code = 68837-9) 9.05 0-10 [facility] CenterLipase2019-12-27 10:35:00* Test Item Value Reference Range Interpretation Comments Lipase (test code = 3040-3) 72 8-78 [facility] CenterUrine UFV7447-74-35 10:15:00* Test Item Value Reference Range Interpretation Comments Urine WBC (test code = 5821-4) 11-20 0-5 H [facility] CenterUrine EIV6198-30-00 10:15:00* Test Item Value Reference Range Interpretation Comments Urine RBC (test code = 02557-9) 6-10 0-5 H [facility] CenterUrine Vdrtknnf0322-20-13 10:15:00* Test Item Value Reference Range Interpretation Comments Urine Bacteria (test code = 16568-7) MANY NONE H [facility] CenterUrine Epithelial Ceotm8130-92-12 10:15:00 * Test Item Value Reference Range Interpretation Comments Urine Epithelial Cells (test code = 93223-8) MANY NONE [facility] CenterUrine Amorphous Ykpgheko3342-37-82 10:15:00* Test Item Value Reference Range Interpretation Comments Urine Amorphous Sediment (test code = 8246-1) FEW FEW [facility] Ch[facility], Qual 2019-05-07 10:09:00* Test Item Value Reference Range Interpretation Comments Human Chorionic Gonadotropin, Qual (test code = 2118-8) POSITIVE NEGATIVE [facility] Chorionic Gonadotropin, Qual 2019-05-07 10:09:00* Test Item Value Reference Range Interpretation Comments Human Chorionic Gonadotropin, Qual (test code = 2118-8) POSITIVE NEGATIVE [facility] CenterUrine Otgeg1715-94-84 10:04:00* Test Item Value Reference Range Interpretation Comments Urine Color (test code = 5778-6) YELLOW YELLOW [facility] CenterUrine Ddoinfa8619-18-84 10:04:00* Test Item Value Reference Range Interpretation Comments Urine Clarity (test code = 78347-1) SL CLOUDY CLEAR [facility] CenterUrine Specific Hjhqcam5895-30-93 10:04:00 * Test Item Value Reference Range Interpretation Comments Urine Specific [place] (test code = 5811-5) >=1.030 1.010-1.02 5 [facility] CenterUrine oY5192-29-00 10:04:00* Test Item Value Reference Range Interpretation Comments Urine pH (test code = 42338-1) 5.5 5-7 [facility] CenterUrine Leukocyte Hawdmmxi4530-23-21 10:04:00* Test Item Value Reference Range Interpretation Comments Urine Leukocyte Esterase (test code = 37652-4) TRACE NEGATIV E H [facility] CenterUrine Ghoswgc8881-13-12 10:04:00* Test Item Value Reference Range Interpretation Comments Urine Nitrite (test code = 22400-7) NEGATIVE NEGATIVE [facility] CenterUrine Eqcfdxv6505-27-32 10:04:00* Test Item Value Reference Range Interpretation Comments Urine Protein (test code = 92672-2) 1+ NEGATIVE H [facility] CenterUrine Glucose (UA)2019-05-07 10:04:00* Test Item Value Reference Range Interpretation Comments Urine Glucose (UA) (test code = 56036-0) 3+ NEGATIVE [facility] CenterUrine Rrboesu6715-94-05 10:04:00* Test Item Value Reference Range Interpretation Comments Urine Ketones (test code = 49420-3) 1+ NEGATIVE H [facility] CenterUrine Mnpezqcvocmh4468-07-27 10:04:00* Test Item Value Reference Range Interpretation Comments Urine Urobilinogen (test code = 80348-3) 0.2 0.2-1 [facility] CenterUrine Pnnakfadr4525-58-23 10:04:00* Test Item Value Reference Range Interpretation Comments Urine Bilirubin (test code = 1977-8) MODERATE NEGATIVE [facility] CenterUrine Uvsjc7268-22-59 10:04:00* Test Item Value Reference Range Interpretation Comments Urine Blood (test code = 92416-9) NEGATIVE NEGATIVE [facility] CenterCreatine Kinase SA9168-60-93 10:01:00* Test Item Value Reference Range Interpretation Comments Creatine Kinase MB (test code = 06539-0) 1.60 0-5.0 [facility] CenterTroponin W1588-20-51 10:01:00* Test Item Value Reference Range Interpretation Comments Troponin I (test code = HYS0007) < 0.001 0-0.300 [facility]odium Ouyvy6814-68-51 09:58:00* Test Item Value Reference Range Interpretation Comments Sodium Level (test code = 2951-2) 138 136-145 [facility] CenterPotassium Eqffr8030-27-37 09:58:00* Test Item Value Reference Range Interpretation Comments Potassium Level (test code = 2823-3) 4.6 3.5-5.1 [facility] CenterChloride Fhall6347-39-75 09:58:00* Test Item Value Reference Range Interpretation Comments Chloride Level (test code = 2075-0) 97 98-107 L [facility] CenterCarbon Dioxide Kozfa2967-10-06 09:58:00* Test Item Value Reference Range Interpretation Comments Carbon Dioxide Level (test code = 2028-9) 25 22-29 [facility] CenterAnion Ndq6067-11-29 09:58:00* Test Item Value Reference Range Interpretation Comments Anion Gap (test code = 81626-8) 20.6 8-16 H [facility] CenterBlood Urea Xdhthkgt7866-58-64 09:58:00* Test Item Value Reference Range Interpretation Comments Blood Urea Nitrogen (test code = 3094-0) 20 7-26 [facility] CenterCreatinine2019-12-27 09:58:00* Test Item Value Reference Range Interpretation Comments Creatinine (test code = 2160-0) 1.92 0.57-1.11 H [facility] CenterBUN/Creatinine Bpsdm5304-80-46 09:58:00* Test Item Value Reference Range Interpretation Comments BUN/Creatinine Ratio (test code = 3097-3) 10 6-25 [facility] CenterEstimat Glomerular Filtration Rate 2019-05-07 09:58:00* Test Item Value Reference Range Interpretation Comments Estimat Glomerular Filtration Rate (test code = 264741865) 27 >60 L Ranges were taken from the National Kidney Disease Education Program and the [facility] Foundation literature.Reference ranges:60 or greater: Yndakp00-87 ( for 3 consecutive months): Chronic kidney disease 15 or less: Kidney failureNorth [facility] Medical CenterGlucose Vtegi1707-76-42 09:58:00* Test Item Value Reference Range Interpretation Comments Glucose Level (test code = RGI1458) 314 74-118 H [facility] CenterCalcium Pormo8090-70-94 09:58:00* Test Item Value Reference Range Interpretation Comments Calcium Level (test code = 16437-3) 10.8 8.4-10.2 H [facility] CenterTotal Olfcyoarw9916-85-87 09:58:00* Test Item Value Reference Range Interpretation Comments Total Bilirubin (test code = 1975-2) 0.7 0.2-1.2 [facility] CenterAspartate Amino Transf (AST/SGOT) 2019-05-07 09:58:00* Test Item Value Reference Range Interpretation Comments Aspartate Amino Transf (AST/SGOT) (test code = Aspartate Amino Transf (AST/SGOT)) 21 5-34 [facility] CenterAlanine Aminotransferase (ALT/SGPT) 2019-05-07 09:58:00* Test Item Value Reference Range Interpretation Comments Alanine Aminotransferase (ALT/SGPT) (test code = 1742-6) 20 0-55 [facility] CenterTotal Zzdbncz0614-07-67 09:58:00* Test Item Value Reference Range Interpretation Comments Total Protein (test code = 2885-2) 8.4 6.5-8.1 H [facility] CenterAlbumin2019-12-27 09:58:00* Test Item Value Reference Range Interpretation Comments Albumin (test code = 1751-7) 4.0 3.5-5.0 [facility] CenterGlobulin2019-12-27 09:58:00* Test Item Value Reference Range Interpretation Comments Globulin (test code = 58663-2) 4.4 2.3-3.5 H [facility] CenterAlbumin/Globulin Iqtnx6025-54-39 09:58:00 * Test Item Value Reference Range Interpretation Comments Albumin/Globulin Ratio (test code = 1759-0) 0.9 0.8-2.0 [facility] CenterAlkaline Vljrwwktbiz8537-37-40 09:58:00* Test Item Value Reference Range Interpretation Comments Alkaline Phosphatase (test code = 6768-6) 133 40-150 [facility] CenterCreatine Yoazvf3668-77-12 09:58:00* Test Item Value Reference Range Interpretation Comments Creatine Kinase (test code = 2157-6) 29 29-168 [facility] CenterWhite Blood Tfhiw5189-09-59 09:47:00* Test Item Value Reference Range Interpretation Comments White Blood Count (test code = 6690-2) 10.58 4.8-10.8 [facility] CenterRed Blood Wuwrl7362-41-40 09:47:00* Test Item Value Reference Range Interpretation Comments Red Blood Count (test code = 789-8) 5.44 3.6-5.1 H [facility] CenterHemoglobin2019-12-27 09:47:00* Test Item Value Reference Range Interpretation Comments Hemoglobin (test code = 85899-0) 14.8 12.0-16.0 [facility] CenterHematocrit2019-12-27 09:47:00* Test Item Value Reference Range Interpretation Comments Hematocrit (test code = 4544-3) 45.2 34.2-44.1 H [facility] CenterMean Corpuscular Aaizfd4925-35-18 09:47:00* Test Item Value Reference Range Interpretation Comments Mean Corpuscular Volume (test code = 787-2) 83.1 81-99 [facility] CenterMean Corpuscular Lwlgoyovgv3281-91-83 09:47:00* Test Item Value Reference Range Interpretation Comments Mean Corpuscular Hemoglobin (test code = 785-6) 27.2 28-32 L [facility] CenterMean Corpuscular Hemoglobin Concent 2019-05-07 09:47:00* Test Item Value Reference Range Interpretation Comments Mean Corpuscular Hemoglobin Concent (test code = 786-4) 32.7 31-35 [facility] CenterRed Cell Distribution Qfmal8965-22-91 09:47:00* Test Item Value Reference Range Interpretation Comments Red Cell Distribution Width (test code = 73096-4) 15.3 11.7 -14.4 H [facility] CenterPlatelet Sbtyy0334-07-00 09:47:00* Test Item Value Reference Range Interpretation Comments Platelet Count (test code = 777-3) 222 140-360 [facility] CenterNeutrophils (%) (Auto)2019-05-07 09:47:00 * Test Item Value Reference Range Interpretation Comments Neutrophils (%) (Auto) (test code = 21389-8) 58.8 38.7-80.0 [facility] CenterLymphocytes (%) (Auto)2019-05-07 09:47:00 * Test Item Value Reference Range Interpretation Comments Lymphocytes (%) (Auto) (test code = 736-9) 33.1 18.0-39.1 [facility] CenterMonocytes (%) (Auto)2019-05-07 09:47:00* Test Item Value Reference Range Interpretation Comments Monocytes (%) (Auto) (test code = 5905-5) 4.9 4.4-11.3 [facility] CenterEosinophils (%) (Auto)2019-05-07 09:47:00 * Test Item Value Reference Range Interpretation Comments Eosinophils (%) (Auto) (test code = 713-8) 1.6 0.0-6.0 [facility] CenterBasophils (%) (Auto)2019-05-07 09:47:00* Test Item Value Reference Range Interpretation Comments Basophils (%) (Auto) (test code = 706-2) 0.9 0.0-1.0 [facility] CenterIM GRANULOCYTES %2019-05-07 09:47:00* Test Item Value Reference Range Interpretation Comments IM GRANULOCYTES % (test code = IM GRANULOCYTES %) 0.7 0.0- 1.0 [facility] CenterNeutrophils # (Auto)2019-05-07 09:47:00* Test Item Value Reference Range Interpretation Comments Neutrophils # (Auto) (test code = 751-8) 6.2 2.1-6.9 [facility] CenterLymphocytes # (Auto)2019-05-07 09:47:00* Test Item Value Reference Range Interpretation Comments Lymphocytes # (Auto) (test code = 38987-3) 3.5 1.0-3.2 H [facility] CenterMonocytes # (Auto)2019-05-07 09:47:00* Test Item Value Reference Range Interpretation Comments Monocytes # (Auto) (test code = 742-7) 0.5 0.2-0.8 [facility] CenterEosinophils # (Auto)2019-05-07 09:47:00* Test Item Value Reference Range Interpretation Comments Eosinophils # (Auto) (test code = 711-2) 0.2 0.0-0.4 [facility] CenterBasophils # (Auto)2019-05-07 09:47:00* Test Item Value Reference Range Interpretation Comments Basophils # (Auto) (test code = 704-7) 0.1 0.0-0.1 [facility] CenterAbsolute Immature Granulocyte (auto 2019-05-07 09:47:00* Test Item Value Reference Range Interpretation Comments Absolute Immature Granulocyte (auto (dinesh t code = Absolute Immature Granulocyte (auto) 0.07 0-0.1 [facility] CenterABDOMEN ACUTE SERIES W/PA TAT4866-67-76 09:40:00 [place] [address] Patient Name: MAIDA IRENE MR #: [id number] : 1965 Age/Sex: 54/F Req #: [id number] Adm Physician: Ordered by: JASSON NIEVES DO Report #: [id number] Location: ER Room/Bed: Procedure: 122 7-0018 DX/ABDOMEN [...] 9:43 AM Dictated By: BYRON RODRIGUEZ MD 2 Transcrib ed By: BACILIO on 05/07/19942 COPY TO: JASSON NIEVES DO MRI FOOT RIGHT [id number] 14:07:00 [place] [address] Patient Name: MAIDA IRENE MR #: [id number] : 1965 Age/Sex: 53/F Req #: [id number] Adm Physician: Ordered by: Abdon LEPE DPM Report #: [id number] Location: MRI Room/Bed: Procedure: 1001 -0010 MRI/MRI [...] MD 1414 Transcribed By: BACILIO on 02/09/19 1414 COPY TO: Abdon LEPE DPM Bedside Utudddx0702-08-67 15:03:00* Test Item Value Reference Range Interpretation Comments Bedside Glucose (test code = 26761-6) 202 70-120 H Meter ID: [id number] [facility] CenterVancomycin Level Fwzeyh0049-87-35 14:35:00* Test Item Value Reference Range Interpretation Comments Vancomycin Level Trough (test code = 4092-3) 12.8 5.0-10.0 HH Results repeated and called to LIANNA ORELLANA at 1434 on 12/07/18 by RORY CANTU Read back and verified.[facility] CenterVancomycin Level Bzeavy8831-84-99 14:35:00* Test Item Value Reference Range Interpretation Comments Vancomycin Level Trough (test code = 4092-3) 12.8 5.0-10.0 HH Results repeated and called to LIANNA ORELLANA at 1434 on 12/07/18 by RORY DE GUZMAN ER. Read back and verified.[facility] CenterVancomycin Level Czbtej4287-03-90 14:35:00* Test Item Value Reference Range Interpretation Comments Vancomycin Level Trough (test code = 4092-3) 12.8 5.0-10.0 Results repeated and called to LIANNA ORELLANA at 1434 on 12/07/18 by RORY DE GUZMAN ER. Read back and verified.[facility]odium [facility] 2018-12-07 05:35:00* Test Item Value Reference Range Interpretation Comments Sodium Level (test code = 2951-2) 137 136-145 [facility] CenterPotassium Jmnlh6180-14-37 05:35:00* Test Item Value Reference Range Interpretation Comments Potassium Level (test code = 2823-3) 3.5 3.5-5.1 [facility] CenterChloride Sduvv2400-84-16 05:35:00* Test Item Value Reference Range Interpretation Comments Chloride Level (test code = 2075-0) 101 98-107 [facility] CenterCarbon Dioxide Fgzld8835-05-41 05:35:00* Test Item Value Reference Range Interpretation Comments Carbon Dioxide Level (test code = 2028-9) [facility] CenterAnion Nla7196-30-16 05:35:00* Test Item Value Reference Range Interpretation Comments Anion Gap (test code = 10414-3) 13.5 8-16 [facility] CenterBlood Urea Dgckonwn0096-73-93 05:35:00* Test Item Value Reference Range Interpretation Comments Blood Urea Nitrogen (test code = 3094-0) 10 7-26 [facility] CenterCreatinine2019-07-29 05:35:00* Test Item Value Reference Range Interpretation Comments Creatinine (test code = 2160-0) 0.78 0.57-1.11 [facility] CenterBUN/Creatinine Mfxzy0852-38-72 05:35:00* Test Item Value Reference Range Interpretation Comments BUN/Creatinine Ratio (test code = 3097-3) 13 6-25 [facility] CenterEstimat Glomerular Filtration Rate 2018-12-07 05:35:00* Test Item Value Reference Range Interpretation Comments Estimat Glomerular Filtration Rate (test code = 540574711) > 60 >60 Ranges were taken from the National Kidney Disease Education Program and the [facility] literature.Reference ranges:60 or greater: Kqmsti21-96 ( for 3 consecutive months): Chronic kidney disease 15 or less: Kidney failureNorth [facility] Medical CenterGlucose Vexau4417-50-00 05:35:00* Test Item Value Reference Range Interpretation Comments Glucose Level (test code = QPW4997) 187 74-118 H [facility] CenterCalcium Mpcay6444-27-44 05:35:00* Test Item Value Reference Range Interpretation Comments Calcium Level (test code = 85057-3) 9.4 8.4-10.2 [facility] CenterWhite Blood Ihhof4875-01-48 05:16:00* Test Item Value Reference Range Interpretation Comments White Blood Count (test code = 6690-2) 8.18 4.8-10.8 [facility] CenterRed Blood Gnxow1207-68-28 05:16:00* Test Item Value Reference Range Interpretation Comments Red Blood Count (test code = 789-8) 4.40 3.6-5.1 [facility] CenterHemoglobin2019-07-29 05:16:00* Test Item Value Reference Range Interpretation Comments Hemoglobin (test code = 58126-2) 12.3 12.0-16.0 [facility] CenterHematocrit2019-07-29 05:16:00* Test Item Value Reference Range Interpretation Comments Hematocrit (test code = 4544-3) 38.2 34.2-44.1 [facility] CenterMean Corpuscular Cfadrr1037-64-16 05:16:00* Test Item Value Reference Range Interpretation Comments Mean Corpuscular Volume (test code = 787-2) 86.8 81-99 [facility] CenterMean Corpuscular Zyfpzadqke3159-48-43 05:16:00* Test Item Value Reference Range Interpretation Comments Mean Corpuscular Hemoglobin (test code = 785-6) 28.0 28-32 [facility] CenterMean Corpuscular Hemoglobin Concent 2018-12-07 05:16:00* Test Item Value Reference Range Interpretation Comments Mean Corpuscular Hemoglobin Concent (test code = 786-4) 32.2 31-35 [facility] CenterRed Cell Distribution Yizrr5290-07-11 05:16:00* Test Item Value Reference Range Interpretation Comments Red Cell Distribution Width (test code = 54333-1) 13.9 11.7 -14.4 [facility] CenterPlatelet Ljucv3568-00-49 05:16:00* Test Item Value Reference Range Interpretation Comments Platelet Count (test code = 777-3) 165 140-360 [facility] CenterNeutrophils (%) (Auto)2018-12-07 05:16:00 * Test Item Value Reference Range Interpretation Comments Neutrophils (%) (Auto) (test code = 79047-9) 48.4 38.7-80.0 [facility] CenterLymphocytes (%) (Auto)2018-12-07 05:16:00 * Test Item Value Reference Range Interpretation Comments Lymphocytes (%) (Auto) (test code = 736-9) 40.3 18.0-39.1 H [facility] CenterMonocytes (%) (Auto)2018-12-07 05:16:00* Test Item Value Reference Range Interpretation Comments Monocytes (%) (Auto) (test code = 5905-5) 6.7 4.4-11.3 [facility] CenterEosinophils (%) (Auto)2018-12-07 05:16:00 * Test Item Value Reference Range Interpretation Comments Eosinophils (%) (Auto) (test code = 713-8) 3.2 0.0-6.0 [facility] CenterBasophils (%) (Auto)2018-12-07 05:16:00* Test Item Value Reference Range Interpretation Comments Basophils (%) (Auto) (test code = 706-2) 0.7 0.0-1.0 [facility] CenterIM GRANULOCYTES %2018-12-07 05:16:00* Test Item Value Reference Range Interpretation Comments IM GRANULOCYTES % (test code = IM GRANULOCYTES %) 0.7 0.0- 1.0 [facility] CenterNeutrophils # (Auto)2018-12-07 05:16:00* Test Item Value Reference Range Interpretation Comments Neutrophils # (Auto) (test code = 751-8) 4.0 2.1-6.9 [facility] CenterLymphocytes # (Auto)2018-12-07 05:16:00* Test Item Value Reference Range Interpretation Comments Lymphocytes # (Auto) (test code = 91866-6) 3.3 1.0-3.2 H [facility] CenterMonocytes # (Auto)2018-12-07 05:16:00* Test Item Value Reference Range Interpretation Comments Monocytes # (Auto) (test code = 742-7) 0.6 0.2-0.8 [facility] CenterEosinophils # (Auto)2018-12-07 05:16:00* Test Item Value Reference Range Interpretation Comments Eosinophils # (Auto) (test code = 711-2) 0.3 0.0-0.4 [facility] CenterBasophils # (Auto)2018-12-07 05:16:00* Test Item Value Reference Range Interpretation Comments Basophils # (Auto) (test code = 704-7) 0.1 0.0-0.1 [facility] CenterAbsolute Immature Granulocyte (auto 2018-12-07 05:16:00* Test Item Value Reference Range Interpretation Comments Absolute Immature Granulocyte (auto (dinesh t code = Absolute Immature Granulocyte (auto) 0.06 0-0.1 [facility] CenterBedside Lzksptj9403-41-00 15:40:00* Test Item Value Reference Range Interpretation Comments Bedside Glucose (test code = 47743-3) 108 70-120 Meter ID: [id number] Regional Medical CenterVancomycin Level Obrvyc7031-95-18 09:12:00* Test Item Value Reference Range Interpretation Comments Vancomycin Level Trough (test code = 4092-3) 11.3 5.0-10.0 HH Results repeated and called to AIME BARR at 0912 on 10/07/18 by Ivana graham Read back and verified.[facility] Hospitalodium Level 2018-10-03 06:48:00* Test Item Value Reference Range Interpretation Comments Sodium Level (test code = 2951-2) 136 136-145 [facility] CenterPotassium Thmdr0378-11-60 06:48:00* Test Item Value Reference Range Interpretation Comments Potassium Level (test code = 2823-3) 3.7 3.5-5.1 [facility] CenterChloride Qvayp4417-31-36 06:48:00* Test Item Value Reference Range Interpretation Comments Chloride Level (test code = 2075-0) 101 98-107 [facility] CenterCarbon Dioxide Wyzhd5317-38-23 06:48:00* Test Item Value Reference Range Interpretation Comments Carbon Dioxide Level (test code = 2028-9) 26 22- [facility] CenterAnion Gdg2137-36-41 06:48:00* Test Item Value Reference Range Interpretation Comments Anion Gap (test code = 22621-9) 12.7 8-16 [facility] CenterBlood Urea Utgfhflw3687-17-59 06:48:00* Test Item Value Reference Range Interpretation Comments Blood Urea Nitrogen (test code = 3094-0) 7 7-26 [facility] CenterCreatinine2019-05-25 06:48:00* Test Item Value Reference Range Interpretation Comments Creatinine (test code = 2160-0) 0.77 0.57-1.11 [facility] CenterBUN/Creatinine Eoqyb3724-43-71 06:48:00* Test Item Value Reference Range Interpretation Comments BUN/Creatinine Ratio (test code = 3097-3) 9 6- [facility] CenterEstimat Glomerular Filtration Rate 2018-10-03 06:48:00* Test Item Value Reference Range Interpretation Comments Estimat Glomerular Filtration Rate (test code = 223367585) > 60 >60 Ranges were taken from the National Kidney Disease Education Program and the [facility] literature.Reference ranges:60 or greater: Ktuvnm97-61 ( for 3 consecutive months): Chronic kidney disease 15 or less: Kidney failureNorth [facility] Medical CenterGlucose Rsaxk1440-67-30 06:48:00* Test Item Value Reference Range Interpretation Comments Glucose Level (test code = NLF3602) 266 74-118 H [facility] CenterCalcium Qtzgx6005-50-48 06:48:00* Test Item Value Reference Range Interpretation Comments Calcium Level (test code = 05951-6) 9.1 8.4-10.2 [facility] CenterTotal Ljsvhvara1500-93-01 06:48:00* Test Item Value Reference Range Interpretation Comments Total Bilirubin (test code = 1975-2) 0.8 0.2-1.2 [facility] CenterAspartate Amino Transf (AST/SGOT) 2018-10-03 06:48:00* Test Item Value Reference Range Interpretation Comments Aspartate Amino Transf (AST/SGOT) (test code = Aspartate Amino Transf (AST/SGOT)) 19 5-34 [facility] CenterAlanine Aminotransferase (ALT/SGPT) 2018-10-03 06:48:00* Test Item Value Reference Range Interpretation Comments Alanine Aminotransferase (ALT/SGPT) (test code = 1742-6) 26 0-55 [facility] CenterTotal Kugqxjl5475-78-56 06:48:00* Test Item Value Reference Range Interpretation Comments Total Protein (test code = 2885-2) 6.7 6.5-8.1 [facility] CenterAlbumin2019-05-25 06:48:00* Test Item Value Reference Range Interpretation Comments Albumin (test code = 1751-7) 3.1 3.5-5.0 L [facility] CenterGlobulin2019-05-25 06:48:00* Test Item Value Reference Range Interpretation Comments Globulin (test code = 32305-1) 3.6 2.3-3.5 H [facility] CenterAlbumin/Globulin Pwifs4678-55-02 06:48:00 * Test Item Value Reference Range Interpretation Comments Albumin/Globulin Ratio (test code = 1759-0) 0.9 0.8-2.0 [facility] CenterAlkaline Zyqjhlmaprw1898-62-41 06:48:00* Test Item Value Reference Range Interpretation Comments Alkaline Phosphatase (test code = 6768-6) 132 40-150 [facility] CenterTotal Hizmhgyqg7776-58-78 06:48:00* Test Item Value Reference Range Interpretation Comments Total Bilirubin (test code = 1975-2) 0.8 0.2-1.2 [facility] CenterAspartate Amino Transf (AST/SGOT) 2018-10-03 06:48:00* Test Item Value Reference Range Interpretation Comments Aspartate Amino Transf (AST/SGOT) (test code = Aspartate Amino Transf (AST/SGOT)) 19 5-34 [facility] CenterAlanine Aminotransferase (ALT/SGPT) 2018-10-03 06:48:00* Test Item Value Reference Range Interpretation Comments Alanine Aminotransferase (ALT/SGPT) (test code = 1742-6) 26 0-55 [facility] CenterTotal Hvypjwb9479-38-66 06:48:00* Test Item Value Reference Range Interpretation Comments Total Protein (test code = 2885-2) 6.7 6.5-8.1 [facility] CenterAlbumin2019-05-25 06:48:00* Test Item Value Reference Range Interpretation Comments Albumin (test code = 1751-7) 3.1 3.5-5.0 L [facility] CenterGlobulin2019-05-25 06:48:00* Test Item Value Reference Range Interpretation Comments Globulin (test code = 46860-8) 3.6 2.3-3.5 H [facility] CenterAlbumin/Globulin Ostrk9328-28-24 06:48:00 * Test Item Value Reference Range Interpretation Comments Albumin/Globulin Ratio (test code = 1759-0) 0.9 0.8-2.0 [facility] CenterAlkaline Cbivlsycqdc5978-83-27 06:48:00* Test Item Value Reference Range Interpretation Comments Alkaline Phosphatase (test code = 6768-6) 132 40-150 [facility] CenterWhite Blood Dhlol6850-37-82 06:25:00* Test Item Value Reference Range Interpretation Comments White Blood Count (test code = 6690-2) 8.04 4.8-10.8 [facility] CenterRed Blood Tpbqi0321-83-37 06:25:00* Test Item Value Reference Range Interpretation Comments Red Blood Count (test code = 789-8) 4.63 3.6-5.1 [facility] CenterHemoglobin2019-05-25 06:25:00* Test Item Value Reference Range Interpretation Comments Hemoglobin (test code = 99935-1) 13.0 12.0-16.0 [facility] CenterHematocrit2019-05-25 06:25:00* Test Item Value Reference Range Interpretation Comments Hematocrit (test code = 4544-3) 38.8 34.2-44.1 [facility] CenterMean Corpuscular Urzykm6808-27-89 06:25:00* Test Item Value Reference Range Interpretation Comments Mean Corpuscular Volume (test code = 787-2) 83.8 81-99 [facility] CenterMean Corpuscular Wpkiouggcw1122-31-24 06:25:00* Test Item Value Reference Range Interpretation Comments Mean Corpuscular Hemoglobin (test code = 785-6) 28.1 28-32 [facility] CenterMean Corpuscular Hemoglobin Concent 2018-10-03 06:25:00* Test Item Value Reference Range Interpretation Comments Mean Corpuscular Hemoglobin Concent (test code = 786-4) 33.5 31-35 [facility] CenterRed Cell Distribution Cqcmh7791-63-10 06:25:00* Test Item Value Reference Range Interpretation Comments Red Cell Distribution Width (test code = 51077-6) 13.9 11.7 -14.4 [facility] CenterPlatelet Vhwah5842-45-12 06:25:00* Test Item Value Reference Range Interpretation Comments Platelet Count (test code = 777-3) 96 140-360 L [facility] CenterNeutrophils (%) (Auto)2018-10-03 06:25:00 * Test Item Value Reference Range Interpretation Comments Neutrophils (%) (Auto) (test code = 72282-3) 56.3 38.7-80.0 [facility] CenterLymphocytes (%) (Auto)2018-10-03 06:25:00 * Test Item Value Reference Range Interpretation Comments Lymphocytes (%) (Auto) (test code = 736-9) 33.0 18.0-39.1 [facility] CenterMonocytes (%) (Auto)2018-10-03 06:25:00* Test Item Value Reference Range Interpretation Comments Monocytes (%) (Auto) (test code = 5905-5) 7.5 4.4-11.3 [facility] CenterEosinophils (%) (Auto)2018-10-03 06:25:00 * Test Item Value Reference Range Interpretation Comments Eosinophils (%) (Auto) (test code = 713-8) 2.5 0.0-6.0 [facility] CenterBasophils (%) (Auto)2018-10-03 06:25:00* Test Item Value Reference Range Interpretation Comments Basophils (%) (Auto) (test code = 706-2) 0.5 0.0-1.0 [facility] CenterIM GRANULOCYTES %2018-10-03 06:25:00* Test Item Value Reference Range Interpretation Comments IM GRANULOCYTES % (test code = IM GRANULOCYTES %) 0.2 0.0- 1.0 [facility] CenterNeutrophils # (Auto)2018-10-03 06:25:00* Test Item Value Reference Range Interpretation Comments Neutrophils # (Auto) (test code = 751-8) 4.5 2.1-6.9 [facility] CenterLymphocytes # (Auto)2018-10-03 06:25:00* Test Item Value Reference Range Interpretation Comments Lymphocytes # (Auto) (test code = 87806-4) 2.7 1.0-3.2 [facility] CenterMonocytes # (Auto)2018-10-03 06:25:00* Test Item Value Reference Range Interpretation Comments Monocytes # (Auto) (test code = 742-7) 0.6 0.2-0.8 [facility] CenterEosinophils # (Auto)2018-10-03 06:25:00* Test Item Value Reference Range Interpretation Comments Eosinophils # (Auto) (test code = 711-2) 0.2 0.0-0.4 [facility] CenterBasophils # (Auto)2018-10-03 06:25:00* Test Item Value Reference Range Interpretation Comments Basophils # (Auto) (test code = 704-7) 0.0 0.0-0.1 [facility] CenterAbsolute Immature Granulocyte (auto 2018-10-03 06:25:00* Test Item Value Reference Range Interpretation Comments Absolute Immature Granulocyte (auto (dinesh t code = Absolute Immature Granulocyte (auto) 0.02 0-0.1 [facility] CenterBedside Oocdlsh0421-57-31 08:09:00* Test Item Value Reference Range Interpretation Comments Bedside Glucose (test code = 84617-1) 178 70-120 H Meter ID: [id number]. David's Georgetown Hospitalodium Level 2018-08-08 05:57:00* Test Item Value Reference Range Interpretation Comments Sodium Level (test code = 2951-2) 144 136-145 [facility] CenterPotassium Vcjjp5847-01-16 05:57:00* Test Item Value Reference Range Interpretation Comments Potassium Level (test code = 2823-3) 3.8 3.5-5.1 [facility] CenterChloride Lfjzy8743-22-74 05:57:00* Test Item Value Reference Range Interpretation Comments Chloride Level (test code = 2075-0) 110 98-107 H [facility] CenterCarbon Dioxide Gkpio9896-35-85 05:57:00* Test Item Value Reference Range Interpretation Comments Carbon Dioxide Level (test code = 2028-9) 28 22-29 [facility] CenterAnion Qco8931-06-36 05:57:00* Test Item Value Reference Range Interpretation Comments Anion Gap (test code = 87279-9) 9.8 8-16 [facility] CenterBlood Urea Fulylosw9183-04-71 05:57:00* Test Item Value Reference Range Interpretation Comments Blood Urea Nitrogen (test code = 3094-0) 5 7-26 L [facility] CenterCreatinine2019-03-30 05:57:00* Test Item Value Reference Range Interpretation Comments Creatinine (test code = 2160-0) 0.71 0.57-1.11 [facility] CenterBUN/Creatinine Jihzm1957-89-23 05:57:00* Test Item Value Reference Range Interpretation Comments BUN/Creatinine Ratio (test code = 3097-3) 7 6-25 [facility] CenterEstimat Glomerular Filtration Rate 2018-08-08 05:57:00* Test Item Value Reference Range Interpretation Comments Estimat Glomerular Filtration Rate (test code = 209145524) > 60 >60 Ranges were taken from the National Kidney Disease Education Program and the [facility] Kidney Foundation literature.Reference ranges:60 or greater: Rfyhbp00-81 ( for 3 consecutive months): Chronic kidney disease 15 or less: Kidney failureNorth [facility] Medical CenterGlucose Kkepx7938-89-47 05:57:00* Test Item Value Reference Range Interpretation Comments Glucose Level (test code = KAF8828) 97 74-118 [facility] CenterCalcium Jlvmq5864-37-89 05:57:00* Test Item Value Reference Range Interpretation Comments Calcium Level (test code = 99856-9) 8.4 8.4-10.2 [facility] CenterWhite Blood Jqmtn1770-45-67 05:44:00* Test Item Value Reference Range Interpretation Comments White Blood Count (test code = 6690-2) 4.96 4.8-10.8 [facility] CenterRed Blood Sbplk9320-50-74 05:44:00* Test Item Value Reference Range Interpretation Comments Red Blood Count (test code = 789-8) 4.18 3.6-5.1 [facility] CenterHemoglobin2019-03-30 05:44:00* Test Item Value Reference Range Interpretation Comments Hemoglobin (test code = 67977-7) 11.7 12.0-16.0 L [facility] CenterHematocrit2019-03-30 05:44:00* Test Item Value Reference Range Interpretation Comments Hematocrit (test code = 4544-3) 37.5 34.2-44.1 [facility] CenterMean Corpuscular Odjmsl2391-45-03 05:44:00* Test Item Value Reference Range Interpretation Comments Mean Corpuscular Volume (test code = 787-2) 89.7 81-99 [facility] CenterMean Corpuscular Thteenqccr9555-02-73 05:44:00* Test Item Value Reference Range Interpretation Comments Mean Corpuscular Hemoglobin (test code = 785-6) 28.0 28-32 [facility] CenterMean Corpuscular Hemoglobin Concent 2018-08-08 05:44:00* Test Item Value Reference Range Interpretation Comments Mean Corpuscular Hemoglobin Concent (test code = 786-4) 31.2 31-35 [facility] CenterRed Cell Distribution Ilqef8617-54-97 05:44:00* Test Item Value Reference Range Interpretation Comments Red Cell Distribution Width (test code = 26156-8) 14.6 11.7 -14.4 H [facility] CenterPlatelet Vogfc4984-36-20 05:44:00* Test Item Value Reference Range Interpretation Comments Platelet Count (test code = 777-3) 92 140-360 L [facility] CenterNeutrophils (%) (Auto)2018-08-08 05:44:00 * Test Item Value Reference Range Interpretation Comments Neutrophils (%) (Auto) (test code = 19739-7) 41.6 38.7-80.0 [facility] CenterLymphocytes (%) (Auto)2018-08-08 05:44:00 * Test Item Value Reference Range Interpretation Comments Lymphocytes (%) (Auto) (test code = 736-9) 49.6 18.0-39.1 H [facility] CenterMonocytes (%) (Auto)2018-08-08 05:44:00* Test Item Value Reference Range Interpretation Comments Monocytes (%) (Auto) (test code = 5905-5) 6.0 4.4-11.3 [facility] CenterEosinophils (%) (Auto)2018-08-08 05:44:00 * Test Item Value Reference Range Interpretation Comments Eosinophils (%) (Auto) (test code = 713-8) 1.8 0.0-6.0 [facility] CenterBasophils (%) (Auto)2018-08-08 05:44:00* Test Item Value Reference Range Interpretation Comments Basophils (%) (Auto) (test code = 706-2) 0.8 0.0-1.0 [facility] CenterIM GRANULOCYTES %2018-08-08 05:44:00* Test Item Value Reference Range Interpretation Comments IM GRANULOCYTES % (test code = IM GRANULOCYTES %) 0.2 0.0- 1.0 [facility] CenterNeutrophils # (Auto)2018-08-08 05:44:00* Test Item Value Reference Range Interpretation Comments Neutrophils # (Auto) (test code = 751-8) 2.1 2.1-6.9 [facility] [place] [facility] CenterLymphocytes # (Auto)2018-08-08 05:44:00* Test Item Value Reference Range Interpretation Comments Lymphocytes # (Auto) (test code = 72020-9) 2.5 1.0-3.2 [facility] [place] [facility] CenterMonocytes # (Auto)2018-08-08 05:44:00* Test Item Value Reference Range Interpretation Comments Monocytes # (Auto) (test code = 742-7) 0.3 0.2-0.8 [facility] [place] [facility] CenterEosinophils # (Auto)2018-08-08 05:44:00* Test Item Value Reference Range Interpretation Comments Eosinophils # (Auto) (test code = 711-2) 0.1 0.0-0.4 [facility] [place] [facility] CenterBasophils # (Auto)2018-08-08 05:44:00* Test Item Value Reference Range Interpretation Comments Basophils # (Auto) (test code = 704-7) 0.0 0.0-0.1 [facility] [place] [facility] CenterAbsolute Immature Granulocyte (auto 2018-08-08 05:44:00* Test Item Value Reference Range Interpretation Comments Absolute Immature Granulocyte (auto (dinesh t code = Absolute Immature Granulocyte (auto) 0.01 0-0.1 [facility] [place] [facility] CenterMRI SPINE LUMBAR [id number] 19:43:00 [facility] [address] [address] Patient Name: MAIDA IRENE MR #: [id number] : 1 05/29/1964 Age/Sex: 53/F Req #: [id number] Adm Physician: ROSENDO DSOUZA MD Ordered by: ROSENDO DSOUZA MD Report #: [id number] Location: MED/SURG2 Room/Bed: [facility] Procedure: [id number] [id number] MRI/MRI SPINE LUMBAR WO [...] on 08/07/181948 COPY TO: ROSENDO DSOUZA MD Free Thyroxine Jnayd5841-66-90 07:18:00* Test Item Value Reference Range Interpretation Comments Free Thyroxine Index (test code = 49363-0) 2.3208 1.4-3.8 [facility] [place] [facility] CenterThyroxine (T4)2018-08-06 07:18:00* Test Item Value Reference Range Interpretation Comments Thyroxine (T4) (test code = 3026-2) 7.94 4.5-10.9 Our current method for Total T4 is not recommended for use as the only marker fo r evaluating patients for thyroid disorders.[facility] [place] [facility] CenterTriiodothyronine (T3) Wsvlyq3920-54-92 07:18:00* Test Item Value Reference Range Interpretation Comments Triiodothyronine (T3) Uptake (test code = 3050-2) 29.23 22.5 -37.0 [facility] [place] [facility] CenterThyroid Stimulating Hormone (TSH) 2018-08-06 07:18:00* Test Item Value Reference Range Interpretation Comments Thyroid Stimulating Hormone (TSH) (test code = 48501-6) 0.165 0.350-4.940 L [facility] [place] [facility] CenterFree Thyroxine Tbsgc7910-35-11 07:18:00* Test Item Value Reference Range Interpretation Comments Free Thyroxine Index (test code = 17270-9) 2.3208 1.4-3.8 [facility] [place] [facility] CenterThyroxine (T4)2018-08-06 07:18:00* Test Item Value Reference Range Interpretation Comments Thyroxine (T4) (test code = 3026-2) 7.94 4.5-10.9 Our current method for Total T4 is not recommended for use as the only marker fo r evaluating patients for thyroid disorders.[facility] [place] [facility] CenterTriiodothyronine (T3) Pvgimn8351-33-48 07:18:00* Test Item Value Reference Range Interpretation Comments Triiodothyronine (T3) Uptake (test code = 3050-2) 29.23 22.5 -37.0 [facility] [place] [facility] CenterThyroid Stimulating Hormone (TSH) 2018-08-06 07:18:00* Test Item Value Reference Range Interpretation Comments Thyroid Stimulating Hormone (TSH) (test code = 61085-3) 0.165 0.350-4.940 L [facility] [place] [facility] CenterFr Thyroxine Ktesq6930-59-21 07:18:00* Test Item Value Reference Range Interpretation Comments Free Thyroxine Index (test code = 51668-1) 2.3208 1.4-3.8 [facility] [place] [facility] CenterThyroxine (T4)2018-08-06 07:18:00* Test Item Value Reference Range Interpretation Comments Thyroxine (T4) (test code = 3026-2) 7.94 4.5-10.9 Our current method for Total T4 is not recommended for use as the only marker fo r evaluating patients for thyroid disorders.[facility] [place] [facility] CenterTriiodothyronine (T3) Ornzcr6851-78-64 07:18:00* Test Item Value Reference Range Interpretation Comments Triiodothyronine (T3) Uptake (test code = 3050-2) 29.23 22.5 -37.0 [facility] [place] [facility] CenterThyroid Stimulating Hormone (TSH) 2018-08-06 07:18:00* Test Item Value Reference Range Interpretation Comments Thyroid Stimulating Hormone (TSH) (test code = 17146-4) 0.165 0.350-4.940 L [facility] [place] [facility] CenterFr Thyroxine Puhjn0878-98-02 07:18:00* Test Item Value Reference Range Interpretation Comments Free Thyroxine Index (test code = 22147-8) 2.3208 1.4-3.8 [facility] [place] [facility] CenterThyroxine (T4)2018-08-06 07:18:00* Test Item Value Reference Range Interpretation Comments Thyroxine (T4) (test code = 3026-2) 7.94 4.5-10.9 Our current method for Total T4 is not recommended for use as the only marker fo r evaluating patients for thyroid disorders.[facility] [place] [facility] CenterTriiodothyronine (T3) Puawog0208-41-08 07:18:00* Test Item Value Reference Range Interpretation Comments Triiodothyronine (T3) Uptake (test code = 3050-2) 29.23 22.5 -37.0 [facility] [place] [facility] CenterThyroid Stimulating Hormone (TSH) 2018-08-06 07:18:00* Test Item Value Reference Range Interpretation Comments Thyroid Stimulating Hormone (TSH) (test code = 92511-4) 0.165 0.350-4.940 L [facility] [place] [facility] CenterPhosphorus Nrijv6299-45-29 06:49:00* Test Item Value Reference Range Interpretation Comments Phosphorus Level (test code = VFO1136) 3.2 2.3-4.7 [facility] [place] [facility] CenterMagnesium Tmfow8232-29-49 06:49:00* Test Item Value Reference Range Interpretation Comments Magnesium Level (test code = 30949-0) 2.0 1.3-2.1 [facility] [place] [facility] CenterTotal Ijltzuhdg6108-71-02 06:49:00* Test Item Value Reference Range Interpretation Comments Total Bilirubin (test code = 1975-2) 0.6 0.2-1.2 [facility] [place] [facility] CenterAspartate Amino Transf (AST/SGOT) 2018-08-06 06:49:00* Test Item Value Reference Range Interpretation Comments Aspartate Amino Transf (AST/SGOT) (test code = Aspartate Amino Transf (AST/SGOT)) 33 5-34 [facility] [place] [facility] CenterAlanine Aminotransferase (ALT/SGPT) 2018-08-06 06:49:00* Test Item Value Reference Range Interpretation Comments Alanine Aminotransferase (ALT/SGPT) (test code = 1742-6) 29 0-55 [facility] CenterTotal Jdypgfu9283-29-38 06:49:00* Test Item Value Reference Range Interpretation Comments Total Protein (test code = 2885-2) 6.4 6.5-8.1 L [facility] [place] [facility] CenterAlbumin2019-03-28 06:49:00* Test Item Value Reference Range Interpretation Comments Albumin (test code = 1751-7) 2.8 3.5-5.0 L [facility] [place] [facility] CenterGlobulin2019-03-28 06:49:00* Test Item Value Reference Range Interpretation Comments Globulin (test code = 26195-7) 3.6 2.3-3.5 H [facility] [place] [facility] CenterAlbumin/Globulin Mrqqy1447-68-88 06:49:00 * Test Item Value Reference Range Interpretation Comments Albumin/Globulin Ratio (test code = 1759-0) 0.8 0.8-2.0 [facility] [place] [facility] CenterAlkaline Fygmprmisvz6193-60-87 06:49:00* Test Item Value Reference Range Interpretation Comments Alkaline Phosphatase (test code = 6768-6) 105 40-150 [facility] [place] [facility] CenterTriglycerides Ocbtq3775-41-40 06:49:00* Test Item Value Reference Range Interpretation Comments Triglycerides Level (test code = 2571-8) 108 0-149 [facility] [place] [facility] CenterCholesterol Mclxw7270-51-45 06:49:00* Test Item Value Reference Range Interpretation Comments Cholesterol Level (test code = 2093-3) 155 0-199 Less than 200 mg/dL Low Gjeg443 - 239 mg/dL Borderline Uvrt855 m g/dl and greater High Risk [facility] [place] [facility] CenterLDL Bqwgrbxhfyn6996-77-16 06:49:00* Test Item Value Reference Range Interpretation Comments LDL Cholesterol (test code = 2089-1) 84 60-130 [facility] [place] [facility] CenterHDL Ltvdtajxted1368-72-11 06:49:00* Test Item Value Reference Range Interpretation Comments HDL Cholesterol (test code = 2085-9) 49 40-60 [facility] [place] [facility] CenterCholesterol/HDL Lxvfr0405-13-11 06:49:00 * Test Item Value Reference Range Interpretation Comments Cholesterol/HDL Ratio (test code = 9830-1) 3.2 3.0-3.6 [facility] [place] [facility] CenterPhosphorus Trvaw6677-71-68 06:49:00* Test Item Value Reference Range Interpretation Comments Phosphorus Level (test code = KVG6968) 3.2 2.3-4.7 [facility] [place] [facility] CenterMagnesium Atacs8642-68-18 06:49:00* Test Item Value Reference Range Interpretation Comments Magnesium Level (test code = 11080-8) 2.0 1.3-2.1 [facility] [place] [facility] CenterTriglycerides Wcdpr4323-62-63 06:49:00* Test Item Value Reference Range Interpretation Comments Triglycerides Level (test code = 2571-8) 108 0-149 [facility] [place] [facility] CenterCholesterol Wsgfg0154-03-49 06:49:00* Test Item Value Reference Range Interpretation Comments Cholesterol Level (test code = 2093-3) 155 0-199 Less than 200 mg/dL Low Olvq646 - 239 mg/dL Borderline Fpcr769 m g/dl and greater High Risk [facility] [place] [facility] CenterLDL Perazmyxscr8502-53-01 06:49:00* Test Item Value Reference Range Interpretation Comments LDL Cholesterol (test code = 2089-1) 84 60-130 [facility] [place] [facility] CenterHDL Rxqpmnqeorc9487-53-40 06:49:00* Test Item Value Reference Range Interpretation Comments HDL Cholesterol (test code = 2085-9) 49 40-60 [facility] [place] [facility] CenterCholesterol/HDL Glxrm6964-83-24 06:49:00 * Test Item Value Reference Range Interpretation Comments Cholesterol/HDL Ratio (test code = 9830-1) 3.2 3.0-3.6 [facility] [place] [facility] CenterPhosphorus Aferr5418-67-08 06:49:00* Test Item Value Reference Range Interpretation Comments Phosphorus Level (test code = DXE3813) 3.2 2.3-4.7 [facility] [place] [facility] CenterMagnesium Ohyqf3898-00-70 06:49:00* Test Item Value Reference Range Interpretation Comments Magnesium Level (test code = 04624-8) 2.0 1.3-2.1 [facility] [place] [facility] CenterTriglycerides Tuxwl0738-48-91 06:49:00* Test Item Value Reference Range Interpretation Comments Triglycerides Level (test code = 2571-8) 108 0-149 [facility] [place] [facility] CenterCholesterol Inwef4039-99-31 06:49:00* Test Item Value Reference Range Interpretation Comments Cholesterol Level (test code = 2093-3) 155 0-199 Less than 200 mg/dL Low Ijxf226 - 239 mg/dL Borderline Uvfq615 m g/dl and greater High Risk [facility] [place] [facility] CenterLDL Njyeizkvhdj4616-15-09 06:49:00* Test Item Value Reference Range Interpretation Comments LDL Cholesterol (test code = 2089-1) 84 60-130 [facility] [place] [facility] CenterHDL Xbwzfsyurdy6526-10-94 06:49:00* Test Item Value Reference Range Interpretation Comments HDL Cholesterol (test code = 2085-9) 49 40-60 [facility] [place] [facility] CenterCholesterol/HDL Mrjfw1628-64-67 06:49:00 * Test Item Value Reference Range Interpretation Comments Cholesterol/HDL Ratio (test code = 9830-1) 3.2 3.0-3.6 [facility] [place] [facility] CenterPhosphorus Htajv8300-58-38 06:49:00* Test Item Value Reference Range Interpretation Comments Phosphorus Level (test code = HYJ7174) 3.2 2.3-4.7 [facility] [place] [facility] CenterMagnesium Cegej4858-88-76 06:49:00* Test Item Value Reference Range Interpretation Comments Magnesium Level (test code = 74155-4) 2.0 1.3-2.1 [facility] [place] [facility] CenterTriglycerides Zrlac6389-73-62 06:49:00* Test Item Value Reference Range Interpretation Comments Triglycerides Level (test code = 2571-8) 108 0-149 [facility] [place] [facility] CenterCholesterol Vfcfn0709-37-30 06:49:00* Test Item Value Reference Range Interpretation Comments Cholesterol Level (test code = 2093-3) 155 0-199 Less than 200 mg/dL Low Evya017 - 239 mg/dL Borderline Yled958 m g/dl and greater High Risk [facility] [place] [facility] CenterLDL Bsgehzgmtxn9685-64-70 06:49:00* Test Item Value Reference Range Interpretation Comments LDL Cholesterol (test code = 2089-1) 84 60-130 [facility] [place] [facility] CenterHDL Xfqprxjygit6345-52-44 06:49:00* Test Item Value Reference Range Interpretation Comments HDL Cholesterol (test code = 2085-9) 49 40-60 [facility] [place] [facility] CenterCholesterol/HDL Uquqq1622-97-41 06:49:00 * Test Item Value Reference Range Interpretation Comments Cholesterol/HDL Ratio (test code = 9830-1) 3.2 3.0-3.6 [facility] [place] [facility] CenterLipase2019-03-28 06:48:00* Test Item Value Reference Range Interpretation Comments Lipase (test code = 3040-3) 13 [facility] [place] [facility] CenterLipase2019-03-28 06:48:00* Test Item Value Reference Range Interpretation Comments Lipase (test code = 3040-3) [facility] [place] [facility] CenterLipase2019-03-28 06:48:00* Test Item Value Reference Range Interpretation Comments Lipase (test code = 3040-3) [facility] CenterUrine BLO1712-83-87 14:59:00* Test Item Value Reference Range Interpretation Comments Urine WBC (test code = 5821-4) NONE 0-5 [facility] [place] [facility] CenterUrine NXU9555-36-88 14:59:00* Test Item Value Reference Range Interpretation Comments Urine RBC (test code = 90329-3) NONE 0-5 [facility] CenterUrine Hubosuhe6343-85-28 14:59:00* Test Item Value Reference Range Interpretation Comments Urine Bacteria (test code = 05438-6) MODERATE NONE H [facility] CenterUrine Epithelial Yycxu5770-67-25 14:59:00 * Test Item Value Reference Range Interpretation Comments Urine Epithelial Cells (test code = 06522-9) MODERATE NONE [facility] CenterUrine Amorphous Hpxypnma6757-50-85 14:59:00* Test Item Value Reference Range Interpretation Comments Urine Amorphous Sediment (test code = 8246-1) FEW FEW [facility] Hyaline Yezua2024-81-60 14:59:00* Test Item Value Reference Range Interpretation Comments Urine Hyaline Casts (test code = 90900-6) 0-1 0-1 [facility] JOA7887-35-23 14:59:00* Test Item Value Reference Range Interpretation Comments Urine WBC (test code = 5821-4) NONE 0-5 [facility] IOV3810-17-89 14:59:00* Test Item Value Reference Range Interpretation Comments Urine RBC (test code = 05494-9) NONE 0-5 [facility] Riqynklg0152-18-78 14:59:00* Test Item Value Reference Range Interpretation Comments Urine Bacteria (test code = 40541-1) MODERATE NONE H [facility] Epithelial Bljvz1386-20-67 14:59:00 * Test Item Value Reference Range Interpretation Comments Urine Epithelial Cells (test code = 29301-5) MODERATE NONE [facility] Amorphous Jtjxresa9851-14-16 14:59:00* Test Item Value Reference Range Interpretation Comments Urine Amorphous Sediment (test code = 8246-1) FEW FEW [facility] [place] [facility] CenterU[facility] Hyaline Docdi8427-07-90 14:59:00* Test Item Value Reference Range Interpretation Comments Urine Hyaline Casts (test code = 44989-0) 0-1 0-1 [facility] YXE7538-54-41 14:59:00* Test Item Value Reference Range Interpretation Comments Urine WBC (test code = 5821-4) NONE 0-5 [facility] OGB9146-16-90 14:59:00* Test Item Value Reference Range Interpretation Comments Urine RBC (test code = 96188-8) NONE 0-5 [facility] Gaqrcueg9362-00-45 14:59:00* Test Item Value Reference Range Interpretation Comments Urine Bacteria (test code = 14725-2) MODERATE NONE H [facility] [place] [facility] CenterUrine Epithelial Slrgl3878-42-64 14:59:00 * Test Item Value Reference Range Interpretation Comments Urine Epithelial Cells (test code = 18484-4) MODERATE NONE [facility] [place] [facility] CenterUrine Amorphous Luejscro7624-14-39 14:59:00* Test Item Value Reference Range Interpretation Comments Urine Amorphous Sediment (test code = 8246-1) FEW FEW [facility] [place] [facility] CenterU[facility] Hyaline Nwxkz0483-32-60 14:59:00* Test Item Value Reference Range Interpretation Comments Urine Hyaline Casts (test code = 22635-4) 0-1 0-1 [facility] [place] [facility] CenterU[facility] Hyaline Jtgta3203-97-43 14:59:00* Test Item Value Reference Range Interpretation Comments Urine Hyaline Casts (test code = 54252-7) 0-1 0-1 [facility] [place] [facility] CenterUrine Jtzbq4705-35-76 14:45:00* Test Item Value Reference Range Interpretation Comments Urine Color (test code = 5778-6) YELLOW YELLOW [facility] [place] [facility] CenterU[facility] Locigtk2420-16-25 14:45:00* Test Item Value Reference Range Interpretation Comments Urine Clarity (test code = 68310-9) SL CLOUDY CLEAR [facility] [place] [facility] CenterUrine Specific Pewcbte8052-00-03 14:45:00 * Test Item Value Reference Range Interpretation Comments Urine Specific [place] (test code = 5811-5) 1.005 1.010-1.02 5 L [facility] [place] [facility] CenterUrine nO9441-22-08 14:45:00* Test Item Value Reference Range Interpretation Comments Urine pH (test code = 69190-8) 6 5-7 [facility] CenterU[facility] Leukocyte Sqnhecoz6405-68-34 14:45:00* Test Item Value Reference Range Interpretation Comments Urine Leukocyte Esterase (test code = 5799-2) NEGATIVE NEGATIVE [facility] CenterU[facility] Qoyqver0579-85-04 14:45:00* Test Item Value Reference Range Interpretation Comments Urine Nitrite (test code = 30469-1) NEGATIVE NEGATIVE [facility] [place] [facility] CenterUrine Sanpmre7083-42-04 14:45:00* Test Item Value Reference Range Interpretation Comments Urine Protein (test code = 5804-0) TRACE NEGATIVE H [facility] [place] [facility] CenterUrine Glucose (UA)2018-08-05 14:45:00* Test Item Value Reference Range Interpretation Comments Urine Glucose (UA) (test code = 2349-9) 3+ NEGATIVE H [facility] [place] [facility] CenterU[facility] Fmfbooc3015-54-13 14:45:00* Test Item Value Reference Range Interpretation Comments Urine Ketones (test code = 17293-1) 1+ NEGATIVE H [facility] CenterU[facility] Xdznzgtirgmr4128-43-03 14:45:00* Test Item Value Reference Range Interpretation Comments Urine Urobilinogen (test code = 18053-1) 0.2 0.2-1 [facility] [place] [facility] CenterU[facility] Fpghazzww2000-04-85 14:45:00* Test Item Value Reference Range Interpretation Comments Urine Bilirubin (test code = 1978-6) NEGATIVE NEGATIVE [facility] CenterU[facility] Rcwww7915-27-58 14:45:00* Test Item Value Reference Range Interpretation Comments Urine Blood (test code = 66817-3) NEGATIVE NEGATIVE [facility] CenterU[facility] Zjuda8992-21-72 14:45:00* Test Item Value Reference Range Interpretation Comments Urine Color (test code = 5778-6) YELLOW YELLOW [facility] CenterU[facility] Mgywbab5947-69-15 14:45:00* Test Item Value Reference Range Interpretation Comments Urine Clarity (test code = 04117-3) SL CLOUDY CLEAR [facility] [place] [facility] CenterU[facility] Specific Bqdrrbb2646-16-31 14:45:00 * Test Item Value Reference Range Interpretation Comments Urine Specific [place] (test code = 5811-5) 1.005 1.010-1.02 5 L [facility] [place] [facility] CenterU[facility] oG6292-54-76 14:45:00* Test Item Value Reference Range Interpretation Comments Urine pH (test code = 10034-8) 6 5-7 [facility] CenterU[facility] Leukocyte Ukuuvbmm0502-57-23 14:45:00* Test Item Value Reference Range Interpretation Comments Urine Leukocyte Esterase (test code = 5799-2) NEGATIVE NEGATIVE [facility] CenterU[facility] Ijgzxtg3102-72-66 14:45:00* Test Item Value Reference Range Interpretation Comments Urine Nitrite (test code = 39841-4) NEGATIVE NEGATIVE [facility] CenterU[facility] Naywewf4037-24-42 14:45:00* Test Item Value Reference Range Interpretation Comments Urine Protein (test code = 5804-0) TRACE NEGATIVE H [facility] [place] [facility] CenterU[facility] Glucose (UA)2018-08-05 14:45:00* Test Item Value Reference Range Interpretation Comments Urine Glucose (UA) (test code = 2349-9) 3+ NEGATIVE H [facility] [place] [facility] CenterU[facility] Epztuaj1177-76-17 14:45:00* Test Item Value Reference Range Interpretation Comments Urine Ketones (test code = 49596-2) 1+ NEGATIVE H [facility] CenterU[facility] Eiqcgyrlqede3256-06-89 14:45:00* Test Item Value Reference Range Interpretation Comments Urine Urobilinogen (test code = 07953-3) 0.2 0.2-1 [facility] [place] [facility] Kitzholig8760-92-28 14:45:00* Test Item Value Reference Range Interpretation Comments Urine Bilirubin (test code = 1978-6) NEGATIVE NEGATIVE [facility] Zaoux8399-68-82 14:45:00* Test Item Value Reference Range Interpretation Comments Urine Blood (test code = 56794-5) NEGATIVE NEGATIVE [facility] CenterU[facility] Bwbku6421-76-49 14:45:00* Test Item Value Reference Range Interpretation Comments Urine Color (test code = 5778-6) YELLOW YELLOW [facility] CenterU[facility] Rvzhgkd2215-91-35 14:45:00* Test Item Value Reference Range Interpretation Comments Urine Clarity (test code = 39324-8) SL CLOUDY CLEAR [facility] CenterU[facility] Specific Dmohsbb8226-10-13 14:45:00 * Test Item Value Reference Range Interpretation Comments Urine Specific [place] (test code = 5811-5) 1.005 1.010-1.02 5 L [facility] CenterU[facility] hY7403-14-47 14:45:00* Test Item Value Reference Range Interpretation Comments Urine pH (test code = 27020-4) 6 5-7 [facility] CenterU[facility] Leukocyte Hhjonifc3826-82-80 14:45:00* Test Item Value Reference Range Interpretation Comments Urine Leukocyte Esterase (test code = 5799-2) NEGATIVE NEGATIVE [facility] CenterU[facility] Vrsjkzx7838-58-17 14:45:00* Test Item Value Reference Range Interpretation Comments Urine Nitrite (test code = 74083-0) NEGATIVE NEGATIVE [facility] CenterU[facility] Geaigqp5008-10-63 14:45:00* Test Item Value Reference Range Interpretation Comments Urine Protein (test code = 5804-0) TRACE NEGATIVE H [facility] Glucose (UA)2018-08-05 14:45:00* Test Item Value Reference Range Interpretation Comments Urine Glucose (UA) (test code = 2349-9) 3+ NEGATIVE H [facility] CenterU[facility] Zrkivhl8956-80-70 14:45:00* Test Item Value Reference Range Interpretation Comments Urine Ketones (test code = 59715-4) 1+ NEGATIVE H [facility] Mdvrmmixryzi5353-13-94 14:45:00* Test Item Value Reference Range Interpretation Comments Urine Urobilinogen (test code = 48177-2) 0.2 0.2-1 [facility] CenterU[facility] Vuumsmfdu5990-63-68 14:45:00* Test Item Value Reference Range Interpretation Comments Urine Bilirubin (test code = 1978-6) NEGATIVE NEGATIVE [facility] CenterU[facility] Joaxq4294-69-05 14:45:00* Test Item Value Reference Range Interpretation Comments Urine Blood (test code = 95095-4) NEGATIVE NEGATIVE [facility] [place] [facility] CenterTroponin A9463-08-54 12:47:00* Test Item Value Reference Range Interpretation Comments Troponin I (test code = AOY7927) 0.012 0-0.300 [facility] [place] [facility] CenterTroponin H4219-95-49 12:47:00* Test Item Value Reference Range Interpretation Comments Troponin I (test code = UGM1564) 0.012 0-0.300 [facility] [place] [facility] CenterTroponin H8830-58-90 12:47:00* Test Item Value Reference Range Interpretation Comments Troponin I (test code = GZA8019) 0.012 0-0.300 [facility] [place] [facility] CenterHemoglobin A1c Pfvdyfy0572-70-79 12:34:00 * Test Item Value Reference Range Interpretation Comments Hemoglobin A1c Percent (test code = Hemoglobin A1c Percent) 14.8 4.0-7.0 H [facility] [place] [facility] CenterHemoglobin A1c Lopgabl3429-76-77 12:34:00 * Test Item Value Reference Range Interpretation Comments Hemoglobin A1c Percent (test code = Hemoglobin A1c Percent) 14.8 4.0-7.0 H [facility] [place] [facility] CenterHemoglobin A1c Avsizyx9681-94-62 12:34:00 * Test Item Value Reference Range Interpretation Comments Hemoglobin A1c Percent (test code = Hemoglobin A1c Percent) 14.8 4.0-7.0 H [facility] [place] [facility] CenterHemoglobin A1c Fekdgaf5782-88-19 12:34:00 * Test Item Value Reference Range Interpretation Comments Hemoglobin A1c Percent (test code = Hemoglobin A1c Percent) 14.8 4.0-7.0 H [facility] [place] [facility] CenterCreatine Kinase MS7191-22-25 17:21:00* Test Item Value Reference Range Interpretation Comments Creatine Kinase MB (test code = 91632-9) 1.10 0-5.0 [facility] [place] [facility] CenterTroponin W1165-35-49 17:21:00* Test Item Value Reference Range Interpretation Comments Troponin I (test code = OLC0874) < 0.001 0-0.300 [facility] [place] [facility] CenterCreatine Kinase YC5819-78-16 17:21:00* Test Item Value Reference Range Interpretation Comments Creatine Kinase MB (test code = 65533-2) 1.10 0-5.0 [facility] [place] [facility] CenterCreatine Kinase AV4492-15-70 17:21:00* Test Item Value Reference Range Interpretation Comments Creatine Kinase MB (test code = 13766-7) 1.10 0-5.0 [facility] [place] [facility] CenterCreatine Kinase OR8985-39-37 17:21:00* Test Item Value Reference Range Interpretation Comments Creatine Kinase MB (test code = 71196-0) 1.10 0-5.0 [facility] [place] [facility] CenterRIBS UNILAT W/SBU9582-36-22 17:17:[address], [place] [address] Patient Name: MAIDA IRENE MR #: [id number] : 1 05/29/1964 Age/Sex: 53/F Req #: [id number] Adm Physician: Ordered by: RUTHY ADAN OFFICE 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 Report #: [id number] Location: ER Room/Bed: Procedure: [id number] DX/RIBS [...] BACILIO on 03/31/181717 COPY TO: RUTHY ADAN OFFICE 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 Sodium Fhmij1897-39-58 17:11:00* Test Item Value Reference Range Interpretation Comments Sodium Level (test code = 2951-2) 135 136-145 L [facility]Potassium Ehnld8100-26-59 17:11:00* Test Item Value Reference Range Interpretation Comments Potassium Level (test code = 2823-3) 3.7 3.5-5.1 [facility] CenterChloride Wjnxi3569-21-30 17:11:00* Test Item Value Reference Range Interpretation Comments Chloride Level (test code = 2075-0) 96 98-107 L [facility] CenterCarbon Dioxide Tpthy1093-80-15 17:11:00* Test Item Value Reference Range Interpretation Comments Carbon Dioxide Level (test code = 2028-9) 31 22-29 H [facility] CenterAnion Rgo7230-29-12 17:11:00* Test Item Value Reference Range Interpretation Comments Anion Gap (test code = 44733-2) 11.7 8-16 [facility] CenterBlood Urea Jxmkhuxy1597-03-23 17:11:00* Test Item Value Reference Range Interpretation Comments Blood Urea Nitrogen (test code = 3094-0) 19 7-26 [facility] CenterCreatinine2018-11-20 17:11:00* Test Item Value Reference Range Interpretation Comments Creatinine (test code = 2160-0) 0.96 0.57-1.11 [facility] CenterBUN/Creatinine Cxtgz3667-96-73 17:11:00* Test Item Value Reference Range Interpretation Comments BUN/Creatinine Ratio (test code = 3097-3) 20 6-25 [facility] CenterEstimat Glomerular Filtration Rate 2018-03-31 17:11:00* Test Item Value Reference Range Interpretation Comments Estimat Glomerular Filtration Rate (test code = 656531086) > 60 >60 Ranges were taken from the National Kidney Disease Education Program and the [facility] [employer] literature.Reference ranges:60 or greater: Wzhirv34-09 ( for 3 consecutive months): Chronic kidney disease 15 or less: Kidney failureNorth [facility] CenterGlucose Hozvn9177-05-65 17:11:00* Test Item Value Reference Range Interpretation Comments Glucose Level (test code = DGI8880) 229 74-118 H [facility] CenterCalcium Faqec3818-73-13 17:11:00* Test Item Value Reference Range Interpretation Comments Calcium Level (test code = 08329-3) 10.1 8.4-10.2 [facility] CenterTotal Jrzzoeuwk8157-29-89 17:11:00* Test Item Value Reference Range Interpretation Comments Total Bilirubin (test code = 1975-2) 0.3 0.2-1.2 [facility] CenterAspartate Amino Transf (AST/SGOT) 2018-03-31 17:11:00* Test Item Value Reference Range Interpretation Comments Aspartate Amino Transf (AST/SGOT) (test code = Aspartate Amino Transf (AST/SGOT)) 18 5-34 [facility] CenterAlanine Aminotransferase (ALT/SGPT) 2018-03-31 17:11:00* Test Item Value Reference Range Interpretation Comments Alanine Aminotransferase (ALT/SGPT) (test code = 1742-6) 17 0-55 [facility] CenterTotal Echitdj1304-56-43 17:11:00* Test Item Value Reference Range Interpretation Comments Total Protein (test code = 2885-2) 8.1 6.5-8.1 [facility] CenterAlbumin2018-11-20 17:11:00* Test Item Value Reference Range Interpretation Comments Albumin (test code = 1751-7) 3.8 3.5-5.0 [facility] CenterGlobulin2018-11-20 17:11:00* Test Item Value Reference Range Interpretation Comments Globulin (test code = 11970-0) 4.3 2.3-3.5 H [facility] CenterAlbumin/Globulin Loswn2530-55-68 17:11:00 * Test Item Value Reference Range Interpretation Comments Albumin/Globulin Ratio (test code = 1759-0) 0.9 0.8-2.0 [facility] CenterAlkaline Vfmdznopwwb1345-76-04 17:11:00* Test Item Value Reference Range Interpretation Comments Alkaline Phosphatase (test code = 6768-6) 120 40-150 [facility] CenterCreatine Khybkg7097-96-80 17:11:00* Test Item Value Reference Range Interpretation Comments Creatine Kinase (test code = 2157-6) 38 29-168 [facility] CenterLipase2018-11-20 17:11:00* Test Item Value Reference Range Interpretation Comments Lipase (test code = 3040-3) 24 8-78 [facility] CenterCreatine Tyoumf3677-98-93 17:11:00* Test Item Value Reference Range Interpretation Comments Creatine Kinase (test code = 2157-6) 38 29-168 [facility] CenterCreatine Pawlky6802-33-51 17:11:00* Test Item Value Reference Range Interpretation Comments Creatine Kinase (test code = 2157-6) 38 29-168 [facility] CenterCreatine Vyngnu1570-21-46 17:11:00* Test Item Value Reference Range Interpretation Comments Creatine Kinase (test code = 2157-6) 38 29-168 [facility] CenterUrine IOI2817-55-24 17:07:00* Test Item Value Reference Range Interpretation Comments Urine WBC (test code = 5821-4) 11-20 0-5 H [facility] CenterUrine YVN9560-23-66 17:07:00* Test Item Value Reference Range Interpretation Comments Urine RBC (test code = 38078-7) 0-5 0-5 [facility] CenterUrine Cqagimrs8171-07-70 17:07:00* Test Item Value Reference Range Interpretation Comments Urine Bacteria (test code = 35058-5) MODERATE NONE H [facility] CenterUrine Epithelial Vsqsz4297-71-97 17:07:00 * Test Item Value Reference Range Interpretation Comments Urine Epithelial Cells (test code = 83839-4) FEW NONE [facility] CenterProthrombin Plow6810-44-63 16:58:00* Test Item Value Reference Range Interpretation Comments Prothrombin Time (test code = 5902-2) 13.8 11.9-14.5 [facility] CenterProthromb Time International Ratio 2018-03-31 16:58:00* Test Item Value Reference Range Interpretation Comments Prothromb Time International Ratio (test code = 6301-6) 0.97 Oral Anticoagulant Therapy INR Values:1. Low Intensity Therapy 1.5 - 2.02 . Moderate Intensity Therapy 2.0 - 3.03. High Intensity Therapy(1) 2.5 - 3. 54. High Intensity Therapy(2) 3.0 - 4.05. Panic Value INR > 5.0 [facility] CenterActivated Partial Thromboplast Time 2018-03-31 16:58:00* Test Item Value Reference Range Interpretation Comments Activated Partial Thromboplast Time (test code = 84591-2) 28.5 23.8-35.5 [facility] CenterProthrombin Bqmb6523-62-64 16:58:00* Test Item Value Reference Range Interpretation Comments Prothrombin Time (test code = 5902-2) 13.8 11.9-14.5 [facility] CenterProthromb Time International Ratio 2018-03-31 16:58:00* Test Item Value Reference Range Interpretation Comments Prothromb Time International Ratio (test code = 6301-6) 0.97 Oral Anticoagulant Therapy INR Values:1. Low Intensity Therapy 1.5 - 2.02 . Moderate Intensity Therapy 2.0 - 3.03. High Intensity Therapy(1) 2.5 - 3. 54. High Intensity Therapy(2) 3.0 - 4.05. Panic Value INR > 5.0 [facility] CenterActivated Partial Thromboplast Time 2018-03-31 16:58:00* Test Item Value Reference Range Interpretation Comments Activated Partial Thromboplast Time (test code = 22793-3) 28.5 23.8-35.5 [facility] CenterProthrombin Hiel2486-33-77 16:58:00* Test Item Value Reference Range Interpretation Comments Prothrombin Time (test code = 5902-2) 13.8 11.9-14.5 [facility] CenterProthromb Time International Ratio 2018-03-31 16:58:00* Test Item Value Reference Range Interpretation Comments Prothromb Time International Ratio (test code = 6301-6) 0.97 Oral Anticoagulant Therapy INR Values:1. Low Intensity Therapy 1.5 - 2.02 . Moderate Intensity Therapy 2.0 - 3.03. High Intensity Therapy(1) 2.5 - 3. 54. High Intensity Therapy(2) 3.0 - 4.05. Panic Value INR > 5.0 [facility] CenterActivated Partial Thromboplast Time 2018-03-31 16:58:00* Test Item Value Reference Range Interpretation Comments Activated Partial Thromboplast Time (test code = 59501-9) 28.5 23.8-35.5 [facility] CenterProthrombin Fxru5940-49-48 16:58:00* Test Item Value Reference Range Interpretation Comments Prothrombin Time (test code = 5902-2) 13.8 11.9-14.5 [facility] CenterProthromb Time International Ratio 2018-03-31 16:58:00* Test Item Value Reference Range Interpretation Comments Prothromb Time International Ratio (test code = 6301-6) 0.97 Oral Anticoagulant Therapy INR Values:1. Low Intensity Therapy 1.5 - 2.02 . Moderate Intensity Therapy 2.0 - 3.03. High Intensity Therapy(1) 2.5 - 3. 54. High Intensity Therapy(2) 3.0 - 4.05. Panic Value INR > 5.0 [facility] CenterActivated Partial Thromboplast Time 2018-03-31 16:58:00* Test Item Value Reference Range Interpretation Comments Activated Partial Thromboplast Time (test code = 14056-0) 28.5 23.8-35.5 [facility] CenterUrine Eomqt6770-30-45 16:55:00* Test Item Value Reference Range Interpretation Comments Urine Color (test code = 5778-6) YELLOW YELLOW [facility] CenterUrine Wjynwmc2577-37-20 16:55:00* Test Item Value Reference Range Interpretation Comments Urine Clarity (test code = 37680-3) SL CLOUDY CLEAR [facility] CenterUrine Specific Djxaovd8305-25-91 16:55:00 * Test Item Value Reference Range Interpretation Comments Urine Specific [place] (test code = 5811-5) 1.025 1.010-1.02 5 [facility] CenterUrine iR5552-32-48 16:55:00* Test Item Value Reference Range Interpretation Comments Urine pH (test code = 99507-3) 6 5-7 [facility] CenterUrine Leukocyte Kxoqzkvw6874-39-17 16:55:00* Test Item Value Reference Range Interpretation Comments Urine Leukocyte Esterase (test code = 5799-2) 1+ NEGATIVE H [facility] CenterUrine Etkaukf7833-96-73 16:55:00* Test Item Value Reference Range Interpretation Comments Urine Nitrite (test code = 07900-7) NEGATIVE NEGATIVE [facility] CenterUrine Lfmwntf7109-27-97 16:55:00* Test Item Value Reference Range Interpretation Comments Urine Protein (test code = 5804-0) NEGATIVE NEGATIVE [facility] CenterUrine Glucose (UA)2018-03-31 16:55:00* Test Item Value Reference Range Interpretation Comments Urine Glucose (UA) (test code = 2349-9) 1+ NEGATIVE H [facility] CenterUrine Rgolihg9839-45-70 16:55:00* Test Item Value Reference Range Interpretation Comments Urine Ketones (test code = 18761-1) NEGATIVE NEGATIVE [facility] CenterUrine Gnxofqfbqhdn3263-19-85 16:55:00* Test Item Value Reference Range Interpretation Comments Urine Urobilinogen (test code = 29582-9) 0.2 0.2-1 [facility] CenterUrine Naabeylfb9002-27-33 16:55:00* Test Item Value Reference Range Interpretation Comments Urine Bilirubin (test code = 1978-6) NEGATIVE NEGATIVE [facility] CenterUrine Rnhaa7880-89-13 16:55:00* Test Item Value Reference Range Interpretation Comments Urine Blood (test code = 78958-9) TRACE NEGATIVE H [facility] CenterWhite Blood Tgdqn7981-35-66 16:53:00* Test Item Value Reference Range Interpretation Comments White Blood Count (test code = 6690-2) 6.67 4.8-10.8 [facility] CenterRed Blood Shiiw5817-06-83 16:53:00* Test Item Value Reference Range Interpretation Comments Red Blood Count (test code = 789-8) 4.57 3.6-5.1 [facility] CenterHemoglobin2018-11-20 16:53:00* Test Item Value Reference Range Interpretation Comments Hemoglobin (test code = 76024-3) 13.3 12.0-16.0 [facility] CenterHematocrit2018-11-20 16:53:00* Test Item Value Reference Range Interpretation Comments Hematocrit (test code = 4544-3) 40.7 34.2-44.1 [facility] CenterMean Corpuscular Actmhj9538-10-90 16:53:00* Test Item Value Reference Range Interpretation Comments Mean Corpuscular Volume (test code = 787-2) 89.1 81-99 [facility] CenterMean Corpuscular Laaqmpwuxc8007-50-30 16:53:00* Test Item Value Reference Range Interpretation Comments Mean Corpuscular Hemoglobin (test code = 785-6) 29.1 28-32 [facility] CenterMean Corpuscular Hemoglobin Concent 2018-03-31 16:53:00* Test Item Value Reference Range Interpretation Comments Mean Corpuscular Hemoglobin Concent (test code = 786-4) 32.7 31-35 [facility] CenterRed Cell Distribution Hlwcf2368-59-96 16:53:00* Test Item Value Reference Range Interpretation Comments Red Cell Distribution Width (test code = 45108-5) 13.6 11.7 -14.4 [facility] CenterPlatelet Htjmp5087-52-19 16:53:00* Test Item Value Reference Range Interpretation Comments Platelet Count (test code = 777-3) 112 140-360 L [facility] CenterNeutrophils (%) (Auto)2018-03-31 16:53:00 * Test Item Value Reference Range Interpretation Comments Neutrophils (%) (Auto) (test code = 62709-7) 51.3 38.7-80.0 [facility] CenterLymphocytes (%) (Auto)2018-03-31 16:53:00 * Test Item Value Reference Range Interpretation Comments Lymphocytes (%) (Auto) (test code = 736-9) 40.5 18.0-39.1 H [facility] CenterMonocytes (%) (Auto)2018-03-31 16:53:00* Test Item Value Reference Range Interpretation Comments Monocytes (%) (Auto) (test code = 5905-5) 7.5 4.4-11.3 [facility] CenterEosinophils (%) (Auto)2018-03-31 16:53:00 * Test Item Value Reference Range Interpretation Comments Eosinophils (%) (Auto) (test code = 713-8) 0.0 0.0-6.0 [facility] CenterBasophils (%) (Auto)2018-03-31 16:53:00* Test Item Value Reference Range Interpretation Comments Basophils (%) (Auto) (test code = 706-2) 0.4 0.0-1.0 [facility] CenterIM GRANULOCYTES %2018-03-31 16:53:00* Test Item Value Reference Range Interpretation Comments IM GRANULOCYTES % (test code = IM GRANULOCYTES %) 0.3 0.0- 1.0 [facility] CenterNeutrophils # (Auto)2018-03-31 16:53:00* Test Item Value Reference Range Interpretation Comments Neutrophils # (Auto) (test code = 751-8) 3.4 2.1-6.9 [facility] CenterLymphocytes # (Auto)2018-03-31 16:53:00* Test Item Value Reference Range Interpretation Comments Lymphocytes # (Auto) (test code = 51289-1) 2.7 1.0-3.2 [facility] CenterMonocytes # (Auto)2018-03-31 16:53:00* Test Item Value Reference Range Interpretation Comments Monocytes # (Auto) (test code = 742-7) 0.5 0.2-0.8 [facility] CenterEosinophils # (Auto)2018-03-31 16:53:00* Test Item Value Reference Range Interpretation Comments Eosinophils # (Auto) (test code = 711-2) 0.0 0.0-0.4 [facility] CenterBasophils # (Auto)2018-03-31 16:53:00* Test Item Value Reference Range Interpretation Comments Basophils # (Auto) (test code = 704-7) 0.0 0.0-0.1 [facility] CenterAbsolute Immature Granulocyte (auto 2018-03-31 16:53:00* Test Item Value Reference Range Interpretation Comments Absolute Immature Granulocyte (auto (dinesh t code = Absolute Immature Granulocyte (auto) 0.02 0-0.1 [facility] CenterDifferential Total Cells Counted 2018-01-07 03:09:00* Test Item Value Reference Range Interpretation Comments Differential Total Cells Counted (test code = Brionna tial Total Cells Counted) 100 [facility] CenterNeutrophils % (Manual)2018-01-07 03:09:00 * Test Item Value Reference Range Interpretation Comments Neutrophils % (Manual) (test code = 10490-0) 32 40-74 L [facility] CenterLymphocytes % (Manual)2018-01-07 03:09:00 * Test Item Value Reference Range Interpretation Comments Lymphocytes % (Manual) (test code = 737-7) 57 19-48 H [facility] CenterMonocytes % (Manual)2018-01-07 03:09:00* Test Item Value Reference Range Interpretation Comments Monocytes % (Manual) (test code = 744-3) 6 3.4-9.0 [facility] CenterEosinophils % (Manual)2018-01-07 03:09:00 * Test Item Value Reference Range Interpretation Comments Eosinophils % (Manual) (test code = 714-6) 2 0-7 [facility] CenterBasophils % (Manual)2018-01-07 03:09:00* Test Item Value Reference Range Interpretation Comments Basophils % (Manual) (test code = 91788-9) 2 0-1.5 H [facility] CenterReactive Tykenqnkahb9252-22-72 03:09:00* Test Item Value Reference Range Interpretation Comments Reactive Lymphocytes (test code = 96588-4) 1 [facility] CenterPlatelet Evuigrsz4158-12-14 03:09:00* Test Item Value Reference Range Interpretation Comments Platelet Estimate (test code = 77901-3) ADEQUATE [facility] CenterPlatelet Morphology Odmuvnp0969-42-29 03:09:00* Test Item Value Reference Range Interpretation Comments Platelet Morphology Comment (test code = 55073-3) NORMAL [facility] CenterRed Cell Morphology Grtpuep8481-99-00 03:09:00* Test Item Value Reference Range Interpretation Comments Red Cell Morphology Comment (test code = 6742-1) NORMAL [facility] CenterDifferential Total Cells Counted 2018-01-07 03:09:00* Test Item Value Reference Range Interpretation Comments Differential Total Cells Counted (test code = Brionna tial Total Cells Counted) 100 [facility] CenterNeutrophils % (Manual)2018-01-07 03:09:00 * Test Item Value Reference Range Interpretation Comments Neutrophils % (Manual) (test code = 20447-0) 32 40-74 L [facility] CenterLymphocytes % (Manual)2018-01-07 03:09:00 * Test Item Value Reference Range Interpretation Comments Lymphocytes % (Manual) (test code = 737-7) 57 19-48 H [facility] CenterMonocytes % (Manual)2018-01-07 03:09:00* Test Item Value Reference Range Interpretation Comments Monocytes % (Manual) (test code = 744-3) 6 3.4-9.0 [facility] CenterEosinophils % (Manual)2018-01-07 03:09:00 * Test Item Value Reference Range Interpretation Comments Eosinophils % (Manual) (test code = 714-6) 2 0-7 [facility] CenterBasophils % (Manual)2018-01-07 03:09:00* Test Item Value Reference Range Interpretation Comments Basophils % (Manual) (test code = 33590-7) 2 0-1.5 H [facility] CenterReactive Iqohbfiatpq8819-96-16 03:09:00* Test Item Value Reference Range Interpretation Comments Reactive Lymphocytes (test code = 16845-8) 1 [facility] CenterPlatelet Ppwgappj5101-28-84 03:09:00* Test Item Value Reference Range Interpretation Comments Platelet Estimate (test code = 91331-0) ADEQUATE [facility] CenterPlatelet Morphology Tkvaqii8110-36-91 03:09:00* Test Item Value Reference Range Interpretation Comments Platelet Morphology Comment (test code = 45345-3) NORMAL [facility] CenterRed Cell Morphology Zoueotm5028-76-31 03:09:00* Test Item Value Reference Range Interpretation Comments Red Cell Morphology Comment (test code = 6742-1) NORMAL [facility] CenterDifferential Total Cells Counted 2018-01-07 03:09:00* Test Item Value Reference Range Interpretation Comments Differential Total Cells Counted (test code = Brionna coy Total Cells Counted) 100 [facility] CenterNeutrophils % (Manual)2018-01-07 03:09:00 * Test Item Value Reference Range Interpretation Comments Neutrophils % (Manual) (test code = 78238-6) 32 40-74 L [facility] CenterLymphocytes % (Manual)2018-01-07 03:09:00 * Test Item Value Reference Range Interpretation Comments Lymphocytes % (Manual) (test code = 737-7) 57 19-48 H [facility] CenterMonocytes % (Manual)2018-01-07 03:09:00* Test Item Value Reference Range Interpretation Comments Monocytes % (Manual) (test code = 744-3) 6 3.4-9.0 [facility] CenterEosinophils % (Manual)2018-01-07 03:09:00 * Test Item Value Reference Range Interpretation Comments Eosinophils % (Manual) (test code = 714-6) 2 0-7 [facility] CenterBasophils % (Manual)2018-01-07 03:09:00* Test Item Value Reference Range Interpretation Comments Basophils % (Manual) (test code = 77842-8) 2 0-1.5 H [facility] CenterReactive Totokuksurw8269-62-23 03:09:00* Test Item Value Reference Range Interpretation Comments Reactive Lymphocytes (test code = 38344-7) 1 [facility] CenterPlatelet Wpicxnul6670-33-67 03:09:00* Test Item Value Reference Range Interpretation Comments Platelet Estimate (test code = 33278-5) ADEQUATE [facility] CenterPlatelet Morphology Eeecuta1310-75-23 03:09:00* Test Item Value Reference Range Interpretation Comments Platelet Morphology Comment (test code = 54262-8) NORMAL [facility] CenterRed Cell Morphology Fiiitzs4326-73-94 03:09:00* Test Item Value Reference Range Interpretation Comments Red Cell Morphology Comment (test code = 6742-1) NORMAL [facility] CenterCHEST 2 PVONU7531-94-74 01:41:00 [facility] [address] [address] Patient Name: MAIDA IRENE MR #: [id number] : 1965 Age/Sex: 52/F Req #: [id number] Adm Physician: Ordered by: RUTHY ADAN OFFICE 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 Report #: [id number] Location: ER Room/ Bed: Procedure: [id number] DX/CHEST 2 VIEWS Exam Date : 01/06/18 [...] 1:42 AM Dictated By: DEVENDRA CHARLES MD [facility] Signed By: DEVENDRA CHARLES MD on 01/07/18141 Transcribed By: BACILIO on 01/07/18141 COPY TO: RUTHY ADAN OFFICE 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 Urine Osish3140-09-13 21:21:00* Test Item Value Reference Range Interpretation Comments Urine Color (test code = 5778-6) YELLOW YELLOW [facility] CenterUrine Ikfpzgh3584-53-26 21:21:00* Test Item Value Reference Range Interpretation Comments Urine Clarity (test code = 77589-0) SL CLOUDY CLEAR [facility] CenterUrine Specific Cqgqvss5344-90-86 21:21:00 * Test Item Value Reference Range Interpretation Comments Urine Specific [place] (test code = 5811-5) 1.020 1.010-1.02 5 [facility] CenterUrine aH8849-40-18 21:21:00* Test Item Value Reference Range Interpretation Comments Urine pH (test code = 41992-7) 6 5-7 [facility] Leukocyte Fhxkvwwb2112-84-52 21:21:00* Test Item Value Reference Range Interpretation Comments Urine Leukocyte Esterase (test code = 5799-2) TRACE NEGATIVE H [facility] Lioedpq1064-82-19 21:21:00* Test Item Value Reference Range Interpretation Comments Urine Nitrite (test code = 31031-1) NEGATIVE NEGATIVE [facility] Augfgcg6929-99-97 21:21:00* Test Item Value Reference Range Interpretation Comments Urine Protein (test code = 5804-0) NEGATIVE NEGATIVE [facility] Glucose (UA)2018-01-06 21:21:00* Test Item Value Reference Range Interpretation Comments Urine Glucose (UA) (test code = 2349-9) 3+ NEGATIVE H [facility] Bashzqu4091-93-04 21:21:00* Test Item Value Reference Range Interpretation Comments Urine Ketones (test code = 75066-0) NEGATIVE NEGATIVE [facility] Hzkuhkctpsqt8624-98-23 21:21:00* Test Item Value Reference Range Interpretation Comments Urine Urobilinogen (test code = 68600-2) 0.2 0.2-1 [facility] CenterUrine Hdlexgxtr0606-32-45 21:21:00* Test Item Value Reference Range Interpretation Comments Urine Bilirubin (test code = 1978-6) NEGATIVE NEGATIVE [facility] Kyhgl9796-44-75 21:21:00* Test Item Value Reference Range Interpretation Comments Urine Blood (test code = 45666-0) NEGATIVE NEGATIVE [facility] CenterUrine PTF1582-33-61 21:21:00* Test Item Value Reference Range Interpretation Comments Urine WBC (test code = 5821-4) 11-20 0-5 H [facility] CenterUrine KNY7962-56-24 21:21:00* Test Item Value Reference Range Interpretation Comments Urine RBC (test code = 63258-9) NONE 0-5 [facility] CenterUrine Ewdmmbki5238-59-23 21:21:00* Test Item Value Reference Range Interpretation Comments Urine Bacteria (test code = 28195-3) MANY NONE H [facility] CenterUrine Epithelial Jptqe7667-38-38 21:21:00 * Test Item Value Reference Range Interpretation Comments Urine Epithelial Cells (test code = 30757-7) FEW NONE [facility] Tjcss0593-38-59 21:19:00* Test Item Value Reference Range Interpretation Comments Sodium Level (test code = 2951-2) 133 136-145 L [facility] CenterPotassium Leurb7482-10-54 21:19:00* Test Item Value Reference Range Interpretation Comments Potassium Level (test code = 2823-3) 4.3 3.5-5.1 [facility] CenterChloride Zheru5498-15-40 21:19:00* Test Item Value Reference Range Interpretation Comments Chloride Level (test code = 2075-0) 95 98-107 L [facility] CenterCarbon Dioxide Tufzz1231-24-86 21:19:00* Test Item Value Reference Range Interpretation Comments Carbon Dioxide Level (test code = 2028-9) 25 - [facility] CenterAnion Axb2174-80-40 21:19:00* Test Item Value Reference Range Interpretation Comments Anion Gap (test code = 75096-3) 17.3 8-16 H [facility] CenterBlood Urea Jjafuqzl6129-17-11 21:19:00* Test Item Value Reference Range Interpretation Comments Blood Urea Nitrogen (test code = 3094-0) 13 7-26 [facility] CenterCreatinine2018-08-28 21:19:00* Test Item Value Reference Range Interpretation Comments Creatinine (test code = 2160-0) 0.94 0.57-1.11 [facility] CenterBUN/Creatinine Hjtwk0330-98-91 21:19:00* Test Item Value Reference Range Interpretation Comments BUN/Creatinine Ratio (test code = 3097-3) 14 6-25 [facility] CenterEstimat Glomerular Filtration Rate 2018-01-06 21:19:00* Test Item Value Reference Range Interpretation Comments Estimat Glomerular Filtration Rate (test code = 59650-7) 60- >60 Ranges were taken from the National Kidney Disease Education Program and the [facility] literature.Reference ranges:60 or greater: Wygbiq27-29 ( for 3 consecutive months): Chronic kidney disease 15 or less: Kidney failureNorth [facility] Medical CenterGlucose Vowhb1299-50-56 21:19:00* Test Item Value Reference Range Interpretation Comments Glucose Level (test code = JHR7465) 349 74-118 H [facility] CenterCalcium Sziow4293-39-68 21:19:00* Test Item Value Reference Range Interpretation Comments Calcium Level (test code = 02523-4) 9.5 8.4-10.2 [facility] CenterTotal Uvieyvotv8546-51-77 21:19:00* Test Item Value Reference Range Interpretation Comments Total Bilirubin (test code = 1975-2) 0.9 0.2-1.2 [facility] CenterAspartate Amino Transf (AST/SGOT) 2018-01-06 21:19:00* Test Item Value Reference Range Interpretation Comments Aspartate Amino Transf (AST/SGOT) (test code = Aspartate Amino Transf (AST/SGOT)) 28 5-34 [facility] CenterAlanine Aminotransferase (ALT/SGPT) 2018-01-06 21:19:00* Test Item Value Reference Range Interpretation Comments Alanine Aminotransferase (ALT/SGPT) (test code = 1742-6) 31 0-55 [facility] CenterTotal Tseclsb3369-75-38 21:19:00* Test Item Value Reference Range Interpretation Comments Total Protein (test code = 2885-2) 8.2 6.5-8.1 H [facility] CenterAlbumin2018-08-28 21:19:00* Test Item Value Reference Range Interpretation Comments Albumin (test code = 1751-7) 3.4 3.5-5.0 L [facility] CenterGlobulin2018-08-28 21:19:00* Test Item Value Reference Range Interpretation Comments Globulin (test code = 32838-7) 4.8 2.3-3.5 H [facility] CenterAlbumin/Globulin Yotzp0577 21:19:00 * Test Item Value Reference Range Interpretation Comments Albumin/Globulin Ratio (test code = 1759-0) 0.7 0.8-2.0 L [facility] CenterAlkaline Rupftkaqwwh7589-62-09 21:19:00* Test Item Value Reference Range Interpretation Comments Alkaline Phosphatase (test code = 6768-6) 138 40-150 [facility] CenterGroup A Streptococcus Uquvot3769-42-60 21:08:00* Test Item Value Reference Range Interpretation Comments Group A Streptococcus Screen (test code = 04553-2) NEGATIVE NEG ATIVE [facility] A Streptococcus Gbjbjv1405-70-02 21:08:00* Test Item Value Reference Range Interpretation Comments Group A Streptococcus Screen (test code = 44015-3) NEGATIVE NEG ATIVE [facility] A Streptococcus Cxpicw7139-72-13 21:08:00* Test Item Value Reference Range Interpretation Comments Group A Streptococcus Screen (test code = 18203-6) NEGATIVE NEG IVE [facility] CenterGroup A Streptococcus Ptwdov2034-30-87 21:08:00* Test Item Value Reference Range Interpretation Comments Group A Streptococcus Screen (test code = 10132-4) NEGATIVE NEG IVE [facility] CenterWhite Blood Vriij5261-39-30 21:01:00* Test Item Value Reference Range Interpretation Comments White Blood Count (test code = 6690-2) 11.67 4.8-10.8 H [facility] CenterRed Blood Pgsyc6580-93-14 21:01:00* Test Item Value Reference Range Interpretation Comments Red Blood Count (test code = 789-8) 5.08 3.6-5.1 [facility] CenterHemoglobin2018-08-28 21:01:00* Test Item Value Reference Range Interpretation Comments Hemoglobin (test code = 51128-8) 14.6 12.0-16.0 [facility] CenterHematocrit2018-08-28 21:01:00* Test Item Value Reference Range Interpretation Comments Hematocrit (test code = 4544-3) 44.7 34.2-44.1 H [facility] CenterMean Corpuscular Dntadu6091-10-23 21:01:00* Test Item Value Reference Range Interpretation Comments Mean Corpuscular Volume (test code = 787-2) 88.0 81-99 [facility] CenterMean Corpuscular Khknkzbcit5604-44-89 21:01:00* Test Item Value Reference Range Interpretation Comments Mean Corpuscular Hemoglobin (test code = 785-6) 28.7 28-32 [facility] Hemoglobin Concent 2018-01-06 21:01:00* Test Item Value Reference Range Interpretation Comments Mean Corpuscular Hemoglobin Concent (test code = 786-4) 32.7 31-35 [facility] CenterRed Cell Distribution Opqfs4936-76-59 21:01:00* Test Item Value Reference Range Interpretation Comments Red Cell Distribution Width (test code = 52708-5) 14.6 11.7 -14.4 H [facility] CenterPlatelet Muddt2415-97-90 21:01:00* Test Item Value Reference Range Interpretation Comments Platelet Count (test code = 777-3) 111 140-360 L [facility] CenterNeutrophils (%) (Auto)2018-01-06 21:01:00 * Test Item Value Reference Range Interpretation Comments Neutrophils (%) (Auto) (test code = 94715-9) 26.1 38.7-80.0 L [facility] [place] [facility] CenterLymphocytes (%) (Auto)2018-01-06 21:01:00 * Test Item Value Reference Range Interpretation Comments Lymphocytes (%) (Auto) (test code = 736-9) 65.9 18.0-39.1 H [facility] CenterMonocytes (%) (Auto)2018-01-06 21:01:00* Test Item Value Reference Range Interpretation Comments Monocytes (%) (Auto) (test code = 5905-5) 5.2 4.4-11.3 [facility] CenterEosinophils (%) (Auto)2018-01-06 21:01:00 * Test Item Value Reference Range Interpretation Comments Eosinophils (%) (Auto) (test code = 713-8) 0.9 0.0-6.0 [facility] CenterBasophils (%) (Auto)2018-01-06 21:01:00* Test Item Value Reference Range Interpretation Comments Basophils (%) (Auto) (test code = 706-2) 1.4 0.0-1.0 H [facility] [place] [facility] CenterIM GRANULOCYTES %2018-01-06 21:01:00* Test Item Value Reference Range Interpretation Comments IM GRANULOCYTES % (test code = IM GRANULOCYTES %) 0.5 0.0- 1.0 [facility] CenterNeutrophils # (Auto)2018-01-06 21:01:00* Test Item Value Reference Range Interpretation Comments Neutrophils # (Auto) (test code = 751-8) 3.0 2.1-6.9 [facility] CenterLymphocytes # (Auto)2018-01-06 21:01:00* Test Item Value Reference Range Interpretation Comments Lymphocytes # (Auto) (test code = 82551-3) 7.7 1.0-3.2 H [facility] CenterMonocytes # (Auto)2018-01-06 21:01:00* Test Item Value Reference Range Interpretation Comments Monocytes # (Auto) (test code = 742-7) 0.6 0.2-0.8 [facility] CenterEosinophils # (Auto)2018-01-06 21:01:00* Test Item Value Reference Range Interpretation Comments Eosinophils # (Auto) (test code = 711-2) 0.1 0.0-0.4 [facility] CenterBasophils # (Auto)2018-01-06 21:01:00* Test Item Value Reference Range Interpretation Comments Basophils # (Auto) (test code = 704-7) 0.2 0.0-0.1 H [facility] CenterAbsolute Immature Granulocyte (auto 2018-01-06 21:01:00* Test Item Value Reference Range Interpretation Comments Absolute Immature Granulocyte (auto (dinesh t code = Absolute Immature Granulocyte (auto) 0.06 0-0.1 [facility] LAB USE ONLY 2017-12-30 15:37:00* Test Item Value Reference Range Interpretation Comments GLUCOMETER (test code = GMG) 97 mg/dL 70-100 CLEANED METERMeter ID: [id number]: [id number] ERASMO PIEDRA GLUCOMETER GLUCOSE- LAB USE RZEC8860-11-22 14:28:00* Test Item Value Reference Range Interpretation Comments GLUCOMETER (test code = GMG) 167 mg/dL 70-100 H CLEANED METERMeter ID: [id number]: 4902 JENNA JALLOH GLUCOMETER GLUCOSE- LAB USE FUGV3418-69-40 14:16:00* Test Item Value Reference Range Interpretation Comments GLUCOMETER (test code = GMG) 55 mg/dL 70-100 LL Meter ID: [id number]: 4902 JENNA JALLOH GLUCOMETER GLUCOSE- LAB USE KSOX8136-63-18 12:52:00* Test Item Value Reference Range Interpretation Comments GLUCOMETER (test code = GMG) 104 mg/dL 70-100 H Meter ID: [id number]: 4902 JENNA JALLOH Bedside Arsfeno6757-78-80 05:41:00* Test Item Value Reference Range Interpretation Comments Bedside Glucose (test code = 43297-4) 216 70-120 H Meter ID: [id number] [facility] Glucose 2017-08-01 05:41:00* Test Item Value Reference Range Interpretation Comments Bedside Glucose (test code = 14878-4) 216 70-120 H Meter ID: [id number] [facility] Glucose 2017-07-20 07:49:00* Test Item Value Reference Range Interpretation Comments Bedside Glucose (test code = 36188-8) 272 70-120 H Meter ID: [id number] [facility] CenterFerritin2018-[facility] 13:50:00* Test Item Value Reference Range Interpretation Comments Ferritin (test code = 2276-4) 20.54 4.63-204.00 [facility] CenterFerritin2018-03-09 13:50:00* Test Item Value Reference Range Interpretation Comments Ferritin (test code = 2276-4) 20.54 4.63-204.00 [facility] CenterFerritin2018-03-09 13:50:00* Test Item Value Reference Range Interpretation Comments Ferritin (test code = 2276-4) 20.54 4.63-204.00 [facility]2018-03-09 13:28:00* Test Item Value Reference Range Interpretation Comments Iron Level (test code = 2498-4) 32 50-170 L [facility] Iron Binding Nlecsktw3219-01-06 13:28:00* Test Item Value Reference Range Interpretation Comments Total Iron Binding Capacity (test code = 2500-7) 281 261-4 78 [facility] CenterPercent Iron Kkaqvevvyf0128-41-90 13:28:00* Test Item Value Reference Range Interpretation Comments Percent Iron Saturation (test code = 2502-3) 11 15-50 L [facility] CenterTransferrin2018-03-09 13:28:00* Test Item Value Reference Range Interpretation Comments Transferrin (test code = 3034-6) 201 180-382 [facility]2018-03-09 13:28:00* Test Item Value Reference Range Interpretation Comments Iron Level (test code = 2498-4) 32 50-170 L [facility] Iron Binding Ineljtha7205-97-10 13:28:00* Test Item Value Reference Range Interpretation Comments Total Iron Binding Capacity (test code = 2500-7) 281 261-4 78 [facility] CenterPercent Iron Ejvejjhdvn2544-88-81 13:28:00* Test Item Value Reference Range Interpretation Comments Percent Iron Saturation (test code = 2502-3) 11 15-50 L [facility] CenterTransferrin2018-03-09 13:28:00* Test Item Value Reference Range Interpretation Comments Transferrin (test code = 3034-6) 201 180-382 [facility]2018-03-09 13:28:00* Test Item Value Reference Range Interpretation Comments Iron Level (test code = 2498-4) 32 50-170 L [facility] CenterTotal Iron Binding Sriqpnty8230-92-61 13:28:00* Test Item Value Reference Range Interpretation Comments Total Iron Binding Capacity (test code = 2500-7) 281 261-4 78 [facility] CenterPercent Iron Tycyjpqaju8243-24-05 13:28:00* Test Item Value Reference Range Interpretation Comments Percent Iron Saturation (test code = 2502-3) 11 15-50 L [facility] CenterTransferrin2018-03-09 13:28:00* Test Item Value Reference Range Interpretation Comments Transferrin (test code = 3034-6) 201 180-382 [facility] CenterFolate2018-03-09 11:08:00* Test Item Value Reference Range Interpretation Comments Folate (test code = 2284-8) 29.1 7.0-15.4 H [facility] CenterFolate2018-03-09 11:08:00* Test Item Value Reference Range Interpretation Comments Folate (test code = 2284-8) 29.1 7.0-15.4 H [facility] CenterFolate2018-03-09 11:08:00* Test Item Value Reference Range Interpretation Comments Folate (test code = 2284-8) 29.1 7.0-15.4 H [facility] CenterVitamin B12 Thyqa6047-48-20 10:13:00* Test Item Value Reference Range Interpretation Comments Vitamin B12 Level (test code = 70171-4) 514 213-816 [facility] CenterVitamin B12 Cjwnn6028-59-15 10:13:00* Test Item Value Reference Range Interpretation Comments Vitamin B12 Level (test code = 09293-2) 514 213-816 [facility] CenterVitamin B12 Hqrnh9302-05-51 10:13:00* Test Item Value Reference Range Interpretation Comments Vitamin B12 Level (test code = 64873-0) 514 213-816 [facility]odium Dvasp9762-89-40 08:04:00* Test Item Value Reference Range Interpretation Comments Sodium Level (test code = 2951-2) 140 136-145 [facility] CenterPotassium Lfaec8690-19-93 08:04:00* Test Item Value Reference Range Interpretation Comments Potassium Level (test code = 2823-3) 4.1 3.5-5.1 [facility] CenterChloride Fxvad4324-52-71 08:04:00* Test Item Value Reference Range Interpretation Comments Chloride Level (test code = 2075-0) 106 98-107 [facility] CenterCarbon Dioxide Bsxfu5652-66-05 08:04:00* Test Item Value Reference Range Interpretation Comments Carbon Dioxide Level (test code = 2028-9) 26 22-29 [facility] CenterAnion Cgv1622-25-50 08:04:00* Test Item Value Reference Range Interpretation Comments Anion Gap (test code = 25013-7) 12.1 8-16 [facility] CenterBlood Urea Ofieqrwa1291-53-91 08:04:00* Test Item Value Reference Range Interpretation Comments Blood Urea Nitrogen (test code = 3094-0) -5 7-26 L [facility] CenterCreatinine2018-03-09 08:04:00* Test Item Value Reference Range Interpretation Comments Creatinine (test code = 2160-0) 0.68 0.57-1.11 [facility] CenterBUN/Creatinine Wokzu1882-60-74 08:04:00* Test Item Value Reference Range Interpretation Comments BUN/Creatinine Ratio (test code = 3097-3) 7 6-25 [facility] CenterEstimat Glomerular Filtration Rate 2017-07-18 08:04:00* Test Item Value Reference Range Interpretation Comments Estimat Glomerular Filtration Rate (test code = 09729-4) 60- >60 Ranges were taken from the National Kidney Disease Education Program and the [facility] literature.Reference ranges:60 or greater: Jlzcmb44-11 ( for 3 consecutive months): Chronic kidney disease 15 or less: Kidney failureNorth [facility] Medical CenterGlucose Hwrtc0381-10-13 08:04:00* Test Item Value Reference Range Interpretation Comments Glucose Level (test code = TJX8359) 264 74-118 H [facility] CenterCalcium Cgtcp5720-96-07 08:04:00* Test Item Value Reference Range Interpretation Comments Calcium Level (test code = 70688-6) 8.6 8.4-10.2 [facility] CenterWhite Blood Merso3520-90-54 07:25:00* Test Item Value Reference Range Interpretation Comments White Blood Count (test code = 6690-2) 5.01 4.8-10.8 [facility] CenterRed Blood Wtbsy1563-60-01 07:25:00* Test Item Value Reference Range Interpretation Comments Red Blood Count (test code = 789-8) 4.16 3.6-5.1 [facility] CenterHemoglobin2018-03-09 07:25:00* Test Item Value Reference Range Interpretation Comments Hemoglobin (test code = 21130-2) 9.5 12.0-16.0 L [facility] CenterHematocrit2018-03-09 07:25:00* Test Item Value Reference Range Interpretation Comments Hematocrit (test code = 4544-3) 32.3 34.2-44.1 L [facility] CenterMean Corpuscular Svittv7782-79-49 07:25:00* Test Item Value Reference Range Interpretation Comments Mean Corpuscular Volume (test code = 787-2) 77.6 81-99 L [facility] CenterMean Corpuscular Jyijiyviwd3559-96-74 07:25:00* Test Item Value Reference Range Interpretation Comments Mean Corpuscular Hemoglobin (test code = 785-6) 22.8 28-32 L [facility] CenterMean Corpuscular Hemoglobin Concent 2017-07-18 07:25:00* Test Item Value Reference Range Interpretation Comments Mean Corpuscular Hemoglobin Concent (test code = 786-4) 29.4 31-35 L [facility] CenterRed Cell Distribution Dufwf6926-51-81 07:25:00* Test Item Value Reference Range Interpretation Comments Red Cell Distribution Width (test code = 11510-1) 17.3 11.7 -14.4 H [facility] CenterPlatelet Rcnqn0673-27-42 07:25:00* Test Item Value Reference Range Interpretation Comments Platelet Count (test code = 777-3) 105 140-360 L [facility] CenterNeutrophils (%) (Auto)2017-07-18 07:25:00 * Test Item Value Reference Range Interpretation Comments Neutrophils (%) (Auto) (test code = 85102-6) 55.5 38.7-80.0 [facility] CenterLymphocytes (%) (Auto)2017-07-18 07:25:00 * Test Item Value Reference Range Interpretation Comments Lymphocytes (%) (Auto) (test code = 736-9) 34.1 18.0-39.1 [facility] CenterMonocytes (%) (Auto)2017-07-18 07:25:00* Test Item Value Reference Range Interpretation Comments Monocytes (%) (Auto) (test code = 5905-5) 7.0 4.4-11.3 [facility] CenterEosinophils (%) (Auto)2017-07-18 07:25:00 * Test Item Value Reference Range Interpretation Comments Eosinophils (%) (Auto) (test code = 713-8) 2.4 0.0-6.0 [facility] CenterBasophils (%) (Auto)2017-07-18 07:25:00* Test Item Value Reference Range Interpretation Comments Basophils (%) (Auto) (test code = 706-2) 0.6 0.0-1.0 [facility] CenterIM GRANULOCYTES %2017-07-18 07:25:00* Test Item Value Reference Range Interpretation Comments IM GRANULOCYTES % (test code = IM GRANULOCYTES %) 0.4 0.0- 1.0 [facility] CenterNeutrophils # (Auto)2017-07-18 07:25:00* Test Item Value Reference Range Interpretation Comments Neutrophils # (Auto) (test code = 751-8) 2.8 2.1-6.9 [facility] CenterLymphocytes # (Auto)2017-07-18 07:25:00* Test Item Value Reference Range Interpretation Comments Lymphocytes # (Auto) (test code = 79737-2) 1.7 1.0-3.2 [facility] CenterMonocytes # (Auto)2017-07-18 07:25:00* Test Item Value Reference Range Interpretation Comments Monocytes # (Auto) (test code = 742-7) 0.4 0.2-0.8 [facility] CenterEosinophils # (Auto)2017-07-18 07:25:00* Test Item Value Reference Range Interpretation Comments Eosinophils # (Auto) (test code = 711-2) 0.1 0.0-0.4 [facility] CenterBasophils # (Auto)2017-07-18 07:25:00* Test Item Value Reference Range Interpretation Comments Basophils # (Auto) (test code = 704-7) 0.0 0.0-0.1 [facility] CenterAbsolute Immature Granulocyte (auto 2017-07-18 07:25:00* Test Item Value Reference Range Interpretation Comments Absolute Immature Granulocyte (auto (dinesh t code = Absolute Immature Granulocyte (auto) 0.02 0-0.1 [facility] CenterPercent Reticulocyte Vhbem0941-72-31 07:25:00* Test Item Value Reference Range Interpretation Comments Percent Reticulocyte Count (test code = 19441-2) 1.6 0.8-2 .2 [facility] CenterPercent Reticulocyte Liwml8803-94-81 07:25:00* Test Item Value Reference Range Interpretation Comments Percent Reticulocyte Count (test code = 31940-4) 1.6 0.8-2 .2 [facility] CenterPercent Reticulocyte Qvxuz8487-26-32 07:25:00* Test Item Value Reference Range Interpretation Comments Percent Reticulocyte Count (test code = 85560-2) 1.6 0.8-2 .2 [facility] CenterTotal Gxbwlvnxd1117-48-30 07:33:00* Test Item Value Reference Range Interpretation Comments Total Bilirubin (test code = 1975-2) 0.6 0.2-1.2 [facility] CenterAspartate Amino Transf (AST/SGOT) 2017-07-16 07:33:00* Test Item Value Reference Range Interpretation Comments Aspartate Amino Transf (AST/SGOT) (test code = Aspartate Amino Transf (AST/SGOT)) 61 5-34 H [facility] CenterAlanine Aminotransferase (ALT/SGPT) 2017-07-16 07:33:00* Test Item Value Reference Range Interpretation Comments Alanine Aminotransferase (ALT/SGPT) (test code = 1742-6) 27 0-55 [facility] CenterTotal Bhugeub8505-85-69 07:33:00* Test Item Value Reference Range Interpretation Comments Total Protein (test code = 2885-2) 6.6 6.5-8.1 [facility] CenterAlbumin2018-03-07 07:33:00* Test Item Value Reference Range Interpretation Comments Albumin (test code = 1751-7) 3.0 3.5-5.0 L [facility] CenterGlobulin2018-03-07 07:33:00* Test Item Value Reference Range Interpretation Comments Globulin (test code = 24907-2) 3.6 2.3-3.5 H [facility] CenterAlbumin/Globulin Hvlea0322-94-04 07:33:00 * Test Item Value Reference Range Interpretation Comments Albumin/Globulin Ratio (test code = 1759-0) 0.8 0.8-2.0 [facility] CenterAlkaline Ucmojfvutdf3665-51-04 07:33:00* Test Item Value Reference Range Interpretation Comments Alkaline Phosphatase (test code = 6768-6) 128 40-150 [facility] CenterCreatine Kinase TU3110-46-44 17:21:00* Test Item Value Reference Range Interpretation Comments Creatine Kinase MB (test code = 93062-6) 1.80 0-5.0 [facility] CenterTroponin Z2396-25-18 17:21:00* Test Item Value Reference Range Interpretation Comments Troponin I (test code = KHQ3540) 0.009 0-0.300 [facility] CenterCreatine Kinase SA2620-93-66 17:21:00* Test Item Value Reference Range Interpretation Comments Creatine Kinase MB (test code = 30569-3) 1.80 0-5.0 [facility] CenterTroponin G5519-50-55 17:21:00* Test Item Value Reference Range Interpretation Comments Troponin I (test code = VUR7077) 0.009 0-0.300 [facility] CenterCreatine Brdlhe2907-92-55 17:15:00* Test Item Value Reference Range Interpretation Comments Creatine Kinase (test code = 2157-6) 31 29-168 [facility] CenterCreatine Kfeuyi0100-35-12 17:15:00* Test Item Value Reference Range Interpretation Comments Creatine Kinase (test code = 2157-6) 31 29-168 [facility] CenterHuman Chorionic Gonadotropin, Qual 2017-07-15 17:08:00* Test Item Value Reference Range Interpretation Comments Human Chorionic Gonadotropin, Qual (test code = 2118-8) NEGATIVE NEGATIVE [facility] Chorionic Gonadotropin, Qual 2017-07-15 17:08:00* Test Item Value Reference Range Interpretation Comments Human Chorionic Gonadotropin, Qual (test code = 2118-8) NEGATIVE NEGATIVE [facility] Chorionic Gonadotropin, Qual 2017-07-15 17:08:00* Test Item Value Reference Range Interpretation Comments Human Chorionic Gonadotropin, Qual (test code = 2118-8) NEGATIVE NEGATIVE [facility] CenterProthrombin Zlhd0631-92-77 17:07:00* Test Item Value Reference Range Interpretation Comments Prothrombin Time (test code = 5902-2) 14.5 11.9-14.5 [facility] CenterProthromb Time International Ratio 2017-07-15 17:07:00* Test Item Value Reference Range Interpretation Comments Prothromb Time International Ratio (test code = 6301-6) 1.22 Oral Anticoagulant Therapy INR Values:1. Low Intensity Therapy 1.5 - 2.02 . Moderate Intensity Therapy 2.0 - 3.03. High Intensity Therapy(1) 2.5 - 3. 54. High Intensity Therapy(2) 3.0 - 4.05. Panic Value INR > 5.0 [facility] CenterActivated Partial Thromboplast Time 2017-07-15 17:07:00* Test Item Value Reference Range Interpretation Comments Activated Partial Thromboplast Time (test code = 43600-0) 28.9 23.8-35.5 [facility] CenterProthrombin Ecxj7928-47-06 17:07:00* Test Item Value Reference Range Interpretation Comments Prothrombin Time (test code = 5902-2) 14.5 11.9-14.5 [facility] CenterProthromb Time International Ratio 2017-07-15 17:07:00* Test Item Value Reference Range Interpretation Comments Prothromb Time International Ratio (test code = 6301-6) 1.22 Oral Anticoagulant Therapy INR Values:1. Low Intensity Therapy 1.5 - 2.02 . Moderate Intensity Therapy 2.0 - 3.03. High Intensity Therapy(1) 2.5 - 3. 54. High Intensity Therapy(2) 3.0 - 4.05. Panic Value INR > 5.0 [facility] CenterActivated Partial Thromboplast Time 2017-07-15 17:07:00* Test Item Value Reference Range Interpretation Comments Activated Partial Thromboplast Time (test code = 98014-2) 28.9 23.8-35.5 [facility] [address] [place] [address] Patient Name: MAIDA IRENE MR #: [id number] : 1965 Age/Sex: 52/F Req #: [id number] Adm Physician: Ordered by: RYAN BURROUGHS MD Report #: [id number] Location: DX Room/Bed: Procedure: [id number] DX/SMALL BOWEL SERIES Exam Date: 05/29/18 Exam Time: 0720 REPORT STATUS: S igned PROCEDURE: SMALL BOWEL SERIES COMPARISON: [facility] , CT, CT ABDOMEN/PELVIS W, 07/15/2017, 19:32. INDICATIONS: ANEMIA, EPIGAST SHERON PAIN TEQUNIQUE: A bpo specialist radiograph was performed. The patient was give n barium to drink and sequential images of the abdomen were obtained throu gh 180 minutes until the contrast had reached the colon. Spot images of the s mall bowel and terminal ileum were obtained. Fluoro time: 1.7 minutes FI NDINGS: Communications Program Manager: Nonobstructive bowel gas pattern with large amount [...] Serjio Wilson M.D. on 10/07/2017 at 19:44 Dicta lara By: SERJIO WILSON MD 43 COPY TO: RYAN BURROUGHS MD CT ABDOMEN/PELVIS W [place] [address] Patient Name: MAIDA IRENE MR #: [id number] : 1965 Age/Sex: 52/F Req #: [id number] Adm Physician: Ordered by: EVENS CARDONA NP Report #: [id number] Location: ER Room/Bed: Procedure: [id number] CT/CT ABDOMEN/PELVIS W Ex am Date: 07/15/17 [...] sarmad gn finding. Signed by: Dr. Armando Wilkinson D.O., M.M.M. on 07/15/2017 8:03 PM Dictated By: ARMANDO WILKINSON DO 02 Transcribed By: BACILIO on 07/15/172002 COPY TO: EVENS CARDONA OFFICE 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 CHEST 2 VIEWS [place] [address] Patient Name: MAIDA IRENE MR #: [id number] : 1965 Age/Sex: 52/F Req #: [id number] Adm Physician: Ordered by: EVENS CARDONA OFFICE 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 Report #: [id number] Location: ER Room/Bed: Procedure: [id number] DX/CHEST 2 VIEWS Exam Álvaro e: 07/15/17 Exam Time: 1745 REPORT STATUS: Sign ed PROCEDURE: Frontal and lateral views of the chest. COMPARISON: [facility], DX, CHEST 2 VIEWS, 03/10/2017, 10:45. INDICATIONS [...] WILSON MD 1800 COPY TO: EVENS CARDONA OFFICE 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 US ABDOMEN COMPLETE [place] [address] Patient Name: MAIDA IRENE MR #: [id number] : 1965 Age/Sex: 52/F Req #: [id number] Adm Physician: Ordered by: RYAN BURROUGHS MD Report #: [id number] Location: US Room/Bed: Procedure: [id number] US/US ABDOMEN COMPLETE Exam Date: Exam Time: REPORT STATUS: Signed LA OCEDURE: ABDOMINAL ULTRASOUND COMPARISON: CT abdomen and [...] EDMONDS DO 1 Transcribed By: GEORGES on 07/09/17851 COPY TO: RYAN BURROUGHS MD CHEST 2 VIEWS [place] [address] Patient Name: MAIDA IRENE MR #: [id number] : 1965 Age/Sex: 51/F Req #: [id number] Adm Physician: Ordered by: CARLOS ENRIQUE ZAMAN DPM Report #: [id number] Location: OR Room/Bed: Procedure: [id number] DX/CHEST 2 VIEWS Exam D ate: 03/10/17 Exam Time: 1150 REPORT STATUS: Si gned PROCEDURE: X-RAY CHEST, TWO VIEWS COMPARISON: [facility], DX, CHEST 2 VIEWS, 05/16/2010, 13:10. INDICATIONS: [...]
--- NOTE | 2020-02-10 18:08 | Diagnostic Imaging Report ---
EXAMINATION: CT of the abdomen and pelvis without contrast. TECHNIQUE: Spiral CT images of the abdomen and pelvis were performed from the lung bases to the lesser trochanters. No intravenous contrast was given per physician's request. Coronal and sagittal reformatted images were obtained. COMPARISON: CT abdomen and pelvis 09/01/2019 CLINICAL HISTORY:Abdominal pain and nausea 2 days, recent pancreatitis, C. difficile last week DISCUSSION: ABSENCE OF INTRAVENOUS CONTRAST DECREASES SENSITIVITY FOR DETECTION OF FOCAL LESIONS AND VASCULAR PATHOLOGY. ABDOMEN/PELVIS: LOWER THORAX: Linear subsegmental atelectasis in bilateral lower lobes secondary to infiltration of bilateral hemidiaphragms. Atherosclerotic calcification of the coronary arteries. HEPATOBILIARY: Decreased attenuation of the hepatic parenchyma consistent with steatosis. No focal lesions. No intra or extrahepatic biliary ductal dilation. GALLBLADDER: Cholecystectomy clips. SPLEEN: Mild splenomegaly, which measures 13.9 cm in AP diameter. Stable 3.9 x 3.8 cm fluid density cystic lesion in the posterior spleen PANCREAS: No focal masses or ductal dilatation. No peripancreatic inflammatory changes, free fluid or fluid collections. ADRENALS: No adrenal nodules. KIDNEYS/URETERS: No renal or ureteral calculi, hydronephrosis or obstruction. No contour abnormalities or perinephric stranding. PELVIC ORGANS/BLADDER: Bladder is decompressed but grossly unremarkable. Uterus is unremarkable. No adnexal masses. Multiple pelvic phleboliths. PERITONEUM/RETROPERITONEUM: No free air or fluid. LYMPH NODES: No intra-abdominal,retroperitoneal, pelvic or inguinal lymphadenopathy. VESSELS: Minimal atherosclerotic calcification of the distal abdominal aorta approximately vessels. GI TRACT: No bowel dilation or evidence of obstruction. No pericolonic inflammatory changes. Stomach is grossly unremarkable. BONES AND SOFT TISSUES: No aggressive lytic or suspicious focal sclerotic lesions. Multilevel mildly degenerated discs in the lower thoracic and to a lesser degree lumbar spine. Soft tissues are grossly unremarkable. IMPRESSION: 1. No acute abdominal pelvic abnormalities. No bowel dilation or evidence of obstruction. No pericolonic inflammatory changes. 2. Hepatic steatosis. 3. Mild hepatomegaly. Stable 3.9 cm splenic cyst. Signed by: Dr. Serjio Ghotra M.D. on 02/10/2020 6:05 PM
--- NOTE | 2020-02-10 19:17 | NUR ---
Report to FERNANDO Jacob
[2020-02-10] MEDS ORDERED: CODEINE SULFATE30 MG PO (19:32)
== END 2020-02-10 20:37 | disposition home or self-care (01) ==
LOC: FSED 16:42
DX: R10.13 Epigastric pain (principal); N39.0 Urinary tract infection, site not specified; R11.2 Nausea with vomiting, unspecified; E86.0 Dehydration; I10 Essential (primary) hypertension; E11.9 Type 2 diabetes mellitus without complications; E03.9 Hypothyroidism, unspecified; D64.9 Anemia, unspecified; F41.9 Anxiety disorder, unspecified; Z85.118 Personal history of other malignant neoplasm of bronchus and lung
CPT/HCPCS: 74176; 80048; 80076; 81003; 85025; 96374; 96375; 96376; 99284; J2270; J2405; J7030

== ENCOUNTER 2021-06-11 19:06 | Inpatient (IN) | payer BC ==
[~2021-06-11] VITALS: Ht 167.6 cm; Wt 90.7 kg
[~2021-06-11 19:06] MED LIST changes: +CODEINE SULFATE30 MG PO
[2021-06-11] MEDS ORDERED: Morphine 4mg Syringe 4 MG/ML INJ IV ONE (20:45)
[2021-06-11] MEDS ORDERED: ONDANSETRON HCL INJ 2MG/ML 2ML 2 MG/ML VIAL IV STA (20:46)
[2021-06-11 20:54] LABS: BASOPHILS # (AUTO) 0.1 (0.0-0.1); BASOPHILS % 0.7 % (0.0-1.0); EOSINOPHILS # (AUTO) 0.1 (0.0-0.4); EOSINOPHILS % 0.6 % (0.0-6.0); HEMATOCRIT 38.9 % (34.2-44.1); HEMOGLOBIN 11.4 g/dL (12.0-16.0); LYMPHOCYTES # (AUTO) 0.9 (1.0-3.2); LYMPHOCYTES % 10.7 % (18.0-39.1); MEAN CORPUSCULAR HEMOGLOBIN 23.5 pg (28-32); MEAN CORPUSCULAR HGB CONC 29.3 g/dL (31-35); MONOCYTES # (AUTO) 0.3 (0.2-0.8); MONOCYTES % 3.4 % (4.4-11.3); NEUTROPHILS # (AUTO) 7.2 (2.1-6.9); NEUTROPHILS % 84.1 % (38.7-80.0); PLATELET COUNT 162 x10e3/uL (140-360); RED BLOOD COUNT 4.86 x10e6/uL (3.6-5.1); RED CELL DISTRIBUTION WIDTH 16.3 % (11.7-14.4)
[2021-06-11] MEDS ORDERED: PIPERACILLIN/TAZOBACTAM 3.375 GM in SODIUM CHLORIDE 0.9% 50ML 50 ML IV ONE (21:00)
[2021-06-11] MEDS ORDERED: ACETAMINOPHEN 325 MG TAB PO ONE (21:00)
[2021-06-11 21:06] LABS: ALBUMIN 3.5 g/dL (3.5-5.0); ALBUMIN/GLOBULIN RATIO 0.9 (0.8-2.0); ANION GAP 18.1 mmol/L (8-16); CALCIUM 9.4 mg/dL (8.4-10.2); CREATININE, SERUM 1.02 mg/dL (0.57-1.11); POTASSIUM 4.1 mmol/L (3.5-5.1)
[2021-06-11] MEDS ORDERED: ACETAMINOPHEN 325 MG/10 ML UDC ONE (21:11)
[2021-06-11] MEDS: SODIUM CHLORIDE 0.9% 1000ML 1,000 ML IV SCH (21:25)
[2021-06-11] MEDS ORDERED: ACETAMINOPHEN 325 MG/10 ML UDC NG STA (21:26)
[2021-06-11] MEDS ORDERED: IBUPROFEN 800MG/ 200ML 200 ML IV ONE (21:28)
[2021-06-11] MEDS ORDERED: IBUPROFEN 800MG/ 200ML 800 MG in SODIUM CHLORIDE 0.9% 250ML 250 ML IV ONE (21:30)
[2021-06-11] MEDS ORDERED: SODIUM CHLORIDE 0.9% 1000ML 1,000 ML IV ONE (22:15)
[2021-06-11] MEDS ORDERED: SODIUM CHLORIDE 0.9% 1000ML 1,000 ML IV SCH (23:00)
[2021-06-11] MEDS ORDERED: DEXTROSE 50% SYRINGE 50 ML IV PRN (23:00)
[2021-06-11 23:38] LABS: CREATINE KINASE 33 IU/L (29-168)
[2021-06-12] VITALS (13 sets, daily range): BP systolic 104–139; BP diastolic 54–89
[2021-06-12] MEDS: METRONIDAZOLE 500MG/NS 100ML IV SCH ×5 (01:30→23:58)
[2021-06-12] MEDS: ONDANSETRON HCL INJ 2MG/ML 2ML 2 MG/ML VIAL IV PRN ×3 (02:20→18:21)
[2021-06-12] MEDS: Morphine 2mg Syringe 2 MG/ML SYR IV PRN ×2 (02:45→16:04)
[2021-06-12 05:11] LABS: BASOPHILS # (AUTO) 0.1 (0.0-0.1); BASOPHILS % 0.5 % (0.0-1.0); EOSINOPHILS % 0.1 % (0.0-6.0); HEMATOCRIT 36.4 % (34.2-44.1); HEMOGLOBIN 10.5 g/dL (12.0-16.0); LYMPHOCYTES # (AUTO) 0.9 (1.0-3.2); LYMPHOCYTES % 7.2 % (18.0-39.1); MEAN CORPUSCULAR HEMOGLOBIN 23.3 pg (28-32); MEAN CORPUSCULAR HGB CONC 28.8 g/dL (31-35); MEAN CORPUSCULAR VOLUME 80.9 fL (81-99); MONOCYTES % 8.5 % (4.4-11.3); NEUTROPHILS # (AUTO) 10.3 (2.1-6.9); NEUTROPHILS % 83.5 % (38.7-80.0); PLATELET COUNT 124 x10e3/uL (140-360); RED CELL DISTRIBUTION WIDTH 16.3 % (11.7-14.4)
[2021-06-12 05:45] LABS: ALBUMIN 3.1 g/dL (3.5-5.0); ALBUMIN/GLOBULIN RATIO 0.9 (0.8-2.0); ANION GAP 17.8 mmol/L (8-16); CALCIUM 8.6 mg/dL (8.4-10.2); CREATININE, SERUM 1.11 mg/dL (0.57-1.11); POTASSIUM 3.8 mmol/L (3.5-5.1)
[2021-06-12] MEDS: PIPERACILLIN/TAZOBACTAM 3.375 GM in SODIUM CHLORIDE 0.9% 50ML 50 ML IV SCH ×3 (05:46→21:01)
[2021-06-12] MEDS: SODIUM CHLORIDE 0.9% 1000ML 1,000 ML IV SCH (05:52)
[2021-06-12] MEDS ORDERED: INSULIN REGULAR, HUMAN 100 UNIT/1 ML SQ SCH (07:30)
[2021-06-12] MEDS ORDERED: INSULIN GLARGINE 100 UNITS/ML VIAL SQ ONE (12:00)
[2021-06-12 12:28] LABS: ANION GAP 12.5 mmol/L (8-16); CALCIUM 8.6 mg/dL (8.4-10.2); CREATININE, SERUM 1.06 mg/dL (0.57-1.11); POTASSIUM 3.5 mmol/L (3.5-5.1)
[2021-06-12] MEDS: INSULIN REGULAR, HUMAN 100 UNIT/1 ML SQ SCH ×2 (17:26→20:52)
[2021-06-12] MEDS: INSULIN GLARGINE 100 UNITS/ML VIAL SQ SCH (20:51)
[2021-06-12] MEDS ORDERED: ENOXAPARIN INJ 80 MG/0.8 ML SYR SC SCH (21:00)
[2021-06-12 23:42] LABS: % IRON SATURATION 4 % (15-50); IRON 13 ug/dL (50-170); TOTAL IRON BINDING CAPACITY 316 ug/dL (261-478); TRANSFERRIN 226 mg/dL (180-382)
[2021-06-13] MEDS: Morphine 2mg Syringe 2 MG/ML SYR IV PRN (00:27)
[2021-06-13] MEDS: ONDANSETRON HCL INJ 2MG/ML 2ML 2 MG/ML VIAL IV PRN ×2 (00:27→04:32)
[2021-06-13 01:15] VITALS: BP 154/78
[2021-06-13] MEDS ORDERED: CITRATE OF MAGNESIA 300ML BOTTLE PO ONE ×2 (05:00→07:00)
[2021-06-13 05:09] VITALS: BP 156/87
[2021-06-13] MEDS: LEVOTHYROXINE SODIUM 100 MCG TAB PO SCH (05:48)
[2021-06-13] MEDS: METRONIDAZOLE 500MG/NS 100ML IV SCH ×3 (05:48→18:31)
[2021-06-13 05:49] LABS: BASOPHILS % 0.6 % (0.0-1.0); EOSINOPHILS # (AUTO) 0.2 (0.0-0.4); EOSINOPHILS % 3.8 % (0.0-6.0); HEMATOCRIT 32.2 % (34.2-44.1); HEMOGLOBIN 9.3 g/dL (12.0-16.0); LYMPHOCYTES # (AUTO) 1.7 (1.0-3.2); LYMPHOCYTES % 31.4 % (18.0-39.1); MEAN CORPUSCULAR HEMOGLOBIN 23.3 pg (28-32); MEAN CORPUSCULAR HGB CONC 28.9 g/dL (31-35); MEAN CORPUSCULAR VOLUME 80.5 fL (81-99); MONOCYTES # (AUTO) 0.6 (0.2-0.8); MONOCYTES % 11.6 % (4.4-11.3); NEUTROPHILS # (AUTO) 2.8 (2.1-6.9); NEUTROPHILS % 52.4 % (38.7-80.0); PLATELET COUNT 103 x10e3/uL (140-360); RED CELL DISTRIBUTION WIDTH 16.6 % (11.7-14.4)
[2021-06-13 06:21] LABS: CALCIUM 8.5 mg/dL (8.4-10.2); CREATININE, SERUM 0.78 mg/dL (0.57-1.11)
[2021-06-13 07:14] LABS: CLARITY,URINE CLOUDY (CLEAR); COLOR,URINE YELLOW (YELLOW); KETONES,URINE 1+ (NEGATIVE); LEUKOCYTE ESTERASE ,URINE SMALL (NEGATIVE); NITRITE,URINE NEGATIVE (NEGATIVE); PROTEIN,URINE DIPSTICK 2+ (NEGATIVE); URINE UROBILINOGEN 0.2 mg/dL (0.2 - 1)
[2021-06-13] MEDS: INSULIN REGULAR, HUMAN 100 UNIT/1 ML SQ SCH ×4 (07:30→20:13)
[2021-06-13 07:31] LABS: EPITHELIAL CELLS,URINE MANY /LPF; WBC,URINE (MAN) >50 /HPF (0-5)
[2021-06-13 07:32] LABS: BACTERIA,URINE MODERATE /HPF; TRANSITIONAL EPI CELLS,URINE FEW
[2021-06-13] MEDS: PIPERACILLIN/TAZOBACTAM 3.375 GM in SODIUM CHLORIDE 0.9% 50ML 50 ML IV SCH ×3 (07:48→23:23)
[2021-06-13] MEDS ORDERED: POTASSIUM CHLORIDE 20MEQ/100ML 200 ML IV ONE (08:30)
[2021-06-13] MEDS ORDERED: SODIUM CHLORIDE 0.9% 250ML 250 ML ONE (08:42)
[2021-06-13 09:00] VITALS: BP 156/87
[2021-06-13] MEDS: INSULIN GLARGINE 100 UNITS/ML VIAL SQ SCH ×2 (09:00→20:14)
[2021-06-13] MEDS: PANTOPRAZOLE SOD 40 MG TABEC PO SCH ×3 (09:13→17:01)
[2021-06-13] MEDS: IRON SUCROSE 100 MG in SODIUM CHLORIDE 0.9% 100 ML 100 ML IV SCH (09:14)
[2021-06-13] MEDS: DULOXETINE HCL 30 MG DELAYED RELEASE PO SCH (09:14)
[2021-06-13] MEDS ORDERED: PROPOFOL IV EMULSION 10 MG/ML 20 ML VIAL ONE (13:04)
[2021-06-13] MEDS ORDERED: LIDOCAINE HCL 2% LOCAL INJ 5 ML SDV VIAL INJ ONE (13:04)
[2021-06-13] MEDS ORDERED: MIDAZOLAM HCL 2 MG/2 ML VIAL ONE (13:41)
[2021-06-13] MEDS ORDERED: FENTANYL CITRATE/PF 100MCG/2 ML INJ ONE (13:41)
[2021-06-13] MEDS ORDERED: SODIUM CHLORIDE 0.9% 50ML 50 ML ONE (13:52)
[2021-06-13 14:12] LABS: WBC,FECAL (FECAL LACTOFERRIN) POSITIVE (NEGATIVE)
[2021-06-13] MEDS: POLYETHYLENE GLYCOL 3350 17 GM PACK PO SCH ×2 (17:00→17:01)
[2021-06-13] MEDS: ENOXAPARIN 30 MG/0.3 ML SYR SC SCH (17:01)
[2021-06-13 21:04] VITALS: BP 147/80
[2021-06-13 22:08] VITALS: BP 147/80
[2021-06-14 00:41] VITALS: BP 158/95
[2021-06-14] MEDS: METRONIDAZOLE 500MG/NS 100ML IV SCH ×4 (00:43→17:36)
[2021-06-14] MEDS: ONDANSETRON HCL INJ 2MG/ML 2ML 2 MG/ML VIAL IV PRN ×3 (01:47→21:30)
[2021-06-14] MEDS: Morphine 2mg Syringe 2 MG/ML SYR IV PRN ×3 (01:48→21:30)
[2021-06-14 05:04] VITALS: BP 158/93
[2021-06-14] MEDS: PIPERACILLIN/TAZOBACTAM 3.375 GM in SODIUM CHLORIDE 0.9% 50ML 50 ML IV SCH ×3 (05:19→21:35)
[2021-06-14 05:57] LABS: BASOPHILS % 0.7 % (0.0-1.0); EOSINOPHILS # (AUTO) 0.1 (0.0-0.4); EOSINOPHILS % 3.2 % (0.0-6.0); HEMATOCRIT 30.7 % (34.2-44.1); HEMOGLOBIN 9.2 g/dL (12.0-16.0); LYMPHOCYTES # (AUTO) 1.6 (1.0-3.2); LYMPHOCYTES % 36.2 % (18.0-39.1); MEAN CORPUSCULAR HEMOGLOBIN 23.5 pg (28-32); MEAN CORPUSCULAR VOLUME 78.3 fL (81-99); MONOCYTES # (AUTO) 0.4 (0.2-0.8); MONOCYTES % 9.8 % (4.4-11.3); NEUTROPHILS # (AUTO) 2.2 (2.1-6.9); NEUTROPHILS % 49.6 % (38.7-80.0); PLATELET COUNT 107 x10e3/uL (140-360); RED BLOOD COUNT 3.92 x10e6/uL (3.6-5.1); RED CELL DISTRIBUTION WIDTH 16.7 % (11.7-14.4)
[2021-06-14] MEDS: LEVOTHYROXINE SODIUM 100 MCG TAB PO SCH (06:22)
[2021-06-14 06:32] LABS: ALBUMIN 2.8 g/dL (3.5-5.0); ALBUMIN/GLOBULIN RATIO 0.8 (0.8-2.0); ANION GAP 10.3 mmol/L (8-16); CALCIUM 8.5 mg/dL (8.4-10.2); CREATININE, SERUM 0.78 mg/dL (0.57-1.11); POTASSIUM 3.3 mmol/L (3.5-5.1)
[2021-06-14] MEDS: INSULIN REGULAR, HUMAN 100 UNIT/1 ML SQ SCH ×4 (07:30→21:00)
[2021-06-14] MEDS: DULOXETINE HCL 30 MG DELAYED RELEASE PO SCH (08:47)
[2021-06-14] MEDS: PANTOPRAZOLE SOD 40 MG TABEC PO SCH ×2 (08:47→15:50)
[2021-06-14] MEDS: POLYETHYLENE GLYCOL 3350 17 GM PACK PO SCH ×2 (08:48→16:32)
[2021-06-14] MEDS: INSULIN GLARGINE 100 UNITS/ML VIAL SQ SCH ×2 (09:00→21:00)
[2021-06-14 09:26] LABS: C DIFFICILE TOXIN A&B AMP PROB **POSITIVE** (NEGATIVE)
[2021-06-14 09:27] VITALS: BP 163/91
[2021-06-14] MEDS ORDERED: ACETAMINOPHEN 325 MG TAB PO PRN (10:30)
[2021-06-14] MEDS: VANCOMYCIN HCL 125 MG CAPSULE PO SCH ×2 (12:00→17:38)
[2021-06-14] MEDS: IRON SUCROSE 100 MG in SODIUM CHLORIDE 0.9% 100 ML 100 ML IV SCH (13:12)
[2021-06-14] MEDS ORDERED: METOCLOPRAMIDE HCL 10 MG/2ML VIAL IV ONE (14:00)
[2021-06-14] MEDS: METOCLOPRAMIDE HCL 10 MG/2ML VIAL IV PRN (15:57)
[2021-06-14] MEDS: ENOXAPARIN 30 MG/0.3 ML SYR SC SCH (16:32)
[2021-06-14 21:04] VITALS: BP 148/98
[2021-06-14] MEDS ORDERED: SODIUM CHLORIDE 0.9% 250ML 250 ML ONE (21:36)
[2021-06-14 22:19] VITALS: BP 148/98
[2021-06-14 23:43] VITALS: BP 156/88
[2021-06-15] VITALS (7 sets, daily range): BP systolic 156–163; BP diastolic 86–96
[2021-06-15] MEDS: VANCOMYCIN HCL 125 MG CAPSULE PO SCH
[2021-06-15] MEDS: ONDANSETRON HCL INJ 2MG/ML 2ML 2 MG/ML VIAL IV PRN ×2 (05:20→20:45)
[2021-06-15] MEDS: Morphine 2mg Syringe 2 MG/ML SYR IV PRN ×2 (05:20→22:55)
[2021-06-15] MEDS: METRONIDAZOLE 500MG/NS 100ML IV SCH ×4 (05:29→17:58)
[2021-06-15] MEDS: LEVOTHYROXINE SODIUM 100 MCG TAB PO SCH (05:30)
[2021-06-15] MEDS: PIPERACILLIN/TAZOBACTAM 3.375 GM in SODIUM CHLORIDE 0.9% 50ML 50 ML IV SCH ×3 (06:26→22:43)
[2021-06-15] MEDS: VANCOMYCIN 250MG/5ML ORAL SOLN PO SCH ×3 (06:26→17:58)
[2021-06-15 06:39] LABS: BASOPHILS % 1.1 % (0.0-1.0); EOSINOPHILS # (AUTO) 0.1 (0.0-0.4); EOSINOPHILS % 3.3 % (0.0-6.0); HEMATOCRIT 32.3 % (34.2-44.1); HEMOGLOBIN 9.2 g/dL (12.0-16.0); LYMPHOCYTES # (AUTO) 1.6 (1.0-3.2); LYMPHOCYTES % 42.8 % (18.0-39.1); MEAN CORPUSCULAR HGB CONC 28.5 g/dL (31-35); MEAN CORPUSCULAR VOLUME 80.8 fL (81-99); MONOCYTES # (AUTO) 0.3 (0.2-0.8); MONOCYTES % 7.7 % (4.4-11.3); NEUTROPHILS # (AUTO) 1.6 (2.1-6.9); NEUTROPHILS % 44.8 % (38.7-80.0); PLATELET COUNT 111 x10e3/uL (140-360); RED CELL DISTRIBUTION WIDTH 16.5 % (11.7-14.4)
[2021-06-15 07:04] LABS: CALCIUM 8.9 mg/dL (8.4-10.2); CARBON DIOXIDE 26 mmol/L (22-29); CHLORIDE 106 mmol/L (98-107); CREATININE, SERUM 0.76 mg/dL (0.57-1.11); EST GLOMERULAR FILTRATION RATE 78 ML/MIN (60-); GLUCOSE 98 mg/dL (74-118); SODIUM 140 mmol/L (136-145)
[2021-06-15 07:06] LABS: BUN/CREATININE RATIO 7 (6-25)
[2021-06-15] MEDS: INSULIN REGULAR, HUMAN 100 UNIT/1 ML SQ SCH ×4 (07:30→21:00)
[2021-06-15 07:37] LABS: BLOOD UREA NITROGEN < 5 mg/dL (7-26)
[2021-06-15] MEDS: INSULIN GLARGINE 100 UNITS/ML VIAL SQ SCH ×2 (08:30→21:00)
[2021-06-15] MEDS: IRON SUCROSE 100 MG in SODIUM CHLORIDE 0.9% 100 ML 100 ML IV SCH (08:35)
[2021-06-15] MEDS: POTASSIUM CHLORIDE 20 MEQ TAB CR PO SCH ×2 (08:35→11:27)
[2021-06-15] MEDS: DULOXETINE HCL 30 MG DELAYED RELEASE PO SCH (08:35)
[2021-06-15] MEDS: PANTOPRAZOLE SOD 40 MG TABEC PO SCH ×2 (08:35→16:43)
[2021-06-15] MEDS: POLYETHYLENE GLYCOL 3350 17 GM PACK PO SCH ×2 (08:35→16:18)
[2021-06-15 10:25] LABS: % IRON SATURATION 23 % (15-50); IRON 63 ug/dL (50-170); TOTAL IRON BINDING CAPACITY 279 ug/dL (261-478); TRANSFERRIN 199 mg/dL (180-382)
[2021-06-15] MEDS: METOCLOPRAMIDE HCL 10 MG/2ML VIAL IV PRN (14:43)
[2021-06-15] MEDS ORDERED: ACETAMINOPHEN/CODEINE 300MG - 30MG TAB PO PRN (16:30)
[2021-06-15] MEDS: ENOXAPARIN 30 MG/0.3 ML SYR SC SCH (16:44)
[2021-06-16] VITALS (7 sets, daily range): BP systolic 122–154; BP diastolic 51–96
[2021-06-16] MEDS: METRONIDAZOLE 500MG/NS 100ML IV SCH ×4 (00:20→17:03)
[2021-06-16] MEDS: VANCOMYCIN 250MG/5ML ORAL SOLN PO SCH ×4 (00:25→17:03)
[2021-06-16] MEDS: ONDANSETRON HCL INJ 2MG/ML 2ML 2 MG/ML VIAL IV PRN (01:16)
[2021-06-16] MEDS ORDERED: METOCLOPRAMIDE HCL 10 MG/2ML VIAL IV STA (03:52)
[2021-06-16] MEDS: LEVOTHYROXINE SODIUM 100 MCG TAB PO SCH (05:09)
[2021-06-16] MEDS: Pantoprazole IV 40 MG in SODIUM CHLORIDE 0.9% 50ML 50 ML IV SCH ×4 (05:09→22:45)
[2021-06-16] MEDS: Morphine 2mg Syringe 2 MG/ML SYR IV PRN (05:38)
[2021-06-16] MEDS: PIPERACILLIN/TAZOBACTAM 3.375 GM in SODIUM CHLORIDE 0.9% 50ML 50 ML IV SCH ×3 (06:00→22:45)
[2021-06-16] MEDS: METOCLOPRAMIDE HCL 10 MG/2ML VIAL IV SCH ×3 (06:24→17:03)
[2021-06-16] MEDS: INSULIN REGULAR, HUMAN 100 UNIT/1 ML SQ SCH ×4 (07:30→21:00)
[2021-06-16] MEDS ORDERED: FERROUS SULFATE 325 MG TAB PO SCH (09:00)
[2021-06-16] MEDS: POLYETHYLENE GLYCOL 3350 17 GM PACK PO SCH ×2 (09:00→16:32)
[2021-06-16] MEDS: SUCRALFATE 1 GM/10 ML SUSP NG SCH ×4 (09:01→22:45)
[2021-06-16] MEDS: OLMESARTAN 20 MG TAB PO SCH (09:01)
[2021-06-16] MEDS: DULOXETINE HCL 30 MG DELAYED RELEASE PO SCH (09:02)
[2021-06-16] MEDS: INSULIN GLARGINE 100 UNITS/ML VIAL SQ SCH ×2 (10:13→21:00)
[2021-06-16] MEDS ORDERED: SODIUM CHLORIDE 0.9% 50ML 50 ML ONE (11:44)
[2021-06-16] MEDS: ENOXAPARIN 30 MG/0.3 ML SYR SC SCH (16:32)
[2021-06-16] MEDS ORDERED: SODIUM CHLORIDE 0.9% 250ML 250 ML ONE (22:41)
[2021-06-17] VITALS (8 sets, daily range): BP systolic 118–164; BP diastolic 72–94
[2021-06-17] MEDS: VANCOMYCIN 250MG/5ML ORAL SOLN PO SCH ×4 (00:20→17:00)
[2021-06-17] MEDS: METOCLOPRAMIDE HCL 10 MG/2ML VIAL IV SCH ×4 (00:20→17:00)
[2021-06-17] MEDS: METRONIDAZOLE 500MG/NS 100ML IV SCH ×4 (00:20→17:00)
[2021-06-17] MEDS: Pantoprazole IV 40 MG in SODIUM CHLORIDE 0.9% 50ML 50 ML IV SCH ×5 (01:37→20:45)
[2021-06-17] MEDS: LEVOTHYROXINE SODIUM 100 MCG TAB PO SCH (05:45)
[2021-06-17] MEDS: PIPERACILLIN/TAZOBACTAM 3.375 GM in SODIUM CHLORIDE 0.9% 50ML 50 ML IV SCH ×3 (06:46→22:20)
[2021-06-17 06:53] LABS: ANION GAP 10.8 mmol/L (8-16); CALCIUM 8.7 mg/dL (8.4-10.2); CARBON DIOXIDE 29 mmol/L (22-29); CHLORIDE 105 mmol/L (98-107); EST GLOMERULAR FILTRATION RATE 74 ML/MIN (60-); GLUCOSE 101 mg/dL (74-118); SODIUM 142 mmol/L (136-145)
[2021-06-17 06:55] LABS: BUN/CREATININE RATIO 6 (6-25)
[2021-06-17 06:57] LABS: POTASSIUM 2.8 mmol/L (3.5-5.1)
[2021-06-17 07:35] LABS: BLOOD UREA NITROGEN < 5 mg/dL (7-26)
[2021-06-17] MEDS: POTASSIUM CHLORIDE 20MEQ/100ML 100 ML IV SCH ×4 (08:00→14:46)
[2021-06-17] MEDS: INSULIN REGULAR, HUMAN 100 UNIT/1 ML SQ SCH ×4 (08:30→22:20)
[2021-06-17] MEDS: INSULIN GLARGINE 100 UNITS/ML VIAL SQ SCH ×2 (08:30→22:20)
[2021-06-17] MEDS: SUCRALFATE 1 GM/10 ML SUSP NG SCH ×4 (08:32→21:00)
[2021-06-17] MEDS: OLMESARTAN 20 MG TAB PO SCH (08:34)
[2021-06-17] MEDS: DULOXETINE HCL 30 MG DELAYED RELEASE PO SCH (08:34)
[2021-06-17] MEDS: POLYETHYLENE GLYCOL 3350 17 GM PACK PO SCH ×2 (08:35→15:51)
[2021-06-17] MEDS: IRON SUCROSE 100 MG in SODIUM CHLORIDE 0.9% 100 ML 100 ML IV SCH (09:48)
[2021-06-17] MEDS: ENOXAPARIN 30 MG/0.3 ML SYR SC SCH (17:00)
[2021-06-18] MEDS: Pantoprazole IV 40 MG in SODIUM CHLORIDE 0.9% 50ML 50 ML IV SCH ×3 (00:40→10:45)
[2021-06-18] MEDS: METRONIDAZOLE 500MG/NS 100ML IV SCH ×3 (00:40→12:26)
[2021-06-18] MEDS: VANCOMYCIN 250MG/5ML ORAL SOLN PO SCH ×4 (00:40→17:28)
[2021-06-18] MEDS: METOCLOPRAMIDE HCL 10 MG/2ML VIAL IV SCH ×4 (00:40→17:28)
[2021-06-18 02:51] VITALS: BP 159/94
[2021-06-18 03:55] VITALS: BP 158/96
[2021-06-18] MEDS: PIPERACILLIN/TAZOBACTAM 3.375 GM in SODIUM CHLORIDE 0.9% 50ML 50 ML IV SCH ×2 (05:15→14:41)
[2021-06-18] MEDS: LEVOTHYROXINE SODIUM 100 MCG TAB PO SCH (05:15)
[2021-06-18 05:31] LABS: BASOPHILS % 0.6 % (0.0-1.0); EOSINOPHILS # (AUTO) 0.2 (0.0-0.4); EOSINOPHILS % 3.2 % (0.0-6.0); HEMATOCRIT 34.1 % (34.2-44.1); HEMOGLOBIN 9.8 g/dL (12.0-16.0); LYMPHOCYTES # (AUTO) 2.3 (1.0-3.2); LYMPHOCYTES % 49.4 % (18.0-39.1); MEAN CORPUSCULAR HEMOGLOBIN 23.1 pg (28-32); MEAN CORPUSCULAR HGB CONC 28.7 g/dL (31-35); MEAN CORPUSCULAR VOLUME 80.2 fL (81-99); MONOCYTES # (AUTO) 0.3 (0.2-0.8); MONOCYTES % 6.1 % (4.4-11.3); NEUTROPHILS # (AUTO) 1.9 (2.1-6.9); NEUTROPHILS % 40.3 % (38.7-80.0); PLATELET COUNT 138 x10e3/uL (140-360); RED BLOOD COUNT 4.25 x10e6/uL (3.6-5.1); RED CELL DISTRIBUTION WIDTH 16.8 % (11.7-14.4)
[2021-06-18 06:37] LABS: CARBON DIOXIDE 27 mmol/L (22-29); CHLORIDE 104 mmol/L (98-107); CREATININE, SERUM 0.74 mg/dL (0.57-1.11); EST GLOMERULAR FILTRATION RATE 81 ML/MIN (60-); GLUCOSE 88 mg/dL (74-118); SODIUM 141 mmol/L (136-145)
[2021-06-18 06:39] LABS: BLOOD UREA NITROGEN < 5 mg/dL (7-26); BUN/CREATININE RATIO 7 (6-25)
[2021-06-18] MEDS: INSULIN REGULAR, HUMAN 100 UNIT/1 ML SQ SCH ×3 (07:30→17:29)
[2021-06-18 08:20] LABS: ANISOCYTOSIS SLIGHT; EOSINOPHILS % (MANUAL) 4 % (0-7); HYPOCHROMASIA SLIGHT; LYMPHOCYTES % (MANUAL) 35 % (19-48); MONOCYTES % (MANUAL) 2 % (3.4-9.0); NEUTROPHILS % (MANUAL) 57 % (40-74); PLATELET ESTIMATE SLIGHTLY DECREASED; PLATELET MORPHOLOGY COMMENT NORMAL; RBC MORPHOLOGY COMMENT NORMAL
[2021-06-18 09:00] VITALS: BP 148/90
[2021-06-18] MEDS: OLMESARTAN 20 MG TAB PO SCH (10:17)
[2021-06-18] MEDS: IRON SUCROSE 100 MG in SODIUM CHLORIDE 0.9% 100 ML 100 ML IV SCH (10:17)
[2021-06-18] MEDS: SUCRALFATE 1 GM/10 ML SUSP NG SCH ×3 (10:17→16:30)
[2021-06-18] MEDS: DULOXETINE HCL 30 MG DELAYED RELEASE PO SCH (10:17)
[2021-06-18] MEDS: INSULIN GLARGINE 100 UNITS/ML VIAL SQ SCH (10:18)
[2021-06-18] MEDS ORDERED: POTASSIUM CHLORIDE 20 MEQ TAB CR PO ONE (11:00)
[2021-06-18 11:17] VITALS: BP 148/90
[2021-06-18 12:17] VITALS: BP 168/98
[2021-06-18 16:52] VITALS: BP 167/103
[2021-06-18] MEDS: ENOXAPARIN 30 MG/0.3 ML SYR SC SCH (17:28)
[2021-06-19] MEDS ORDERED: METOCLOPRAMIDE HCL 10 MG TAB PO SCH
[2021-07-08] MEDS ORDERED: LIBRAX CAPSULE1 EACH PO (20:26)
== END 2021-06-18 18:54 | disposition home or self-care (01) | DRG 872 ==
LOC: ER 19:16 → ERHOLD 22:51 → MED/SURG3 23:41
PROVIDERS: ADMIT Family Medicine; ATTEND Family Medicine
PROC: 0DBN8ZX Excision of Sigmoid Colon, Via Natural or Artificial Opening Endoscopic, Diagnostic (ICD-10-PCS; 2021-06-13)
PROC: 0DBP8ZX Excision of Rectum, Via Natural or Artificial Opening Endoscopic, Diagnostic (ICD-10-PCS; 2021-06-13)
PROC: 0D738ZZ Dilation of Lower Esophagus, Via Natural or Artificial Opening Endoscopic (ICD-10-PCS; principal; 2021-06-13 11:30)
PROC: 0DB98ZX Excision of Duodenum, Via Natural or Artificial Opening Endoscopic, Diagnostic (ICD-10-PCS; 2021-06-13 11:30)
PROC: 0DB78ZX Excision of Stomach, Pylorus, Via Natural or Artificial Opening Endoscopic, Diagnostic (ICD-10-PCS; 2021-06-13 11:30)
PROC: 0DB68ZX Excision of Stomach, Via Natural or Artificial Opening Endoscopic, Diagnostic (ICD-10-PCS; 2021-06-13 11:30)
DX: A41.9 Sepsis, unspecified organism (principal); A04.72 Enterocolitis due to Clostridium difficile, not specified as recurrent; N17.9 Acute kidney failure, unspecified; K62.89 Other specified diseases of anus and rectum; I10 Essential (primary) hypertension; E11.9 Type 2 diabetes mellitus without complications; E03.9 Hypothyroidism, unspecified; Z88.5 Allergy status to narcotic agent; Z91.013 Allergy to seafood; E78.5 Hyperlipidemia, unspecified; E11.43 Type 2 diabetes mellitus with diabetic autonomic (poly)neuropathy; K31.84 Gastroparesis; E87.6 Hypokalemia; D50.9 Iron deficiency anemia, unspecified; K37 Unspecified appendicitis; Z91.19 Patient's noncompliance with other medical treatment and regimen; K29.00 Acute gastritis without bleeding; K20.90 Esophagitis, unspecified without bleeding; K29.70 Gastritis, unspecified, without bleeding; K31.7 Polyp of stomach and duodenum; K63.89 Other specified diseases of intestine; K64.8 Other hemorrhoids; K56.41 Fecal impaction; Z20.822 Contact with and (suspected) exposure to COVID-19; Z79.4 Long term (current) use of insulin; Z79.84 Long term (current) use of oral hypoglycemic drugs
CPT/HCPCS: 36415; 43239; 43450; 45378; 45380; 74018; 74176; 80048; 80053; 81001; 82150; 82550; 82553; 82607; 82746; 82948; 83036; 83540; 83605; 83630; 83735; 83993; 84466; 84484; 85025; 85045; 87040; 87045; 87071; 87086; 87177; 87205; 87328; 87493; 88305; 88312; 93005; 96372; 99284; J1650; J1756; J1815; J1817; J2001; J2250; J2270; J2405; J2543; J2765; J3010; J3480; J7030; J7050; U0002

== ENCOUNTER 2022-06-12 11:26 | Inpatient (IN) | payer BC ==
[~2022-06-12] VITALS: Ht 167.6 cm; Wt 92.5 kg
[~2022-06-12 11:26] MED LIST changes: +FAMOTIDINE 20 MG/2 ML VIAL IV ONE; +GLYCOPYRROLATE INJ 0.2 MG/ML VIAL ONE; +KETOROLAC TROMETHAMINE 30 MG/ML VIAL ONE; +LIBRAX CAPSULE1 EACH PO; +LIDOCAINE HCL 2% JELLY 5 ML TUBE ONE; +LIDOCAINE HCL 2% LOCAL INJ 5 ML SDV VIAL INJ ONE; +METOCLOPRAMIDE HCL 10 MG/2ML VIAL ONE; +ONDANSETRON HCL INJ 2MG/ML 2ML 2 MG/ML VIAL ONE; +POVIDONE IODINE 0.05% 0.05 % ML PO ONE; +PROPOFOL IV EMULSION 10 MG/ML 20 ML VIAL ONE; +ROCURONIUM BROMIDE 10 MG/ML 5ML VIAL IV ONE; +SEVOFLURANE INHAL SOLN 250 ML PEN BTL ONE; +SUCCINYLCHOLINE CHLORIDE 20 MG/ML 10ML VIAL ONE
[2022-06-12] MEDS ORDERED: ONDANSETRON HCL INJ 2MG/ML 2ML 2 MG/ML VIAL IV STA (11:36)
[2022-06-12] MEDS ORDERED: SODIUM CHLORIDE 0.9% 1000ML 1,000 ML IV STA (11:36)
[2022-06-12] MEDS ORDERED: Morphine 4mg INJECTION 4 MG/ML INJ IV STA (11:36)
[2022-06-12] MEDS ORDERED: ACETAMINOPHEN 325 MG TAB PO ONE (12:00)
[2022-06-12 12:07] LABS: BASOPHILS # (AUTO) 0.1 (0.0-0.1); BASOPHILS % 0.7 % (0.0-1.0); EOSINOPHILS # (AUTO) 0.1 (0.0-0.4); EOSINOPHILS % 1.1 % (0.0-6.0); HEMATOCRIT 45.2 % (34.2-44.1); HEMOGLOBIN 13.6 g/dL (12.0-16.0); LYMPHOCYTES # (AUTO) 1.3 (1.0-3.2); LYMPHOCYTES % 10.5 % (18.0-39.1); MEAN CORPUSCULAR HEMOGLOBIN 26.2 pg (28-32); MEAN CORPUSCULAR HGB CONC 30.1 g/dL (31-35); MEAN CORPUSCULAR VOLUME 87.1 fL (81-99); MONOCYTES # (AUTO) 0.9 (0.2-0.8); MONOCYTES % 7.5 % (4.4-11.3); NEUTROPHILS % 79.9 % (38.7-80.0); PLATELET COUNT 155 x10e3/uL (140-360); RED BLOOD COUNT 5.19 x10e6/uL (3.6-5.1); RED CELL DISTRIBUTION WIDTH 13.8 % (11.7-14.4)
[2022-06-12] MEDS ORDERED: ACETAMINOPHEN 325 MG TAB ONE (12:13)
[2022-06-12 12:28] LABS: ALBUMIN 3.6 g/dL (3.5-5.0); ALBUMIN/GLOBULIN RATIO 0.8 (0.8-2.0); ANION GAP 17.4 mmol/L (8-16); CALCIUM 10.2 mg/dL (8.4-10.2); CREATININE, SERUM 0.97 mg/dL (0.57-1.11); POTASSIUM 4.4 mmol/L (3.5-5.1)
[2022-06-12] MEDS ORDERED: IOPAMIDOL 370 MG/ML 100 ML INFUS..BTL INJ ONE (12:48)
[2022-06-12 14:22] LABS: CLARITY,URINE SL CLOUDY (CLEAR); COLOR,URINE YELLOW (YELLOW); LEUKOCYTE ESTERASE ,URINE SMALL (NEGATIVE); NITRITE,URINE NEGATIVE (NEGATIVE); PROTEIN,URINE DIPSTICK 1+ (NEGATIVE)
[2022-06-12 14:23] LABS: KETONES,URINE 2+ (NEGATIVE); URINE UROBILINOGEN 0.2 mg/dL (0.2 - 1)
[2022-06-12 14:26] LABS: BACTERIA,URINE FEW /HPF; EPITHELIAL CELLS,URINE FEW /LPF
[2022-06-12] MEDS: SODIUM CHLORIDE 0.9% 1000ML 1,000 ML IV SCH ×2 (15:12→23:05)
[2022-06-12] MEDS: Morphine 4mg INJECTION 4 MG/ML INJ IV PRN ×2 (15:52→23:00)
[2022-06-12] MEDS: ONDANSETRON HCL INJ 2MG/ML 2ML 2 MG/ML VIAL IV PRN ×2 (15:52→23:00)
[2022-06-12 17:03] VITALS: BP 134/81
[2022-06-12] MEDS ORDERED: ACETAMINOPHEN 325 MG TAB PO PRN (18:30)
[2022-06-12] MEDS ORDERED: LIPITOR10 MG PO (18:40)
[2022-06-12] MEDS ORDERED: LEVODOPA25 GM (18:40)
[2022-06-12] MEDS ORDERED: METOPROLOL TAR100 MG PO (18:40)
[2022-06-12] MEDS ORDERED: DICYCLOMINE HCL20 MG PO (18:40)
[2022-06-12] MEDS ORDERED: ONDANSETRON ODT8 MG PO (18:40)
[2022-06-12] MEDS ORDERED: SUCRALFATE1 GM PO (18:40)
[2022-06-12] MEDS ORDERED: CARBIDOPA-LEVO1 EAC1 PO (18:40)
[2022-06-12] MEDS ORDERED: ONDANSETRON HCL 4 MG ORAL DISINTEGRATING TAB PO PRN (18:45)
[2022-06-12] MEDS ORDERED: DEXTROSE 50% SYRINGE 50 ML IV PRN (18:45)
[2022-06-12] MEDS ORDERED: Vancomycin IV 1 GM in SODIUM CHLORIDE 0.9% 250ML 250 ML IV SCH (20:00)
[2022-06-12 21:00] VITALS: BP 134/81
[2022-06-12] MEDS ORDERED: INSULIN GLARGINE 100 UNITS/ML VIAL SQ SCH (21:00)
[2022-06-12 21:47] VITALS: BP 137/90
[2022-06-12] MEDS: INSULIN LISPRO 100 UNIT/1 ML 3ML VIAL SQ SCH (22:00)
[2022-06-12] MEDS: CARBIDOPA/LEVODOPA 25/100 TAB PO SCH (23:05)
[2022-06-12] MEDS: Vancomycin IV 1 GM in SODIUM CHLORIDE 0.9% 250ML 250 ML IV SCH (23:08)
[2022-06-12] MEDS ORDERED: SODIUM CHLORIDE 0.9% 250ML 250 ML ONE (23:27)
[2022-06-13] VITALS (8 sets, daily range): BP systolic 101–176; BP diastolic 56–92
[2022-06-13 06:00] LABS: BASOPHILS # (AUTO) 0.1 (0.0-0.1); BASOPHILS % 0.8 % (0.0-1.0); EOSINOPHILS # (AUTO) 0.2 (0.0-0.4); EOSINOPHILS % 2.7 % (0.0-6.0); HEMATOCRIT 36.1 % (34.2-44.1); HEMOGLOBIN 11.5 g/dL (12.0-16.0); LYMPHOCYTES # (AUTO) 1.8 (1.0-3.2); LYMPHOCYTES % 19.7 % (18.0-39.1); MEAN CORPUSCULAR HEMOGLOBIN 26.4 pg (28-32); MEAN CORPUSCULAR HGB CONC 31.9 g/dL (31-35); MEAN CORPUSCULAR VOLUME 82.8 fL (81-99); MONOCYTES % 11.2 % (4.4-11.3); NEUTROPHILS # (AUTO) 5.9 (2.1-6.9); NEUTROPHILS % 65.3 % (38.7-80.0); PLATELET COUNT 117 x10e3/uL (140-360); RED BLOOD COUNT 4.36 x10e6/uL (3.6-5.1); RED CELL DISTRIBUTION WIDTH 14.1 % (11.7-14.4)
[2022-06-13] MEDS: LEVOTHYROXINE SODIUM 100 MCG TAB PO SCH ×2 (06:00→06:25)
[2022-06-13 06:22] LABS: ANION GAP 15.9 mmol/L (8-16); CALCIUM 9.1 mg/dL (8.4-10.2); CREATININE, SERUM 0.86 mg/dL (0.57-1.11); POTASSIUM 3.9 mmol/L (3.5-5.1)
[2022-06-13] MEDS: SODIUM CHLORIDE 0.9% 1000ML 1,000 ML IV SCH ×2 (06:25→13:45)
[2022-06-13] MEDS: Morphine 4mg INJECTION 4 MG/ML INJ IV PRN (06:53)
[2022-06-13] MEDS: ONDANSETRON HCL INJ 2MG/ML 2ML 2 MG/ML VIAL IV PRN (06:54)
[2022-06-13] MEDS: INSULIN LISPRO 100 UNIT/1 ML 3ML VIAL SQ SCH ×5 (08:26→21:36)
[2022-06-13] MEDS ORDERED: PROMETHAZINE 12.5MG/ NACL 0.9% 12.5 MG/50 ML BAG IV ONE (08:30)
[2022-06-13] MEDS: CARBIDOPA/LEVODOPA 25/100 TAB PO SCH ×3 (09:00→21:31)
[2022-06-13] MEDS ORDERED: ATORVASTATIN 10 MG TAB PO SCH (09:00)
[2022-06-13] MEDS ORDERED: BUPIVACAINE 0.5%/EPI 30 ML SDV INJ ONE (12:49)
[2022-06-13] MEDS ORDERED: LIDOCAINE HCL 1% LOCAL INJ 20 ML VIAL ONE (12:49)
[2022-06-13] MEDS ORDERED: PROPOFOL IV EMULSION 10 MG/ML 20 ML VIAL ONE (12:52)
[2022-06-13] MEDS ORDERED: LIDOCAINE JELLY 2% 10ML URO-JET ONE (12:56)
[2022-06-13] MEDS ORDERED: FENTANYL CITRATE/PF 100MCG/2 ML INJ ONE ×2 (13:17→15:08)
[2022-06-13] MEDS ORDERED: MIDAZOLAM HCL 2 MG/2 ML VIAL ONE (13:17)
[2022-06-13] MEDS ORDERED: KETAMINE HCL INJ 50 MG/ML 10 ML VIAL ONE (13:17)
[2022-06-13] MEDS ORDERED: ACETAMINOPHEN 1000 MG/100 ML 100 ML IV ONE (13:57)
[2022-06-13] MEDS ORDERED: CALCIUM CHLORIDE 10% SYRINGE 10 ML IV ONE (13:57)
[2022-06-13] MEDS ORDERED: HYDROCODONE/APAP 7.5MG-325MG 1 EA TAB PO PRN (14:15)
[2022-06-13] MEDS ORDERED: INSULIN REGULAR, HUMAN 100 UNIT/1 ML ONE (14:40)
[2022-06-13] MEDS: DULOXETINE HCL 30 MG DELAYED RELEASE PO SCH (16:53)
[2022-06-13] MEDS: METOPROLOL TARTRATE 50 MG TAB PO SCH (16:55)
[2022-06-13] MEDS: ATORVASTATIN 20 MG TAB PO SCH (21:31)
[2022-06-13] MEDS: INSULIN GLARGINE 100 UNITS/ML VIAL SQ SCH (21:37)
[2022-06-14] VITALS (7 sets, daily range): BP systolic 136–152; BP diastolic 61–79
[2022-06-14] MEDS: SODIUM CHLORIDE 0.9% 1000ML 1,000 ML IV SCH ×3 (00:55→19:13)
[2022-06-14] MEDS: Vancomycin IV 1 GM in SODIUM CHLORIDE 0.9% 250ML 250 ML IV SCH (00:58)
[2022-06-14] MEDS: Morphine 4mg INJECTION 4 MG/ML INJ IV PRN ×3 (03:49→21:09)
[2022-06-14] MEDS: LEVOTHYROXINE SODIUM 100 MCG TAB PO SCH (06:36)
[2022-06-14 07:49] LABS: BASOPHILS % 0.6 % (0.0-1.0); EOSINOPHILS # (AUTO) 0.2 (0.0-0.4); EOSINOPHILS % 2.2 % (0.0-6.0); HEMATOCRIT 39.9 % (34.2-44.1); HEMOGLOBIN 11.6 g/dL (12.0-16.0); LYMPHOCYTES # (AUTO) 1.9 (1.0-3.2); LYMPHOCYTES % 25.8 % (18.0-39.1); MEAN CORPUSCULAR HEMOGLOBIN 26.2 pg (28-32); MEAN CORPUSCULAR HGB CONC 29.1 g/dL (31-35); MEAN CORPUSCULAR VOLUME 90.3 fL (81-99); MONOCYTES # (AUTO) 0.6 (0.2-0.8); MONOCYTES % 8.5 % (4.4-11.3); NEUTROPHILS # (AUTO) 4.5 (2.1-6.9); NEUTROPHILS % 62.5 % (38.7-80.0); PLATELET COUNT 150 x10e3/uL (140-360); RED BLOOD COUNT 4.42 x10e6/uL (3.6-5.1); RED CELL DISTRIBUTION WIDTH 13.9 % (11.7-14.4)
[2022-06-14] MEDS: INSULIN LISPRO 100 UNIT/1 ML 3ML VIAL SQ SCH ×7 (07:59→21:00)
[2022-06-14] MEDS: DULOXETINE HCL 30 MG DELAYED RELEASE PO SCH (08:03)
[2022-06-14] MEDS: CARBIDOPA/LEVODOPA 25/100 TAB PO SCH ×3 (08:03→21:08)
[2022-06-14] MEDS: METOPROLOL TARTRATE 50 MG TAB PO SCH ×2 (08:03→16:55)
[2022-06-14 08:08] LABS: ANION GAP 12.8 mmol/L (8-16); CALCIUM 8.6 mg/dL (8.4-10.2); CREATININE, SERUM 0.96 mg/dL (0.57-1.11); POTASSIUM 3.8 mmol/L (3.5-5.1)
[2022-06-14] MEDS: ATORVASTATIN 20 MG TAB PO SCH (21:09)
[2022-06-14] MEDS: INSULIN GLARGINE 100 UNITS/ML VIAL SQ SCH (21:15)
[2022-06-15] VITALS (7 sets, daily range): BP systolic 142–163; BP diastolic 75–82
[2022-06-15] MEDS: Vancomycin IV 1 GM in SODIUM CHLORIDE 0.9% 250ML 250 ML IV SCH (00:46)
[2022-06-15] MEDS: ONDANSETRON HCL INJ 2MG/ML 2ML 2 MG/ML VIAL IV PRN ×2 (04:50→10:45)
[2022-06-15] MEDS: LEVOTHYROXINE SODIUM 100 MCG TAB PO SCH (05:44)
[2022-06-15] MEDS: SODIUM CHLORIDE 0.9% 1000ML 1,000 ML IV SCH ×2 (05:46→15:13)
[2022-06-15 06:45] LABS: BASOPHILS % 0.9 % (0.0-1.0); EOSINOPHILS # (AUTO) 0.2 (0.0-0.4); EOSINOPHILS % 3.6 % (0.0-6.0); HEMATOCRIT 34.3 % (34.2-44.1); HEMOGLOBIN 10.6 g/dL (12.0-16.0); LYMPHOCYTES # (AUTO) 1.1 (1.0-3.2); LYMPHOCYTES % 22.3 % (18.0-39.1); MEAN CORPUSCULAR HGB CONC 30.9 g/dL (31-35); MEAN CORPUSCULAR VOLUME 84.1 fL (81-99); MONOCYTES # (AUTO) 0.5 (0.2-0.8); MONOCYTES % 10.6 % (4.4-11.3); NEUTROPHILS # (AUTO) 2.9 (2.1-6.9); NEUTROPHILS % 62.2 % (38.7-80.0); PLATELET COUNT 109 x10e3/uL (140-360); RED BLOOD COUNT 4.08 x10e6/uL (3.6-5.1); RED CELL DISTRIBUTION WIDTH 14.1 % (11.7-14.4)
[2022-06-15 07:11] LABS: ANION GAP 12.8 mmol/L (8-16); CALCIUM 8.6 mg/dL (8.4-10.2); CREATININE, SERUM 0.7 mg/dL (0.57-1.11); POTASSIUM 3.8 mmol/L (3.5-5.1)
[2022-06-15] MEDS: DULOXETINE HCL 30 MG DELAYED RELEASE PO SCH (08:57)
[2022-06-15] MEDS: CARBIDOPA/LEVODOPA 25/100 TAB PO SCH ×2 (08:57→16:03)
[2022-06-15] MEDS: METOPROLOL TARTRATE 50 MG TAB PO SCH ×2 (08:58→17:03)
[2022-06-15] MEDS: INSULIN LISPRO 100 UNIT/1 ML 3ML VIAL SQ SCH ×6 (09:00→17:04)
[2022-06-15] MEDS: Morphine 4mg INJECTION 4 MG/ML INJ IV PRN ×2 (10:46→16:04)
[2022-06-15] MEDS ORDERED: Tylenol #3 PO (17:51)
[2022-06-15] MEDS ORDERED: AUGMENTIN 500-1 EACH PO (17:52)
== END 2022-06-15 18:25 | disposition home or self-care (01) | DRG 571 ==
LOC: ER 11:36 → ERHOLD 13:38 → MED/SURG2 16:45 → OBSVTOIN 06-13 09:23
PROVIDERS: ADMIT Family Medicine; ATTEND Family Medicine
PROC: 0JB90ZZ Excision of Buttock Subcutaneous Tissue and Fascia, Open Approach (ICD-10-PCS; 2022-06-13)
PROC: 0J990ZZ Drainage of Buttock Subcutaneous Tissue and Fascia, Open Approach (ICD-10-PCS; principal; 2022-06-13 13:18)
DX: L02.31 Cutaneous abscess of buttock (principal); A04.71 Enterocolitis due to Clostridium difficile, recurrent; F32.2 Major depressive disorder, single episode, severe without psychotic features; L03.317 Cellulitis of buttock; B95.1 Streptococcus, group B, as the cause of diseases classified elsewhere; E11.65 Type 2 diabetes mellitus with hyperglycemia; K59.00 Constipation, unspecified; E78.5 Hyperlipidemia, unspecified; G20 Parkinson's disease; K21.9 Gastro-esophageal reflux disease without esophagitis; I10 Essential (primary) hypertension; E66.01 Morbid (severe) obesity due to excess calories; E03.9 Hypothyroidism, unspecified; Z91.013 Allergy to seafood; Z90.49 Acquired absence of other specified parts of digestive tract; Z98.51 Tubal ligation status; Z98.49 Cataract extraction status, unspecified eye; Z59.6 Low income; Z79.4 Long term (current) use of insulin; Z79.899 Other long term (current) drug therapy; Z68.32 Body mass index [BMI] 32.0-32.9, adult; Z91.14 Patient's other noncompliance with medication regimen
CPT/HCPCS: 36415; 71046; 74177; 80048; 80053; 80202; 81001; 82948; 83036; 83605; 83690; 85025; 87040; 87071; 87205; 94799; 96361; 99252; G0378; J0330; J1815; J1817; J1885; J2001; J2250; J2270; J2405; J2543; J2550; J2765; J3010; J3370; J7030; J7050; Q9967

== ENCOUNTER 2022-07-15 15:07 | Emergency (ER) | payer BC ==
[~2022-07-15] VITALS: Ht 167.6 cm; Wt 92.5 kg
[~2022-07-15 15:07] MED LIST changes: +AUGMENTIN 500-1 EACH PO; +CARBIDOPA-LEVO1 EAC1 PO; -FAMOTIDINE 20 MG/2 ML VIAL IV ONE; -GLYCOPYRROLATE INJ 0.2 MG/ML VIAL ONE; -KETOROLAC TROMETHAMINE 30 MG/ML VIAL ONE; +LEVODOPA25 GM; -LIDOCAINE HCL 2% JELLY 5 ML TUBE ONE; -LIDOCAINE HCL 2% LOCAL INJ 5 ML SDV VIAL INJ ONE; +LIPITOR10 MG PO; -METOCLOPRAMIDE HCL 10 MG/2ML VIAL ONE; +METOPROLOL TAR100 MG PO; -ONDANSETRON HCL INJ 2MG/ML 2ML 2 MG/ML VIAL ONE; +ONDANSETRON ODT8 MG PO; -POVIDONE IODINE 0.05% 0.05 % ML PO ONE; -PROPOFOL IV EMULSION 10 MG/ML 20 ML VIAL ONE; -ROCURONIUM BROMIDE 10 MG/ML 5ML VIAL IV ONE; -SEVOFLURANE INHAL SOLN 250 ML PEN BTL ONE; -SUCCINYLCHOLINE CHLORIDE 20 MG/ML 10ML VIAL ONE; +Tylenol #3 PO
[2022-07-15] MEDS ORDERED: ONDANSETRON HCL 4 MG ORAL DISINTEGRATING TAB PO ONE (15:45)
[2022-07-15] MEDS ORDERED: ACETAMIN/BUTALBITAL/CAFFEINE TAB PO ONE (15:45)
[2022-07-15] MEDS ORDERED: FIORICET 50-301 EACH PO (17:02)
[2022-07-15] MEDS ORDERED: ONDANSETRON ODT4 MG PO (17:02)
[2022-07-15 17:13] VITALS: BP 156/71
== END 2022-07-15 17:10 | disposition home or self-care (01) ==
LOC: ER 15:18
DX: S06.0X1A Concussion with loss of consciousness of 30 minutes or less, initial encounter (principal); R11.2 Nausea with vomiting, unspecified; R51.9 Headache, unspecified; W10.1XXA Fall (on)(from) sidewalk curb, initial encounter; Y93.01 Activity, walking, marching and hiking; Y92.89 Other specified places as the place of occurrence of the external cause; I10 Essential (primary) hypertension; E11.9 Type 2 diabetes mellitus without complications; E78.5 Hyperlipidemia, unspecified; K21.9 Gastro-esophageal reflux disease without esophagitis
CPT/HCPCS: 70450; 72125; 99283; Q0126

== ENCOUNTER 2022-07-31 14:55 | Inpatient (IN) | payer BC, OTHER ==
[~2022-07-31] VITALS: Ht 167.6 cm; Wt 93.4 kg
[~2022-07-31 14:55] MED LIST changes: +FIORICET 50-301 EACH PO; +HYDRALAZINE HCL 20 MG/ML VIAL ONE; +ONDANSETRON ODT4 MG PO
[2022-07-31] MEDS ORDERED: Morphine 4mg INJECTION 4 MG/ML INJ IV ONE ×3 (15:15→22:30)
[2022-07-31] MEDS ORDERED: SODIUM CHLORIDE 0.9% 1000ML 1,000 ML IV ONE ×2 (15:15→17:15)
[2022-07-31] MEDS ORDERED: LABETALOL HCL 5 MG/ML 20ML VIAL IV STA (15:17)
[2022-07-31 15:44] LABS: BASOPHILS # (AUTO) 0.1 (0.0-0.1); BASOPHILS % 1.3 % (0.0-1.0); EOSINOPHILS # (AUTO) 0.1 (0.0-0.4); EOSINOPHILS % 0.7 % (0.0-6.0); HEMATOCRIT 39.8 % (34.2-44.1); HEMOGLOBIN 12.6 g/dL (12.0-16.0); LYMPHOCYTES # (AUTO) 1.2 (1.0-3.2); LYMPHOCYTES % 16.9 % (18.0-39.1); MEAN CORPUSCULAR HEMOGLOBIN 25.5 pg (28-32); MEAN CORPUSCULAR HGB CONC 31.7 g/dL (31-35); MEAN CORPUSCULAR VOLUME 80.4 fL (81-99); MONOCYTES # (AUTO) 0.3 (0.2-0.8); MONOCYTES % 3.7 % (4.4-11.3); NEUTROPHILS # (AUTO) 5.4 (2.1-6.9); PLATELET COUNT 135 x10e3/uL (140-360); RED BLOOD COUNT 4.95 x10e6/uL (3.6-5.1); RED CELL DISTRIBUTION WIDTH 15.6 % (11.7-14.4)
[2022-07-31 16:00] LABS: ALBUMIN 3.8 g/dL (3.5-5.0); ALBUMIN/GLOBULIN RATIO 0.9 (0.8-2.0); ANION GAP 21.9 mmol/L (8-16); CALCIUM 9.5 mg/dL (8.4-10.2); CREATININE, SERUM 0.88 mg/dL (0.57-1.11); POTASSIUM 4.9 mmol/L (3.5-5.1)
[2022-07-31] MEDS ORDERED: INSULIN REGULAR, HUMAN 100 UNIT/1 ML IV ONE (17:15)
[2022-07-31 17:26] LABS: CLARITY,URINE CLEAR (CLEAR); COLOR,URINE YELLOW (YELLOW); KETONES,URINE 2+ (NEGATIVE); LEUKOCYTE ESTERASE ,URINE NEGATIVE (NEGATIVE); NITRITE,URINE NEGATIVE (NEGATIVE); PROTEIN,URINE DIPSTICK 1+ (NEGATIVE); URINE UROBILINOGEN 0.2 mg/dL (0.2 - 1)
[2022-07-31 17:39] LABS: EPITHELIAL CELLS,URINE FEW /LPF; RBC,URINE 0-5 /HPF (0-5)
[2022-07-31] MEDS ORDERED: IOPAMIDOL 370 MG/ML 100 ML INFUS..BTL INJ ONE (18:16)
[2022-07-31] MEDS ORDERED: ONDANSETRON HCL INJ 2MG/ML 2ML 2 MG/ML VIAL IV STA ×2 (20:30→22:29)
[2022-07-31] MEDS ORDERED: ONDANSETRON HCL INJ 2MG/ML 2ML 2 MG/ML VIAL ONE (20:30)
[2022-07-31] MEDS ORDERED: Morphine 4mg INJECTION 4 MG/ML INJ ONE (20:30)
[2022-07-31] MEDS ORDERED: METOPROLOL TARTRATE INJ 1 MG/ML VIAL IV ONE (22:00)
[2022-07-31] MEDS ORDERED: METOPROLOL TARTRATE INJ 1 MG/ML VIAL IV PRN (22:00)
[2022-07-31] MEDS ORDERED: DEXTROSE 50% SYRINGE 50 ML IV PRN (22:30)
[2022-07-31] MEDS: SODIUM CHLORIDE 0.9% 1000ML 1,000 ML IV SCH (22:36)
[2022-07-31] MEDS ORDERED: HYDROMORPHONE 1MG/1ML INJ IV STA (23:50)
[2022-07-31] MEDS ORDERED: HYDRALAZINE HCL 20 MG/ML VIAL IV STA (23:50)
[2022-08-01] MEDS ORDERED: PROMETHAZINE 12.5MG/ NACL 0.9% 12.5 MG/50 ML BAG IV ONE
[2022-08-01 01:53] VITALS: BP 164/93
[2022-08-01 02:00] VITALS: BP 164/93
[2022-08-01 04:58] VITALS: BP 158/83
[2022-08-01] MEDS: SODIUM CHLORIDE 0.9% 1000ML 1,000 ML IV SCH ×2 (06:09→22:30)
[2022-08-01] MEDS: INSULIN REGULAR, HUMAN 100 UNIT/1 ML SQ SCH ×4 (07:30→20:48)
[2022-08-01 08:08] LABS: BASOPHILS # (AUTO) 0.1 (0.0-0.1); BASOPHILS % 0.4 % (0.0-1.0); HEMATOCRIT 39.5 % (34.2-44.1); HEMOGLOBIN 12.3 g/dL (12.0-16.0); LYMPHOCYTES # (AUTO) 1.6 (1.0-3.2); LYMPHOCYTES % 12.1 % (18.0-39.1); MEAN CORPUSCULAR HEMOGLOBIN 25.7 pg (28-32); MEAN CORPUSCULAR HGB CONC 31.1 g/dL (31-35); MEAN CORPUSCULAR VOLUME 82.5 fL (81-99); MONOCYTES # (AUTO) 1.1 (0.2-0.8); MONOCYTES % 8.7 % (4.4-11.3); NEUTROPHILS # (AUTO) 10.2 (2.1-6.9); NEUTROPHILS % 78.3 % (38.7-80.0); PLATELET COUNT 193 x10e3/uL (140-360); RED BLOOD COUNT 4.79 x10e6/uL (3.6-5.1); RED CELL DISTRIBUTION WIDTH 15.8 % (11.7-14.4)
[2022-08-01] MEDS: ONDANSETRON HCL INJ 2MG/ML 2ML 2 MG/ML VIAL IV PRN ×3 (08:18→21:00)
[2022-08-01 08:27] LABS: ALBUMIN 3.6 g/dL (3.5-5.0); ALBUMIN/GLOBULIN RATIO 0.9 (0.8-2.0); ANION GAP 21.3 mmol/L (8-16); CALCIUM 8.9 mg/dL (8.4-10.2); CREATININE, SERUM 1.2 mg/dL (0.57-1.11); POTASSIUM 4.3 mmol/L (3.5-5.1)
[2022-08-01] MEDS: METOPROLOL TARTRATE INJ 1 MG/ML VIAL IV SCH ×3 (08:47→17:06)
[2022-08-01] MEDS ORDERED: INSULIN GLARGINE 100 UNITS/ML VIAL SQ SCH (09:00)
[2022-08-01 09:55] VITALS: BP 200/104
[2022-08-01] MEDS: Morphine 4mg INJECTION 4 MG/ML INJ IV PRN ×2 (11:29→21:00)
[2022-08-01] MEDS ORDERED: INSULIN LISPRO 100 UNIT/1 ML 3ML VIAL SQ ONE (11:45)
[2022-08-01 12:24] VITALS: BP 189/118
[2022-08-01] MEDS: PROMETHAZINE 12.5MG/ NACL 0.9% 12.5 MG/50 ML BAG IV PRN ×2 (12:35→22:08)
[2022-08-01] MEDS: HYDRALAZINE HCL 20 MG/ML VIAL IV PRN (12:35)
[2022-08-01] MEDS: ENOXAPARIN 30 MG/0.3 ML SYR SC SCH (17:06)
[2022-08-01] MEDS: INSULIN GLARGINE 100 UNITS/ML VIAL SQ SCH (17:14)
[2022-08-01 20:00] VITALS: BP 168/104
[2022-08-02] VITALS (10 sets, daily range): BP systolic 119–180; BP diastolic 64–103
[2022-08-02] MEDS ORDERED: METOCLOPRAMIDE HCL 10 MG/2ML VIAL IV STA (01:00)
[2022-08-02] MEDS: SODIUM CHLORIDE 0.9% 1000ML 1,000 ML IV SCH ×4 (01:19→21:03)
[2022-08-02] MEDS: METOCLOPRAMIDE HCL 10 MG/2ML VIAL IV SCH ×4 (05:19→22:57)
[2022-08-02] MEDS: METOPROLOL TARTRATE INJ 1 MG/ML VIAL IV SCH ×5 (05:20→23:13)
[2022-08-02] MEDS: INSULIN REGULAR, HUMAN 100 UNIT/1 ML SQ SCH ×4 (07:30→21:00)
[2022-08-02] MEDS: INSULIN GLARGINE 100 UNITS/ML VIAL SQ SCH ×2 (09:00→17:00)
[2022-08-02] MEDS ORDERED: PROPOFOL IV EMULSION 10 MG/ML 20 ML VIAL ONE (13:54)
[2022-08-02] MEDS ORDERED: LIDOCAINE HCL 2% LOCAL INJ 5 ML SDV VIAL INJ ONE (13:54)
[2022-08-02 15:42] LABS: INR 1.16; PROTHROMBIN TIME 15.3 seconds (11.9-14.5)
[2022-08-02] MEDS: SUCRALFATE 1 GM TAB PO SCH ×3 (16:30→21:00)
[2022-08-02] MEDS: ENOXAPARIN 30 MG/0.3 ML SYR SC SCH (16:44)
[2022-08-02] MEDS: HYDRALAZINE HCL 20 MG/ML VIAL IV PRN (21:01)
[2022-08-02] MEDS: Morphine 4mg INJECTION 4 MG/ML INJ IV PRN (22:57)
[2022-08-03] VITALS (7 sets, daily range): BP systolic 136–174; BP diastolic 85–96
[2022-08-03] MEDS: METOCLOPRAMIDE HCL 10 MG/2ML VIAL IV SCH ×3 (05:42→17:15)
[2022-08-03] MEDS: METOPROLOL TARTRATE INJ 1 MG/ML VIAL IV SCH ×3 (05:45→16:36)
[2022-08-03 06:58] LABS: BASOPHILS # (AUTO) 0.1 (0.0-0.1); BASOPHILS % 1.2 % (0.0-1.0); EOSINOPHILS # (AUTO) 0.2 (0.0-0.4); EOSINOPHILS % 2.3 % (0.0-6.0); HEMATOCRIT 35.8 % (34.2-44.1); HEMOGLOBIN 10.7 g/dL (12.0-16.0); LYMPHOCYTES # (AUTO) 2.5 (1.0-3.2); LYMPHOCYTES % 36.2 % (18.0-39.1); MEAN CORPUSCULAR HEMOGLOBIN 25.2 pg (28-32); MEAN CORPUSCULAR HGB CONC 29.9 g/dL (31-35); MEAN CORPUSCULAR VOLUME 84.4 fL (81-99); MONOCYTES # (AUTO) 0.6 (0.2-0.8); MONOCYTES % 8.9 % (4.4-11.3); NEUTROPHILS # (AUTO) 3.5 (2.1-6.9); NEUTROPHILS % 51.3 % (38.7-80.0); PLATELET COUNT 111 x10e3/uL (140-360); RED BLOOD COUNT 4.24 x10e6/uL (3.6-5.1); RED CELL DISTRIBUTION WIDTH 16.3 % (11.7-14.4)
[2022-08-03 07:25] LABS: ALBUMIN 3.1 g/dL (3.5-5.0); ANION GAP 12.2 mmol/L (8-16); CALCIUM 8.5 mg/dL (8.4-10.2); CREATININE, SERUM 0.77 mg/dL (0.57-1.11); POTASSIUM 3.2 mmol/L (3.5-5.1)
[2022-08-03] MEDS: SUCRALFATE 1 GM TAB PO SCH ×4 (07:30→20:17)
[2022-08-03] MEDS: INSULIN GLARGINE 100 UNITS/ML VIAL SQ SCH ×2 (08:30→17:16)
[2022-08-03] MEDS: INSULIN REGULAR, HUMAN 100 UNIT/1 ML SQ SCH ×4 (08:30→20:17)
[2022-08-03] MEDS: Morphine 4mg INJECTION 4 MG/ML INJ IV PRN ×3 (09:00→21:40)
[2022-08-03] MEDS: SODIUM CHLORIDE 0.9% 1000ML 1,000 ML IV SCH (14:18)
[2022-08-03] MEDS: ENOXAPARIN 30 MG/0.3 ML SYR SC SCH (17:16)
[2022-08-04] MEDS: METOCLOPRAMIDE HCL 10 MG/2ML VIAL IV SCH ×5 (00:27→23:54)
[2022-08-04] MEDS: METOPROLOL TARTRATE INJ 1 MG/ML VIAL IV SCH ×4 (00:31→16:53)
[2022-08-04 00:38] VITALS: BP 183/94
[2022-08-04] MEDS: ONDANSETRON HCL INJ 2MG/ML 2ML 2 MG/ML VIAL IV PRN (02:22)
[2022-08-04 04:00] VITALS: BP 173/89
[2022-08-04] MEDS: HYDRALAZINE HCL 20 MG/ML VIAL IV PRN ×2 (05:12→21:07)
[2022-08-04] MEDS: INSULIN REGULAR, HUMAN 100 UNIT/1 ML SQ SCH ×4 (07:30→21:13)
[2022-08-04] MEDS: INSULIN GLARGINE 100 UNITS/ML VIAL SQ SCH ×2 (09:00→16:55)
[2022-08-04 09:12] VITALS: BP 173/94
[2022-08-04] MEDS: SUCRALFATE 1 GM TAB PO SCH ×4 (09:39→21:00)
[2022-08-04 12:00] VITALS: BP 172/99
[2022-08-04 16:04] VITALS: BP 180/90
[2022-08-04] MEDS: ENOXAPARIN 30 MG/0.3 ML SYR SC SCH (16:54)
[2022-08-04 20:00] VITALS: BP 170/93
[2022-08-05] VITALS (7 sets, daily range): BP systolic 135–169; BP diastolic 60–96
[2022-08-05] MEDS: METOPROLOL TARTRATE INJ 1 MG/ML VIAL IV SCH ×4 (04:54→18:06)
[2022-08-05] MEDS: METOCLOPRAMIDE HCL 10 MG/2ML VIAL IV SCH ×3 (04:54→18:06)
[2022-08-05 06:26] LABS: BASOPHILS % 0.7 % (0.0-1.0); EOSINOPHILS # (AUTO) 0.2 (0.0-0.4); EOSINOPHILS % 3.1 % (0.0-6.0); HEMATOCRIT 33.8 % (34.2-44.1); HEMOGLOBIN 10.9 g/dL (12.0-16.0); LYMPHOCYTES # (AUTO) 1.9 (1.0-3.2); MEAN CORPUSCULAR HEMOGLOBIN 27.9 pg (28-32); MEAN CORPUSCULAR HGB CONC 32.2 g/dL (31-35); MEAN CORPUSCULAR VOLUME 86.7 fL (81-99); MONOCYTES # (AUTO) 0.5 (0.2-0.8); MONOCYTES % 8.2 % (4.4-11.3); NEUTROPHILS # (AUTO) 2.9 (2.1-6.9); NEUTROPHILS % 52.8 % (38.7-80.0); RED CELL DISTRIBUTION WIDTH 18.4 % (11.7-14.4)
[2022-08-05 06:31] LABS: PLATELET COUNT 84 x10e3/uL (140-360)
[2022-08-05 06:38] LABS: ANION GAP 11.8 mmol/L (8-16); CALCIUM 8.8 mg/dL (8.4-10.2); CREATININE, SERUM 0.69 mg/dL (0.57-1.11)
[2022-08-05 06:42] LABS: POTASSIUM 2.8 mmol/L (3.5-5.1)
[2022-08-05] MEDS: INSULIN REGULAR, HUMAN 100 UNIT/1 ML SQ SCH ×4 (07:30→21:43)
[2022-08-05] MEDS: INSULIN GLARGINE 100 UNITS/ML VIAL SQ SCH ×2 (09:53→18:13)
[2022-08-05] MEDS: SUCRALFATE 1 GM TAB PO SCH ×4 (09:55→21:29)
[2022-08-05] MEDS: SODIUM CHLORIDE 0.9% 1000ML 1,000 ML IV SCH (15:08)
[2022-08-05] MEDS: ENOXAPARIN 30 MG/0.3 ML SYR SC SCH (18:14)
[2022-08-05] MEDS ORDERED: ONDANSETRON HCL 4 MG ORAL DISINTEGRATING TAB PO PRN (19:15)
[2022-08-05] MEDS ORDERED: SUCRALFATE 1 GM TAB PO SCH (21:00)
[2022-08-05] MEDS: DICYCLOMINE HCL 20 MG TAB PO SCH (21:29)
[2022-08-05] MEDS: POTASSIUM CHLORIDE 20MEQ/100ML 100 ML IV SCH ×2 (21:29→23:51)
[2022-08-05] MEDS: CARBIDOPA/LEVODOPA 25/100 TAB PO SCH (21:29)
[2022-08-06] VITALS (8 sets, daily range): BP systolic 140–170; BP diastolic 60–96
[2022-08-06 05:36] LABS: BASOPHILS # (AUTO) 0.1 (0.0-0.1); EOSINOPHILS # (AUTO) 0.1 (0.0-0.4); EOSINOPHILS % 2.9 % (0.0-6.0); HEMATOCRIT 32.5 % (34.2-44.1); LYMPHOCYTES # (AUTO) 2.2 (1.0-3.2); LYMPHOCYTES % 45.3 % (18.0-39.1); MEAN CORPUSCULAR HEMOGLOBIN 25.9 pg (28-32); MEAN CORPUSCULAR HGB CONC 30.8 g/dL (31-35); MEAN CORPUSCULAR VOLUME 84.2 fL (81-99); MONOCYTES # (AUTO) 0.4 (0.2-0.8); MONOCYTES % 7.9 % (4.4-11.3); NEUTROPHILS # (AUTO) 2.1 (2.1-6.9); NEUTROPHILS % 42.5 % (38.7-80.0); PLATELET COUNT 113 x10e3/uL (140-360); RED BLOOD COUNT 3.86 x10e6/uL (3.6-5.1); RED CELL DISTRIBUTION WIDTH 15.9 % (11.7-14.4)
[2022-08-06 06:02] LABS: ANION GAP 10.4 mmol/L (8-16); CALCIUM 8.9 mg/dL (8.4-10.2); CREATININE, SERUM 0.77 mg/dL (0.57-1.11); POTASSIUM 3.4 mmol/L (3.5-5.1)
[2022-08-06] MEDS: METOCLOPRAMIDE HCL 10 MG/2ML VIAL IV SCH ×4 (06:15→18:22)
[2022-08-06] MEDS: LEVOTHYROXINE SODIUM 100 MCG TAB PO SCH (06:15)
[2022-08-06] MEDS: METOPROLOL TARTRATE 50 MG TAB PO SCH ×2 (10:22→17:37)
[2022-08-06] MEDS: ATORVASTATIN 10 MG TAB PO SCH (10:22)
[2022-08-06] MEDS: DICYCLOMINE HCL 20 MG TAB PO SCH ×4 (10:22→22:14)
[2022-08-06] MEDS: CARBIDOPA/LEVODOPA 25/100 TAB PO SCH ×3 (10:22→22:14)
[2022-08-06] MEDS: SUCRALFATE 1 GM TAB PO SCH ×4 (10:23→22:14)
[2022-08-06] MEDS: INSULIN REGULAR, HUMAN 100 UNIT/1 ML SQ SCH ×5 (10:27→22:14)
[2022-08-06] MEDS: INSULIN GLARGINE 100 UNITS/ML VIAL SQ SCH ×2 (12:01→17:40)
[2022-08-06] MEDS: SODIUM CHLORIDE 0.9% 1000ML 1,000 ML IV SCH (14:01)
[2022-08-06] MEDS: ENOXAPARIN 30 MG/0.3 ML SYR SC SCH (17:36)
[2022-08-07] VITALS: BP 162/97
[2022-08-07] MEDS: METOCLOPRAMIDE HCL 10 MG/2ML VIAL IV SCH ×2 (00:09→06:51)
[2022-08-07 06:00] VITALS: BP 153/71
[2022-08-07] MEDS: LEVOTHYROXINE SODIUM 100 MCG TAB PO SCH (06:51)
[2022-08-07 07:22] LABS: BASOPHILS # (AUTO) 0.1 (0.0-0.1); BASOPHILS % 0.9 % (0.0-1.0); EOSINOPHILS # (AUTO) 0.2 (0.0-0.4); EOSINOPHILS % 3.5 % (0.0-6.0); HEMATOCRIT 34.7 % (34.2-44.1); HEMOGLOBIN 10.6 g/dL (12.0-16.0); LYMPHOCYTES # (AUTO) 2.2 (1.0-3.2); LYMPHOCYTES % 40.4 % (18.0-39.1); MEAN CORPUSCULAR HEMOGLOBIN 25.8 pg (28-32); MEAN CORPUSCULAR HGB CONC 30.5 g/dL (31-35); MEAN CORPUSCULAR VOLUME 84.4 fL (81-99); MONOCYTES # (AUTO) 0.5 (0.2-0.8); MONOCYTES % 8.7 % (4.4-11.3); NEUTROPHILS # (AUTO) 2.6 (2.1-6.9); NEUTROPHILS % 46.3 % (38.7-80.0); PLATELET COUNT 121 x10e3/uL (140-360); RED BLOOD COUNT 4.11 x10e6/uL (3.6-5.1); RED CELL DISTRIBUTION WIDTH 15.9 % (11.7-14.4)
[2022-08-07] MEDS: INSULIN REGULAR, HUMAN 100 UNIT/1 ML SQ SCH (07:30)
[2022-08-07 07:39] LABS: ANION GAP 13.2 mmol/L (8-16); CALCIUM 8.8 mg/dL (8.4-10.2); CREATININE, SERUM 0.73 mg/dL (0.57-1.11); POTASSIUM 3.2 mmol/L (3.5-5.1)
[2022-08-07] MEDS ORDERED: POTASSIUM CHLORIDE 20MEQ/100ML 100 ML IV ONE (08:00)
[2022-08-07 08:05] VITALS: BP 145/84
[2022-08-07] MEDS: ATORVASTATIN 10 MG TAB PO SCH (08:37)
[2022-08-07] MEDS: METOPROLOL TARTRATE 50 MG TAB PO SCH (08:37)
[2022-08-07] MEDS: CARBIDOPA/LEVODOPA 25/100 TAB PO SCH (08:38)
[2022-08-07] MEDS: DICYCLOMINE HCL 20 MG TAB PO SCH (08:38)
[2022-08-07] MEDS: SUCRALFATE 1 GM TAB PO SCH (08:38)
[2022-08-07 08:39] VITALS: BP 145/84
[2022-08-07] MEDS: INSULIN GLARGINE 100 UNITS/ML VIAL SQ SCH (08:47)
== END 2022-08-07 11:52 | disposition home or self-care (01) | DRG 74 ==
LOC: ER 15:00 → ERHOLD 22:19 → MED/SURG2 08-01 01:36 → OBSVTOIN 08-01 10:00
PROVIDERS: ADMIT Family Medicine; ATTEND Family Medicine
PROC: 0DB78ZX Excision of Stomach, Pylorus, Via Natural or Artificial Opening Endoscopic, Diagnostic (ICD-10-PCS; principal; 2022-08-02 14:32)
PROC: 0DB98ZX Excision of Duodenum, Via Natural or Artificial Opening Endoscopic, Diagnostic (ICD-10-PCS; 2022-08-02 14:32)
DX: E11.43 Type 2 diabetes mellitus with diabetic autonomic (poly)neuropathy (principal); I85.10 Secondary esophageal varices without bleeding; K76.6 Portal hypertension; K31.84 Gastroparesis; K29.00 Acute gastritis without bleeding; E66.9 Obesity, unspecified; Z68.33 Body mass index [BMI] 33.0-33.9, adult; K74.60 Unspecified cirrhosis of liver; I10 Essential (primary) hypertension; E78.5 Hyperlipidemia, unspecified; K21.00 Gastro-esophageal reflux disease with esophagitis, without bleeding; K58.9 Irritable bowel syndrome, unspecified; L89.319 Pressure ulcer of right buttock, unspecified stage; L89.152 Pressure ulcer of sacral region, stage 2; E11.622 Type 2 diabetes mellitus with other skin ulcer; G20 Parkinson's disease; D73.4 Cyst of spleen; E86.0 Dehydration; Z90.49 Acquired absence of other specified parts of digestive tract; Z79.4 Long term (current) use of insulin; Z20.822 Contact with and (suspected) exposure to COVID-19
CPT/HCPCS: 0223U; 36415; 43239; 43450; 71275; 74174; 80048; 80053; 81001; 82948; 83690; 85025; 85610; 85730; 86039; 86255; 88305; 88312; 88342; 93005; 96372; 99252; 99284; G0378; J1170; J1650; J1815; J2001; J2270; J2405; J2550; J2765; J3480; J7030; Q9967

== ENCOUNTER → 2022-08-30 | Outpatient (CLI) | payer BC ==
[~2022-08-30] MED LIST changes: +GADOBENATE DIMEGLUMINE 1 ML IV ONE; -HYDRALAZINE HCL 20 MG/ML VIAL ONE
== END ==
LOC: MRI 09:19
PROVIDERS: ATTEND Nurse Practitioner
DX: D73.4 Cyst of spleen (principal)
CPT/HCPCS: 74183; A9577